=== PATIENT | male | born 1940 | race Caucasian/White ===

== ENCOUNTER 2023-09-15 10:31 | Outpatient (OUT) | payer MEDICARE, SELFPAY ==
--- NOTE | 2023-09-15 | XR_ITS ---
The [address] [address] Patient Name: ANALIA OLIVO MRN: [id number] date: 1940 Sex: M Assigned Patient Location: RAD Current Patient Location: [facility] Accession/Order Number: [id number] Exam Date: 09/15/2023 11:00 Report Date: 09/16/2023 21:37 At the request of: RILEY WILLARD Procedure: XR ankle LT min 3V EXAM: XR ankle LT min 3V HISTORY: The patient is an 83-year-old male with LEFT ANKLE PAIN COMPARISON: None. FINDINGS: The mortise view demonstrates a small ununited ossicle off the lateral process the talus. This is too small to characterize as to age. The lateral view demonstrates a small well-corticated ossicle just posterior to the posterior malleolus. This appears chronic. No other acute or ununited fractures are seen within or around the ankle joint. The ankle mortise is intact and uniform. The syndesmosis is maintained. No soft tissue swelling is seen. XR/XR ankle LT min 3V IMPRESSION: Fracture of the lateral process the talus, age indeterminate. Electronically authenticated by: AUSTYN LEE Date: 09/16/2023 21:37
--- NOTE | 2023-09-15 | XR_ITS ---
The [address] [address] Patient Name: ANALIA OLIVO MRN: [id number] date: 1940 Sex: M Assigned Patient Location: [facility] Current Patient Location: Accession/Order Number: [id number] Exam Date: 09/15/2023 11:00 Report Date: 09/16/2023 21:34 At the request of: RIELY WILLARD Procedure: XR foot LT min 3V EXAM: XR foot LT min 3V HISTORY: The patient is an 83-year-old male with LEFT FOOT PAIN COMPARISON: None. FINDINGS: No fractures or dislocations are seen throughout the left foot. 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 The widths and alignment of the other joints are maintained. There is a chronic pes planus deformity. XR/XR foot LT min 3V IMPRESSION: No radiographic findings of acute trauma of the left foot. Electronically authenticated by: AUSTYN LEE Date: 09/16/2023 21:34
== END 2023-09-15 10:32 | disposition home or self-care (01) ==
PROVIDERS: PCP Family Medicine; Visit Provider Podiatrist Foot & Ankle Surgery
DX: M79.672 Pain in left foot (principal); M25.572 Pain in left ankle and joints of left foot; S92.145A Nondisplaced dome fracture of left talus, initial encounter for closed fracture
CPT/HCPCS: 73610; 73630

== ENCOUNTER 2023-09-21 14:19 | Outpatient (RCR) | payer MEDICARE, SELFPAY | END 2023-10-03 09:00 | disposition home or self-care (01) | LOC: PT 14:19 | PROVIDERS: PCP Family Medicine; Visit Provider Podiatrist Foot & Ankle Surgery | DX: M19.072 Primary osteoarthritis, left ankle and foot (principal); M21.372 Foot drop, left foot | CPT/HCPCS: 97010; 97110; 97140; 97162; G0283 ==

== ENCOUNTER 2023-10-04 09:07 | Outpatient (RCR) | payer MEDICARE, SELFPAY | END 2023-10-15 10:51 | disposition home or self-care (01) | LOC: PT 09:07 | PROVIDERS: PCP Family Medicine; Visit Provider Podiatrist Foot & Ankle Surgery | DX: M19.072 Primary osteoarthritis, left ankle and foot (principal) | CPT/HCPCS: 97010; 97110; 97140; G0283 ==

== ENCOUNTER 2023-10-20 08:10 | Outpatient (OUT) | payer MEDICARE, SELFPAY ==
--- OUTSIDE RECORDS SUMMARY | 2023-10-20 08:32 | XMS_ITS | CCD ---
Author Name Unknown Address [address] [place] [address] Organization [facility] Care Team Providers Care Child Care Sitter Name Role Phone Klarissa Nance Primary Care Provider [phone] Klarissa Nance Primary Care Physician [phone] Klarissa Nance MD Primary Care Provider [phone] ROMY HUGHES Admitting Unavailable ROMY HUGHES Attending Unavailable KLARISSA NNACE Primary Care Unavailable DR KLARISSA NANCE Primary Care Unavailable BRAYAN LUNA Admitting Unavailable BRAYAN LUNA Attending Unavailable RICCARDO, DR LEANNE Buenrostro Consulting Unavailable NINOSKA GONZALES Consulting Unavailable BRAYAN LUNA Consulting Unavailable NAVYA BUSH Admitting Unavailable NAVYA BUSH Attending Unavailable LEE ANN, DR CYR Primary Care Unavailable NAVYA BUSH Consulting Unavailable RILEY WILD Consulting Unavailable David PEPPER Attending Unavailable David PEPPER Attending Unavailable David PEPPER Attending Unavailable David PEPPER Admitting Unavailable Allergies Allergy Classification Reported Allergen(s) Allergy Type Date of Onset Reaction(s) Facility (6 sources) Sulfonamides (Antibiotic); Translations: [sulfa drugs] Drug allergy Unknown (qualifier value) [facility] (1 source) Sulfonamides (Antibiotic) Propensity to adverse reactions to drug 2 [facility] (1 source) Sulfonamides (Antibiotic) Drug allergy (disorder) [facility] Repository Medications Current Medications Medication Drug Class(es) Dates Sig (Normalized) Sig (Original) amiodarone hydrochloride 200 mg oral tablet (6 sources) Antiarrhythmic Start: 03-13-2021 take 1 tablet by mouth once daily amiodarone Tab 200 mg = 1 tab(s), Oral, Daily, # 30 tab(s), Refills(s) 0 Start Date: 03/13/21 Status: Ordered apixaban 2.5 mg oral tablet (6 sources) Factor Xa Inhibitor Start: 01-22-2021 take 2.5 mg by mouth twice daily Eliquis 2.5 mg, Oral, BID, Refills(s) 0 Start Date: 01/22/21 Status: Ordered aspirin 81 mg oral tablet (5 sources) Platelet Aggregation Inhibitor, Nonsteroidal Anti-inflammatory Drug Start: 05-26-2019 take 1 tablet by mouth once daily aspirin 81 mg oral tablet 81 mg = 1 tab(s), Oral, Daily Start Date: 05/26/19 Status: Ordered atorvastatin 40 mg oral tablet (6 sources) HMG-CoA Reductase Inhibitor Start: 03-13-2021 take 1 tablet by mouth once daily atorvastatin 40 mg Tab 40 mg = 1 tab(s), Oral, Daily, # 30 tab(s), Refills(s) 0 Start Date: 03/13/21 Status: Ordered bicalutamide 50 mg oral tablet (7 sources) Androgen Receptor Inhibitor Start: 04-09-2023 take 1 tablet by mouth every twenty-four hours bicalutamide 50 mg Tab 50 mg = 1 tab(s), Oral, q24hr, # 90 tab(s), Refills(s) 3, [facility]: [facility][id number], 169, cm, 07/15/22 7:43:00 EDT, Height/Length Dosing, 70, kg, 07/15/22 7:43:00 EDT, Weight Dosing Start Date: 04/09/23 Status: Ordered Start: 01-28-2022 take 1 tablet by joe th every twenty-four hours bicalutamide 50 mg Tab 50 mg = 1 tab(s), Oral, q24hr, # 90 tab(s), Refills(s) 3, [facility]acy: [facility], 169, cm, 01/21/22 7:46:00 EDT, Height/Length Dosing, 70, kg, 01/21/22 7:46:00 EDT, Weight Dosing Start Date: 01/28/22 Status: Ordered Start: 01-08-2021 take 1 tablet by joe th every twenty-four hours bicalutamide 50 mg Tab 50 mg = 1 tab(s), Oral, q24hr, # 30 tab(s), Refills(s) 0 Start Date: 03/13/21 Status: Ordered take 1 tablet by mouth once rafat y bicalutamide (CASODEX) 50 MG chemo tablet Take 50 mg by mouth daily 0 Active Docusate / sennoside B (1 source) Start: 03-13-2021 docusate-senna 50 mg-8.6 mg oral capsule cap(s), Oral, qPM, Refill(s) 0 Start Date: 03/13/21 Status: Ordered docusate sodium 50 mg / sennosides, fdc 8.6 mg oral capsule (4 sources) Start: 03-13-2021 docusate-senna 50 mg-8.6 mg oral capsule cap(s), Oral, qPM, Refill(s) 0 Start Date: 03/13/21 Status: Ordered FeroSul 325 mg oral tablet (5 sources) Start: 03-13-2021 take 1 tablet by mouth twice daily FeroSul 325 mg oral tablet take 1 tablet by mouth twice a day Start Date: 03/13/21 Status: Ordered furosemide 40 mg oral tablet (5 sources) Loop Diuretic Start: 03-13-2021 take 1 tablet by mouth once daily furosemide 40 mg Tab 40 mg = 1 tab(s), Oral, Daily, # 30 tab(s), Refills(s) 0 Start Date: 03/13/21 Status: Ordered hydroCHLOROthiazide 25 mg oral tablet (5 sources) Thiazide Diuretic Start: 03-13-2021 take 1 tablet by mouth once daily hydrochlorothiazide 25 mg oral tablet 25 mg = 1 tab(s), Oral, Daily, # 30 tab(s), Refills(s) 0 Start Date: 03/13/21 Status: Ordered hydroCHLOROthiazide 25 mg / metoprolol tartrate 50 mg oral tablet (5 sources) Thiazide Diuretic, beta-Adrenerg ic Nazia Start: 03-13-2021 hydrochlorothiazide-met oprolol 25 mg-50 mg oral tablet 1 tab(s), Oral, BID, 60 tab(s), Refill(s) 0 Start Date: 03/13/21 Status: Ordered Lactulose (5 sources) Osmotic Laxative Start: 03-13-2021 Lactulose 20 g Powder = 1 packet(s), Oral, BID, # 20 gram, Refills(s) 0 Start Date: 03/13/21 Status: Ordered Start: 03-13-2021 Lactulose 20 g Powder = 1 packet(s), Oral, BID, # 20 gram, Refills(s) 0 Start Date: 03/13/21 Status: Ordered megestrol acetate 40 mg oral tablet (5 sources) Progestin Start: 03-13-2021 take 1 tablet by mouth once daily megestrol 40 mg Tab TAKE 1 TABLET BY MOUTH ONCE DAILY Start Date: 03/13/21 Status: Ordered mupirocin 0.02 mg/mg topical ointment (5 sources) RNA Synthetase Inhibitor Antibacterial Start: 03-13-2021 mupirocin Top 2% Oint apply to affected area twice a day Start Date: 03/13/21 Status: Ordered Start: 03-13-2021 mupirocin Top 2% Oint apply to affected area twice a day Start Date: 03/13/21 Status: Ordered phenylephrine hydrochloride 25 mg/ml ophthalmic solution (1 source) alpha-1 Adrenergic Agonist Start: 08-10-2022 phenylephrine (MYDFRIN) 2.5 % ophthalmic solution 1 drop Miralax (5 sources) Osmotic Laxative Start: 03-13-2021 take 1 g by mouth once daily MiraLax gm, Oral, Daily, Refill(s) 0 Start Date: 03/13/21 Status: Ordered proparacaine hydrochloride 5 mg/ml ophthalmic solution (1 source) Local Anesthetic Start: 08-10-2022 proparacaine (ALCAINE) 0.5 % ophthalmic solution 1 drop 5 ml sodium chloride 9 mg/ml injection (7 sources) Start: 08-10-2022 take 1 dose intravenously twice daily 5-40 mL, IntraVENous, EVERY 12 HOURS SCHEDULED (2 times per day), First dose on Wed08/10/22 at 2100, Until Discontinued For Line Patency: Peripheral IV = 5 mL; Midline or Central Line = 10 mL/lumen.&nbsp ; If following IV push medication, administer flush at same rate as the IV push. Flush volume is determined by type of infusion therapy being given. For non-viscous solutions use: Peripher al IV = 5 mL Midline or Central Line = 10 mL/lumen &nbs p;For viscous solutions (i.e. blood components, parenteral nutrition, contrast media, or after obtaining blood sample) use: Peripher al IV = 10 mL Midline or Central Line = 20 mL/lumen Post-op Start: 08-10-2022 sodium chlorid e flush 0.9 % injection 5-40 mL Start: 08-10-2022 IntraVENous, a t 5-250 mL/hr, PRN, if patient receiving piggyback infusions and maintenance fluids are not ordered OR KVO fluids to protect IV site / prevent frequent line interruptions/ long duration, Starting on Wed08/10/22 at 1534 For piggyback infusion, administer at same rate as piggyback for a total of 25 mL. Enter 25 mL into dose field and piggyback rate into rate field of order. If piggyback is infusing at a rate less than 100 mL/hr, enter 25 mL into dose field and 100 mL/hr into rate field of order. For KVO fluids, enter rate of 20 mL/hr or less into rate field of order. Post-op Start: 08-10-2022 take 5-40 mL intrave nously once as needed 5-40 mL, IntraVENous, PRN, Starting on Wed08/10/22 at 1534, Until Discontinued, Line Care, After every IV line use For Line Patency: Peripheral IV = 5 mL; Midline or Central Line = 10 mL/lumen. If following IV push medication, administer flush at same rate as the IV push. Flush volume is determined by type of infusion therapy being given. For non-viscous solutions use: Peripheral IV = 5 mL Midline or Central Line = 10 mL/lumen For viscous solutions (i.e. blood components, parenteral nutrition, contrast media, or after obtaining blood sample) use: Peripheral IV = 10 mL Midline or Central Line = 20 mL/lumen Post-op Start: 08-10-2022 0.9 % sodium c hloride infusion Start: 08-10-2022 sodium chlorid e flush 0.9 % injection 5-40 mL tamsulosin hydrochloride 0.4 mg oral capsule (6 sources) alpha-Adrenergic Nazia Start: 12-31-2022 take 1 capsule by mouth once daily Flomax 0.4 mg Cap 0.4 mg = 1 cap(s), Oral, Daily, # 90 cap(s), Refills(s) 3, Pharmacy: [facility] #[id number], 169, cm, 07/15/22 7:43:00 EDT, Height/Length Dosing, 70, kg, 07/15/22 7:43:00 EDT, Weight Dosing Start Date: 12/31/22 Status: Ordered Start: 10-29-2021 take 1 capsule by [facility] once daily Flomax 0.4 mg Cap 0.4 mg = 1 cap(s), Oral, Daily, # 90 cap(s), Refills(s) 3, Pharmacy: [facility]-[address], 169, cm, 10/29/21 7:50:00 EST, Height/Length Dosing, 70, kg, 10/29/21 7:50:00 EST, Weight Dosing Start Date: 10/29/21 Status: Ordered tetracaine hydrochloride 5 mg/ml ophthalmic solution (1 source) Analia Local Anesthetic Start: 08-10-2022 tetraca ine (TETRAVISC) 0.5 % ophthalmic solution 1 drop tropicamide 10 mg/ml ophthalmic solution (1 source) Anticholinergic Start: 08-10-2022 tropicamide (MYDRIACYL) 1 % ophthalmic solution 1 drop Vitamin D (5 sources) Start: 05-26-2019 Vitamin D 1,20 0 International_Unit, Oral Start Date: 05/26/19 Status: Ordered Completed/Discontinued Medications Medication Drug Class(es) Dates Sig (Normalized) Sig (Original) cephalexin 500 mg oral capsule (5 sources) Cephalosporin Antibacterial Start: 07-13-2023 take 1 tablet by mouth once daily Keflex 500 mg Cap 500 mg = 1 cap(s), Oral, Daily, Take 1 tablet the day before the procedure and 1 tablet after the procedure, # 2 cap(s), Refills(s) 0, Pharmacy: [facility] #[id number], 169, cm, 07/15/22 7:43:00 EDT, Height/Length Dosing, 70, kg, 07/15/22 7:43:00 EDT, Weight Dosing Start Date: 07/13/23 Status: Ordered Start: 07-14-2022 take 1 tablet by joe th once daily Keflex 500 mg Cap 500 mg = 1 cap(s), Oral, Daily, Take 1 tablet the day before the procedure and 1 tablet after the procedure, # 2 cap(s), Refills(s) 0, Pharmacy: [facility] #[id number], 169, cm, 01/21/22 7:46:00 EDT, Height/Length Dosing, 70, kg, 01/21/22 7:46:00 EDT, Weight... Start Date: 07/14/22 Status: Ordered Start: 10-29-2021 take 1 tablet by joe th once daily Keflex 500 mg Cap 500 mg = 1 cap(s), Oral, Daily, Take 1 tablet the day before the procedure and 1 tablet after the procedure, # 2 cap(s), Refills(s) 0, Pharmacy: [facility], 169, cm, 10/29/21 7:50:00 EST, Height/Length Dosing, 70, kg, 10/29/21 7:50:00 ES... Start Date: 10/29/21 Status: Ordered 1 ml hydrALAZINE hydrochloride 20 mg/ml injection (1 source) Arteriolar Vasodilator Start: 08-10-2022 End: 08-10-2022 hydrALAZINE (APRESOLINE) injection 5 mg Start: 08-10-2022 End: 08-10-2022 hydrALAZINE (APRESOLINE) inj ection 5 mg Problems Problem Classification Problem Date Documented Date Episodic/Chronic Acute and unspecified renal failure (5 sources) Ojtuh-og-etqavhb renal failure 03-12-2021 Episodic Aortic; peripheral; and visceral artery aneurysms (5 sources) Aortic aneurysm 03-12-2021 Chronic Cancer of bladder (5 sources) Malignant neoplasm of posterior wall of urinary bladder 04-19-2020 Chronic Cancer of bladder (3 sources) History of malignant neoplasm of bladder; Translations: [Personal history of malignant neoplasm of bladder] Onset: 01-21-2022 Episodic Cancer of prostate (5 sources) Malignant tumor of prostate 05-25-2019 Chronic Cancer of prostate (8 sources) Personal history of malignant neoplasm of prostate; Translations: [History of malignant neoplasm of prostate] Onset: 01-21-2022 Episodic Cancer; other and unspecified primary (5 sources) H/O: malignant neoplasm 10-30-2020 Episodic Cancer; other and unspecified primary (5 sources) History of bladder neoplasm 05-26-2019 Episodic Cardiac dysrhythmias (5 sources) Atrial fibrillation 03-12-2021 Chronic Cataract (4 sources) Age-related nuclear cataract of left eye; Translations: [Age-related nuclear cataract, left eye] Onset: 08-09-2022 Resolved: 08-10-2022 Chronic Disorders of lipid metabolism (10 sources) Hyperlipidemia 05-25-2019 Chronic E Codes: Other specified and classifiable (1 source) Caught, crushed, jammed, or pinched between moving objects, initial encounter; Translations: [CAUGHT CRUSH/PINCH BTWN MOV OBJ INT] Onset: 11-16-2022 Episodic Essential hypertension (5 sources) Hypertensive disorder 03-12-2021 Chronic Genitourinary symptoms and ill-defined conditions (10 sources) Increased frequency of urination; Translations: [Microscopic hematuria] 05-25-2019 Episodic Hyperplasia of prostate (9 sources) Benign prostatic hypertrophy with outflow obstruction; Translations: [Benign prostatic hyperplasia with lower urinary tract symptoms] Onset: 01-21-2022 Chronic Joint disorders and dislocations; trauma-related (2 sources) Dislocation of proximal interphalangeal joint of left middle finger, initial encounter; Translations: [DISLOC PROX IP JNT LT MID FNGR INIT] Onset: 11-16-2022 Episodic Neoplasms of unspecified nature or uncertain behavior (5 sources) Neoplasm of uncertain behavior of skin of chest 03-13-2021 Episodic Osteoarthritis (5 sources) Osteoarthritis 03-12-2021 Chronic Other aftercare (1 source) intermediate designer (current) use of aspirin; Translations: [ANTHROPOLOGY DEPARTMENT CHAIR CURRENT USE OF ASPIRIN] Onset: 11-16-2022 Episodic Other aftercare (1 source) Other intermediate designer (current) drug therapy; Translations: [OTH ANTHROPOLOGY DEPARTMENT CHAIR CURRENT DRUG THERAPY] Onset: 11-16-2022 Episodic Other connective tissue disease (3 sources) Pain in left finger(s); Translations: [PAIN IN LEFT FINGERS] Onset: 11-13-2022 Episodic Other connective tissue disease (5 sources) Pain in left hand; Translations: [PAIN IN LEFT HAND] Onset: 11-13-2022 Episodic Other diseases of kidney and ureters (1 source) Urinary tract obstruction; Translations: [Other obstructive and reflux uropathy] Onset: 08-17-2023 Episodic Other screening for suspected conditions (not mental disorders or infectious disease) (5 sources) Raised prostate specific antigen 05-26-2019 Episodic Other skin disorders (5 sources) Actinic keratosis 03-12-2021 Episodic Other skin disorders (5 sources) Mass of skin 03-13-2021 Episodic Other skin disorders (5 sources) Skin tag 03-13-2021 Episodic Screening and history of mental health and substance abuse codes (5 sources) Ex-smoker 05-25-2019 Episodic Unclassified (5 sources) Body mass index 20-24 - normal 03-13-2021 Unclassified (5 sources) Drug therapy finding 03-12-2021 Unclassified (5 sources) Seborrheic keratosis 03-12-2021 Results Test Name Value Interpretation Reference Range Facility [facility] Urine Cyt [facility] ([facility])on 08-25-2023 [facility] & UC Diagnosis Info Invalid Interpretation Code [facility] Comment on above: Result Comment: A:Ur ine,Bladder Wash:Bladder Wash Diagnosis Summary - No evidence of high grade urothelial carcinoma identified. Adequate cellularity for evaluation. Diagnosis Summary - The [facility] FISH study detected normal copy numbers for chromosomes 3, 7, 17, and 9p21. 129 cells were analyzed in this evaluation. No evidence of aneuploidy for chromosomes 3, 7, or 17 or deletion of the 9p21 locus was found in cells present in this specimen. This test does not rule out the possibility of a low grade non-invasive papillary urothelial carcinoma. These findings should be correlated with cytology and cystoscopy results.* CPT 97486, 87600. Microscopic Notes - Microscopic Notes - Abnormal cells 9p21 deletions: Abnormal cells aneploid events: Total cells analyzed: 129 Hematuria: Gross Description Site ID:A color Yellow fixative Alcohol Received 90 mls of clear yellow fluid with the patient's name and, Bladder Wash on the vial. Electronically signed by : on: 08/25/2023 09:03:30 Performed By: #### 1 [id number] #### [facility] [address] [place] [address] Consent for Procedure/Surger yon 08-18-2023 Consent for Procedure/Surgery [id number] TIFF Jensen Garcia [facility] Ambulatory Visit Summaryon 1 10-17-2022 Ambulatory Visit Summary ANALIA OLIVO :1940 Visit Date:08/17/2023 Ambulatory Visit Instructions Your Diagnosis Hx of bladder cancer BPH with urinary obstruction History of prostate cancer Other obstructive and reflux uropathy Your Care Team Attending Physician - SHANTELLE OLGUIN, David Buenrostro Primary Care Physician - Lee Ann OLGUIN, Klarissa This Is Your Medications List bicalutamide (bicalutamide 50 mg Tab) cephalexin (Keflex 500 mg Cap) tamsulosin (Flomax 0.4 mg Cap) Contact prescribing physician if questions or concerns amiodarone (amiodarone Tab) apixaban (Eliquis) aspirin (aspirin 81 mg oral tablet) atorvastatin (atorvastatin 40 mg Tab) docusate-senna (docusate-senna 50 mg-8.6 mg oral capsule) ergocalciferol (Vitamin D) ferrous sulfate (FeroSul 325 mg oral tablet) furosemide (furosemide 40 mg Tab) hydrochlorothiazide (hydrochlorothiazide 25 mg oral tablet) hydrochlorothiazide-met oprolol (hydrochlorothiazide-me toprolol 25 mg-50 mg oral tablet) lactulose (Lactulose 20 g Powder) megestrol (megestrol 40 mg Tab) mupirocin topical (mupirocin Top 2% Oint) polyethylene glycol 3350 (MiraLax) Procedures Performed Cystoscopy (08/17/2023), Cystoscopy (07/15/2022), Cystoscopy (01/21/2022), Cystoscopy (10/29/2021), Cystoscopy (07/30/2021), Cystoscopy (04/30/2021), Cystoscopy (01/22/2021), Cystoscopy (10/30/2020), Cystoscopy (07/30/2020), Aortic aneurysm repair (04/22/2020), Exploration of abdomen (04/22/2020), CT guided biopsy of left rib (04/19/2020), Excision of aortic arch (04/19/2020), TURBT - Transurethral resection of bladder tumor (04/11/2020), Cystoscope (03/19/2020), Cystoscopy (01/17/2019), Cystoscopy (01/04/2018), Cystoscopy and transurethral resection of bladder tumour (08/16/2008), Cystoscopy and transurethral resection of bladder tumour (05/17/2008), Transrectal biopsy of prostate using ultrasound (US) guidance (06/02/2006), Transrectal biopsy of prostate using ultrasound (US) guidance (04/13/2006), Brachytherapy (2005), Hydrocelectomy. Discharge Vitals Blood Pressure 128/84 Weight 63.9 kg Weight 140.58 lb What to do next You Need to Schedule the Following Appointments Follow Up with SHANTELLE OLGUIN, ALF Cardona When: In 1 year Comments: w/cysto/FISH/Cytology, bt ck Where: [facility] [address], [place] [address]- Medications What How Much When Instructions Unchanged bicalutamide (bicalutamide 50 mg Tab) 1 Tablets By Mouth Every 24 hours Unchanged cephalexin (Keflex 500 mg Cap) 1 Capsules By Mouth Every day Take 1 tablet the day before the procedure and 1 tablet after the procedure Unchanged tamsulosin (Flomax 0.4 mg Cap) 1 Capsules By Mouth Every day Unchanged amiodarone (amiodarone Tab) 1 Tablets By Mouth Every day Contact prescribing physician if questions or concerns Unchanged apixaban (Eliquis) 2.5 Milligram By Mouth 2 times a day Contact prescribing physician if questions or concerns Unchanged aspirin (aspirin 81 mg oral tablet) 1 Tablets By Mouth Every day Contact prescribing physician if questions or concerns Unchanged atorvastatin (atorvastatin 40 mg Tab) 1 Tablets By Mouth Every day Contact prescribing physician if questions or concerns Unchanged docusate-senna (docusate-senna 50 mg-8.6 mg oral capsule) By Mouth Once a day (in the evening) Contact prescribing physician if questions or concerns Unchanged ergocalciferol (Vitamin D) 1,200 International unit By Mouth Contact prescribing physician if questions or concerns Unchanged ferrous sulfate (FeroSul 325 mg oral tablet) take 1 tablet by mouth twice a day Contact prescribing physician if questions or concerns Unchanged furosemide (furosemide 40 mg Tab) 1 Tablets By Mouth Every day Contact prescribing physician if questions or concerns Unchanged hydrochlorothiazide (hydrochlorothiazide 25 mg oral tablet) 1 Tablets By Mouth Every day Contact prescribing physician if questions or concerns Unchanged hydrochlorothiazide-met oprolol (hydrochlorothiazide-me toprolol 25 mg-50 mg oral tablet) 1 Tablets By Mouth 2 times a day Contact prescribing physician if questions or concerns Unchanged lactulose (Lactulose 20 g Powder) 1 Packets By Mouth 2 times a day Contact prescribing physician if questions or concerns Unchanged megestrol (megestrol 40 mg Tab) TAKE 1 TABLET BY MOUTH ONCE DAILY Contact prescribing physician if questions or concerns Unchanged mupirocin topical (mupirocin Top 2% Oint) apply to affected area twice a day Contact prescribing physician if questions or concerns Unchanged polyethylene glycol 3350 (MiraLax) By Mouth Every day Contact prescribing physician if questions or concerns Allergies sulfa drugs (Unknown) Problems Ongoing - Any problem that you are currently receiving treatment for. [id number] kidney injury AK (actinic keratosis) Androgen deprivation therapy Aortic aneurysm Atrial fibrillation Bladder cancer BMI 22.0-22.9, adult BPH with urinary obstruc (more content not included)... Normal [facility] ([facility])on 08-17-2023 [facility] Method of Extraction Bladder Wash Normal [facility] Comment on above: Performed By: #### 1 [id number] #### [facility] [address] [place] [address] [facility] Number of Jars 1 Invalid Interpretation Code [facility] Comment on above: Performed By: #### 1 [id number] #### [facility] [address] [id number] [facility] Specimen Bladder Wash Normal [facility] Comment on above: Performed By: #### 1 [id number] #### [facility] [address] [place] [address] [facility] Type of Service Technical Only Normal [facility] Comment on above: Performed By: #### 1 [id number] #### [facility] [address] [id number] Urology Office/Clinic Noteon 08-17-2023 Urology Office/Clinic Note Chief Complaint Cysto HPI Staff Cysto ABX TAKEN, Fish/cytol History of Present Illness Tests reviewed: none. I have reviewed the previous health record information and history for this patient from . I have reviewed and verified the staff HPI to be accurate for this encounter. There have been no associated fever, chills, flank pain, or blood in the urine. Denies any urinary infections since last encounter. Review of Systems PHQ Score Initial Depression Screen Score: 0 SCORE ROS - Provider Constitutional: denies weight loss, denies hot flashes. Eyes: denies eye problems. Gastrointestinal: denies nausea, denies vomiting. Cardiovascular: denies chest pain or angina. Integumentary: no dryness Musculoskeletal: denies musculoskeletal symptoms. ENMT: denies otolaryngeal symptoms. Respiratory: no shortness of breath. Heme/Lymph: denies easy bleeding tendency, denies easy bruising tendency. Psychiatric: no confusion, no anxiety. Genitourinary: See HPI. Physical Exam Vitals & Measurements BP: 128/84 WT: 63.9 kg WT: 140.58 lb General Appearance: alert, no distress, well nourished, well developed male. Procedure Operative Information Anesthesia Type: Local Procedure: Local Cystoscopy Complications: None Surgical risks, benefits, details of the procedure have been explained to the patient. Full informed consent has been obtained. Intraoperative Information Prepped: Patient is brought back to the endoscopy suite. Patient is placed in supine position. Patient prepped in the usual fashion with Betadine solution. 2% Xylocaine Jelly is placed per Urethra. After waiting several minutes, the Cystoscope is introduced. The Urethra is: Normal The Prostatic Urethra is: _bilobar hypertrophy The Bladder: Abnormal, Trabeculated: Severe (3)diverticulla diffusely no tumors, no stones The Ureteral orifices: Show efflux of clear urine Specimens Removed: Bladder wash sent for FISH and Cytology test Removal: Cystoscope is removed. The patient tolerated it well. Postoperative Information Patient is discharged home with antibiotic coverage. Follow up arranged. Assessment/Plan 1. 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 UA sent for FISH/Cytol. Follow up in 1 yr w/cysto/FISH/Cystology. All questions/concerns were discussed. Pt to call the office if he encounters any issues prior. Pt acknowledges understanding. 2. BPH with urinary obstruction (N40.1: Benign prostatic hyperplasia with lower urinary tract symptoms) Continue Flomax 0.4mg qd 3. History of prostate cancer (Z85.46: Personal history of malignant neoplasm of prostate) S/p Brachytherapy 2005 Last PSA drawn in 04/2021 - <0.05. Continue Casodex 50mg Follow-up With When Contact Information SHANTELLE OLGUIN, David Buenrostro, URL In 1 year [facility] [address], [place] [address]- Additional Instructions: w/cysto/FISH/Cytology, bt ck Patient Education I, Tere Servin , personally scribed for Dr. Pepper on 08/17/2023 14:14:11. . Portions of this record may have been created with voice recognition artificial intelligence software, specifically [employer], [employer] and or [employer]. Substitutions may have occurred due to the inherent limitations of voice recognition and artificial intelligence software. Documentation recorded by the scribe, Tere Servin, accurately reflects the services(s) I performed and decisions made by me. 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 Osteoarthritis Prostate cancer Rising PSA following treatment for malignant neoplasm of prostate Seborrheic keratosis Urinary frequency Verrucous skin lesion Historical Hyperlipidemia Procedure/Surgical History Cystoscopy (08/17/2023), Cystoscopy (07/15/2022), Cystoscopy (01/21/2022), Cystoscopy (10/29/2021), Cystoscopy (07/30/2021), Cystoscopy (04/30/2021), Cystoscopy (01/22/2021), Cystoscopy (10/30/2020), Cystoscopy (07/30/2020), Aortic aneurysm repair (04/22/2020), Exploration of abdomen (04/22/2020), CT guided biopsy of left rib (04/19/2020), Excision of aortic arch (04/19/2020), TURBT - Transurethral resecti (more content not included)... [facility] Comment on above: Result Comment: Elec tronically Signed By: David PEPPER MD\.br\Date and Time Signed: 08/17/23 14:15 EST\.br\Electronically Co-Signed By: Tere Servin\.br\Date and Time Co-Signed: 08/17/23 14:14 EST Reminderson 07-13-2023 Reminders - From: Renee Kim To: EU - Recalls Shantelle; Cc: Renee Kim; Sent: 07/13/2023 11:17:32 EDT Show up: 07/04/2024 11:17:00 EDT Subject: cysto/fish/cytol Due Date/Time: 07/24/2024 11:17:00 EDT Reminder/Recall Patient is due in Aug 2024 for 1 year cysto/fish/cytol (bt ck) [facility] Ambulatory Visit Summaryon 0 06-14-2023 Ambulatory Visit Summary ANALIA OLIVO :1940 Visit Date:06/14/2023 Ambulatory Visit Instructions Your Diagnosis BPH with urinary obstruction Tests Performed Urnls Dip Stick Auto w/o Microscopy POC 46275 Your Care Team Attending Physician - David PEPPER MD Primary Care Physician - Klarissa Nance MD This Is Your Medications List amiodarone (amiodarone Tab) apixaban (Eliquis) aspirin (aspirin 81 mg oral tablet) atorvastatin (atorvastatin 40 mg Tab) bicalutamide (bicalutamide 50 mg Tab) cephalexin (Keflex 500 mg Cap) docusate-senna (docusate-senna 50 mg-8.6 mg oral capsule) ergocalciferol (Vitamin D) ferrous sulfate (FeroSul 325 mg oral tablet) furosemide (furosemide 40 mg Tab) hydrochlorothiazide (hydrochlorothiazide 25 mg oral tablet) hydrochlorothiazide-met oprolol (hydrochlorothiazide-me toprolol 25 mg-50 mg oral tablet) lactulose (Lactulose 20 g Powder) megestrol (megestrol 40 mg Tab) mupirocin topical (mupirocin Top 2% Oint) polyethylene glycol 3350 (MiraLax) tamsulosin (Flomax 0.4 mg Cap) Procedures Performed Cystoscopy (07/15/2022), Cystoscopy (01/21/2022), Cystoscopy (10/29/2021), Cystoscopy (07/30/2021), Cystoscopy (04/30/2021), Cystoscopy (01/22/2021), Cystoscopy (10/30/2020), Cystoscopy (07/30/2020), Aortic aneurysm repair (04/22/2020), Exploration of abdomen (04/22/2020), CT guided biopsy of left rib (04/19/2020), Excision of aortic arch (04/19/2020), TURBT - Transurethral resection of bladder tumor (04/11/2020), Cystoscope (03/19/2020), Cystoscopy (01/17/2019), Cystoscopy (01/04/2018), Cystoscopy and transurethral resection of bladder tumour (08/16/2008), Cystoscopy and transurethral resection of bladder tumour (05/17/2008), Transrectal biopsy of prostate using ultrasound (US) guidance (06/02/2006), Transrectal biopsy of prostate using ultrasound (US) guidance (04/13/2006), Brachytherapy (2005), Hydrocelectomy. Medications What How Much When Instructions Unchanged amiodarone (amiodarone Tab) 1 Tablets By Mouth Every day Unchanged apixaban (Eliquis) 2.5 Milligram By Mouth 2 times a day Unchanged aspirin (aspirin 81 mg oral tablet) 1 Tablets By Mouth Every day Unchanged atorvastatin (atorvastatin 40 mg Tab) 1 Tablets By Mouth Every day Unchanged bicalutamide (bicalutamide 50 mg Tab) 1 Tablets By Mouth Every 24 hours Unchanged cephalexin (Keflex 500 mg Cap) 1 Capsules By Mouth Every day Take 1 tablet the day before the procedure and 1 tablet after the procedure Unchanged docusate-senna (docusate-senna 50 mg-8.6 mg oral capsule) By Mouth Once a day (in the evening) Unchanged ergocalciferol (Vitamin D) 1,200 International unit By Mouth Unchanged ferrous sulfate (FeroSul 325 mg oral tablet) take 1 tablet by mouth twice a day Unchanged furosemide (furosemide 40 mg Tab) 1 Tablets By Mouth Every day Unchanged hydrochlorothiazide (hydrochlorothiazide 25 mg oral tablet) 1 Tablets By Mouth Every day Unchanged hydrochlorothiazide-met oprolol (hydrochlorothiazide-me toprolol 25 mg-50 mg oral tablet) 1 Tablets By Mouth 2 times a day Unchanged lactulose (Lactulose 20 g Powder) 1 Packets By Mouth 2 times a day Unchanged megestrol (megestrol 40 mg Tab) TAKE 1 TABLET BY MOUTH ONCE DAILY Unchanged mupirocin topical (mupirocin Top 2% Oint) apply to affected area twice a day Unchanged polyethylene glycol 3350 (MiraLax) By Mouth Every day Unchanged tamsulosin (Flomax 0.4 mg Cap) 1 Capsules By Mouth Every day Test Results Urnls Dip Stick Auto w/o Microscopy POC 83521 (06/14/2023) Bilirubin Urine Dipstick - Negative Blood Urine Dipstick - Negative Glucose Urine Dipstick - Negative Ketones Urine Dipstick - Negative Leukocytes Urine Dipstick - Negative Nitrite Urine Dipstick - Negative Protein Urine Dipstick - Negative Specific Liebenthal Urine Dipstick - 1.015 Urine Appearance Urine Dipstick - Clear Urine Color Urine Dipstick - Yellow Urobilinogen Urine Dipstick - Normal 0.2-1 EU/dl pH Urine Dipstick - 5.5 Allergies sulfa drugs (Unknown) Problems Ongoing - Any problem that you are currently receiving treatment for. 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 Hyperlipidemia Normal [facility] XR HAND LT MIN 3Von 11-13-19 23 XR HAND LT MIN 3V EXAM: XR HAND LT MIN 3V HISTORY: Pain of left hand after falling down last night. COMPARISON: None. TECHNIQUE: 4 views of the left hand were obtained. FINDINGS: There is dislocation at the proximal interphalangeal joint of the third digit. The base of the middle phalanx is displaced dorsally and ulnarly, with overriding of the head of the proximal phalanx approximately 5 mm. No definite fracture fragment is identified. Diffuse soft tissue swelling of the digit is noted. There is no evidence of a fracture and the remainder of the hand. Degenerative changes are seen diffusely throughout the joint spaces of the wrist and hand, with joint space narrowing and osteophytes throughout. Diffuse osteopenia is also noted. There is a small metallic foreign body along the palmar aspect of the hand in the hyperthenar region. IMPRESSION: There is dislocation of the middle phalanx at the proximal interphalangeal joint of the third digit, with dorsal and ulnar displacement of the middle phalanx and overriding of the head of the proximal phalanx. A definite fracture fragment is not identified. Significant degenerative changes are seen diffusely throughout the hand, there is no other evidence of a fracture or dislocation. Diffuse osteopenia is noted. A small metallic foreign bodies present. Direct comparison with a previous study may be helpful in determining the chronicity of these findings per Electronically authenticated by: RILEY WILD Date: 2022-11-13 12:22 Normal [facility] Bladder Cancer [facility] 2021 Specimen Type: Normal [facility] Comment on above: Result Comment: See report. Scanned copy available in EMR. PERFORMED BY: [facility] [address] [place] [address] PATHOLOGIST PILE HEADER AARON HERNÁNDEZ M.D. Performed By: #### F NATE BLADD #### [facility] , [facility] 10-29-2021 L --- Specimen: [id number] Received: 10/30/21 Status: AMBAR Zapien Num: [id number] Spec Type: Cytology Subm Dr: David Pepper MD Tissues: A URINECYTO (URINE) Procedures: Pap Stain, Cyto Prepstain Patient Age/Sex Location Account Attending Physician Analia Olivo 81/M [place] [id number] David Pepper MD SPEC NUM: [id number] RECD: 10/30/21 STATUS: AMBAR RUPALI NUM: [id number] DAYAMI: 10/29/[address] [facility] [address]: David Pepper MD ENTERED: 10/30/[address]: SPEC TYPE: Cytology DEPT: EVAN ENTERED BY: [id number] RECV BY: [id number] ORDERED: Pap Stain, Cyto Prepstain ORDERED: Pap Stain, Cyto Prepstain Pathological Diagnosis Urine, ThinPrep cytology: - No evidence of malignancy identified. - Specimen consists of few benign urothelial cells. Clinical Information History of bladder cancer Gross Description Received is 30ml yellow clear unfixed fluid said to have been obtained as urine. ThinPrep is prepared for microscopic examination.(FABIÁN/elbert) Microscopic Description One Papanicolaou stained ThinPrep slide has been examined. The microscopic findings support the above diagnosis. CPT Codes 90779 Specimen: [id number] Received: 10/30/21 Status: AMBAR Rupali Num: [id number] Spec Type: Cytology Subm Dr: David Pepper MD Tissues: A URINECYTO (URINE) Procedures: Pap Stain, Cyto Prepstain Patient: Analia Olivo [id number] (Continued) Signed (signature on file) Ulysses Sims MD 10/31/21 1127 [facility] Bladder Cancer FISHon 2020 Specimen Type: [facility] Comment on above: Result Comment: See report. Scanned copy available in EMR. PERFORMED BY: [facility] [place] [address] PATHOLOGIST PILE HEADER AARON HERNÁNDEZ M.D. Performed By: #### F NATE BLADD #### [facility] , [place] 07-30-2021 L --- Specimen: [id number] Received: 07/30/21 Status: AMBAR Rupali Num: [id number] Spec Type: Cytology Subm Dr: David Pepper MD Tissues: A URINECYTO (URINE) Procedures: Pap Stain, Cyto Prepstain Patient Age/Sex Location Account Attending Physician Analia Olivo 81/M [place] [id number] David Pepper MD SPEC NUM: [id number] RECD: 07/30/21 STATUS: AMBAR ZAPIEN NUM: [id number] DAYAMI: 07/30/21 DR: David Pepper MD ENTERED: 07/30/[address] [facility] [address]: SPEC TYPE: Cytology DEPT: CNG ENTERED BY: [id number] RECV BY: [id number] ORDERED: Pap Stain, Cyto Prepstain ORDERED: Pap Stain, Cyto Prepstain Pathological Diagnosis Voided urine: - Satisfactory for evaluation - Negative for high-grade urothelial carcinoma - Many individual and small clusters of benign/reactive urothelial cells present Clinical Information History of bladder cancer Gross Description Received is 50ml pale yellow clear watery unfixed fluid said to have been obtained as urine. ThinPrep is prepared for microscopic examination.(AKASH/elbert) Microscopic Description One Papanicolaou stained ThinPrep slide has been examined. The microscopic findings support the above pathologic diagnosis. [id number] Specimen: [id number] Received: 07/30/21 Status: AMBAR Zapien Num: [id number] Spec Type: Cytology Subm Dr: David Pepper MD Tissues: A URINECYTO (URINE) Procedures: Pap Stain, Cyto Prepstain Patient: Analia Olivo [id number] (Continued) Signed (signature on file) Aaron Hernández MD 08/01/21 1733 [facility] Brain Natriuretic Peptideon 05-23-2020 Natriuretic peptide B (Bld) [Mass/Vol] 1483 pg/mL High <300 [facility] [place] Comment on above: Pro-BNP results vanesa ot be compared to BNP results. Natriuretic peptide B (Bld) [Mass/Vol] Pro-BNP Reference Range: [facility] [place] Comment on above: Rule Out: <300 Cadena Zone: Age <50 300-450 Age 50-75 300-900 Age >75 300-1800 Usually represents mild to moderate HF but other cardiopulmonary causes cannot be ruled out. Rule In: Age <50 >450 Age 50-75 >900 Age >75 >1800 CBCon 05-23-2020 Erythrocyte distribution width (RBC) [Ratio] 14.3 % 11.8 - 14.4 % [place] Hematocrit (Bld) [Volume fraction] 33.3 % Low 40.7 - 50.3 % [place] Hemoglobin (Bld) [Mass/Vol] 10.7 g/dL Low 13 - 17 g/dL [place] Interpretation and review of laboratory results Abnormal [place] MCH (RBC) [Entitic mass] 30.7 pg 25.2 - 33.5 pg [place] MCHC (RBC) [Mass/Vol] 32.1 g/dL 28.4 - 34.8 g/dL [place] MCV (RBC) [Entitic vol] 95.4 fL 82.6 - 102.9 fL [place] Platelet mean volume (Bld) [Entitic vol] 10.8 fL 8.1 - 13.5 fL [place] Platelets (Bld) [#/Vol] 196 10*3/uL [place] RBC (Bld) [#/Vol] 3.49 10*6/uL Low 4.21 - 5.7 7 m/uL [place] WBC (Bld) [#/Vol] 0.0 10*3/uL 0.0 per 10 0 WBC [place] WBC (Bld) [#/Vol] 7.3 10*3/uL [place] Comprehensive Metabolic Pane paco 05-23-2020 Albumin [Mass/Vol] 3.6 g/dL 3.5 - 5.2 g/dL [place] Albumin/Globulin [Mass ratio] 1.1 {ratio} [place] ALP [Catalytic activity/Vol] 84 U/L 40 - 129 U/L [place] ALT [Catalytic activity/Vol] 26 U/L 5 - 41 U/L [place] Anion gap [Moles/Vol] 10 mmol/L 9 - 17 mmol/L [place] AST [Catalytic activity/Vol] 21 U/L <40 [place] Bilirubin Ql (U) 0.62 mg/dL 0.3 - 1.2 mg/dL [place] Bun/Cre Ratio 13 [place] Calcium [Mass/Vol] 9.1 mg/dL 8.6 - 10. 4 mg/dL [place] Chloride [Moles/Vol] 100 mmol/L 98 - 107 mmol/L [place] CO2 [Moles/Vol] 27 mmol/L 20 - 31 mmol/L [place] Creatinine [Mass/Vol] 1.85 mg/dL High 0.7 - 1.2 mg/dL [place] GFR 43 mL/min Low >60 [place] GFR Non- 35 mL/min Low >60 [place] Glucose [Mass/Vol] 93 mg/dL 70 - 99 mg/dL [place] Potassium [Moles/Vol] 4.7 mmol/L 3.7 - 5.3 mmol/L [place] Protein [Mass/Vol] 6.8 g/dL 6.4 - 8.3 g/dL [place] Sodium [Moles/Vol] 137 mmol/L 135 - 144 mmol/L [place] Urea nitrogen [Mass/Vol] 24 mg/dL High 8 - 23 mg/dL [place] Metabolic Panelon 05-23-2020 GFR/1.73 sq M predicted among non-blacks MDRD (S/P/Bld) [Vol rate/Area] [place] Comment on above: Average GFR for 70 o r more years old: 75 mL/min/1.73sq m Chronic Kidney Disease: <60 mL/min/1.73sq m Kidney failure: <15 mL/min/1.73sq m eGFR calculated using average adult body mass. Additional eGFR calculator available at: http://www.[employer].VictorOps/multiple_crcl_2012.htm Stage 1: Some kidney damage normal GFR Stage 2: Mild kidney damage GFR 60-89 Stage 3: Moderate kidney damage GFR 30-59 Stage 4: Severe kidney damage GFR 15-29 Stage 5: Severe kidney damage GFR <15 ESRD - chronic treatment by dialysis or transplant Otheron 05-23-2020 Interpretation and review of laboratory results Abnormal [place] Brain Natriuretic Peptideon 05-14-2020 Interpretation and review of laboratory results Abnormal [place] Natriuretic peptide B (Bld) [Mass/Vol] Pro-BNP Reference Range: [place] Comment on above: Rule Out: <300 Cadena Zone: Age <50 300-450 Age 50-75 300-900 Age >75 300-1800 Usually represents mild to moderate HF but other cardiopulmonary causes cannot be ruled out. Rule In: Age <50 >450 Age 50-75 >900 Age >75 >1800 Natriuretic peptide B (Bld) [Mass/Vol] 2157 pg/mL High <300 [place] Comment on above: Pro-BNP results vanesa ot be compared to BNP results. CBC Auto Differentialon 05-04 Basophils (Bld) [#/Vol] 0.09 10*3/uL [place] Basophils/100 WBC (Bld) 1 % 0 - 2 % [place] Differential Type NOT REPORTED [place] Eosinophils (Bld) [#/Vol] 0.52 10*3/uL High [place] Eosinophils/100 WBC (Bld) 6 % High 1 - 4 % [place] Erythrocyte distribution width (RBC) [Ratio] 13.9 % 11.8 - 14.4 % [place] Hematocrit (Bld) [Volume fraction] 33.0 % Low 40.7 - 50.3 % [place] Hemoglobin (Bld) [Mass/Vol] 10.6 g/dL Low 13 - 17 g/dL [place] Immature granulocytes (Bld) [#/Vol] 0 % 0 [place] Immature granulocytes (Bld) [#/Vol] 0.00 10*3/uL [place] Interpretation and review of laboratory results Abnormal [place] Lymphocytes (Bld) [#/Vol] 0.52 10*3/uL Low [place] Lymphocytes/100 WBC (Bld) 6 % Low 24 - 43 % [place] MCH (RBC) [Entitic mass] 30.8 pg 25.2 - 33.5 pg [place] MCHC (RBC) [Mass/Vol] 32.1 g/dL 28.4 - 34.8 g/dL [place] MCV (RBC) [Entitic vol] 95.9 fL 82.6 - 102.9 fL [place] Monocytes (Bld) [#/Vol] 0.17 10*3/uL [place] Monocytes/100 WBC (Bld) 2 % Low 3 - 12 % [place] Morphology Fernando (Bld) [Interp] ANISOCYTOSIS PRESENT [place] Platelet mean volume (Bld) [Entitic vol] 10.9 fL 8.1 - 13.5 fL [place] Platelets (Bld) [#/Vol] NOT REPORTED [place] Platelets (Bld) [#/Vol] 243 10*3/uL [place] RBC (Bld) [#/Vol] 3.44 10*6/uL Low 4.21 - 5.7 7 m/uL [place] RBC morphology finding Nom (Bld) NOT REPORTED [place] Segmented neutrophils/100 WBC (Bld) 85 % High 36 - 65 % [place] Segs Absolute 7.30 [place] WBC (Bld) [#/Vol] 8.6 10*3/uL [place] WBC (Bld) [#/Vol] 0.0 10*3/uL 0.0 per 10 0 WBC [place] WBC Morphology NOT REPORTED [place] Comprehensive Metabolic Pane paco 05-14-2020 Albumin [Mass/Vol] 3.4 g/dL Low 3.5 - 5.2 g/dL [place] Albumin/Globulin [Mass ratio] 1.1 {ratio} [place] ALP [Catalytic activity/Vol] 81 U/L 40 - 129 U/L [place] ALT [Catalytic activity/Vol] 29 U/L 5 - 41 U/L [place] Anion gap [Moles/Vol] 12 mmol/L 9 - 17 mmol/L [place] AST [Catalytic activity/Vol] 33 U/L <40 [place] Bilirubin Ql (U) 0.84 mg/dL 0.3 - 1.2 mg/dL [place] Bun/Cre Ratio 16 [place] Calcium [Mass/Vol] 8.3 mg/dL Low 8.6 - 10. 4 mg/dL [place] Chloride [Moles/Vol] 99 mmol/L 98 - 107 mmol/L [place] CO2 [Moles/Vol] 26 mmol/L 20 - 31 mmol/L [place] Creatinine [Mass/Vol] 2.07 mg/dL High 0.7 - 1.2 mg/dL [place] GFR 37 mL/min Low >60 [place] GFR Non- 31 mL/min Low >60 [place] Glucose [Mass/Vol] 143 mg/dL High 70 - 99 mg/dL [place] Interpretation and review of laboratory results Abnormal [place] Potassium [Moles/Vol] 3.8 mmol/L 3.7 - 5.3 mmol/L [place] Protein [Mass/Vol] 6.4 g/dL 6.4 - 8.3 g/dL [place] Sodium [Moles/Vol] 137 mmol/L 135 - 144 mmol/L [place] Urea nitrogen [Mass/Vol] 33 mg/dL High 8 - 23 mg/dL [place] Metabolic Panelon 05-14-2020 GFR/1.73 sq M predicted among non-blacks MDRD (S/P/Bld) [Vol rate/Area] [place] Comment on above: Stage 1: Some kidney damage normal GFR Stage 2: Mild kidney damage GFR 60-89 Stage 3: Moderate kidney damage GFR 30-59 Stage 4: Severe kidney damage GFR 15-29 Stage 5: Severe kidney damage GFR <15 ESRD - chronic treatment by dialysis or transplant Average GFR for 70 o r more years old: 75 mL/min/1.73sq m Chronic Kidney Disease: <60 mL/min/1.73sq m Kidney failure: <15 mL/min/1.73sq m eGFR calculated using average adult body mass. Additional eGFR calculator available at: http://www.[employer].VictorOps/multiple_crcl_2012.htm Vital Signs Date Time Vital Sign Value Performing Clinician Facility 08-17-2023 13:30-0500 Blood Pressure Location David PEPPER [facility] 08-17-2023 13:30-0500 Diastolic blood pressure 84 mm[Hg] David PEPPER [facility] 08-17-2023 13:30-0500 Systolic blood pressure 128 mm[Hg] David PEPPER [facility] 08-10-2022 16:00-0500 Diastolic blood pressure 50 mm[Hg] Romy Hughes DO [facility] 08-10-2022 16:00-0500 Heart rate 60 /min Romy Hughes DO Work Phone[facility] 08-10-2022 16:00-0500 Respiratory rate 18 /min Romy Hughes DO Work Phone[facility] 08-10-2022 16:00-0500 SaO2% (BldA) [Mass fraction] 97 % Romy Hughes DO Work Phone[facility] 08-10-2022 16:00-0500 Systolic blood pressure 152 mm[Hg] Romy Hughes DO Work Phone[facility] 08-10-2022 15:15-0500 Body temperature 98.01 [degF] Romy Hughes DO Work Phone: [facility] 08-10-2022 14:16-0500 Body height 167.6 cm Romy Hughes DO Work Phone: [facility] 08-10-2022 14:16-0500 Body mass index (BMI) [Ratio] 22.44 kg/m2 Romy Hughes DO Work Phone: [facility] 08-10-2022 14:16-0500 Body weight 63.05 kg Romy Hughes DO Work Phone: [facility] 07-15-2022 07:40-0400 Blood Pressure Location David PEPPER [facility] 07-15-2022 07:40-0400 Diastolic blood pressure 70 mm[Hg] David PEPPER [facility] 07-15-2022 07:40-0400 Heart rate 60 /min David PEPPER [facility] 07-15-2022 07:40-0400 Respiratory rate 16 /min David PEPPER [facility] 07-15-2022 07:40-0400 Systolic blood pressure 130 mm[Hg] David PEPPER [facility] 01-21-2022 07:36-0400 Blood Pressure Location David PEPPER [facility] 01-21-2022 07:36-0400 Diastolic blood pressure 75 mm[Hg] David PEPPER [facility] 01-21-2022 07:36-0400 Heart rate 80 /min David PEPPER [facility] 01-21-2022 07:36-0400 Respiratory rate 16 /min David PEPPER [facility] 01-21-2022 07:36-0400 Systolic blood pressure 130 mm[Hg] David PEPPER [facility] Luis Encounters Encounter Date Encounter Type Care Provider Facility Start: 08-17-2023 End: 08-18-2023 ambulatory David PEPPER Facility:[facility] Start: 08-17-2023 End: 08-18-2023 ambulatory David PEPPER Facility:[facility] Start: 08-17-2023 End: 08-17-2023 Lab Drop off David PEPPER [facility] Start: 08-17-2023 End: 08-17-2023 Patient encounter procedure David PEPPER [facility] Luis Hinge Start: 06-14-2023 End: 06-15-2023 ambulatory David PEPPER Facility:[facility] Start: 06-14-2023 End: 06-14-2023 Patient encounter procedure David PEPPER [facility] [place] Start: 11-13-2022 End: 11-14-2022 ambulatory NAVYAALISA BUSH Facility: Start: 08-10-2022 End: 08-10-2022 [place] [facility] Start: 08-10-2022 End: 08-10-2022 Subsequent hospital visit by physician Romy Hughes DO Work Phone: [facility] Start: 07-15-2022 End: 07-15-2022 Patient encounter procedure David PEPPER [facility] Start: 01-21-2022 End: 01-21-2022 Patient encounter procedure David PEPPER [facility] Start: 05-23-2020 End: 05-23-2020 Subsequent hospital visit by physician Klarissa BERRIOS [facility] Start: 05-14-2020 End: 05-14-2020 Subsequent hospital visit by physician Klarissa BERRIOS Laboratory Procedures Date Procedure Procedure Detail Performing Clinician Start: 08-17-2023 Transurethral cystoscopy David PEPPER Start: 07-15-2022 Cystoscopy David BAPTISTE TERS Start: 01-21-2022 Cystoscopy David BAPTISTE TERS Start: 10-29-2021 Cystoscopy David WA TERS Start: 07-30-2021 Cystoscopy David BAPTISTE TERS Start: 04-30-2021 Cystoscopy David BAPTISTE TERS Start: 01-22-2021 Cystoscopy David BAPTISTE TERS Start: 10-30-2020 Cystoscopy David BAPTISTE TERS Start: 07-30-2020 Cystoscopy David BAPTISTE TERS Start: 05-23-2020 Blood count complete automated Klarissa Nance Work Phone: Start: 05-23-2020 Comprehensive metabo lic panel Klarissa Nance Work Phone: Start: 05-23-2020 Natriuretic peptide Luis Fernando elsy Lopez AM[employer]te[employer]peratriz Work Phone: Start: 05-14-2020 Blood count complete auto&auto difrntl wbc Klarissa Nance Work Phone: Start: 05-14-2020 Comprehensive metabo lic panel Klarissa Nance Work Phone: Start: 05-14-2020 Natriuretic peptide Luis Fernando glas Jessica Nance Work Phone: Start: 04-22-2020 Aortic aneurysm repair David PEPPER Start: 04-22-2020 Exploratory laparotomy David PEPPER Start: 04-19-2020 CT guided biopsy of left rib David PEPPER Start: 04-19-2020 Excision of aortic arch David PEPPER Start: 04-11-2020 Transurethral resect ion of bladder neoplasm David PEPPER Start: 03-19-2020 Cystoscope, device (physical object) David PEPPER Start: 01-17-2019 Cystoscopy David PETERSON Start: 01-04-2018 Cystoscopy David PETERSON Comment on above: 05/14/2008, 8, 11/26/2008, 02/11/2009, 05/19/2010, 04/22/2011, 01/11/2012, 01/10/2013, 01/15/2014, 01/14/2015, 01/07/2016, 01/05/2017, 01/04/2018 Start: 08-16-2008 Cystoscopy and transurethral resection of bladder tumor David PEPPER Start: 05-17-2008 Cystoscopy and transurethral resection of bladder tumor David PEPPER Start: 06-02-2006 Transrectal biopsy o f prostate using ultrasound guidance David PEPPER Start: 04-13-2006 Transrectal biopsy o f prostate using ultrasound guidance David PEPPER Start: 10-04-2005 Intracavitary brachytherapy David PEPPER Hydrocelectomy David CAMPOVERDE S Plan of Treatment Date Care Activity Detail Author Start: 08-10-2022 End: 08-10-2022 Xcapsl ctrc rmvl insj io lens prosth w/o ecp EYE CATARACT EMULSIFICATION IOL IMPLANT Age-related nuclear cataract of both eyes 08/10/2022 2:[address] [facility] Start: 05-04-2022 Influenza vaccination Flu vaccine (# 1) [facility] Start: 01-11-2021 COVID-19 Vaccine (4 - Booster) COVID-19 Vaccine (4 - Booster) [facility] Start: 06-04-2020 Influenza vaccination Flu vaccine (# 1) [place], [place] Start: 1959 DTaP/Tdap/Td vaccine (1 - Tdap) DTaP/Tdap/Td vaccine (1 - Tdap) [facility] Oxygen therapy [Mini mum Data Set] Initiate Oxygen Therapy Protocol Respiratory Care Routine Daily until discontinued starting 08/10/2022 [facility] Work Phone: Comment on above: Daily until disconti nued starting 08/10/2022 Oxygen therapy [Mini mum Data Set] Initiate Oxygen Therapy Protocol Respiratory Care Routine Daily until discontinued starting 08/10/2022 [facility] Work Phone: Comment on above: Daily until disconti nued starting 08/10/2022 Immunizations Immunization Date Immunization Notes Care Provider Fa cili 08-08-2023 influenza virus vaccine, unspecified formulation [facility] 10-23-2022 zoster vaccine recombinant [facility] 07-30-2022 influenza virus vaccine, unspecified formulation [employer] [facility] 07-30-2022 zoster vaccine recombinant [employer] [facility] 10-09-2021 influenza virus vaccine, unspecified formulation [employer] [facility] 07-23-2021 SARS-CoV-2 (COVID-19 ) mRNA BNT-162b2 vax [employer] [facility] 07-22-2021 tetanus toxoid, redu genesis diphtheria toxoid, and acellular pertussis vaccine, adsorbed David [employer] [facility] 11-16-2020 SARS-CoV-2 (COVID-19 ) mRNA BNT-162b2 vax David [employer] [facility] 10-26-2020 SARS-CoV-2 (COVID-19 ) mRNA BNT-162b2 vax David [employer] [facility] 10-15-2020 SARS-CoV-2 (COVID-19 ) mRNA BNT-162b2 vax David [employer] [facility] 10-14-2020 SARS-CoV-2 (COVID-19 ) mRNA BNT-162b2 vax [employer] [facility] 07-18-2020 influenza virus vaccine, unspecified formulation [employer] [facility] 09-18-2019 influenza virus vaccine, unspecified formulation [employer] [facility] 07-17-2019 influenza virus vaccine, unspecified formulation [employer] [facility] 10-14-2018 influenza virus vaccine, unspecified formulation [employer] [facility] 09-24-2017 influenza, unspecifi ed formulation [employer] [facility] 09-24-2017 pneumococcal conjuga te vaccine, 13 valent David PEPPER [facility] Payers Date Payer Category Payer Medicare [id number] 1961 Medicare [id number] 1961 Private Health Insurance CLI [id number] 1940 Unknown [id number] 1940 Unknown [id number] 1940 Unknown [id number] 1938 Unknown [id number] 1938 Unknown [id number] [id number] 1938 Unknown [id number] Social History Date Type Detail Facility [facility] smoked [place], [place] Start: 1940 Sex Assigned At Not on file [place] Start: 04-01-2021 End: 08-17-2023 Tobacco smoking status Ex-smoker (finding) [facility] Tobacco smoking status Never [facility] Sex Assigned At Male [facility] Hinge History of tobacco use [facility]: History of tobacco use Cigarette Smoker B [facility] [employer] Phone: Start: 08-03-2022 Tobacco use and exposure Smokeless tobacco non-user [employer] Phone: Start: 08-10-2022 Alcohol intake Current drinke r of alcohol (finding) [employer] Phone: Start: 08-03-2022 Alcohol Comment [employer] Phone: Start: 07-24-2022 End: 08-03-2022 Exposure to SARS-CoV-2 (event) Not sure [employer] Phone: Medical Equipment Procedure Code Equipment Code Equipment Origin al Text Equipment Identifier Dates Lens Intraocular Bcnvx 23.5+ Diopt 6x12.5 Mm Acryl [employer] - [id number] Start: 08-10-2022 Functional Status Date Assessment Result Facility 08-17-2023 Functional Status N/A [facility] 07-15-2022 Functional Status N/A [facility] Clinical Notes 01-21-2022 to 08-17-2023 Linda Hogue RN - 08/10/2022 4:05 PM Viktor Hogue RN - 08/10/2022 3:30 PM ESTDischarge Instructions Note Date & Type Note Facility 08-17-2023 Evaluation + Plan note Diagnostic Tests PendingUroVysion Fish and Urine Cyto ([facility]) 08/17/23 [facility] 07-13-2023 Hospital Discharge instructions Follow Up Care 07/13/2023 09:25:11 With:SHANTELLE OLGUIN, David Buenrostro, URL Address: [facility] [address], [place] [address]- When:Within 1 Year(s) Comments:w/cysto/FISH/Cytology, bt ck [facility] 11-13-2022 Note PROCEDURE: XR FINGER MIN 2 VIEWS HISTORY: Injury of finger ; post reduction COMPARISON: XR hand left 11/13/2022 FINDINGS: BONES:Normal alignment of the third digit proximal interphalangeal joint. No appreciable fracture fragment or articular surface irregularity. SOFT TISSUES:Soft tissue swelling of third digit. EFFUSION:None visible. OTHER: Negative. IMPRESSION: 1. Successful reduction of the third digit proximal interphalangeal joint of left hand. 2. No appreciable fracture. Electronically authenticated by: LEANNE GU Date: 2022-11-13 14:51 [facility] 08-10-2022 History of Present illness Narrative Discharge Criteria Inpatients must meet Criteria 1 through 7. All other patients are either YES or N/A. If a NO is chosen then Anesthesia or Surgeon must be notified. 1. Minimum 30 minutes after last dose of sedative medication, minimum 120 minutes after last dose of reversal agent. Yes 2. Systolic BP stable within 20 mmHg for 30 minutes & systolic BP between 90 & 180 or within 10 mmHg of baseline. Yes 3. Pulse between 60 and 100 or within 10 bpm of baseline. Yes 4. Spontaneous respiratory rate >/= 10 per minute. Yes 5. SaO2 >/= 95 or >/= baseline. Yes 6. Able to cough and swallow or return to baseline function. Yes 7. Alert and oriented or return to baseline mental status. Yes 8. Demonstrates controlled, coordinated movements, ambulates with steady gait, or return to baseline activity function. Yes 9. Minimal or no pain or nausea, or at a level tolerable and acceptable to patient. Yes 10. Takes and retains oral fluids as allowed. Yes 11. Procedural / perioperative site stable. Minimal or no bleeding. Yes 12. If GI endoscopy procedure, minimal or no abdominal distention or passing flatus. N/A 13. Written discharge instructions and emergency telephone number provided. Yes 14. Accompanied by a responsible adult. Yes Babatunde Guardado CRNA notified of patient's blood pressure. New order received. documented in this encounter [facility] [employer] Phone: 08-10-2022 Hospital Discharge instructions Romy Hughes DO - 08/10/2022 3:17 PM EST SAME DAY SURGERY DISCHARGE INSTRUCTIONS 1. Do not drive or operate hazardous machinery for 24 hours. 2. Do not make important personal or business decisions for 24 hours. 3. Do not drink alcoholic beverages for 24 hours. 4. Do not smoke tobacco products for 24 hours. 5. Limit your activities for 24 hours. Do not engage in heavy work until your surgeon gives you permission. 6. Report the following signs or any questions regarding your physical condition to your surgeon immediately: Excessive swelling of, or around the wound area. Redness. Temperature of 100 degrees (F) or above. Excessive pain. 7. Call your surgeon for any questions regarding your surgery. CATARACT DISCHARGE INSTRUCTIONS Do not remove eye patch/shield today. Protect the operated eye during sleep by covering it with clear plastic shield. Tape the shield securely to the face before retiring . Do this for one week after surgery. Avoid bumping the operated eye during the daytime. Sensitivity to light and watering of the eye is normal during the first month. Wearing of dark glasses will help these symptoms and this is optional. Minor crusting and discharge adherent to the lid margins will persist till the incision heals. Cleanse the lids by application of a warm compress several times a day as needed. Use of either the operated eye or unoperated eye is not harmful. Until the new glasses are prescribed, the operated eye may be out of focus and may not see details clearly. Vision maybe clearer in the operated eye without glasses. You may do everything necessary to care for yourself, including hair care, tooth brushing, dressing, etc. Light work,including stooping over and lifting, is not harmful. Please phone if any problems arise during the healing period. The office number is [phone]. Take surgery bag and all eye drops to Dr. Huhges's office tomorrow at 10:15am. You may resume your normal diet. Start your eye drops tomorrow after your post-op appointment: Ofloxacin/Polytrim one drop to the operated eye 4 times daily Prednisolone one drop to the operated eye 4 times daily documented in this encounter [facility] [employer] Work Phone: 07-15-2022 Evaluation + Plan note Diagnostic Tests PendingUroVysion Fish and Urine Cyto ([facility]) 07/15/22 [facility] Luis 07-15-2022 Hospital Discharge instructions Patient Education 07/15/2022 07:51:28 Cancer Screening for Men Cancer Screening for Men A cancer screening is a test or exam that checks for cancer. Your health care provider will recommend specific cancer screenings based on your age, personal history, and family history of cancer. Work with your health care provider to create a cancer screening schedule that protects your health. Why is cancer screening done? Cancer screening is done to look for cancer in the very early stages, before it spreads and becomes harder to treat and before you would start to notice symptoms. Finding cancer early improves the chances of successful treatment. It may save your life. Who should be screened for cancer? All men should be screened for colorectal cancer and skin cancer. Your health care provider may recommend screenings for other types of cancer if: You had cancer before. You have a family member with cancer. You have abnormal genes that could increase the risk of cancer. You have risk factors for certain cancers, such as smoking. When you should be screened for cancer depends on: Your age. Your medical history and your family's medical history. Certain lifestyle factors, such as smoking. Environmental exposure, such as to asbestos. What are some common cancer screenings? Lung cancer Lung cancer screening is done with a CT scan that looks for abnormal cells in the lungs. Discuss lung cancer screening with your health care provider if you are 55 74 years old and if any of the following apply to you: You currently smoke. You used to smoke heavily. You have a smoking history of 1 pack a day for 30 years or 2 packs a day for 15 years. You have quit smoking within the past 15 years. If you smoke heavily or if you used to smoke, you may need to be screened every year. Prostate cancer Prostate cancer screening is done with blood tests and an exam in which a health care provider uses a gloved finger to check prostate size (digital rectal exam). You may need to be screened for prostate cancer if: You have risk factors of prostate cancer, such as being or having a close family member with prostate cancer. You have inherited gene changes or a genetic condition, including BRCA1 or BRCA2 gene mutations or Linton syndrome. You have symptoms of prostate cancer, such as problems urinating or erectile dysfunction. Prostate cancer screening for men with average risk may start at age 50. Men with risk factors may need to be screened earlier at age 40 45. Once you have been screened for prostate cancer, future screening may be recommended based on the results of your blood tests. Colorectal cancer All adults should have screening for colorectal cancer starting at age 50 and continuing until age 75. Your health care provider may recommend screening at age 45. You will have tests every 1 10 years, depending on your results and the type of screening test. If you have a family history of colon or rectal cancer or other risk factors, you may need to start having screenings earlier. Talk with your health care provider about which screening test is right for you and how often you should be screened. Colorectal cancer screening looks for cancer or for growths called polyps that often form before cancer starts. Tests to look for cancer or polyps include: Colonoscopy or flexible sigmoidoscopy. For these procedures, a flexible tube with a small camera is inserted into the rectum. CT colonography. This test uses X-rays and a contrast dye to check the colon for polyps. If a polyp is found, you may need to have a colonoscopy so the polyp can be located and removed. Tests to look for cancer in the stool (feces) include: Guaiac-based fecal occult blood test (FOBT). This test detects blood in stool. It can be done at home with a kit. Fecal immunochemical test (FIT). This test detects blood in stool. For this test, you will need to collect stool samples at home. Stool DNA test. This test looks for blood in stool and any changes in DNA that can lead to colon cancer. For this test, you will need to collect a stool sample at home and send it to a lab. Skin cancer Skin cancer screening is done by checking the skin for unusual moles or spots and any changes in existing moles. Your health care provider should check your skin for signs of skin cancer at every physical exam. You should check your skin every month and tell your health care provider right away if anything looks unusual. Men with a brttuo-ghip-zxgdpr risk for skin cancer may want to see a skin care therapist (biodiesel engineering manager) for an annual body check. Where to find more information National Cancer [place]: https://www.cancer.gov/about-can cer/screening Centers for Disease Control and Prevention: https://www.cdc.gov/cancer/dcpc/ prevention/screening.htm [place] [employer]: https://www.cancer.org/latest-ne ws/8-lepjhv-lmsfbxatm-tests-for- men.html Contact a health care provider if: You have concerns about any signs or symptoms of cancer, such as: ?Moles that have an unusual shape or color. ?Changes in existing moles. ?A sore on your skin that does not heal. ?Blood in your urine or stool. ?Fatigue that does not go away. ?Frequent pain or cramping in your abdomen. ?Coughing or trouble breathing that does not go away. ?Coughing up blood. ?Losing weight without trying. ?Changes in urination habits. ?Painful urination or ejaculation. Summary Be aware of and watch for signs and symptoms of cancer, especially symptoms of lung cancer, prostate cancer, colorectal cancer, and skin cancer. Early detection of cancer with cancer screening may save your life. Talk with your health care provider about your specific cancer risks. Work together with your health care provider to create a cancer screening plan that is right for you. This information is not intended to replace advice given to you by your health care provider. Make sure you discuss any questions you have with your health care provider. Document Released: 06/17/2017 Document Revised: 06/09/2019 Document Reviewed: 06/17/2017 [employer] Patient Education 2020 [employer]. Follow Up Care 06/25/2022 14:20:11 With:SHANTELLE OLGUIN, David Buenrostro, URL Address: [facility] [address], [place] [address]- When:1 year Comments:Cysto/FISH/Cyto [facility] 01-21-2022 Evaluation + Plan note Diagnostic Tests PendingPSA Total 01/21/22[facility] Fish and Urine Cyto ([facility]) 01/21/22 [facility] 01-21-2022 Hospital Discharge instructions Patient Education 01/21/2022 07:50:57 Prostate Cancer Prostate Cancer The prostate is a walnut-sized gland that is involved in the production of semen. It is located below a man's bladder, in front of the rectum. Prostate cancer is the abnormal growth of cells in the prostate gland. What are the causes? The exact cause of this condition is not known. What increases the risk? This condition is more likely to develop in men who: Are older than age 65. Are -[place]. Are obese. Have a family history of prostate cancer. Have a family history of breast cancer. What are the signs or symptoms? Symptoms of this condition include: A need to urinate often. Weak or interrupted flow of urine. Trouble starting or stopping urination. Inability to urinate. Pain or burning during urination. Painful ejaculation. Blood in urine or semen. Persistent pain or discomfort in the lower back, lower abdomen, hips, or upper thighs. Trouble getting an erection. Trouble emptying the bladder all the way. How is this diagnosed? This condition can be diagnosed with: A digital rectal exam. For this exam, a health care provider inserts a gloved finger into the rectum to feel the prostate gland. A blood test called a prostate-specific antigen (PSA) test. An imaging test called transrectal ultrasonography. A procedure in which a sample of tissue is taken from the prostate and examined under a microscope (prostate biopsy). Once the condition is diagnosed, tests will be done to determine how far the cancer has spread. This is called staging the cancer. Staging may involve imaging tests, such as: A bone scan. A CT scan. A PET scan. An MRI. The stages of prostate cancer are as follows: Stage I. At this stage, the cancer is found in the prostate only. The cancer is not visible on imaging tests and it is usually found by accident, such as during a prostate surgery. Stage II. At this stage, the cancer is more advanced than it is in stage I, but the cancer has not spread outside the prostate. Stage III. At this stage, the cancer has spread beyond the outer layer of the prostate to nearby tissues. The cancer may be found in the seminal vesicles, which are near the bladder and the prostate. Stage IV. At this stage, the cancer has spread other parts of the body, such as the lymph nodes, bones, bladder, rectum, liver, or lungs. How is this treated? Treatment for this condition depends on several factors, including the stage of the cancer, your age, personal preferences, and your overall health. Talk with your health care provider about treatment options that are recommended for you. Common treatments include: Observation for early stage prostate cancer (active surveillance). This involves having exams, blood tests, and in some cases, more biopsies. For some men, this is the only treatment needed. Surgery. Types of surgeries include: ?Open surgery. In this surgery, a larger incision is made to remove the prostate. ?A laparoscopic prostatectomy. This is a surgery to remove the prostate and lymph nodes through several, small incisions. It is often referred to as a minimally invasive surgery. ?A robotic prostatectomy. This is a surgery to remove the prostate and lymph nodes with the help of a robotic arm that is controlled by a computer. ?Orchiectomy. This is a surgery to remove the testicles. ?Cryosurgery. This is a surgery to freeze and destroy cancer cells. Radiation treatment. Types of radiation treatment include: ?External beam radiation. This type aims beams of radiation from outside the body at the prostate to destroy cancerous cells. ?Brachytherapy. This type uses radioactive needles, seeds, wires, or tubes that are implanted into the prostate gland. Like external beam radiation, brachytherapy destroys cancerous cells. An advantage is that this type of radiation limits the damage to surrounding tissue and has fewer side effects. High-intensity, focused ultrasonography. This treatment destroys cancer cells by delivering high-energy ultrasound waves to the cancerous cells. Chemotherapy medicines. This treatment kills cancer cells or stops them from multiplying. Hormone treatment. This treatment involves taking medicines that act on one of the male hormones (testosterone): ?By stopping your body from producing testosterone. ?By blocking testosterone from reaching cancer cells. Follow these instructions at home: Take qypr-mdd-ahwcemm and prescription medicines only as told by your health care provider. Maintain a healthy diet. Get plenty of sleep. Consider joining a support group for men who have prostate cancer. Meeting with a support group may help you learn to cope with the stress of having cancer. Keep all follow-up visits as told by your health care provider. This is important. If you have to go to the hospital, notify your cancer specialist (oncologist). Treatment for prostate cancer may affect sexual function. Continue to have intimate moments with your partner. This may include touching, holding, hugging, and caressing. Contact a health care provider if: You have trouble urinating. You have blood in your urine. You have pain in your hips, back, or chest. Get help right away if: You have weakness or numbness in your legs. You cannot control urination or your bowel movements (incontinence). You have trouble breathing. You have sudden chest pain. You have chills or a fever. Summary The prostate is a walnut-sized gland that is involved in the production of semen. It is located below a man's bladder, in front of the rectum. Prostate cancer is the abnormal growth of cells in the prostate gland. Treatment for this condition depends on several factors, including the stage of the cancer, your age, personal preferences, and your overall health. Talk with your health care provider about treatment options that are recommended for you. Consider joining a support group for men who have prostate cancer. Meeting with a support group may help you learn to cope with the stress of having cancer. This information is not intended to replace advice given to you by your health care provider. Make sure you discuss any questions you have with your health care provider. Document Released: 09/20/2006 Document Revised: 09/02/2018 Document Reviewed: 05/31/2017 [employer] Patient Education 2020 [employer]. 01/21/2022 07:24:07 Cancer Screening for Men Cancer Screening for Men A cancer screening is a test or exam that checks for cancer. Your health care provider will recommend specific cancer screenings based on your age, personal history, and family history of cancer. Work with your health care provider to create a cancer screening schedule that protects your health. Why is cancer screening done? Cancer screening is done to look for cancer in the very early stages, before it spreads and becomes harder to treat and before you would start to notice symptoms. Finding cancer early improves the chances of successful treatment. It may save your life. Who should be screened for cancer? All men should be screened for colorectal cancer and skin cancer. Your health care provider may recommend screenings for other types of cancer if: You had cancer before. You have a family member with cancer. You have abnormal genes that could increase the risk of cancer. You have risk factors for certain cancers, such as smoking. When you should be screened for cancer depends on: Your age. Your medical history and your family's medical history. Certain lifestyle factors, such as smoking. Environmental exposure, such as to asbestos. What are some common cancer screenings? Lung cancer Lung cancer screening is done with a CT scan that looks for abnormal cells in the lungs. Discuss lung cancer screening with your health care provider if you are 55 74 years old and if any of the following apply to you: You currently smoke. You used to smoke heavily. You have a smoking history of 1 pack a day for 30 years or 2 packs a day for 15 years. You have quit smoking within the past 15 years. If you smoke heavily or if you used to smoke, you may need to be screened every year. Prostate cancer Prostate cancer screening is done with blood tests and an exam in which a health care provider uses a gloved finger to check prostate size (digital rectal exam). You may need to be screened for prostate cancer if: You have risk factors of prostate cancer, such as being or having a close family member with prostate cancer. You have inherited gene changes or a genetic condition, including BRCA1 or BRCA2 gene mutations or Linton syndrome. You have symptoms of prostate cancer, such as problems urinating or erectile dysfunction. Prostate cancer screening for men with average risk may start at age 50. Men with risk factors may need to be screened earlier at age 40 45. Once you have been screened for prostate cancer, future screening may be recommended based on the results of your blood tests. Colorectal cancer All adults should have screening for colorectal cancer starting at age 50 and continuing until age 75. Your health care provider may recommend screening at age 45. You will have tests every 1 10 years, depending on your results and the type of screening test. If you have a family history of colon or rectal cancer or other risk factors, you may need to start having screenings earlier. Talk with your health care provider about which screening test is right for you and how often you should be screened. Colorectal cancer screening looks for cancer or for growths called polyps that often form before cancer starts. Tests to look for cancer or polyps include: Colonoscopy or flexible sigmoidoscopy. For these procedures, a flexible tube with a small camera is inserted into the rectum. CT colonography. This test uses X-rays and a contrast dye to check the colon for polyps. If a polyp is found, you may need to have a colonoscopy so the polyp can be located and removed. Tests to look for cancer in the stool (feces) include: Guaiac-based fecal occult blood test (FOBT). This test detects blood in stool. It can be done at home with a kit. Fecal immunochemical test (FIT). This test detects blood in stool. For this test, you will need to collect stool samples at home. Stool DNA test. This test looks for blood in stool and any changes in DNA that can lead to colon cancer. For this test, you will need to collect a stool sample at home and send it to a lab. Skin cancer Skin cancer screening is done by checking the skin for unusual moles or spots and any changes in existing moles. Your health care provider should check your skin for signs of skin cancer at every physical exam. You should check your skin every month and tell your health care provider right away if anything looks unusual. Men with a tldkro-tkfm-rjzdaz risk for skin cancer may want to see a skin care therapist (biodiesel engineering manager) for an annual body check. Where to find more information [employer] [place]: https://www.cancer.gov/about-can cer/screening Centers for Disease Control and Prevention: https://www.cdc.gov/cancer/dcpc/ prevention/screening.htm [place] [employer]: https://www.cancer.org/latest-ne ws/1-hghbrv-lbmagxsez-tests-for- men.html Contact a health care provider if: You have concerns about any signs or symptoms of cancer, such as: ?Moles that have an unusual shape or color. ?Changes in existing moles. ?A sore on your skin that does not heal. ?Blood in your urine or stool. ?Fatigue that does not go away. ?Frequent pain or cramping in your abdomen. ?Coughing or trouble breathing that does not go away. ?Coughing up blood. ?Losing weight without trying. ?Changes in urination habits. ?Painful urination or ejaculation. Summary Be aware of and watch for signs and symptoms of cancer, especially symptoms of lung cancer, prostate cancer, colorectal cancer, and skin cancer. Early detection of cancer with cancer screening may save your life. Talk with your health care provider about your specific cancer risks. Work together with your health care provider to create a cancer screening plan that is right for you. This information is not intended to replace advice given to you by your health care provider. Make sure you discuss any questions you have with your health care provider. Document Released: 06/17/2017 Document Revised: 06/09/2019 Document Reviewed: 06/17/2017 [employer] Patient Education 2020 [employer]. 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 in this encounter [facility] Work Phone: Hospital course Narrative No data available for this section [facility] Hospital Discharge instructions No data available for this section [facility] progress note No data available for this section [facility] Advance Directives No Advanced Directives Records FoundDocuments on File Type Date Recorded Patient Research Electrician Expl anation Advance Directives and Living Will Power of Cutter Apprentice Hand Documents on File Type Date Recorded Patient Research Electrician Expl anation ACP-Advance Directive ACP-Power of Cutter Apprentice Hand Latest Code Status on File Code Status Date Activated Date Inactivated Comments Full Code 08/10/2022 1:45 PM Summary Purpose Family History No Family History Records FoundNo Family History Records FoundNo Family History Records Found No data available for this section No data available for this section No Family History Records Found Additional Source Comments (unrecognized sect ion and content) No Status Records FoundNo Status Records FoundNo Status Records FoundNo Status Records Found INFORMATION SOURCE (unrecogn ized section and content) DATE CREATED AUTHOR 12/22/2021 [facility] DATE CREATED AUTHOR AUTHOR'S ORGANIZ ATION 08/10/2022 [facility] DATE CREATED AUTHOR AUTHOR'S ORGANIZ ATION 11/16/2022 [facility] DATE CREATED AUTHOR AUTHOR'S ORGANIZ ATION 08/27/2023 [facility] Patient Care team informatio n (unrecognized section and content) Child Care Sitter Relationship Specialty Start Date End Date Klarissa Nance MD [address] [place] [address] PCP - General Family Medicine 05/14/20 Reason for Visit (unrecogniz ed section and content) Specialty Diagnoses / Procedures Referred By Anjali reinoso Referred To Contact Diagnoses Age-related nuclear cataract of both eyes AGE-RELATED NUCLEAR CAT 3+NS, 1+CS H25.12 Procedures [place] XCAPSL CTRC RMVL INSJ IO LENS PROSTH W/O ECP EYE CATARACT EMULSIFICATION IOL IMPLANT Romy Hughes, DO [address] [place] [address] [facility] [address] [address] [place] [address] Referral ID Status Reason Start Date Expiration Date Visits Re quested Visits Authorized [id number] 1 1 Scheduled Active and Recently Administ ered Medications (unrecognized section and content) Medication Order 08/08/2022 08/09/2022 08/10/2022 hydrALAZINE (APRESOLINE) injection 5 mg (COMPLETED) 5 mg, IntraVENous, ONCE, 1 dose, On Wed08/10/22 at 1600, Post-op 1536 (Given - Provid er: Linda Hogue RN) lactated ringers infusion IntraVENous, at 100 mL/hr, ONCE, On Wed08/10/22 at 1415, For 1 dose, Pre-op (day of surgery) 1415 (Due) phenylephrine (MYDFRIN) 2.5 % ophthalmic solution 1 drop 1 drop, Left Eye, SEE ADMIN INSTRUCTIONS, Starting on Wed08/10/22 at 1345, Until Discontinued, To operative eye(s) for 3-5 doses every 5 minutes, starting 30 minutes prior to surgery until dilated, RPh - enter number of doses based on parameters defined by the physician in the admin. comments., Pre-op (day of surgery) 1415 (Given - Provid er: Bhavana David RN)1422 (Given - Provider: Bhavana David RN)1431 (Given - Provider: Bhavana David RN) proparacaine (ALCAINE) 0.5 % ophthalmic solution 1 drop 1 drop, Left Eye, SEE ADMIN INSTRUCTIONS, Starting on Wed08/10/22 at 1345, Until Discontinued, Into the operative eye(s) every 5 minutes for PRN doses starting 30 minutes prior to surgery., Pre-op (day of surgery) 1415 (Given - Provid er: Bhavana David RN)1422 (Given - Provider: Bhavana David RN)1431 (Given - Provider: Bhavana David RN) sodium chloride flush 0.9 % injection 5-40 mL 5-40 mL, IntraVENous, EVERY 12 HOURS SCHEDULED (2 times per day), First dose on Wed08/10/22 at 2100, Until Discontinued, For Line Patency: Peripheral IV = 5 mL; Midline or Central Line = 10 mL/lumen. If following IV push medication, administer flush at same rate as the IV push. Flush volume is determined by type of infusion therapy being given. For non-viscous solutions use: Peripheral IV = 5 mL Midline or Central Line = 10 mL/lumen For viscous solutions (i.e. blood components, parenteral nutrition, contrast media, or after obtaining blood sample) use: Peripheral IV = 10 mL Midline or Central Line = 20 mL/lumen, Pre-op (day of surgery) 2100 (Due) sodium chloride flush 0.9 % injection 5-40 mL 5-40 mL, IntraVENous, EVERY 12 HOURS SCHEDULED (2 times per day), First dose on Wed08/10/22 at 2100, Until Discontinued, For Line Patency: Peripheral IV = 5 mL; Midline or Central Line = 10 mL/lumen. If following IV push medication, administer flush at same rate as the IV push. Flush volume is determined by type of infusion therapy being given. For non-viscous solutions use: Peripheral IV = 5 mL Midline or Central Line = 10 mL/lumen For viscous solutions (i.e. blood components, parenteral nutrition, contrast media, or after obtaining blood sample) use: Peripheral IV = 10 mL Midline or Central Line = 20 mL/lumen, Post-op 2100 (Due) tetracaine (TETRAVISC) 0.5 % ophthalmic solution 1 drop 1 drop, Left Eye, SEE ADMIN INSTRUCTIONS, Starting on Wed08/10/22 at 1345, Until Discontinued, Into the operative eye(s) every 5 minutes for PRN doses starting 30 minutes prior to surgery., Pre-op (day of surgery) tropicamide (MYDRIACYL) 1 % ophthalmic solution 1 drop 1 drop, Left Eye, SEE ADMIN INSTRUCTIONS, Starting on Wed08/10/22 at 1345, Until Discontinued, To operative eye(s) for 3-5 doses every 5 minutes, starting 30 minutes prior to surgery until dilated, h - enter number of doses based on parameters defined by the physician in the admin. comments., Pre-op (day of surgery) 1415 (Given - Provid er: Bhavana David RN)1422 (Given - Provider: Bhavana David RN)1431 (Given - Provider: Bhavana David RN) Continuous Medication Order 08/08/2022 08/09/2022 08/10/2022 0.9 % sodium chloride infusion IntraVENous, at 125 mL/hr, CONTINUOUS, Starting on Wed08/10/22 at 1415, Pre-op (day of surgery) 1415 (Due) PRN Medication Order 08/08/2022 08/09/2022 08/10/2022 0.9 % sodium chloride infusion IntraVENous, at 5-250 mL/hr, PRN, if patient receiving piggyback infusions and maintenance fluids are not ordered OR KVO fluids to protect IV site / prevent frequent line interruptions/ long duration, Starting on Wed08/10/22 at 1345, For piggyback infusion, administer at same rate as piggyback for a total of 25 mL. Enter 25 mL into dose field and piggyback rate into rate field of order. If piggyback is infusing at a rate less than 100 mL/hr, enter 25 mL into dose field and 100 mL/hr into rate field of order. For KVO fluids, enter rate of 20 mL/hr or less into rate field of order., Pre-op (day of surgery) 0.9 % sodium chloride infusion IntraVENous, at 5-250 mL/hr, PRN, if patient receiving piggyback infusions and maintenance fluids are not ordered OR KVO fluids to protect IV site / prevent frequent line interruptions/ long duration, Starting on Wed08/10/22 at 1534, For piggyback infusion, administer at same rate as piggyback for a total of 25 mL. Enter 25 mL into dose field and piggyback rate into rate field of order. If piggyback is infusing at a rate less than 100 mL/hr, enter 25 mL into dose field and 100 mL/hr into rate field of order. For KVO fluids, enter rate of 20 mL/hr or less into rate field of order., Post-op balanced salts (BSS) 500 mL, EPINEPHrine (EPINEPHrine HCL) 0.5 mg (CANCELED) PRN, Starting on Wed08/10/22 at 1456, Intra-op 1456 (Given - Provid er: Romy Hughes DO) lidocaine PF 1 % injection (CANCELED) PRN, Starting on Wed08/10/22 at 1457, Until Wed08/10/22 at 1511, Intra-op 1457 (Given - Provid er: Romy Hughes DO) sodium chloride flush 0.9 % injection 5-40 mL 5-40 mL, IntraVENous, PRN, Starting on Wed08/10/22 at 1345, Until Discontinued, Line Care, After every IV line use, For Line Patency: Peripheral IV = 5 mL; Midline or Central Line = 10 mL/lumen. If following IV push medication, administer flush at same rate as the IV push. Flush volume is determined by type of infusion therapy being given. For non-viscous solutions use: Peripheral IV = 5 mL Midline or Central Line = 10 mL/lumen For viscous solutions (i.e. blood components, parenteral nutrition, contrast media, or after obtaining blood sample) use: Peripheral IV = 10 mL Midline or Central Line = 20 mL/lumen, Pre-op (day of surgery) sodium chloride flush 0.9 % injection 5-40 mL 5-40 mL, IntraVENous, PRN, Starting on Wed08/10/22 at 1534, Until Discontinued, Line Care, After every IV line use, For Line Patency: Peripheral IV = 5 mL; Midline or Central Line = 10 mL/lumen. If following IV push medication, administer flush at same rate as the IV push. Flush volume is determined by type of infusion therapy being given. For non-viscous solutions use: Peripheral IV = 5 mL Midline or Central Line = 10 mL/lumen For viscous solutions (i.e. blood components, parenteral nutrition, contrast media, or after obtaining blood sample) use: Peripheral IV = 10 mL Midline or Central Line = 20 mL/lumen, Post-op tetracaine (TETRAVISC) 0.5 % ophthalmic solution (CANCELED) PRN, Starting on Wed08/10/22 at 1457, Until Wed08/10/22 at 1511, Intra-op 1457 (Given - Provid er: Romy Hughes DO) FOR RECORDS PERTAINING TO PATIENTS WHO ARE OR HAVE BEEN ENROLLED IN A CHEMICAL DEPENDENCY/SUBSTANCEABUSE PROGRAM, SOME INFORMATION MAY BE OMITTED. This clinical summary was aggregated from multiple sources. Caution should be exercised in using it in the provision of clinical care. This summary normalizes information from multiple sources, and as a consequence, information in this document may materially change the coding, format and clinical context of patient data. In addition, data may be omitted in some cases. CLINICAL DECISIONS SHOULD BE BASED ON THE PRIMARY CLINICAL RECORDS. [employer] provides no warranty or guarantee of the accuracy or completeness of information in this document.
[2023-10-20 08:52] LABS: Estimated Average Glucose 111 mg/dL; Glycohemoglobin A1C 5.5 % (4.5-6.2)
[2023-10-20 09:12] LABS: Alanine Aminotransferase 24 U/L (16-63); Albumin Level 3.3 g/dL (3.4-5.0); Alkaline Phosphatase 85 U/L (46-116); Anion Gap 13.4; Aspartate Amino Transferase 26 U/L (15-37); BUN Creatinine Ratio 19.3; Basophils Absolute Auto 0.1 10^3/uL (0.0-0.1); Basophils Percent Auto 1.1 % (0.2-2.0); Bilirubin Total 0.6 mg/dL (0.2-1.0); Calcium 8.8 mg/dL (8.5-10.1); Carbon Dioxide 28.5 mmol/L (21.0-32.0); Chloride 104 mmol/L (98-107); Chol HDL Ratio 1.7; Cholesterol 137 mg/dL (<=200); Eosinophils Absolute Auto 0.3 10^3/uL (0.0-0.7); Eosinophils Percent Auto 5.9 % (0.9-7.0); Estimated GFR (African America 46 (>=60); Estimated GFR (Non-African Ame 38 (>=60); Free T3 1.53 pg/mL (2.18-3.98); Globulin 3.4 g/dL; Glucose 109 mg/dL (74-106); HDL Cholesterol 80 mg/dL (40-60); Hematocrit 33.9 % (42.0-54.0); Hemoglobin 11.1 g/dL (14.0-18.0); Immature Granulocytes Abs Auto 0.03 10^3/uL (0.00-0.03); Immature Granulocytes Pct Auto 0.6 % (0.0-0.5); Lymphocytes Absolute Auto 0.8 10^3/uL (1.2-3.8); Mean Corpuscular HGB Conc 32.7 g/dL (29.9-35.2); Mean Corpuscular Hemoglobin 31.7 pg (25.9-34.0); Mean Corpuscular Volume 96.9 fL (80.0-94.0); Mean Platelet Volume 10.1 fL (9.5-13.5); Monocytes Absolute Auto 0.4 10^3/uL (0.3-0.8); Monocytes Percent Auto 7.8 % (1.7-12.0); Neutrophils Absolute Auto 3.6 10^3/uL (1.4-6.5); Neutrophils Percent Auto 68.6 % (43.0-75.0); Platelet Count 216 10^3/uL (150-450); Potassium 3.9 mmol/L (3.5-5.1); Red Cell Distribution Width 12.7 % (11.0-15.0); Sodium 142 mmol/L (136-145); Thyroid Stimulating Hormone 3.434 uIU/mL (0.358-3.740); Total Protein 6.7 g/dL (6.4-8.2); Triglycerides 38 mg/dL (<=150); VLDL CHOLESTEROL 7.6 mg/dL; White Blood Count 5.2 10^3/uL (4.0-11.0)
== END 2023-10-20 08:11 | disposition home or self-care (01) ==
PROVIDERS: PCP Family Medicine; Visit Provider Family Medicine
DX: R41.3 Other amnesia (principal); E78.5 Hyperlipidemia, unspecified; R73.09 Other abnormal glucose; D64.9 Anemia, unspecified; E55.9 Vitamin D deficiency, unspecified
CPT/HCPCS: 36415; 80053; 80061; 82306; 83036; 83540; 84436; 84443; 84481; 85025

== ENCOUNTER 2023-12-01 14:50 | Outpatient (REF) | payer MEDICARE, SELFPAY ==
--- OUTSIDE RECORDS SUMMARY | 2023-12-06 11:16 | XMS_ITS | CCD ---
Author Name Unknown Address [address] [place] [address] Organization [facility] Care Team Providers Care Engineering Systems Analyst Name Role Phone Klarissa Nance Primary Care Provider [phone] Klarissa Nance Primary Care Physician [phone] Klarissa Nance MD Primary Care Provider [phone] ROMY HUGHES Admitting Unavailable ROMY HUGHES Attending Unavailable KLARISSA NANCE Primary Care Unavailable LEE ANN, DR CYR Primary Care Unavailable DIAB, BRAYAN Admitting Unavailable DIAB, BRAYAN Attending Unavailable ZIEBDEMETRICE, DR LEANNE Buenrostro Consulting Unavailable GREARPITA, NINOSKA OSMAN Consulting Unavailable DIAB, BRAYAN Consulting Unavailable NAVYA BUSH Admitting Unavailable RACHELLE, NAVYA Attending Unavailable LEE ANN, DR CYR Primary Care Unavailable NAVYA BUSH Consulting Unavailable RILEY WILD Consulting Unavailable David PEPPER Attending Unavailable PEPPER, David Buenrostro Admitting Unavailable PEPPER, David Buenrostro Attending Unavailable NILL, Boone Buenrostro Attending Unavailable NILL, Boone Buenrostro Attending Unavailable PEPPERDavid Attending Unavailable David Pepper Primary Care Unavailable NillBoone Attending Unavailable Nill, Boone Buenrostro Admitting Unavailable Allergies Allergy Classification Reported Allergen(s) Allergy Type Date of Onset Reaction(s) Facility (7 sources) Sulfonamides (Antibiotic); Translations: [sulfa drugs] Drug allergy Unknown (qualifier value), Anaphylaxis (disorder) [facility] (1 source) Sulfonamides (Antibiotic) Propensity to adverse reactions to drug 2 [facility] (1 source) Sulfonamides (Antibiotic) Drug allergy (disorder) [facility] Repository Medications Current Medications Medication Drug Class(es) Dates Sig (Normalized) Sig (Original) amiodarone hydrochloride 200 mg oral tablet (7 sources) Antiarrhythmic Start: 03-13-2021 take 1 tablet by mouth once daily amiodarone Tab 200 mg = 1 tab(s), Oral, Daily, # 30 tab(s), Refills(s) 0 Start Date: 03/13/21 Status: Ordered apixaban 2.5 mg oral tablet (7 sources) Factor Xa Inhibitor Start: 01-22-2021 take 2.5 mg by mouth twice daily Eliquis 2.5 mg, Oral, BID, Refills(s) 0 Start Date: 01/22/21 Status: Ordered aspirin 81 mg oral tablet (6 sources) Platelet Aggregation Inhibitor, Nonsteroidal Anti-inflammatory Drug Start: 05-26-2019 take 1 tablet by mouth once daily aspirin 81 mg oral tablet 81 mg = 1 tab(s), Oral, Daily Start Date: 05/26/19 Status: Ordered atorvastatin 40 mg oral tablet (7 sources) HMG-CoA Reductase Inhibitor Start: 03-13-2021 take 1 tablet by mouth once daily atorvastatin 40 mg Tab 40 mg = 1 tab(s), Oral, Daily, # 30 tab(s), Refills(s) 0 Start Date: 03/13/21 Status: Ordered bicalutamide 50 mg oral tablet (8 sources) Androgen Receptor Inhibitor Start: 04-09-2023 take 1 tablet by mouth every twenty-four hours bicalutamide 50 mg Tab 50 mg = 1 tab(s), Oral, q24hr, # 90 tab(s), Refills(s) 3, [facility]: [facility][id number], 169, cm, 07/15/22 7:43:00 EDT, Height/Length Dosing, [...] Ordered docusate sodium 50 mg / sennosides, care home 8.6 mg oral capsule (4 sources) Start: [...] Status: Ordered mupirocin 0.02 mg/mg topical ointment (6 sources) RNA Synthetase Inhibitor Antibacterial Start: 03-13-2021 [...] mL tamsulosin hydrochloride 0.4 mg oral capsule (7 sources) alpha-Adrenergic Nazia Start: 12-31-2022 take 1 capsule by mouth once daily Flomax 0.4 mg Cap 0.4 mg = 1 cap(s), Oral, Daily, # 90 cap(s), Refills(s) 3, [facility]acy: [facility] #[id number], 169, cm, 07/15/22 7:43:00 EDT, Height/Length Dosing, 70, kg, 07/15/22 7:43:00 EDT, Weight Dosing Start Date: 12/31/22 Status: Ordered Start: 10-29-2021 take 1 capsule by [facility] once daily Flomax 0.4 mg Cap 0.4 mg = 1 cap(s), Oral, Daily, # 90 cap(s), Refills(s) 3, [facility], 169, cm, 10/29/21 7:50:00 EST, Height/Length Dosing, 70, kg, 10/29/21 7:50:00 EST, Weight Dosing Start Date: 10/29/21 Status: Ordered tetracaine hydrochloride 5 mg/ml ophthalmic solution (1 source) Analia Local Anesthetic Start: 08-10-2022 tetracaine (TETRAVISC) 0.5 % ophthalmic solution 1 drop traMADol hydrochloride 50 mg oral tablet (1 source) Opioid Agonist Start: 11-17-2023 take 1 tablet by mouth four times daily as needed for pain traMADOL 50 mg Tab 50 mg = 1 tab(s), Oral, QID, PRN as needed for pain, Refills(s) 0 Start Date: 11/17/23 Status: Ordered tropicamide 10 mg/ml ophthalmic solution (1 source) Anticholinergic Start: 08-10-2022 tropicamide (MYDRIACYL) 1 % ophthalmic solution 1 drop Vitamin D (5 sources) Start: 05-26-2019 Vitamin D 1,200 [employer] t, Oral Start Date: 05/26/19 Status: Ordered Completed/Discontinued Medications Medication Drug Class(es) Dates Sig (Normalized) Sig (Original) cephalexin 500 mg oral capsule (6 sources) Cephalosporin Antibacterial Start: 07-13-2023 take 1 tablet by mouth once daily Keflex 500 mg Cap 500 mg = 1 cap(s), Oral, Daily, Take 1 tablet the day before the procedure and 1 tablet after the procedure, # 2 cap(s), Refills(s) 0, Pharmacy: [facility] #[id number], 169, cm, 07/15/22 7:43:00 EDT, Height/Length Dosing, 70, kg, 07/15/22 7:43:00 EDT, Weight Dosing Start Date: 07/13/23 Status: Ordered Start: 07-14-2022 take 1 tablet by joe th once daily Keflex 500 mg Cap 500 mg = 1 cap(s), Oral, Daily, Take 1 tablet the day before the procedure and 1 tablet after the procedure, # 2 cap(s), Refills(s) 0, Pharmacy: [facility] #[id number], 169, cm, 01/21/22 7:46:00 EDT, Height/Length Dosing, 70, kg, 01/21/22 7:46:00 EDT, Weight... Start Date: 07/14/22 Status: Ordered Start: 10-29-2021 take 1 tablet by joe once daily Keflex 500 mg Cap 500 mg = 1 cap(s), Oral, Daily, Take 1 tablet the day before the procedure and 1 tablet after the procedure, # 2 cap(s), Refills(s) 0, [facility]acy: [facility], 169, cm, 10/29/21 7:50:00 EST, Height/Length Dosing, 70, kg, 10/29/21 7:50:00 ES... Start Date: 10/29/21 Status: Ordered 1 ml hydrALAZINE hydrochloride 20 mg/ml injection (1 source) Arteriolar Vasodilator Start: 08-10-2022 End: 08-10-2022 hydrALAZINE (APRESOLINE) injection 5 mg Start: 08-10-2022 End: 08-10-2022 hydrALAZINE (APRESOLINE) inj ection 5 mg Problems Problem Classification Problem Date Documented Date Episodic/Chronic Acute and unspecified renal failure (6 sources) Uouwu-vq-apjjlqp renal failure 03-12-2021 Episodic Aortic; peripheral; and visceral artery aneurysms (6 sources) Aortic aneurysm 03-12-2021 Chronic Cancer of bladder (6 sources) Malignant neoplasm of posterior wall of urinary bladder 04-19-2020 Chronic Cancer of bladder (3 sources) History of malignant neoplasm of bladder; Translations: [Personal history of malignant neoplasm of bladder] Onset: 01-21-2022 Episodic Cancer of prostate (6 sources) Malignant tumor of prostate 05-25-2019 Chronic Cancer of prostate (9 sources) Personal history of malignant neoplasm of prostate; Translations: [History of malignant neoplasm of prostate] Onset: 01-21-2022 Episodic Cancer; other and unspecified primary (6 sources) H/O: malignant neoplasm 10-30-2020 Episodic Cancer; other and unspecified primary (6 sources) History of bladder neoplasm 05-26-2019 Episodic Cardiac dysrhythmias (6 sources) Atrial fibrillation 03-12-2021 Chronic Cataract (4 sources) Age-related nuclear cataract of left eye; Translations: [Age-related nuclear cataract, left eye] Onset: 08-09-2022 Resolved: 08-10-2022 Chronic Disorders of lipid metabolism (12 sources) Hyperlipidemia 05-25-2019 Chronic E Codes: Other specified and classifiable (1 source) Caught, crushed, jammed, or pinched between moving objects, initial encounter; Translations: [CAUGHT CRUSH/PINCH BTWN MOV OBJ INT] Onset: 11-16-2022 Episodic Essential hypertension (6 sources) Hypertensive disorder 03-12-2021 Chronic Genitourinary symptoms and ill-defined conditions (12 sources) Increased frequency of urination; Translations: [Microscopic hematuria] 05-25-2019 Episodic Hyperplasia of prostate (10 sources) Benign prostatic hypertrophy with outflow obstruction; Translations: [Benign prostatic hyperplasia with lower urinary tract symptoms] Onset: 01-21-2022 Chronic Joint disorders and dislocations; trauma-related (2 sources) Dislocation of proximal interphalangeal joint of left middle finger, initial encounter; Translations: [DISLOC PROX IP JNT LT MID FNGR INIT] Onset: 11-16-2022 Episodic Neoplasms of unspecified nature or uncertain behavior (8 sources) Neoplasm of uncertain behavior of skin of chest; Translations: [Neoplasm of uncertain behavior of skin] Onset: 12-01-2023 03-13-2021 Episodic Osteoarthritis (6 sources) Osteoarthritis 03-12-2021 Chronic Other aftercare (1 source) 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; Translations: [GROUP HOME CURRENT USE OF ASPIRIN] Onset: 11-16-2022 Episodic Other aftercare (1 source) Other group home (current) drug therapy; Translations: [OTH GROUP HOME CURRENT DRUG THERAPY] Onset: 11-16-2022 Episodic Other [...] conditions (not mental disorders or infectious disease) (6 sources) Raised prostate specific antigen 05-26-2019 Episodic Other skin disorders (6 sources) Actinic keratosis 03-12-2021 Episodic Other skin disorders (6 sources) Mass of skin 03-13-2021 Episodic Other skin disorders (6 sources) Skin tag 03-13-2021 Episodic Screening and history of mental health and substance abuse codes (6 sources) Ex-smoker 05-25-2019 Episodic Thyroid disorders (1 source) Hypothyroidism 11-17-2023 Chronic Unclassified (6 sources) Body mass index 20-24 - normal 03-13-2021 Unclassified (6 sources) Drug therapy finding 03-12-2021 Unclassified (6 sources) Seborrheic keratosis 03-12-2021 Results Test Name Value Interpretation Reference Range Facility Ambulatory Visit Summaryon 0 12-01-2023 Ambulatory Visit Summary ANALIA OLIVO :1940 Visit Date:12/01/2023 Ambulatory Visit Instructions Your Care Team Attending Physician - ESTRELLA OLGUIN, Boone Buenrostro Primary Care Physician - Klarissa Nance MD This Is Your Medications List Contact prescribing physician if questions or concerns amiodarone (amiodarone Tab) apixaban (Eliquis) aspirin (aspirin 81 mg oral tablet) atorvastatin (atorvastatin 40 mg Tab) bicalutamide (bicalutamide 50 mg Tab) cephalexin (Keflex 500 mg Cap) mupirocin topical (mupirocin Top 2% Oint) tamsulosin (Flomax 0.4 mg Cap) tramadol (traMADOL 50 mg Tab) Procedures Performed Cystoscopy (08/17/2023), Cystoscopy (07/15/2022), Cystoscopy [...] using ultrasound (US) guidance (04/13/2006), Brachytherapy (2005), Cataract extraction, Hydrocelectomy. Discharge Vitals Heart Rate (Peripheral) 72 Respiratory Rate 16 Blood Pressure 138/64 Height 170.1 cm Height 67 in Weight 63.0 kg Weight 138.6 lb BMI 21.77 What to do next Scheduled Follow-Up Appointments Wednesday. 2023 3:20 PM EST With: Boone DE LA ROSA MD Where: General Surgery Estrella/Angel Faustevue [facility] 12-01-2023 L Specimen: [id number] Received: 12/02/23 Status: AMBAR Zapien Num: [id number] Spec Type: Surgical Subm Dr: Boone De La Rosa MD FACS Tissues: A Skin-Other than Cyst, tag, debridement or plastic repair (RT NARES) Procedures: HE, Gross/Micro L4 Age/ Patient Sex Location Account Attending Physician Analia Olivo 83/M LABELL [id number] Boone De La Rosa MD FACS SPEC NUM: [id number] RECD: 12/02/23 STATUS: AMBAR ZAPIEN NUM: [id number] DAYAMI: 12/01/[address] [facility] [address]: Boone De La Rosa MD FACS ENTERED: 12/02/[address] [facility] [address]: Donavon Aqu[place] SPEC TYPE: Surgical DEPT: [facility] [place] ORDERED: HE, Gross/Micro L4 ORDERED: HE, Gross/Micro L4 Pathological Diagnosis Skin Lesion, Right nares, Biopsy: Basal Cell Carcinoma. Clinical Information Several year history of enlarging skin lesion, enlarging, nonhealing, not ulcerated, scabbed skin lesion that frequently bleeds. Not sore or tender Gross Description Received in formalin labeled with the patient's name, date of and R nares is a 0.3 x 0.3 cm gamble-franks skin shave. The margin is inked blue and the specimen is submitted intact on edge. Entirely submitted in one cassette labeled A1. CPT Codes 03062 Specimen: [id number] Received: 12/02/23 Status: AMBAR Zapien Num: [id number] Spec Type: Surgical Subm Dr: Boone De La Rosa MD FACS Tissues: A Skin-Other than Cyst, tag, debridement or plastic repair (RT NARES) Procedures: HE, Gross/Micro L4 Patient: Analia Olivo [id number] (Continued) Signed (signature on file) Dinah Ray MD 12/04/23 1213 [facility] Provider Letteron 11-02-2023 Provider Letter (Inserted Image. Sharon ble to display) November 02, 2023 ANALIA OLIVO [address] [place] [id number] : 1940 Dear Mr. Olivo, We have been trying to reach you with no success regarding a referral from Dr Nance. It is important that you return our call upon receiving this letter so that we can set up an appointment for you. Also, at the time of your call, please provide us with your current demographic and insurance information. Thank you for your prompt attention to this matter. Sincerely, [facility] General Surgery [phone] Normal [facility] Physician Referralon 024 Physician Referral [phone] 104 [id number]#[id number] IFF Normal [facility] Physician Referral [id number] [phone] [id number]#[id number] FF Normal [facility] UroVysion Fish and Urine Cyt o ([facility])on 08-25-2023 UVFISH & UC Diagnosis Info Invalid Interpretation Code [facility] Comment on above: Result Comment: A:Ur [...] correlated with cytology and cystoscopy results.* CPT 40198, 27793. Microscopic Notes - Microscopic Notes - Abnormal cells 9p21 deletions: Abnormal cells aneploid events: Total cells analyzed: 129 Hematuria: Gross Description Site ID:A color Yellow fixative Alcohol Received 90 mls of clear yellow fluid with the patient's name and, Bladder Wash on the vial. Electronically signed by : on: 08/25/2023 09:03:30 Performed By: #### 1 [id number] #### [facility] [address] [place] [address] Consent for Procedure/Surger yon 08-18-2023 Consent for Procedure/Surgery [id number] TIFF Normal [facility] Ambulatory Visit Summaryon 10-17-2022 Ambulatory Visit Summary ANALIA OLIVO :1940 Visit Date:08/17/2023 Ambulatory Visit Instructions Your Diagnosis Hx of bladder cancer BPH with urinary obstruction History of prostate cancer Other obstructive and reflux uropathy Your Care Team Attending Physician - SHANTELLE OLGUIN, David Buenrostro Primary Care Physician - Klarissa Nance MD This Is Your Medications List bicalutamide (bicalutamide [...] [facility] [address], [place] [address]- Medications What How Much When Instructions Unchanged [...] that you are currently receiving treatment for. Aiqpr-qm-cztqiqx kidney injury AK (actinic keratosis) Androgen deprivation therapy Aortic aneurysm Atrial fibrillation Bladder cancer BMI 22.0-22.9, adult BPH with urinary obstruc (more content not included)... Normal [facility] UroVysion Fish and Urine Cyt o ([facility])on 08-17-2023 [facility] Method of Extraction Bladder Wash Normal [facility] Comment on above: Performed By: #### 1 [id number] #### [facility] [address] [place] [address] [facility] Number of Jars 1 Invalid Interpretation Code [facility] Comment on above: Performed By: #### 1 [id number] #### [facility] [address] [place] [address] [facility] Specimen Bladder Wash Normal [facility] Comment on above: Performed By: #### 1 [id number] #### [facility] [address] [place] [address] [facility] Type of Service Technical Only Normal [facility] Comment on above: Performed By: #### 1 [id number] #### [facility] [address] [place] [address] Urology Office/Clinic Noteon 08-17-2023 Urology Office/Clinic Note [...] [facility] [address], [place] [address]- Additional Instructions: w/cysto/FISH/Cytology, bt ck Patient Education I, Tere Servin , personally scribed for Dr. Pepper on 08/17/2023 14:14:11. . Portions of this record may have been created with voice recognition artificial intelligence software, specifically [employer], [employer] and or [employer]. Substitutions may have occurred due to the inherent limitations of voice recognition and artificial intelligence software. Documentation recorded by the scribe, Tere Servin, accurately reflects the services(s) I performed and decisions made by me. Problem List/Past Medical History Ongoing Lxlwj-dr-gwiquxi kidney injury [place] (actinic keratosis) Androgen deprivation [...] - Transurethral resecti (more content not included)... Normal [facility] Comment on above: Result Comment: Elec [...] 2024 for 1 year cysto/fish/cytol (bt ck) Normal [facility] Ambulatory Visit Summaryon 0 06-14-2023 Ambulatory Visit Summary ANALIA OLIVO :1940 Visit Date:06/14/2023 Ambulatory Visit Instructions Your Diagnosis BPH with urinary obstruction Tests Performed Urnls Dip Stick Auto w/o Microscopy POC 55763 Your Care Team Attending Physician - SHANTELLE OLGUIN, David Buenrostro Primary Care Physician - Lee Ann OLGUIN, Klarissa This Is Your Medications List amiodarone (amiodarone [...] Urnls Dip Stick Auto w/o Microscopy POC 27167 (06/14/2023) Bilirubin Urine Dipstick - Negative Blood Urine Dipstick - Negative Glucose Urine Dipstick - Negative Ketones Urine Dipstick - Negative Leukocytes Urine Dipstick - Negative Nitrite Urine Dipstick - Negative Protein Urine Dipstick - Negative Specific [place] Urine Dipstick - 1.015 Urine Appearance Urine Dipstick - Clear Urine Color Urine Dipstick - Yellow Urobilinogen Urine Dipstick - Normal 0.2-1 EU/dl pH Urine Dipstick - 5.5 Allergies sulfa drugs (Unknown) Problems Ongoing - Any problem that you are currently receiving treatment for. Tgsxx-ds-lgyalkt kidney injury [place] (actinic keratosis) Androgen deprivation [...] no longer receiving treatment for. Hyperlipidemia Normal [facility] XR HAND LT MIN 3Von 11-13-19 [...] by: RILEY WILD Date: 2022-11-13 12:22 Normal [facility] Brain Natriuretic Peptideon 05-23-2020 Natriuretic peptide B (Bld) [Mass/Vol] 1483 pg/mL High <300 [place], [place] Comment on above: Pro-BNP results vanesa ot be compared to BNP results. Natriuretic peptide B (Bld) [Mass/Vol] Pro-BNP Reference Range: [place], [place] Comment on above: Rule Out: <300 Cadena Zone: Age <50 300-450 Age 50-75 300-900 Age >75 300-1800 Usually represents mild to moderate HF but other cardiopulmonary causes cannot be ruled out. Rule In: Age <50 >450 Age 50-75 >900 Age >75 >1800 CBCon 05-23-2020 Erythrocyte distribution width (RBC) [Ratio] 14.3 % 11.8 - 14.4 % [place] Hematocrit (Bld) [Volume fraction] 33.3 % Low 40.7 - 50.3 % [place] Hemoglobin (Bld) [Mass/Vol] 10.7 g/dL Low 13 - 17 g/dL [place] Interpretation and review of laboratory results Abnormal [place] MCH (RBC) [Entitic mass] 30.7 pg 25.2 - 33.5 pg [place] MCHC (RBC) [Mass/Vol] 32.1 g/dL 28.4 - 34.8 g/dL [place] MCV (RBC) [Entitic vol] 95.4 fL 82.6 - 102.9 fL [place] Platelet mean volume (Bld) [Entitic vol] 10.8 fL 8.1 - 13.5 fL [place] Platelets (Bld) [#/Vol] 196 10*3/uL [place] RBC (Bld) [#/Vol] 3.49 10*6/uL Low 4.21 - 5.7 7 m/uL [place] WBC (Bld) [#/Vol] 0.0 10*3/uL 0.0 per 10 0 WBC [place] WBC (Bld) [#/Vol] 7.3 10*3/uL [place] Comprehensive Metabolic Pane paco 05-23-2020 Albumin [Mass/Vol] 3.6 g/dL 3.5 - 5.2 g/dL [place] Albumin/Globulin [Mass ratio] 1.1 {ratio} [place] ALP [Catalytic activity/Vol] 84 U/L 40 - 129 U/L [place] ALT [Catalytic activity/Vol] 26 U/L 5 - 41 U/L [place] Anion gap [Moles/Vol] 10 mmol/L 9 - 17 mmol/L [place] AST [Catalytic activity/Vol] 21 U/L <40 [place] Bilirubin Ql (U) 0.62 mg/dL 0.3 - 1.2 mg/dL [place] Bun/Cre Ratio 13 [place] Calcium [Mass/Vol] 9.1 mg/dL 8.6 - 10. 4 mg/dL [place] Chloride [Moles/Vol] 100 mmol/L 98 - 107 mmol/L [place] CO2 [Moles/Vol] 27 mmol/L 20 - 31 mmol/L [place] Creatinine [Mass/Vol] 1.85 mg/dL High 0.7 - 1.2 mg/dL [place] GFR 43 mL/min Low >60 [place] GFR Non- 35 mL/min Low >60 [place] Glucose [Mass/Vol] 93 mg/dL 70 - 99 mg/dL [place] Potassium [Moles/Vol] 4.7 mmol/L 3.7 - 5.3 mmol/L [place] Protein [Mass/Vol] 6.8 g/dL 6.4 - 8.3 g/dL [place] Sodium [Moles/Vol] 137 mmol/L 135 - 144 mmol/L [place] Urea nitrogen [Mass/Vol] 24 mg/dL High 8 - 23 mg/dL [place] Metabolic Panelon 05-23-2020 GFR/1.73 sq M predicted among non-blacks MDRD (S/P/Bld) [Vol rate/Area] [place] Comment on above: Average GFR for 70 o r more years old: 75 mL/min/1.73sq m Chronic Kidney Disease: <60 mL/min/1.73sq m Kidney failure: <15 mL/min/1.73sq m eGFR calculated using average adult body mass. Additional eGFR calculator available at: http://www.dotloop/multiple_crcl_2012.htm Stage 1: Some kidney damage normal GFR Stage 2: Mild kidney damage GFR 60-89 Stage 3: Moderate kidney damage GFR 30-59 Stage 4: Severe kidney damage GFR 15-29 Stage 5: Severe kidney damage GFR <15 ESRD - chronic treatment by dialysis or transplant Otheron 05-23-2020 Interpretation and review of laboratory results Abnormal [place] Brain Natriuretic Peptideon 05-14-2020 Interpretation and review of laboratory results Abnormal [place] Natriuretic peptide B (Bld) [Mass/Vol] Pro-BNP Reference Range: [place] Comment on above: Rule Out: <300 Cadena Zone: Age <50 300-450 Age 50-75 300-900 Age >75 300-1800 Usually represents mild to moderate HF but other cardiopulmonary causes cannot be ruled out. Rule In: Age <50 >450 Age 50-75 >900 Age >75 >1800 Natriuretic peptide B (Bld) [Mass/Vol] 2157 pg/mL High <300 [place] Comment on above: Pro-BNP results vanesa ot be compared to BNP results. CBC Auto Differentialon 05-04 Basophils (Bld) [#/Vol] 0.09 10*3/uL [place] Basophils/100 WBC (Bld) 1 % 0 - 2 % [place] Differential Type NOT REPORTED [place] Eosinophils (Bld) [#/Vol] 0.52 10*3/uL High [place] Eosinophils/100 WBC (Bld) 6 % High 1 - 4 % [place] Erythrocyte distribution width (RBC) [Ratio] 13.9 % 11.8 - 14.4 % [place] Hematocrit (Bld) [Volume fraction] 33.0 % Low 40.7 - 50.3 % [place] Hemoglobin (Bld) [Mass/Vol] 10.6 g/dL Low 13 - 17 g/dL [place] Immature granulocytes (Bld) [#/Vol] 0 % 0 [place] Immature granulocytes (Bld) [#/Vol] 0.00 10*3/uL [place] Interpretation and review of laboratory results Abnormal [place] Lymphocytes (Bld) [#/Vol] 0.52 10*3/uL Low [place] Lymphocytes/100 WBC (Bld) 6 % Low 24 - 43 % [place] MCH (RBC) [Entitic mass] 30.8 pg 25.2 - 33.5 pg [place] MCHC (RBC) [Mass/Vol] 32.1 g/dL 28.4 - 34.8 g/dL [place] MCV (RBC) [Entitic vol] 95.9 fL 82.6 - 102.9 fL [place] Monocytes (Bld) [#/Vol] 0.17 10*3/uL [place] Monocytes/100 WBC (Bld) 2 % Low 3 - 12 % [place] Morphology Fernando (Bld) [Interp] ANISOCYTOSIS PRESENT [place] Platelet mean volume (Bld) [Entitic vol] 10.9 fL 8.1 - 13.5 fL [place] Platelets (Bld) [#/Vol] NOT REPORTED [place] Platelets (Bld) [#/Vol] 243 10*3/uL [place] RBC (Bld) [#/Vol] 3.44 10*6/uL Low 4.21 - 5.7 7 m/uL [place] RBC morphology finding Nom (Bld) NOT REPORTED [place] Segmented neutrophils/100 WBC (Bld) 85 % High 36 - 65 % [place] Segs Absolute 7.30 [place] WBC (Bld) [#/Vol] 8.6 10*3/uL [place] WBC (Bld) [#/Vol] 0.0 10*3/uL 0.0 per 10 0 WBC [place] WBC Morphology NOT REPORTED [place], [place] Comprehensive Metabolic Pane paco 05-14-2020 Albumin [Mass/Vol] 3.4 g/dL Low 3.5 - 5.2 g/dL [place] Albumin/Globulin [Mass ratio] 1.1 {ratio} [place] ALP [Catalytic activity/Vol] 81 U/L 40 - 129 U/L [place] ALT [Catalytic activity/Vol] 29 U/L 5 - 41 U/L [place] Anion gap [Moles/Vol] 12 mmol/L 9 - 17 mmol/L [place] AST [Catalytic activity/Vol] 33 U/L <40 [place] Bilirubin Ql (U) 0.84 mg/dL 0.3 - 1.2 mg/dL [place] Bun/Cre Ratio 16 [place], [place] Calcium [Mass/Vol] 8.3 mg/dL Low 8.6 - 10. 4 mg/dL [place] Chloride [Moles/Vol] 99 mmol/L 98 - 107 mmol/L [place] CO2 [Moles/Vol] 26 mmol/L 20 - 31 mmol/L [place] Creatinine [Mass/Vol] 2.07 mg/dL High 0.7 - 1.2 mg/dL [place] GFR 37 mL/min Low >60 [place] GFR Non- 31 mL/min Low >60 [place] Glucose [Mass/Vol] 143 mg/dL High 70 - 99 mg/dL [place], [place] Interpretation and review of laboratory results Abnormal [place] Potassium [Moles/Vol] 3.8 mmol/L 3.7 - 5.3 mmol/L [place] Protein [Mass/Vol] 6.4 g/dL 6.4 - 8.3 g/dL [place] Sodium [Moles/Vol] 137 mmol/L 135 - 144 mmol/L [place] Urea nitrogen [Mass/Vol] 33 mg/dL High 8 - 23 mg/dL [place] Metabolic Panelon 05-14-2020 GFR/1.73 sq M predicted among non-blacks MDRD (S/P/Bld) [Vol rate/Area] [place] Comment on above: Stage 1: Some [...] body mass. Additional eGFR calculator available at: http://www.dotloop/multiple_crcl_2012.htm Vital Signs Date Time Vital Sign Value Performing Clinician Facility 12-01-2023 14:17-0500 Diastolic blood pressure 64 mm[Hg] Boone DE LA ROSA [facility] 12-01-2023 14:17-0500 Heart rate 72 /min Boone DE LA ROSA [facility] 12-01-2023 14:17-0500 Respiratory rate 16 /min Boone DE LA ROSA [facility] 12-01-2023 14:17-0500 Systolic blood pressure 138 mm[Hg] Boone DE LA ROSA [facility] 08-17-2023 13:30-0500 Blood Pressure Location David PEPPER [facility] 08-17-2023 13:30-0500 Diastolic blood pressure 84 mm[Hg] David PEPPER [facility] 08-17-2023 13:30-0500 Systolic blood pressure 128 mm[Hg] David PEPPER [facility] 08-10-2022 16:00-0500 Diastolic blood pressure 50 mm[Hg] Romy Hughes DO [facility] 08-10-2022 16:00-0500 Heart rate 60 /min Romy Hughes DO Work Phone: [facility] 08-10-2022 16:00-0500 Respiratory rate 18 /min Romy Hughes DO Work Phone: [facility] 08-10-2022 16:00-0500 SaO2% (BldA) [Mass fraction] 97 % Romy Hughes DO [facility] 08-10-2022 16:00-0500 Systolic blood pressure 152 mm[Hg] Romy Hughes DO [facility] 08-10-2022 15:15-0500 Body temperature 98.01 [degF] Romy Hughes DO [facility] 08-10-2022 14:16-0500 Body height 167.6 cm Romy Hughes DO Work [facility] 08-10-2022 14:16-0500 Body mass index (BMI) [Ratio] 22.44 kg/m2 Romy Hughes DO Work [facility] 08-10-2022 14:16-0500 Body weight 63.05 kg Romy Hughes DO Work Phone: [facility] 07-15-2022 07:40-0400 Blood Pressure Location David PEPPER [facility] 07-15-2022 07:40-0400 Diastolic blood pressure 70 mm[Hg] David PEPPER [facility] 07-15-2022 07:40-0400 Heart rate 60 /min David PEPPER [facility] 07-15-2022 07:40-0400 Respiratory rate 16 /min David PEPPER [facility] 07-15-2022 07:40-0400 Systolic blood pressure 130 mm[Hg] David PEPPER [facility] 01-21-2022 07:36-0400 Blood Pressure Location David PEPPER [facility] 01-21-2022 07:36-0400 Diastolic blood pressure 75 mm[Hg] David PEPPER [facility] 01-21-2022 07:36-0400 Heart rate 80 /min David PEPPER [facility] 01-21-2022 07:36-0400 Respiratory rate 16 /min David PEPPER [facility] 01-21-2022 07:36-0400 Systolic blood pressure 130 mm[Hg] David PEPPER [facility] Encounters Encounter Date Encounter Type Care Provider Facility Start: 12-08-2023 ambulatory Boone DE LA ROSA Facility : [facility] Start: 12-01-2023 End: 12-02-2023 ambulatory Boone R DONALDL Facility: [facility] Start: 12-01-2023 End: 12-01-2023 Patient encounter procedure Boone R NILL [facility] Start: 08-17-2023 End: 08-18-2023 ambulatory David PEPPER [facility] Start: 08-17-2023 End: 08-18-2023 ambulatory David PEPPER Facility:[facility] Start: 08-17-2023 End: 08-17-2023 Lab Drop off David PEPPER [facility] Start: 08-17-2023 End: 08-17-2023 Patient encounter procedure David PEPPER [facility] Start: 06-14-2023 End: 06-15-2023 ambulatory David PEPPER Facility:[facility] Start: 06-14-2023 End: 06-14-2023 Patient encounter procedure [facility] Start: 11-13-2022 End: 11-14-2022 ambulatory NAVYA BUSH Facility: Start: 08-10-2022 End: 08-10-2022 ambulatory ROMY [facility] Start: 08-10-2022 End: 08-10-2022 Subsequent hospital visit by physician Romy Hughes DO Work Phone: [facility] Start: 07-15-2022 End: 07-15-2022 Patient encounter procedure David PEPPER [facility] Start: 01-21-2022 End: 01-21-2022 Patient encounter procedure David PEPPER [facility] Start: 05-23-2020 End: 05-23-2020 Subsequent hospital visit by physician Klarissa BERRIOS [facility] Start: 05-14-2020 End: 05-14-2020 Subsequent hospital visit by physician Klarissa BERRIOS Laboratory Procedures Date Procedure Procedure Detail Performing Clinician Start: 08-17-2023 Transurethral cystoscopy David PEPPER Start: 07-15-2022 Cystoscopy David WA TERS Start: 01-21-2022 Cystoscopy David WA TERS Start: 10-29-2021 Cystoscopy David WA TERS Start: 07-30-2021 Cystoscopy David WA TERS Start: 04-30-2021 Cystoscopy David WA TERS Start: 01-22-2021 Cystoscopy David WA TERS Start: 10-30-2020 Cystoscopy David WA TERS Start: 07-30-2020 Cystoscopy David WA TERS Start: 05-23-2020 Blood count complete automated Klarissa Nance Work Phone: Start: 05-23-2020 Comprehensive metabo lic panel Klarissa Nance Work Phone: Start: 05-23-2020 Natriuretic peptide Luis Fernando glas [employer] Work Phone: Start: 05-14-2020 Blood count complete auto&auto difrntl wbc Klarissa Nance Work Phone: Start: 05-14-2020 Comprehensive metabo lic panel Klarissa Nance Work Phone: Start: 05-14-2020 Natriuretic peptide Luis Fernando glas [employer] Work Phone: Start: 04-22-2020 Aortic aneurysm repair David PEPPER Start: 04-22-2020 Exploratory laparotomy David PEPPER Start: 04-19-2020 CT guided biopsy of left rib David PEPPER Start: 04-19-2020 Excision of aortic arch David PEPPER Start: 04-11-2020 Transurethral resect ion of bladder neoplasm David PEPPER Start: 03-19-2020 Cystoscope, device (physical object) David PEPPER Start: 01-17-2019 Cystoscopy Dvaid PETERSON Start: 01-04-2018 Cystoscopy David PETERSON Comment [...] PEPPER Start: 10-04-2005 Intracavitary brachytherapy David PEPPER Extraction of cataract Jaziel DE LA ROSA Hydrocelectomy David CAMPOVERDE S Plan of Treatment Date Care Activity Detail Author Start: 08-10-2022 End: 08-10-2022 Xcapsl ctrc rmvl insj io lens prosth w/o ecp EYE CATARACT EMULSIFICATION IOL IMPLANT Age-related nuclear cataract of both eyes 08/10/2022 2:50 PM [facility] Start: 05-04-2022 Influenza vaccination Flu vaccine (# 1) [facility] Start: 01-11-2021 COVID-19 Vaccine (4 - Booster) COVID-19 Vaccine (4 - Booster) [facility] Start: 06-04-2020 Influenza vaccination Flu vaccine (# 1) [place], [place] Start: 1959 DTaP/Tdap/Td vaccine (1 - Tdap) DTaP/Tdap/Td vaccine (1 - Tdap) [facility] Oxygen therapy [Mini mum Data Set] Initiate Oxygen Therapy Protocol Respiratory Care Routine Daily until discontinued starting 08/10/2022 [facility] Work Phone: Comment on above: Daily until disconti nued starting 08/10/2022 Oxygen therapy [Mini mum Data Set] Initiate Oxygen Therapy Protocol Respiratory Care Routine Daily until discontinued starting 08/10/2022 [facility] Work Phone: Comment on above: Daily until disconti nued starting 08/10/2022 Immunizations Immunization Date Immunization Notes Care Provider Yg rae 08-08-2023 influenza virus vaccine, unspecified formulation [employer] [facility] 10-23-2022 zoster vaccine recombinant [employer] [facility] 07-30-2022 influenza virus vaccine, unspecified formulation [employer] [facility] 07-30-2022 zoster vaccine recombinant [employer] [facility] 10-09-2021 influenza virus vaccine, unspecified formulation [employer] [facility] 07-23-2021 SARS-CoV-2 (COVID-19 ) mRNA BNT-162b2 vax [employer] [facility] 07-22-2021 tetanus toxoid, redu genesis diphtheria toxoid, and acellular pertussis vaccine, adsorbed David PEPPER [facility] 11-16-2020 SARS-CoV-2 (COVID-19 ) mRNA BNT-162b2 vax David [employer] [facility] 10-26-2020 SARS-CoV-2 (COVID-19 ) mRNA BNT-162b2 vax David [employer] [facility] 10-15-2020 SARS-CoV-2 (COVID-19 ) mRNA BNT-162b2 vax David [employer] [facility] 10-14-2020 SARS-CoV-2 (COVID-19 ) mRNA BNT-162b2 vax David [employer] [facility] 07-18-2020 influenza virus vaccine, unspecified formulation David [employer] [facility] 09-18-2019 influenza virus vaccine, unspecified formulation David [employer] [facility] 07-17-2019 influenza virus vaccine, unspecified formulation David [employer] [facility] 10-14-2018 influenza virus vaccine, unspecified formulation [employer] [facility] 09-24-2017 influenza, unspecifi ed formulation David PEPPER [facility] 09-24-2017 pneumococcal conjuga te vaccine, 13 valent David PEPPER [facility] Payers Date Payer Category Payer Self-pay 2023 Medicare [id number] 1961 Medicare [id number] 1959 Private Health Insurance CLI [id number] 1938 Unknown [id number] [id number] [id number] 1938 Unknown [id number] 2.16.84 [id number] 1938 Unknown [id number] 2.16.84 [id number] 1938 Unknown [id number] 2.16.8 [id number] 1938 Unknown [id number] 2.16.8 [id number] 1938 Unknown [id number] 2.16.8 [id number] 1938 Unknown [id number] 2.16.8 [id number] 1938 Unknown [id number] 2.16.8 [id number] Unknown [id number] 2.16.8 [id number] Social History Date Type Detail Facility Tobacco smoking stat us NEIS Unknown if ever smoked [facility] [place] Start: 1940 Sex Assigned At Not on file [place], [place] Start: 04-01-2021 End: 12-01-2023 Tobacco smoking status Ex-smoker (finding) [facility] Tobacco smoking status Never [facility] Sex Assigned At Male [facility] History of tobacco use Current smoker [employer] Phone: History of tobacco use Cigarette Smoker B ON [employer] Phone: Start: 08-03-2022 Tobacco use and exposure Smokeless tobacco non-user [employer] Phone: Start: 08-10-2022 Alcohol intake Current drinke r of alcohol (finding) [employer] Phone: Start: 08-03-2022 Alcohol Comment [employer] Phone: Start: 07-24-2022 End: 08-03-2022 Exposure to SARS-CoV-2 (event) Not sure [employer] Phone: Medical Equipment Procedure Code Equipment Code Equipment Origin al Text Equipment Identifier Dates Lens Intraocular Bcnvx 23.5+ Diopt 6x12.5 Mm Acryl [employer] - [id number] Start: 08-10-2022 Functional Status Date Assessment Result Facility 12-01-2023 Functional Status N/A [facility] 08-17-2023 Functional Status N/A [facility] 07-15-2022 Functional Status N/A [facility] Clinical Notes 01-21-2022 to 12-01-2023 Linda Hogue RN - 08/10/2022 4:05 PM Viktor Hogue RN - 08/10/2022 3:30 PM ESTDischarge Instructions Note Date & Type Note Facility 12-01-2023 Note Chief Complaint consultation for nevus HPI Staff 83 year old male presents on consultation from Dr. Nance for nevus. Reports several year history of right nares skin lesion. Reports over the past one year, lesion has increased in size. Area frequently sheds top layer of skin and bleeds. Denies this being sore or tender. Patient on Eliquis for a.fib. History of Present Illness 83 yo male with h/o atrial fibrillation, on Eliquis, htn, hyperlipidemia, hypothyroidism, CKD, prostate and bladder cancers, osteoarthritis, referred for skin lesion; patient poor historian, several year h/o right nasal skin lesion, increasing in size, bleeds at times; no personal h/o skin cancer. Review of Systems PHQ Score Initial Depression Screen Score: 0 SCORE ROS - Provider Constitutional: no fever, no sweats, no weight loss. Eyes: no glasses, no blurred vision, no visual loss. ENMT: no dentures, no hoarseness, no swallowing difficulties, no hearing loss, no ear infection(s), no nose bleeds. Cardiovascular: normal blood pressure, no chest pain, regular heartbeat, no heart murmur. Respiratory: no shortness of breath, no cough, no asthma, no wheezing. Gastrointestinal: no nausea, no vomiting, no diarrhea, no constipation, no blood in stool, no change in bowel habits, no abdominal pain, no hepatitis. Genitourinary: no kidney stones, no urine infection, no dysuria. Musculoskeletal: no pain, no weakness. Skin: yes changing moles, no rash, no skin lumps. Neurologic: no seizures, no epilepsy, no headache. Psychiatric: no emotional or psychiatric problem. Heme/Lymph: no bleeding problems, no anemia, no blood clots, no transfusions. Allergy/Immunologic: no swollen lymph nodes/glands, no IV drug abuse. Other: Additional ROS info: Except as noted in the above Review of Systems and in the History of Present Illness, all other systems have been reviewed and are negative or noncontributory. Physical Exam Vitals & Measurements HR: 72(Peripheral) RR: 16 BP: 138/64 HT: 67 in HT: 170.1 cm WT: 63.0 kg WT: 138.6 lb BMI: 21.77 HEENT: normal conjunctiva, sclera clear, no scleral icterus, EOM intact, PERRLA, oral mucosa moist without lesions. Musculoskeletal: abnormal gait, digits and nails without infection, nodes, cyanosis, clubbing. Skin: no rashes, right nares with 1.5 cm raised, scabbed lesion, no pigmentation no ulcers, no subcutaneous nodules, induration. Psychiatric/Neuro: oriented to time, place, person, judgement normal, affect appropriate for age, insight intact, no focal deficits. Tests: review of old records completed , Discussed surgical options, risks, and possible complications with patient. Assessment/Plan 1. Neoplasm of uncertain behavior of skin of nose (D48.5: Neoplasm of uncertain behavior of skin) incisional biopsy obtained under local anesthesia, tolerated well; closed with 5-0 nylon sutures with good hemostasis; follow up in 1 week for suture removal; if skin cancer, will require referral for possible Mohs surgery verses plastic surgery for possible excision/skin graft. Follow-up No qualifying data available Problem List/Past Medical History Ongoing Jlkdh-df-nrakzft kidney injury AK (actinic keratosis) Androgen deprivation therapy Aortic aneurysm Atrial fibrillation Bladder cancer BMI 21.0-21.9, adult BPH with urinary obstruction Cutaneous skin tags Former smoker History of bladder cancer History of prostate cancer Hx of bladder cancer Hyperlipidemia Hypertension Hypothyroidism Microscopic hematuria Neoplasm of uncertain behavior of skin of chest Neoplasm of uncertain behavior of skin of nose Osteoarthritis Prostate cancer Rising PSA following treatment [...] using ultrasound (US) guidance (04/13/2006), Brachytherapy (2005), Cataract extraction, Hydrocelectomy. Medications amiodarone Tab, 200 mg= 1 tab(s), Oral, Daily aspirin 81 mg oral tablet, 81 mg= 1 tab(s), Oral, Daily atorvastatin 40 mg Tab, 40 mg= 1 tab(s), Oral, Daily bicalutamide 50 mg Tab, 50 mg= 1 tab(s), Oral, q24hr, 3 refills (more content not included)... [facility] Comment on above: Result Comment: Elec tronically Signed By: ESTRELLA OLGUIN, Boone Buenrostro\.br\Date and Time Signed: 12/01/23 15:19 EST 08-17-2023 Evaluation + Plan note Diagnostic Tests PendingUroVysion Fish and Urine Cyto ([facility]) 08/17/23 [facility] 07-13-2023 Hospital Discharge instructions Follow Up Care 07/13/2023 09:25:11 With:SHANTELLE OLGUIN, David Buenrostro, URL Address: [facility] [address], [place] [facility] [place] [address]- When:Within 1 Year(s) Comments:w/cysto/FISH/Cytology, bt ck [facility] 11-13-2022 Note PROCEDURE: XR FINGER MIN 2 [...] authenticated by: LEANNE GU Date: 2022-11-13 14:51 [facility] 08-10-2022 History of Present illness Narrative [...] New order received. documented in this encounter [facility] Work Phone: 08-10-2022 Hospital Discharge instructions Romy Hughes [...] the healing period. The office number is [phone]. Take surgery bag and all eye drops to Dr. Hughes's office tomorrow at 10:15am. You may resume your normal diet. Start your eye drops tomorrow after your post-op appointment: Ofloxacin/Polytrim one drop to the operated eye 4 times daily Prednisolone one drop to the operated eye 4 times daily documented in this encounter [facility] Work Phone: 07-15-2022 Evaluation + Plan note Diagnostic Tests PendingUroVysion Fish and Urine Cyto ([facility]) 07/15/22 [facility] 07-15-2022 Hospital Discharge instructions Patient Education 07/15/2022 [...] if anything looks unusual. Men with a gwjfrv-dyfz-lkqmjr risk for skin cancer may want to see a slunk skin curer (mail handlers supervisor) for an annual body check. Where to find more information National Cancer [place]: https://www.cancer.gov/about-can cer/screening Centers for Disease Control and Prevention: https://www.cdc.gov/cancer/dcpc/ prevention/screening.htm [place] [employer]: https://www.cancer.org/latest-ne ws/4-jziqua-wdohbfjeb-tests-for- men.html Contact a health care provider if: [...] 06/17/2017 Document Revised: 06/09/2019 Document Reviewed: 06/17/2017 [employer] Patient Education 2020 [employer] Follow Up Care 06/25/2022 14:20:11 With:SHANTELLE OLGUIN, David Buenrostro, URL Address: [facility] [address] [place] [address]- When:1 year Comments:Cysto/FISH/Cyto [facility] 01-21-2022 Evaluation + Plan note Diagnostic Tests PendingPSA Total 01/21/22Uro[facility]ion Fish and Urine Cyto ([facility]) 01/21/22 [facility] 01-21-2022 Hospital Discharge instructions Patient Education 01/21/2022 [...] who: Are older than age 65. Are -[place]. Are obese. Have a family history of [...] cells. Follow these instructions at home: Take vzuo-jis-vvfmsyh and prescription medicines only as told by [...] 09/20/2006 Document Revised: 09/02/2018 Document Reviewed: 05/31/2017 [employer] Patient Education 2020 [employer]. 01/21/2022 07:24:07 Cancer Screening for Men Cancer [...] if anything looks unusual. Men with a hwdmfe-upzv-vjitmd risk for skin cancer may want to see a slunk skin curer (mail handlers supervisor) for an annual body check. Where to find more information National Cancer [place]: https://www.cancer.gov/about-can cer/screening Centers for Disease Control and Prevention: https://www.cdc.gov/cancer/dcpc/ prevention/screening.htm [place] [employer]: https://www.cancer.org/latest-ne ws/7-qjkxke-qqesbalps-tests-for- men.html Contact a health care provider if: [...] 06/17/2017 Document Revised: 06/09/2019 Document Reviewed: 06/17/2017 [employer] Patient Education 2020 [employer]. Follow Up Care 10/29/2021 09:32:38 With:SHANTELLE OLGUIN, ALF Cardona Address: [facility] [address], [place] [address]- [phone] When:07/23/2022 [facility] Evaluation + Plan note Future Appointments Appointment Date:12/08/2023 03:20:00 PM Scheduled Provider:Boone DE LA ROSA MD Location:[facility] Appointment Type: Established 15 General Surgery Mobile Evaluation note Diagnosis 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 in this encounter [employer] Work Phone: Hospital course Narrative No data available for this section [facility] Hospital Discharge instructions No data available for this section [facility] progress note No data available for this section [facility] Advance Directives No Advanced Directives Records FoundDocuments on File Type Date Recorded Patient Television Repairer Expl anation Advance Directives and Living Will Power of Cashier Documents on File Type Date Recorded Patient Television Repairer Expl anation ACP-Advance Directive ACP-Power of Cashier Latest Code Status on File Code Status Date Activated Date Inactivated Comments Full Code 08/10/2022 1:45 PM Summary Purpose Family History No Family History Records FoundNo Family History Records Found No data available for this section No data available for this section No data available for this section No Family History Records FoundNo Family History Records Found Additional Source Comments Patient Care team informatio n (unrecognized section and content) Engineering Systems Analyst Relationship Specialty Start Date End Date Klarissa Nance MD [address] [place] [address] PCP - General Family Medicine 05/14/20 Reason for Visit (unrecogniz ed section and content) Specialty Diagnoses / Procedures Referred By Contac t Referred To Contact Diagnoses Age-related nuclear cataract of both eyes AGE-RELATED NUCLEAR CAT 3+NS, 1+CS H25.12 Procedures [place] XCAPSL CTRC RMVL INSJ IO LENS PROSTH W/O ECP EYE CATARACT EMULSIFICATION IOL IMPLANT Romy Hughes Y, DO [address] [place] [address] [facility] [employer] [address] [place] [address] Referral ID Status Reason Start Date Expiration Date Visits Re quested Visits Authorized [id number] 1 1 Scheduled Active and Recently Administ [...] 1415 (Given - Provid er: Bhavana David RN)142 (Given - Provider: Bhavana David RN)1431 (Given - Provider: Bhavana David RN) proparacaine (ALCAINE) 0.5 % ophthalmic solution 1 drop 1 drop, Left Eye, SEE ADMIN INSTRUCTIONS, Starting on Wed08/10/22 at 1345, Until Discontinued, Into the operative eye(s) every 5 minutes for PRN doses starting 30 minutes prior to surgery., Pre-op (day of surgery) 1415 (Given - Provid er: Bhavana David RN)142 (Given - Provider: Bhavana David RN)1431 (Given [...] Intra-op 1456 (Given - Provid er: Romy Hughes, DO) lidocaine PF 1 % injection (CANCELED) PRN, Starting on Wed08/10/22 at 1457, Until Wed08/10/22 at 1511, Intra-op 1457 (Given - Provid er: Romy Hughes, DO) sodium chloride flush 0.9 % injection [...] (Given - Provid er: Romy Hughes DO) (unrecognized sect ion and content) No Status Records FoundNo Status Records FoundNo Status Records FoundNo Status Records Found INFORMATION SOURCE (unrecogn ized section and content) DATE CREATED AUTHOR 08/10/2022 [facility] DATE CREATED AUTHOR AUTHOR'S ORGANIZ ATION 11/16/2022 [facility] DATE CREATED AUTHOR AUTHOR'S ORGANIZ ATION 12/03/2023 [facility] DATE CREATED AUTHOR AUTHOR'S ORGANIZ ATION 12/05/2023 [facility] FOR RECORDS PERTAINING TO PATIENTS WHO ARE [...] BE BASED ON THE PRIMARY CLINICAL RECORDS. [facility] [employer] [facility]. provides no warranty or guarantee of the accuracy or completeness of information in this document.
== END 2023-12-01 14:51 | disposition home or self-care (01) ==
LOC: LAB 14:50
PROVIDERS: PCP Family Medicine; Visit Provider Surgery
DX: D04.39 Carcinoma in situ of skin of other parts of face (principal)
CPT/HCPCS: 88305

== ENCOUNTER 2023-12-02 09:03 | Outpatient (OUT) | payer MEDICARE, SELFPAY ==
[2023-12-02 10:55] LABS: Free T3 1.59 pg/mL (2.18-3.98); Thyroid Stimulating Hormone 1.967 uIU/mL (0.358-3.740)
== END 2023-12-02 09:04 | disposition home or self-care (01) ==
LOC: LAB 09:04
PROVIDERS: PCP Family Medicine; Visit Provider Family Medicine
DX: E03.9 Hypothyroidism, unspecified (principal)
CPT/HCPCS: 36415; 84436; 84443; 84481

== ENCOUNTER 2024-01-16 19:22 | Emergency (ER) | payer MEDICARE, SELFPAY ==
[2024-01-16 19:25] VITALS: BP 178/81; PULSE 68; TEMP 36.6; O2SAT 99
--- OUTSIDE RECORDS SUMMARY | 2024-01-16 19:30 | XMS_ITS | CCD ---
Author Organization [facility] Care Team Providers Care Brush Maker Name Role Phone Klarissa Nance Primary Care Provider [phone] Klarissa Nance Primary Care Physician [phone] Klarissa Nance MD Primary Care Provider [phone] ROMY HUGHES Admitting Unavailable ROMY HUGHES Attending Unavailable KLARISSA NANCE Primary Care Unavailable LEE ANN, DR CYR Primary Care Unavailable DIAB, BRAYAN Admitting Unavailable DIAB, BRAYAN Attending Unavailable ZIMARTHA, DR LEANNE Buenrostro Consulting Unavailable GREARPITA, NINOSKA OSMAN Consulting Unavailable DIAB, BRAYAN Consulting Unavailable RACHELLE, NAVYA Admitting Unavailable RACHELLE, NAVYA Attending Unavailable LEE ANN, DR CYR Primary Care Unavailable RACHELLE, NAVYA Consulting Unavailable NEFCY, RILEY Consulting Unavailable David Pepper Primary Care Unavailable Nill, Boone Buenrostro Attending Unavailable Nill, Boone Buenrostro Admitting Unavailable PEPPER, David Buenrostro Admitting Unavailable PEPPER, David Buenrostro Attending Unavailable NILL, Boone Buenrostro Attending Unavailable NILL, Boone Buenrostro Attending Unavailable PEPPER, David Buenrostro Attending Unavailable PEPPER, David Buenrostro Attending Unavailable Allergies Allergy Classification Reported Allergen(s) Allergy Type Date of Onset Reaction(s) Facility (8 sources) Sulfonamides (Antibiotic); Translations: [sulfa drugs] Drug allergy Unknown (qualifier value), Anaphylaxis (disorder) [facility] [place] (1 source) Sulfonamides (Antibiotic) Propensity to adverse reactions to drug 2 [facility] (1 source) Sulfonamides (Antibiotic) Drug allergy (disorder) [facility] Repository Medications Current Medications Medication Drug Class(es) Dates Sig (Normalized) Sig (Original) amiodarone hydrochloride 200 mg oral tablet (8 sources) Antiarrhythmic Start: 03-13-2021 take 1 tablet by mouth once daily amiodarone Tab 200 mg = 1 tab(s), Oral, Daily, # 30 tab(s), Refills(s) 0 Start Date: 03/13/21 Status: Ordered apixaban 2.5 mg oral tablet (8 sources) Factor Xa Inhibitor Start: 01-22-2021 take 2.5 mg by mouth twice daily Eliquis 2.5 mg, Oral, BID, Refills(s) 0 Start Date: 01/22/21 Status: Ordered aspirin 81 mg oral tablet (7 sources) Platelet Aggregation Inhibitor, Nonsteroidal Anti-inflammatory Drug Start: 05-26-2019 take 1 tablet by mouth once daily aspirin 81 mg oral tablet 81 mg = 1 tab(s), Oral, Daily Start Date: 05/26/19 Status: Ordered atorvastatin 40 mg oral tablet (8 sources) HMG-CoA Reductase Inhibitor Start: 03-13-2021 take 1 tablet by mouth once daily atorvastatin 40 mg Tab 40 mg = 1 tab(s), Oral, Daily, # 30 tab(s), Refills(s) 0 Start Date: 03/13/21 Status: Ordered bicalutamide 50 mg oral tablet (9 sources) Androgen Receptor Inhibitor Start: 04-09-2023 take 1 tablet by mouth every twenty-four hours bicalutamide 50 mg Tab 50 mg = 1 tab(s), Oral, q24hr, # 90 tab(s), Refills(s) 3, [facility]: [facility] #[id number], 169, cm, 07/15/22 7:43:00 EDT, Height/Length Dosing, [...] Ordered docusate sodium 50 mg / sennosides, senior care 8.6 mg oral capsule (4 sources) Start: [...] Status: Ordered mupirocin 0.02 mg/mg topical ointment (7 sources) RNA Synthetase Inhibitor Antibacterial Start: 03-13-2021 [...] mL tamsulosin hydrochloride 0.4 mg oral capsule (8 sources) alpha-Adrenergic Nazia Start: 12-31-2022 take 1 capsule by mouth once daily Flomax 0.4 mg Cap 0.4 mg = 1 cap(s), Oral, Daily, # 90 cap(s), Refills(s) 3, Pharmacy: [facility] #[id number], 169, cm, 07/15/22 7:43:00 EDT, Height/Length Dosing, 70, kg, 07/15/22 7:43:00 EDT, Weight Dosing Start Date: 12/31/22 Status: Ordered Start: 10-29-2021 take 1 capsule by [facility] once daily Flomax 0.4 mg Cap 0.4 mg = 1 cap(s), Oral, Daily, # 90 cap(s), Refills(s) 3, Pharmacy: [facility], 169, cm, 10/29/21 7:50:00 EST, Height/Length Dosing, 70, kg, 10/29/21 7:50:00 EST, Weight Dosing Start Date: 10/29/21 Status: Ordered tetracaine hydrochloride 5 mg/ml ophthalmic solution (1 source) Analia Local Anesthetic Start: 08-10-2022 tetracaine (TETRAVISC) 0.5 % ophthalmic solution 1 drop traMADol hydrochloride 50 mg oral tablet (2 sources) Opioid Agonist Start: 11-17-2023 take 1 tablet [...] Sig (Original) cephalexin 500 mg oral capsule (7 sources) Cephalosporin Antibacterial Start: 07-13-2023 take 1 tablet by mouth once daily Keflex 500 mg Cap 500 mg = 1 cap(s), Oral, Daily, Take 1 tablet the day before the procedure and 1 tablet after the procedure, # 2 cap(s), Refills(s) 0, Pharmacy: [facility] #[id number], 169, cm, 07/15/22 7:43:00 EDT, Height/Length Dosing, 70, kg, 07/15/22 7:43:00 EDT, Weight Dosing Start Date: 07/13/23 Status: Ordered Start: 07-14-2022 take 1 tablet by joe once daily Keflex 500 mg Cap 500 mg = 1 cap(s), Oral, Daily, Take 1 tablet the day before the procedure and 1 tablet after the procedure, # 2 cap(s), Refills(s) 0, Pharmacy: [facility] #[id number], 169, cm, 01/21/22 7:46:00 EDT, Height/Length Dosing, 70, kg, 01/21/22 7:46:00 EDT, Weight... Start Date: 07/14/22 Status: Ordered Start: 10-29-2021 take 1 tablet by joe once daily Keflex 500 mg Cap 500 mg = 1 cap(s), Oral, Daily, Take 1 tablet the day before the procedure and 1 tablet after the procedure, # 2 cap(s), Refills(s) 0, Pharmacy: [id number], 169, cm, 10/29/21 7:50:00 EST, Height/Length Dosing, 70, kg, 10/29/21 7:50:00 ES... Start Date: 10/29/21 Status: Ordered 1 ml hydrALAZINE hydrochloride 20 mg/ml injection (1 source) Arteriolar Vasodilator Start: 08-10-2022 End: 08-10-2022 hydrALAZINE (APRESOLINE) injection 5 mg Start: 08-10-2022 End: 08-10-2022 hydrALAZINE (APRESOLINE) inj ection 5 mg Problems Problem Classification Problem Date Documented Date Episodic/Chronic Acute and unspecified renal failure (7 sources) Jjswj-jm-xacuugn renal failure 03-12-2021 Episodic Aortic; peripheral; and visceral artery aneurysms (7 sources) Aortic aneurysm 03-12-2021 Chronic Cancer of bladder (7 sources) Malignant neoplasm of posterior wall of urinary bladder 04-19-2020 Chronic Cancer of bladder (3 sources) History of malignant neoplasm of bladder; Translations: [Personal history of malignant neoplasm of bladder] Onset: 01-21-2022 Episodic Cancer of prostate (7 sources) Malignant tumor of prostate 05-25-2019 Chronic Cancer of prostate (10 sources) Personal history of malignant neoplasm of prostate; Translations: [History of malignant neoplasm of prostate] Onset: 01-21-2022 Episodic Cancer; other and unspecified primary (7 sources) H/O: malignant neoplasm 10-30-2020 Episodic Cancer; other and unspecified primary (7 sources) History of bladder neoplasm 05-26-2019 Episodic Cardiac dysrhythmias (7 sources) Atrial fibrillation 03-12-2021 Chronic Cataract (4 sources) Age-related nuclear cataract of left eye; Translations: [Age-related nuclear cataract, left eye] Onset: 08-09-2022 Resolved: 08-10-2022 Chronic Disorders of lipid metabolism (14 sources) Hyperlipidemia 05-25-2019 Chronic E Codes: Other specified and classifiable (1 source) Caught, crushed, jammed, or pinched between moving objects, initial encounter; Translations: [CAUGHT CRUSH/PINCH BTWN MOV OBJ INT] Onset: 11-16-2022 Episodic Essential hypertension (7 sources) Hypertensive disorder 03-12-2021 Chronic Genitourinary symptoms and ill-defined conditions (14 sources) Increased frequency of urination; Translations: [Microscopic hematuria] 05-25-2019 Episodic Hyperplasia of prostate (11 sources) Benign prostatic hypertrophy with outflow obstruction; Translations: [Benign prostatic hyperplasia with lower urinary tract symptoms] Onset: 01-21-2022 Chronic Joint disorders and dislocations; trauma-related (2 sources) Dislocation of proximal interphalangeal joint of left middle finger, initial encounter; Translations: [DISLOC PROX IP JNT LT MID FNGR INIT] Onset: 11-16-2022 Episodic Neoplasms of unspecified nature or uncertain behavior (10 sources) Neoplasm of uncertain behavior of skin of chest; Translations: [Neoplasm of uncertain behavior of skin] Onset: 12-01-2023 03-13-2021 Episodic Osteoarthritis (7 sources) Osteoarthritis 03-12-2021 Chronic Other aftercare (1 source) 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; Translations: [RESIDENTIAL CURRENT USE OF ASPIRIN] Onset: 11-16-2022 Episodic Other aftercare (1 source) Other group home (current) drug therapy; Translations: [OTH RESIDENTIAL CURRENT DRUG THERAPY] Onset: 11-16-2022 Episodic Other connective tissue disease (3 sources) Pain in left finger(s); Translations: [PAIN IN LEFT FINGERS] Onset: 11-13-2022 Episodic Other connective tissue disease (5 sources) Pain in left hand; Translations: [PAIN IN LEFT HAND] Onset: 11-13-2022 Episodic Other diseases of kidney and ureters (1 source) Urinary tract obstruction; Translations: [Other obstructive and reflux uropathy] Onset: 08-17-2023 Episodic Other non-epithelial cancer of skin (2 sources) Basal cell carcinoma of nose; Translations: [Basal cell carcinoma of skin of nose] Onset: 12-08-2023 Episodic Other screening for suspected conditions (not mental disorders or infectious disease) (7 sources) Raised prostate specific antigen 05-26-2019 Episodic Other skin disorders (7 sources) Actinic keratosis 03-12-2021 Episodic Other skin disorders (7 sources) Mass of skin 03-13-2021 Episodic Other skin disorders (7 sources) Skin tag 03-13-2021 Episodic Screening and history of mental health and substance abuse codes (7 sources) Ex-smoker 05-25-2019 Episodic Thyroid disorders (2 sources) Hypothyroidism 11-17-2023 Chronic Unclassified (7 sources) Body mass index 20-24 - normal 03-13-2021 Unclassified (7 sources) Drug therapy finding 03-12-2021 Unclassified (7 sources) Seborrheic keratosis 03-12-2021 Results Test Name Value Interpretation Reference Range Facility Physician Referralon 024 Physician Referral [id number] IFF Normal [facility] Consultation Noteon 01-02-20 24 Consultation Note [id number] IFF Normal [facility] Ambulatory Visit Summaryon 0 12-08-2023 Ambulatory Visit Summary ANALIA OLIVO :1940 Visit Date:12/08/2023 Ambulatory Visit Instructions Your Diagnosis Basal cell carcinoma of nostril Your Care Team Attending Physician - Boone DE LA ROSA MD Primary Care Physician - Klarissa Nance [...] (04/13/2006), Brachytherapy (2005), Cataract extraction, Hydrocelectomy. Medications What How Much When Instructions [...] prescribing physician if questions or concerns Unchanged bicalutamide (bicalutamide 50 mg Tab) 1 Tablets By Mouth Every 24 hours Contact prescribing physician if questions or concerns Unchanged cephalexin (Keflex 500 mg Cap) 1 Capsules By Mouth Every day Take 1 tablet the day before the procedure and 1 tablet after the procedure Contact prescribing physician if questions or concerns Unchanged mupirocin topical (mupirocin Top 2% Oint) apply to affected area twice a day Contact prescribing physician if questions or concerns Unchanged tamsulosin (Flomax 0.4 mg Cap) 1 Capsules By Mouth Every day Contact prescribing physician if questions or concerns Unchanged tramadol (traMADOL 50 mg Tab) 1 Tablets By Mouth 4 times a day as needed for as needed for pain Contact prescribing physician if questions or concerns Allergies sulfa drugs (Anaphylaxis) Problems Ongoing - Any problem that you are currently receiving treatment for. Bkrnk-zu-meixdqb kidney injury AK (actinic keratosis) Androgen deprivation therapy Aortic aneurysm Atrial fibrillation Basal cell carcinoma of nostril Bladder cancer BMI 21.0-21.9, adult BPH with [...] are no longer receiving treatment for. Hyperlipidemia Patient Survey You may receive a survey via text or e-mail asking about your office visit. Please share your experience with us by completing your survey. We appreciate your feedback and thank you for choosing us for your care. Normal [facility] General Surgery Office/Clini c Noteon 12-08-2023 General Surgery Office/Clinic Note Chief Complaint follow up incisional biopsy HPI Staff 7 days post in-office incisional biopsy right nasal lesion. Denies discomfort, bleeding or drainage. Sutures intact. History of Present Illness 1 week s/p incisional biopsy enlarging right nasal lesion; no bleeding; pathology consistent with basal cell carcinoma. Review of Systems ROS - Provider Constitutional: no fever, no sweats, no weight loss. Eyes: yes glasses, no blurred vision, no visual loss. [...] and are negative or noncontributory. Physical Exam skin: incision with scab; no bleeding; 3 cm nodular mass right nares with scab. Assessment/Plan 1. 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 Follow-up No qualifying data available Problem List/Past Medical History Ongoing Oozwl-mm-ackigzw kidney injury [place] (actinic keratosis) Androgen deprivation therapy Aortic aneurysm Atrial fibrillation Basal cell carcinoma of nostril Bladder cancer BMI 21.0-21.9, adult BPH with [...] mg= 1 tab(s), Oral, q24hr, 3 refills Eliquis, 2.5 mg, Oral, BID Flomax 0.4 mg Cap, 0.4 mg= 1 cap(s), Oral, Daily, 3 refills Keflex 500 mg Cap, 500 mg= 1 cap(s), Oral, Daily mupirocin Top 2% Oint traMADOL 50 mg Tab, 50 mg= 1 tab(s), Oral, QID, PRN Allergies sulfa drugs (Anaphylaxis) Social History Alcohol - Denies Alcohol Use, 05/25/2019 Past, Beer, 1-2 times per year, Alcohol use interferes with work or home: No. Drinks more than intended: No. Others hurt by drinking: No. Ready to change: No. Household alcohol concerns: No., 03/13/2021 Substance Abuse - Denies Substance Abuse, 05/25/2019 Tobacco Former smoker, quit more than 30 days ago Tobacco Use:. Never Smokeless Tobacco Use:. Cigarettes, 20 per day. 40 year(s). Started age 19.0 Years. Stopped age 60 Years. Ready to change: No. Household tobacco concerns: No., 12/01/2023 Family History Heart disease: Father. Immunizations Vaccine Date Status influenza virus vaccine, inactivated 08/08/2023 Recorded zoster vaccine, inactivated 10/23/2022 Recorded zoster vaccine, inactivated 07/30/2022 Recorded influenza virus vaccine, inactivated 07/30/2022 Recorded influenza virus vaccine, inactivated 10/09/2021 Javier (more content not included)... Normal [facility] Comment on above: Result Comment: Elec tronically Signed By: ESTRELLA OLGUIN, Boone Buenrostro\.br\Date and Time Signed: 12/08/23 15:32 EST Pathology Noteon 12-08-2023 Pathology Note [id number] IFF [facility] Ambulatory Visit Summaryon 0 12-01-2023 Ambulatory Visit Summary PALLAVI ANALIA Vazquez :1940 Visit Date:12/01/2023 Ambulatory Visit Instructions Your Care Team Attending Physician - Boone DE LA ROSA MD Primary Care Physician - Klarissa Nance [...] What to do next Scheduled Follow-Up Appointments Wednesday 3:20 PM EST With: Boone DE LA ROSA MD Where: General Surgery [facility] [place] [facility] Paco 12-01-2023 L Specimen: [id number] Received: 12/02/23 Status: AMBAR Zapien Num: [id number] Spec Type: Surgical Subm Dr: Boone De La Rosa MD FACS Tissues: A Skin-Other than Cyst, tag, debridement or plastic repair (RT NARES) Procedures: HE, Gross/Micro L4 Age/ Patient Sex Location Account Attending Physician Analia Olivo 83/M LABELL [id number] Boone De La Rosa MD FACS SPEC NUM: [id number] RECD: 12/02/23 STATUS: AMBAR ZAPIEN NUM: [id number] DAYAMI: 12/01/[address]: Boone De La Rosa MD FACS ENTERED: 12/02/[address] [facility] [address]: Donavon [place] SPEC TYPE: Surgical DEPT: [...] in one cassette labeled A1. CPT Codes 90209 Specimen: [id number] Received: 12/02/23 Status: AMBAR Zapien Num: [id number] Spec Type: Surgical Subm Dr: Boone De La Rosa MD FACS Tissues: A Skin-Other than Cyst, tag, debridement or plastic repair (RT NARES) Procedures: Darien MACDONALD/Jimenez Wood Patient: Analia Olivo [id number] (Continued) Signed (signature on file) Dinah Ray MD 12/04/23 1213 [facility] Provider Letteron 11-02-2023 Provider Letter (Inserted Image. Sharon ble to display) November 02, 2023 ANALIA OLIVO [address] [address] : 1940 Dear Mr. Olivo, We have [...] your prompt attention to this matter. Sincerely, [facility] General Surgery [phone] Normal [facility] Physician Referralon 024 Physician Referral [id number] IFF Normal [facility] Physician Referral [id number] FF Normal [facility] UroVysion Fish and Urine Cyt o ([facility])on 08-25-2023 UVFISH & UC Diagnosis Info Invalid Interpretation Code [facility] Comment on above: Result Comment: A:Ur ine,Bladder [...] correlated with cytology and cystoscopy results.* CPT 22289, 99135. Microscopic Notes - Microscopic Notes - Abnormal cells 9p21 deletions: Abnormal cells aneploid events: Total cells analyzed: 129 Hematuria: Gross Description Site ID:A color Yellow fixative Alcohol Received 90 mls of clear yellow fluid with the patient's name and, Bladder Wash on the vial. Electronically signed by : on: 08/25/2023 09:03:30 Performed By: #### 1 [id number] ####[facility] [address] [place] [address] Consent for Procedure/Surger yon 08-18-2023 Consent for Procedure/Surgery [id number] TIFF Normal [facility] Ambulatory Visit Summaryon 1 10-17-2022 [...] Following Appointments Follow Up with SHANTELLE OLGUIN, LAF Cardona When: In 1 year Comments: w/cysto/FISH/Cytology, bt ck Where: [facility] [address] , [place] [address]- Medications What How Much When Instructions Unchanged [...] that you are currently receiving treatment for. Ejaff-gt-xsamdmc kidney injury [place] (actinic keratosis) Androgen deprivation therapy Aortic aneurysm Atrial fibrillation Bladder cancer BMI 22.0-22.9, adult BPH with urinary obstruc (more content not included)... Normal [facility] UroVysion Fish and Urine Cyt o ([facility])on 08-17-2023 [facility] Method of Extraction Bladder Wash Normal [facility] Comment on above: Performed By: #### 1 [id number] ####[facility] [id number] [place] [address] [facility] Number of Jars 1 Invalid Interpretation Code [facility] Comment on above: Performed By: #### 1 [id number] ####[facility] [id number] [place] [address] [facility] Specimen Bladder Wash Normal [facility] Comment on above: Performed By: #### 1 [id number] ####[facility] [address] [place] [address] [facility] Type of Service Technical Only Normal [facility] Comment on above: Performed By: #### 1 [id number] ####[facility] [id number] [place] [address] Urology Office/Clinic Noteon 08-17-2023 Urology Office/Clinic Note [...] When Contact Information SHANTELLE OLGUIN, David Buenrostro, ALF In 1 year [facility] [address], [place] [address]- Additional Instructions: w/cysto/FISH/Cytology, bt ck Patient Education I, Tere Servin , personally scribed for Dr. Pepper on 08/17/2023 14:14:11. . Portions of this record may have been created with voice recognition artificial intelligence software, specifically [employer], [employer] and or [employer]. Substitutions may have occurred due to the inherent limitations of voice recognition and artificial intelligence software. Documentation recorded by the scribe, Tere Servin, accurately reflects the services(s) I performed and decisions made by me. Problem List/Past Medical History Ongoing Uzhxo-is-mskrxal kidney injury AK (actinic keratosis) Androgen deprivation [...] - Transurethral resecti (more content not included)... [facility] Comment on above: Result Comment: Elec tronically Signed By: David PEPPER MD R\.br\Date and Time Signed: 08/17/23 14:15 EST\.br\Electronically Co-Signed By: Tere Servin\.br\Date and Time Co-Signed: 08/17/23 14:14 EST Reminderson 07-13-2023 Reminders - From: Renee Kim To: [facility] Dom[facility]uezs Shantelle; Cc: Renee Kim; Sent: 07/13/2023 11:17:32 EDT Show up: 07/04/2024 11:17:00 EDT Subject: cysto/fish/cytol Due Date/Time: 07/24/2024 11:17:00 EDT Reminder/Recall Patient is due in Aug 2024 for 1 year cysto/fish/cytol (bt ck) Normal [facility] Ambulatory Visit Summaryon 0 06-14-2023 Ambulatory Visit Summary ANALIA OLIVO :1940 Visit Date:06/14/2023 Ambulatory Visit Instructions Your Diagnosis BPH with urinary obstruction Tests Performed Urnls Dip Stick Auto w/o Microscopy POC 76810 Your Care Team Attending Physician - David [...] Urnls Dip Stick Auto w/o Microscopy POC 52794 (06/14/2023) Bilirubin Urine Dipstick - Negative Blood Urine Dipstick - Negative Glucose Urine Dipstick - Negative Ketones Urine Dipstick - Negative Leukocytes Urine Dipstick - Negative Nitrite Urine Dipstick - Negative Protein Urine Dipstick - Negative Specific [place] Urine Dipstick - 1.015 Urine Appearance Urine Dipstick - Clear Urine Color Urine Dipstick - Yellow Urobilinogen Urine Dipstick - Normal 0.2-1 EU/dl pH Urine Dipstick - 5.5 Allergies sulfa drugs (Unknown) Problems Ongoing - Any problem that you are currently receiving treatment for. Isxwh-vp-jgwfrtf kidney injury AK (actinic keratosis) Androgen deprivation [...] no longer receiving treatment for. Hyperlipidemia Normal [facility] XR HAND LT MIN 3Von 11-13-19 23 [...] by: RILEY WILD Date: 2022-11-13 12:22 Normal [facility] Brain Natriuretic Peptideon 05-23-2020 Natriuretic peptide B (Bld) [Mass/Vol] 1483 pg/mL High <300 [facility] [place], [place] Comment on above: Pro-BNP results vanesa ot be compared to BNP results. Natriuretic peptide B (Bld) [Mass/Vol] Pro-BNP Reference Range: [place], [place] Comment on above: Rule Out: <300 Cadena Zone: Age <50 300-450 Age 50-75 300-900 Age >75 300-1800 Usually represents mild to moderate HF but other cardiopulmonary causes cannot be ruled out. Rule In: Age <50 >450 Age 50-75 >900 Age >75 >1800 CBCon 05-23-2020 Erythrocyte distribution width (RBC) [Ratio] 14.3 % 11.8 - 14.4 % [place] Hematocrit (Bld) [Volume fraction] 33.3 % Low 40.7 - 50.3 % [place] Hemoglobin (Bld) [Mass/Vol] 10.7 g/dL Low 13 - 17 g/dL [place] Interpretation and review of laboratory results Abnormal [place] MCH (RBC) [Entitic mass] 30.7 pg 25.2 - 33.5 pg [place] MCHC (RBC) [Mass/Vol] 32.1 g/dL 28.4 - 34.8 g/dL [place] MCV (RBC) [Entitic vol] 95.4 fL 82.6 - 102.9 fL [place] Platelet mean volume (Bld) [Entitic vol] 10.8 fL 8.1 - 13.5 fL [place] Platelets (Bld) [#/Vol] 196 10*3/uL [place] RBC (Bld) [#/Vol] 3.49 10*6/uL Low 4.21 - 5.7 7 m/uL [place] WBC (Bld) [#/Vol] 0.0 10*3/uL 0.0 per 10 0 WBC [place] WBC (Bld) [#/Vol] 7.3 10*3/uL [place] Comprehensive Metabolic Pane paco 05-23-2020 Albumin [Mass/Vol] 3.6 g/dL 3.5 - 5.2 g/dL [place] Albumin/Globulin [Mass ratio] 1.1 {ratio} [place] ALP [Catalytic activity/Vol] 84 U/L 40 - 129 U/L [place] ALT [Catalytic activity/Vol] 26 U/L 5 - 41 U/L [place] Anion gap [Moles/Vol] 10 mmol/L 9 - 17 mmol/L [place] AST [Catalytic activity/Vol] 21 U/L <40 [place] Bilirubin Ql (U) 0.62 mg/dL 0.3 - 1.2 mg/dL [place] Bun/Cre Ratio 13 [place], [place] Calcium [Mass/Vol] 9.1 mg/dL 8.6 - 10. 4 mg/dL [place] Chloride [Moles/Vol] 100 mmol/L 98 - 107 mmol/L [place] CO2 [Moles/Vol] 27 mmol/L 20 - 31 mmol/L [place] Creatinine [Mass/Vol] 1.85 mg/dL High 0.7 - 1.2 mg/dL [place] GFR 43 mL/min Low >60 [place] GFR Non- 35 mL/min Low >60 [place] Glucose [Mass/Vol] 93 mg/dL 70 - 99 mg/dL [place] Potassium [Moles/Vol] 4.7 mmol/L 3.7 - 5.3 mmol/L [place] Protein [Mass/Vol] 6.8 g/dL 6.4 - 8.3 g/dL [place] Sodium [Moles/Vol] 137 mmol/L 135 - 144 mmol/L [place] Urea nitrogen [Mass/Vol] 24 mg/dL High 8 - 23 mg/dL [place] Metabolic Panelon 05-23-2020 GFR/1.73 sq M predicted among non-blacks MDRD (S/P/Bld) [Vol rate/Area] [place] Comment on above: Average GFR for 70 o r more years old: 75 mL/min/1.73sq m Chronic Kidney Disease: <60 mL/min/1.73sq m Kidney failure: <15 mL/min/1.73sq m eGFR calculated using average adult body mass. Additional eGFR calculator available at: http://www.WeGame.[employer]ians [employer]/multiple_crcl_2012.htm Stage 1: Some kidney damage normal GFR Stage 2: Mild kidney damage GFR 60-89 Stage 3: Moderate kidney damage GFR 30-59 Stage 4: Severe kidney damage GFR 15-29 Stage 5: Severe kidney damage GFR <15 ESRD - chronic treatment by dialysis or transplant Otheron 05-23-2020 Interpretation and review of laboratory results Abnormal [place] Brain Natriuretic Peptideon 05-14-2020 Interpretation and review of laboratory results Abnormal [place] Natriuretic peptide B (Bld) [Mass/Vol] Pro-BNP Reference Range: [place] Comment on above: Rule Out: <300 Cadena Zone: Age <50 300-450 Age 50-75 300-900 Age >75 300-1800 Usually represents mild to moderate HF but other cardiopulmonary causes cannot be ruled out. Rule In: Age <50 >450 Age 50-75 >900 Age >75 >1800 Natriuretic peptide B (Bld) [Mass/Vol] 2157 pg/mL High <300 [place] Comment on above: Pro-BNP results vanesa ot be compared to BNP results. CBC Auto Differentialon 05-04 Basophils (Bld) [#/Vol] 0.09 10*3/uL [place] Basophils/100 WBC (Bld) 1 % 0 - 2 % [place] Differential Type NOT REPORTED [place] Eosinophils (Bld) [#/Vol] 0.52 10*3/uL High [place] Eosinophils/100 WBC (Bld) 6 % High 1 - 4 % [place] Erythrocyte distribution width (RBC) [Ratio] 13.9 % 11.8 - 14.4 % [place] Hematocrit (Bld) [Volume fraction] 33.0 % Low 40.7 - 50.3 % [place] Hemoglobin (Bld) [Mass/Vol] 10.6 g/dL Low 13 - 17 g/dL [place] Immature granulocytes (Bld) [#/Vol] 0 % 0 [place] Immature granulocytes (Bld) [#/Vol] 0.00 10*3/uL [place] Interpretation and review of laboratory results Abnormal [place] Lymphocytes (Bld) [#/Vol] 0.52 10*3/uL Low [place] Lymphocytes/100 WBC (Bld) 6 % Low 24 - 43 % [place] MCH (RBC) [Entitic mass] 30.8 pg 25.2 - 33.5 pg [place] MCHC (RBC) [Mass/Vol] 32.1 g/dL 28.4 - 34.8 g/dL [place] MCV (RBC) [Entitic vol] 95.9 fL 82.6 - 102.9 fL [place] Monocytes (Bld) [#/Vol] 0.17 10*3/uL [place] Monocytes/100 WBC (Bld) 2 % Low 3 - 12 % [place] Morphology Fernando (Bld) [Interp] ANISOCYTOSIS PRESENT [place] Platelet mean volume (Bld) [Entitic vol] 10.9 fL 8.1 - 13.5 fL [place] Platelets (Bld) [#/Vol] NOT REPORTED [place] Platelets (Bld) [#/Vol] 243 10*3/uL [place] RBC (Bld) [#/Vol] 3.44 10*6/uL Low 4.21 - 5.7 7 m/uL [place] RBC morphology finding Nom (Bld) NOT REPORTED [place] Segmented neutrophils/100 WBC (Bld) 85 % High 36 - 65 % [place] Segs Absolute 7.30 [place] WBC (Bld) [#/Vol] 8.6 10*3/uL [place] WBC (Bld) [#/Vol] 0.0 10*3/uL 0.0 per 10 0 WBC [place] WBC Morphology NOT REPORTED [place] Comprehensive Metabolic Pane paco 05-14-2020 Albumin [Mass/Vol] 3.4 g/dL Low 3.5 - 5.2 g/dL [place] Albumin/Globulin [Mass ratio] 1.1 {ratio} [place] ALP [Catalytic activity/Vol] 81 U/L 40 - 129 U/L [place] ALT [Catalytic activity/Vol] 29 U/L 5 - 41 U/L [place] Anion gap [Moles/Vol] 12 mmol/L 9 - 17 mmol/L [place] AST [Catalytic activity/Vol] 33 U/L <40 [place] Bilirubin Ql (U) 0.84 mg/dL 0.3 - 1.2 mg/dL [place] Bun/Cre Ratio 16 [place] Calcium [Mass/Vol] 8.3 mg/dL Low 8.6 - 10. 4 mg/dL [place] Chloride [Moles/Vol] 99 mmol/L 98 - 107 mmol/L [place] CO2 [Moles/Vol] 26 mmol/L 20 - 31 mmol/L [place] Creatinine [Mass/Vol] 2.07 mg/dL High 0.7 - 1.2 mg/dL [place] GFR 37 mL/min Low >60 [place] GFR Non- 31 mL/min Low >60 [place] Glucose [Mass/Vol] 143 mg/dL High 70 - 99 mg/dL [place] Interpretation and review of laboratory results Abnormal [place] Potassium [Moles/Vol] 3.8 mmol/L 3.7 - 5.3 mmol/L [place] Protein [Mass/Vol] 6.4 g/dL 6.4 - 8.3 g/dL [place] Sodium [Moles/Vol] 137 mmol/L 135 - 144 mmol/L [place] Urea nitrogen [Mass/Vol] 33 mg/dL High 8 - 23 mg/dL [place] Metabolic Panelon 05-14-2020 GFR/1.73 sq M predicted among non-blacks MDRD (S/P/Bld) [Vol rate/Area] [place] Comment on above: Stage 1: Some [...] body mass. Additional eGFR calculator available at: http://www.Shareablee/multiple_crcl_2012.htm Vital Signs Date Time Vital Sign Value Performing Clinician Facility 12-01-2023 14:17-0500 Diastolic blood pressure 64 mm[Hg] Boone DE LA ROSA [facility] 12-01-2023 14:17-0500 Heart rate 72 /min Boone DE LA ROSA [facility] 12-01-2023 14:17-0500 Respiratory rate 16 /min Boone DE LA ROSA [facility] 12-01-2023 14:17-0500 Systolic blood pressure 138 mm[Hg] Boone DE LA ROSA [facility] 08-17-2023 13:30-0500 Blood Pressure Location David PEPPER [facility] 08-17-2023 13:30-0500 Diastolic blood pressure 84 mm[Hg] David PEPPER [facility] 08-17-2023 13:30-0500 Systolic blood pressure 128 mm[Hg] David PEPPER [facility] 08-10-2022 16:00-0500 Diastolic blood pressure 50 mm[Hg] Romy Hughes DO Work Phone: [facility] 08-10-2022 16:00-0500 Heart rate 60 /min Romy Hughes DO Work Phone: [facility] [employer] 08-10-2022 16:00-0500 Respiratory rate 18 /min Romy Giuseppe DO Work Phone: [facility] [employer] 08-10-2022 16:00-0500 SaO2% (BldA) [Mass fraction] 97 % Romy Hughes DO Work Phone: [facility] 08-10-2022 16:00-0500 Systolic blood pressure 152 mm[Hg] Romybigg Hughes DO Work Phone: [facility] 08-10-2022 15:15-0500 Body temperature 98.01 [degF] Romy Hughes DO Work Phone: [facility] 08-10-2022 14:16-0500 Body height 167.6 cm Romybigg Hughes DO Work Phone: [facility] 08-10-2022 14:16-0500 Body mass index (BMI) [Ratio] 22.44 kg/m2 Romy Giuseppe DO Work Phone: [facility] 08-10-2022 14:16-0500 Body weight 63.05 kg Romy Hughes DO Work Phone: [facility] 07-15-2022 07:40-0400 Blood Pressure Location David PEPPER [facility] 07-15-2022 07:40-0400 Diastolic blood pressure 70 mm[Hg] David PEPPER [facility] 07-15-2022 07:40-0400 Heart rate 60 /min David PEPPER [facility] 07-15-2022 07:40-0400 Respiratory rate 16 /min David PEPPER [facility] 07-15-2022 07:40-0400 Systolic blood pressure 130 mm[Hg] Davidbisi PEPPER [facility] [place] 01-21-2022 07:36-0400 Blood Pressure Location David PEPPER [facility] [place] 01-21-2022 07:36-0400 Diastolic blood pressure 75 mm[Hg] Davidbisi PEPPER [facility] [place] 01-21-2022 07:36-0400 Heart rate 80 /min David PEPPER [facility] [place] 01-21-2022 07:36-0400 Respiratory rate 16 /min Davidbisi PEPPER [facility] 01-21-2022 07:36-0400 Systolic blood pressure 130 mm[Hg] David PEPPER [facility] [place] Encounters Encounter Date Encounter Type Care Provider Facility Start: 12-08-2023 End: 12-09-2023 ambulatory Boone DE LA ROSA Facility: [facility] Start: 12-08-2023 End: 12-08-2023 Patient encounter procedure Boone DE LA ROSA General Surgery [facility] [place] Start: 12-01-2023 End: 12-02-2023 ambulatory David Pepper Facility:[facility] Start: 12-01-2023 End: 12-01-2023 Patient encounter procedure Boone R DONALDL General Surgery [facility] [place] Start: 08-17-2023 End: 08-18-2023 ambulatory David PEPPER Facility:[facility] Start: 08-17-2023 End: 08-18-2023 ambulatory Davidbisi PEPPER Facility:[facility] [place] Start: 08-17-2023 End: 08-17-2023 Lab Drop off David PEPPER [facility] Start: 08-17-2023 End: 08-17-2023 Patient encounter procedure David PEPPER [facility] [place] Start: 06-14-2023 End: 06-15-2023 ambulatory Davdibisi PEPPER Facility:[facility] [place] Start: 06-14-2023 End: 06-14-2023 Patient encounter procedure Davidbisi PEPPER [facility] Start: 11-13-2022 End: 11-14-2022 ambulatory NAVYA BUSH Facility:[facility] Start: 08-10-2022 End: 08-10-2022 ambulatory ROM[facility] HUGHES [facility] Start: 08-10-2022 End: 08-10-2022 Subsequent hospital visit by physician Romy Hughes DO Work Phone: [email or web address] [place] Start: 07-15-2022 End: 07-15-2022 Patient encounter procedure David R PEPPER [facility] [place] Start: 01-21-2022 End: 01-21-2022 Patient encounter procedure David PEPPER [facility] Start: 05-23-2020 End: 05-23-2020 Subsequent hospital visit by physician Klarissa BERRIOS [facility] Start: 05-14-2020 End: 05-14-2020 Subsequent hospital visit by [facility] Procedures Date Procedure Procedure Detail Performing Clinician Start: 08-17-2023 Transurethral cystoscopy David PEPPER Start: 07-15-2022 Cystoscopy David BAPTISTE TERS Start: 01-21-2022 Cystoscopy David BAPTISTE TERS Start: 10-29-2021 Cystoscopy David BAPTISTE TERS Start: 07-30-2021 Cystoscopy David BAPTISTE TERS Start: 04-30-2021 Cystoscopy David BAPTISTE TERS Start: 01-22-2021 Cystoscopy David BAPTISTE TERS Start: 10-30-2020 Cystoscopy David BAPTISTE TERS Start: 07-30-2020 Cystoscopy David NARVAEZS Start: 05-23-2020 Blood count complete automated Klarissa Nance Work Phone: Start: 05-23-2020 Comprehensive metabo lic panel Klarissa Nance Work Phone: Start: 05-23-2020 Natriuretic peptide Luis Fernando elsy Lopez [employer] Work Phone: Start: 05-14-2020 Blood count complete auto&auto difrntl wbc Klarissa Nance Work Phone: Start: 05-14-2020 Comprehensive metabo lic panel Klarissa Nance Work Phone: Start: 05-14-2020 Natriuretic peptide Luis Fernando elsy Lopez [employer] Work Phone: Start: 04-22-2020 Aortic aneurysm repair [...] brachytherapy David PEPPER Extraction of cataract Jaziel ben DE LA ROSA Hydrocelectomy David Islas Plan of Treatment Date Care Activity Detail Author Start: 08-10-2022 End: 08-10-2022 Xcapsl ctrc rmvl insj io lens prosth w/o ecp EYE CATARACT EMULSIFICATION IOL IMPLANT Age-related nuclear cataract of both eyes 08/10/2022 2:50 PM [facility] Start: 05-04-2022 Influenza vaccination Flu vaccine (# 1) [facility] Start: 01-11-2021 COVID-19 Vaccine (4 - Booster) COVID-19 Vaccine (4 - Booster) [facility] Start: 06-04-2020 Influenza vaccination Flu vaccine (# 1) [facility] [place] Start: 1959 DTaP/Tdap/Td vaccine (1 - Tdap) DTaP/Tdap/Td vaccine (1 - Tdap) [facility] Oxygen therapy [Mini mum Data Set] Initiate Oxygen Therapy Protocol Respiratory Care Routine Daily until discontinued starting 08/10/2022 [facility] Work Phone: Comment on above: Daily until disconti nued starting 08/10/2022 Oxygen therapy [Mini mum Data Set] Initiate Oxygen Therapy Protocol Respiratory Care Routine Daily until discontinued starting 08/10/2022 [facility] Work Phone: Comment on above: Daily until disconti nued starting 08/10/2022 Immunizations Immunization Date Immunization Notes Care Provider [facility] 08-08-2023 influenza virus vaccine, unspecified formulation [employer] [facility] 10-23-2022 zoster vaccine recombinant [employer] [facility] 07-30-2022 influenza virus vaccine, unspecified formulation [employer] [facility] 07-30-2022 zoster vaccine recombinant [employer] [facility] 10-09-2021 influenza virus vaccine, unspecified formulation [employer] [facility] 07-23-2021 SARS-CoV-2 (COVID-19 ) mRNA BNT-162b2 vax [employer] [facility] 07-22-2021 tetanus toxoid, redu genesis diphtheria toxoid, and acellular pertussis vaccine, adsorbed [employer] [facility] 11-16-2020 SARS-CoV-2 (COVID-19 ) mRNA BNT-162b2 vax [employer] [facility] 10-26-2020 SARS-CoV-2 (COVID-19 ) mRNA BNT-162b2 vax [employer] [facility] 10-15-2020 SARS-CoV-2 (COVID-19 ) mRNA BNT-162b2 vax [employer] [facility] 10-14-2020 SARS-CoV-2 (COVID-19 ) mRNA BNT-162b2 vax [employer] [facility] 07-18-2020 influenza virus vaccine, unspecified formulation [employer] [facility] 09-18-2019 influenza virus vaccine, unspecified formulation [employer] [facility] 07-17-2019 influenza virus vaccine, unspecified formulation [employer] [facility] 10-14-2018 influenza virus vaccine, unspecified formulation [employer] [facility] 09-24-2017 influenza, unspecifi ed formulation [employer] [facility] 09-24-2017 pneumococcal conjuga te vaccine, 13 valent [employer] [facility] Payers Date Payer Category Payer Self-pay 2023 Medicare [id number] 1961 Medicare [id number] 1959 Private Health Insurance CLI [id number] 1940 Unknown [id number] 2.16.8 [id number] 1938 Unknown [id number] 2.16.84 [id number] 1938 Unknown [id number] 2.16.84 [id number] 1938 Unknown [id number] 2.16.8 [id number] 1938 Unknown [id number] 2.16.8 [id number] 1938 Unknown [id number] 2.16.8 [id number] 1938 Unknown [id number] 2.16.8 [id number] 1938 Unknown [id number] 2.16.8 [id number] Unknown [id number] 2.16.8 [id number] Social History Date Type Detail Facility [facility] [place] Start: 1940 Sex Assigned At Not on file [facility] [place] Start: 04-01-2021 End: 12-01-2023 Tobacco smoking status Ex-smoker (finding) [facility] [employer] Tobacco smoking status Never [facility] Sex Assigned At Male [facility] History of tobacco use Current smoker [employer] Phone: History of tobacco use Cigarette Smoker B ON [employer] Phone: Start: 08-03-2022 Tobacco use and exposure Smokeless tobacco non-user [employer] Phone: Start: 08-10-2022 Alcohol intake Current drinke r of alcohol (finding) [employer] Phone: Start: 08-03-2022 Alcohol Comment [facility]ARE [employer] Phone: Start: 07-24-2022 End: 08-03-2022 Exposure to SARS-CoV-2 (event) Not sure [employer] Phone: Medical Equipment Procedure Code Equipment Code Equipment Origin al Text Equipment Identifier Dates Lens Intraocular Bcnvx 23.5+ Diopt 6x12.5 Mm Acryl [employer] - [id number] Start: 08-10-2022 Functional Status Date Assessment Result Facility 12-01-2023 Functional Status N/A [facility] 08-17-2023 Functional Status N/A [facility] 07-15-2022 Functional Status N/A [facility] Clinical Notes 01-21-2022 to 12-01-2023 Linda Hogue [...] data available Problem List/Past Medical History Ongoing Udrvy-ti-ccrthgr kidney injury [place] (actinic keratosis) Androgen deprivation [...] q24hr, 3 refills (more content not included)... [facility] Comment on above: Result Comment: Elec tronically Signed By: ESTRELLA OLGUIN, Boone Ray\Date and Time Signed: 12/01/23 15:19 EST 08-17-2023 Evaluation + Plan note Diagnostic Tests PendingUroVysion Fish and Urine Cyto ([facility]) 08/17/23 [facility] 07-13-2023 Hospital Discharge instructions Follow Up Care 07/13/2023 09:25:11 With:SHANTELLE OLGUIN, David Buenrostro, URL Address: [facility] [address] , [place] [address]- When:Within 1 Year(s) Comments:w/cysto/FISH/Cytology, bt ck [facility] Luis 11-13-2022 Note PROCEDURE: XR FINGER [...] authenticated by: LEANNE GU Date: 2022-11-13 14:51 [facility] 08-10-2022 History of Present illness [...] order received. documented in this encounter [employer] Phone: 08-10-2022 Hospital Discharge instructions Romy Hughes [...] the healing period. The office number is [phone]. Take surgery bag and all eye drops to Dr. Hughes's office tomorrow at 10:15am. You may resume your normal diet. Start your eye drops tomorrow after your post-op appointment: Ofloxacin/Polytrim one drop to the operated eye 4 times daily Prednisolone one drop to the operated eye 4 times daily documented in this encounter [facility] Work Phone: 07-15-2022 Evaluation + Plan note Diagnostic Tests PendingUroVysion Fish and Urine Cyto ([facility]) 07/15/22 [facility] 07-15-2022 Hospital Discharge instructions Patient Education 07/15/2022 [...] if anything looks unusual. Men with a gcxonx-pmrp-uoidnw risk for skin cancer may want to see a equipment mechanic specialist (hamper maker machine) for an annual body check. Where to find more information National Cancer Wendel: https://www.cancer.gov/about-can cer/screening Centers for Disease Control and Prevention: https://www.cdc.gov/cancer/dcpc/ prevention/screening.htm [place] Cancer Society: https://www.cancer.org/latest-ne ws/4-kdnrnz-yukgirpvy-tests-for- men.html Contact a health care provider if: [...] 06/17/2017 Document Revised: 06/09/2019 Document Reviewed: 06/17/2017 [employer] Patient Education 2020 [employer] Follow Up Care 06/25/2022 14:20:11 With:SHANTELLE OLGUIN, David Buenrostro, URL Address: [facility] [address], [place] [address]- When:1 year Comments:Cysto/FISH/Cyto [facility] 01-21-2022 Evaluation + Plan note Diagnostic Tests PendingPSA Total 01/21/22Uro[facility]ysion Fish and Urine Cyto ([facility]) 01/21/22 [facility] 01-21-2022 Hospital Discharge instructions Patient Education 01/21/2022 [...] who: Are older than age 65. Are -Martiniquais. Are obese. Have a family history of [...] cells. Follow these instructions at home: Take uedt-hyi-hkrlcmr and prescription medicines only as told by [...] 09/20/2006 Document Revised: 09/02/2018 Document Reviewed: 05/31/2017 ProviderTrust Patient Education 2020 [employer]. 01/21/2022 07:24:07 Cancer Screening for Men Cancer [...] if anything looks unusual. Men with a yxukqg-bsne-iifkwr risk for skin cancer may want to see a equipment mechanic specialist (hamper maker machine) for an annual body check. Where to find more information National Cancer Wendel: https://www.cancer.gov/about-can cer/screening Centers for Disease Control and Prevention: https://www.cdc.gov/cancer/dcpc/ prevention/screening.htm [place] Cancer Society: https://www.cancer.org/latest-ne ws/9-tzaerg-hwkgfebfm-tests-for- men.html Contact a health care provider if: [...] 06/17/2017 Document Revised: 06/09/2019 Document Reviewed: 06/17/2017 [employer]Trust Patient Education 2020 [employer]. Follow Up Care 10/29/2021 09:32:38 With:SHANTELLE OLGUIN, David Buenrostro, URL Address: [facility] [address], [place] [address]- [phone] When:07/23/2022 [facility] Evaluation + Plan note Future Appointments Appointment Date:12/08/2023 03:20:00 PM Scheduled Provider:Bonoe DE LA ROSA MD Location:[facility] Appointment Type:[facility] 15 General Surgery [place] Evaluation + Plan note General S urgery [place] Evaluation note Diagnosis 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 in this encounter [facility] Work Phone: Hospital course Narrative No data available for this section [facility] Hospital Discharge instructions No data available for this section [facility] progress note No data available for this section [facility] Reason for referral (narrative) Referred by: ESTRELLA OLGUIN, [facility] Surgery [place] Advance Directives No Advanced Directives Records FoundDocuments on File Type Date Recorded 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 Advance Directives and Living Will Power of Dietary Worker Documents on File Type Date Recorded 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 ACP-Advance Directive ACP-Power of Dietary Worker Latest Code Status on File Code Status Date Activated Date Inactivated Comments Full Code 08/10/2022 1:45 PM Summary Purpose Family History No Family History Records FoundNo Family History Records Found No data available for this section No data available for this section No data available for this section No Family History Records Found No data available for this section No Family History Records Found Additional Source Comments Patient Care team informatio n (unrecognized section and content) Brush Maker Relationship Specialty Start Date End Date Klarissa Nance MD [address] [place] [address] PCP - General Family Medicine 05/14/20 Reason for Visit (unrecogniz ed section and content) Specialty Diagnoses / Procedures Referred By Anjali reinoso Referred To Contact Diagnoses Age-related nuclear cataract of both eyes AGE-RELATED NUCLEAR CAT 3+NS, 1+CS H25.12 Procedures [place] XCAPSL CTRC RMVL INSJ IO LENS PROSTH W/O ECP EYE CATARACT EMULSIFICATION IOL IMPLANT Romy Hughes, DO [address] [place] [address] [facility] [address] [place] [address] Referral ID Status Reason Start Date Expiration Date Visits Re quested Visits Authorized [id number] 1 1 Scheduled Active and Recently Administ [...] pital DATE CREATED AUTHOR AUTHOR'S ORGANIZ ATION 12/05/2023 [facility] DATE CREATED AUTHOR AUTHOR'S ORGANIZ ATION 01/03/2024 [facility] FOR RECORDS PERTAINING TO PATIENTS WHO ARE [...] BE BASED ON THE PRIMARY CLINICAL RECORDS. [place] [facility] [employer] [facility]. provides no warranty or guarantee of the accuracy or completeness of information in this document.
--- NOTE | 2024-01-16 19:33 | ED_ITS ---
HPI HPI - Head Injury General Chief complaint: Head Injury Stated complaint: Head Laceration from fall in bathroom Time Seen by Provider: 01/16/24 19:28 Source: patient and family Mode of arrival: Wheelchair History of Present Illness HPI Narrative: This 83-year-old male who is on Eliquis due to a history of atrial fibrillation is brought to emergency department by his family. He fell backwards striking the back of his head. He states he did not lose consciousness. He immediately called his family who brought him to the emergency department. He denies any neck pain. He has no focal weakness numbness or tingling. He has no focal weakness numbness or tingling. He denies any chest pain or shortness of breath. He has an approximately 1 cm laceration to the left posterior occipital aspect of his scalp. He states he was using the bathroom and fell backwards striking the back of his head while tucking in his shirt. MD Complaint: Reports head injury Related Data Home Medications ?Medication ?Instructions ?Recorded ?Confirmed amiodarone 200 mg tablet 200 mg PO Q24H 01/16/24 01/16/24 apixaban 2.5 mg tablet (Eliquis) 2.5 mg PO DAILY 01/16/24 01/16/24 atorvastatin 40 mg tablet 40 mg PO DAILY 01/16/24 01/16/24 bicalutamide 50 mg tablet 50 mg PO DAILY 01/16/24 01/16/24 escitalopram oxalate 20 mg tablet 20 mg PO DAILY 01/16/24 01/16/24 liothyronine 5 mcg tablet 5 mcg PO BID 01/16/24 01/16/24 tamsulosin 0.4 mg capsule 0.4 mg PO DAILY 01/16/24 01/16/24 Allergies Allergy/AdvReac Type Severity Reaction Status Date / Time Sulfa (Sulfonamide Allergy Unknown Verified 01/16/24 19:31 Antibiotics) Opioid HPI Opioid Management Most Recent Pain and Opioid Data: No Data to Display Review of Systems ROS Status of ROS 10 or more systems reviewed and unremark able except as noted in history and below Exam Narrative Exam Narrative: Nurses note and vital signs reviewed and patient is not hypoxic. Blood pressure was noted to be elevated at 178/81 General: The patient appears well and in no apparent distress. Patient is resting comfortably on cart. GCS 15 Skin: Warm, dry, no pallor noted. There is no rash noted. Head: Normocephalic, 1 cm laceration to the left posterior occipital scalp, no step off or active bleeding Eye: Normal conjunctiva, no drainage, EOMI. PERRL Ears, Nose, Mouth, and Throat: oral mucosa is moist. Cardiovascular: Irregular rate and rhythm consistent with atrial fibrillation Respiratory: Patient is in no distress, no accessory muscle use, lungs are clear to auscultation, no wheezing, rales or rhonchi Back: non-tender, no CVA tenderness bilaterally to percussion. GI: Normal bowel sounds, no tenderness to palpation, no masses appreciated. No rebound, guarding, or rigidity noted. Musculoskeletal: The patient has no evidence of calf tenderness, no pitting edema, symmetrical pulses noted bilaterally Neurological: A&O x4, normal speech Psychiatric: Cooperative Constitutional Vital Signs, click to edit/add: Last Vital Signs Temp 98 F 01/16/24 19:25 Pulse 68 01/16/24 19:25 Resp 18 01/16/24 19:25 BP 178/81 H 01/16/24 19:25 Pulse Ox 99 01/16/24 19:25 O2 Del Method Room Air 01/16/24 19:25 Course Vital Signs Vital signs: Vital Signs Temperature 98 F 01/16/24 19:25 Pulse Rate 68 01/16/24 19:25 Respiratory Rate 18 01/16/24 19:25 Blood Pressure 178/81 H 01/16/24 19:25 Pulse Oximetry 99 01/16/24 19:25 Oxygen Delivery Method Room Air 01/16/24 19:25 Temperature 98 F 01/16/24 19:25 Pulse Rate 68 01/16/24 19:25 Respiratory Rate 18 01/16/24 19:25 Blood Pressure 178/81 H 01/16/24 19:25 Pulse Oximetry 99 01/16/24 19:25 Oxygen Delivery Method Room Air 01/16/24 19:25 MDM - Head Injury MDM Narrative Medical decision making narrative: This 83-year-old male who is on Eliquis presents after he fell in his house after getting off of the toilet while trying to tuck in his shirt. He has an approximately 1,5 cm laceration to the left posterior occipital scalp area. He denies any loss of consciousness. He denies any loss of consciousness. His neuro exam is normal. CT scan of the brain is negative for acute findings. CTscan of the cervical spine is negative for acute findings. The laceration area was cleaned and dried and closed with 5 nicola. He tolerated the laceration repair well and instructions were given to the patient and his family who verbalize understanding. Medical Records Medical records narrative: The [address] [address] [address] Scan Report Signed Patient: ANALIA OLIVO MR#: [id number] : 1940 Acct:[id number] Age/Sex: 83 / M ADM Date: 01/16/24 Loc: ER Attending Dr: Ordering Physician: Keyana Tineo Date of Service: 01/16/24 Procedure(s): CT head/brain wo con Accession Number(s): [id number] cc: Nelson Nance M.D.~ The [address] [id number] Patient Name: ANALIA OLIVO MRN: [id number] date: 1940 Sex: M Assigned Patient Location: ED.MAIN Current Patient Location: ER Accession/Order Number: [id number] Exam Date: 01/16/2024 19:56 Report Date: 01/16/2024 20:11 At the request of: KEYANA TINEO Procedure: CT head/brain wo con CT head/brain wo con HISTORY: [facility] COMPARISON: None. TECHNIQUE: Contiguous axial images were obtained from the skull base to the vertex without intravenous contrast. Sagittal and coronal reformatted images are also submitted. One of the following dose optimization techniques was utilized in the performance of this exam: Automated exposure control; adjustment of the mA and/or kV according to the patient's size; or use of an iterative reconstruction technique. Specific details can be referenced in the facility's radiology CT exam operational policy. FINDINGS: Brain volume: Normal. Ventricles: Normal. Acute ischemic changes: None. Hemorrhage: None. Masses/edema: None. Wade-white: Negative. White matter: Normal. Vessels: Negative. Extra-axial: Calcified dura and tentorium4. Calvarium/scalp: Negative. Skull base/visualized face: Negative. Visualized sinuses/orbits: Negative. CT/CT head/brain wo con IMPRESSION: No evidence territorial infarction or intracranial hemorrhage. Electronically authenticated by: PHAM ROBIN Date: 01/16/2024 20:[address] [address] [address] Scan Report Signed Patient: ANALIA OLIVO MR#: [id number] : 1940 Acct:[id number] Age/Sex: 83 / M ADM Date: 01/16/24 Loc: ER Attending Dr: Ordering Physician: Keyana Tineo Date of Service: 01/16/24 Procedure(s): CT cervical spine wo con Accession Number(s): [id number] cc: Nelson Nance M.D.~ The [address] [address] Patient Name: ANALIA OLIVO MRN: [id number] date: 1940 Sex: M Assigned Patient Location: ER Current Patient Location: ER Accession/Order Number: [id number] Exam Date: 01/16/2024 20:01 Report Date: 01/16/2024 21:29 At the request of: KEYANA TINEO Procedure: CT cervical spine wo con CT CERVICAL SPINE WITHOUT CONTRAST HISTORY: fall. [facility]. COMPARISON: None available. TECHNIQUE: Helical CT images were performed of the cervical spine without intravenous contrast. Dose reduction techniques were achieved by using automated exposure control and/or adjustment of mA and/or kV according to patient size and/or use of iterative reconstruction technique. 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 MINERALIZATION: Moderate to severe osteopenia. CRANIOCERVICAL AND ATLANTOAXIAL ARTICULATIONS: Intact with no traumatic subluxation. VERTEBRAL BODIES: Normal in height with no acute compression fracture. DISC SPACES: Severe narrowing at C4-C5, through C6-C7 with osteophytic spurring. ALIGNMENT: Normal. POSTERIOR ELEMENTS: Intact. ODONTOID PROCESS: Intact. VISUALIZED SKULL BASE: Unremarkable. SPINAL CANAL/NEURAL FORAMEN: There are multiple posterior disc osteophyte complexes throughout cervical spine with mild canal stenosis at several levels. There is also moderate to severe multilevel bilateral neural foraminal stenosis due to facet and uncovertebral hypertrophy. UPPER THORAX: Mild biapical pleuroparenchymal scarring. SOFT TISSUES OF THE NECK: Diffuse atherosclerotic carotid artery calcification. CT/CT cervical spine wo con IMPRESSION: 1. No acute fracture or subluxation. 2. Osteopenia and degenerative changes as described above. 3. Atherosclerotic carotid artery calcification. Electronically authenticated by: LEANNE BELL Date: 01/16/2024 21:2 Discharge Plan Discharge Stand Alone Forms: Portal Instructions Chief Complaint: Head Injury Clinical Impression: Fall from standing, Closed head injury, Laceration of occipital scalp Patient Disposition: Home, Self-Care Time of Disposition Decision: 20:24 Condition: Good Prescriptions / Home Meds: No Action Eliquis 2.5 mg tablet 2.5 mg PO DAILY atorvastatin 40 mg tablet 40 mg PO DAILY bicalutamide 50 mg tablet 50 mg PO DAILY amiodarone 200 mg tablet 200 mg PO Q24H liothyronine 5 mcg tablet 5 mcg PO BID tamsulosin 0.4 mg capsule 0.4 mg PO DAILY escitalopram oxalate 20 mg tablet 20 mg PO DAILY Print Language: Polish Instructions: Laceration (ED), Fall Prevention for Older Adults (ED), Head Injury (ED), Staple Care (ED) Additional Instructions: Benton can be removed in 3-5 days Referrals: Nelson Nance MD [Primary Care Provider] - 1 week Discharge Date/Time: 01/16/24 21:02 Procedures ED Procedure Instructions Procedures Procedures: Scalp laceration repair: The scalp wound was covered with LET gel. When blanching was appreciated, the wound was cleaned with NS.5 nicola were placed into the wound edges with good wound edge approximation. Pt tolerated the procedure well. A sterile dry dressing was applied by the nursing staff and wound care instructions were given to the patient and his family.
--- NOTE | 2024-01-16 19:37 | CT_ITS ---
The [address] [address] Patient Name: ANALIA OLIVO MRN: [id number] date: 1940 Sex: M Assigned Patient Location: ER Current Patient Location: ER Accession/Order Number: [id number] Exam Date: 01/16/2024 20:01 Report Date: 01/16/2024 21:29 At the request of: CAITLYN LONDON Procedure: CT cervical spine wo con CT CERVICAL SPINE WITHOUT CONTRAST HISTORY: fall. [facility] COMPARISON: None available. TECHNIQUE: Helical CT images were performed of the cervical spine without intravenous contrast. Dose reduction techniques were achieved by using automated exposure control and/or adjustment of mA and/or kV according to patient size and/or use of iterative reconstruction technique. FINDINGS: SERVICE AIDE RADIOGRAPH: Unremarkable. MINERALIZATION: Moderate to severe osteopenia. CRANIOCERVICAL AND ATLANTOAXIAL ARTICULATIONS: Intact with no traumatic subluxation. VERTEBRAL BODIES: Normal in height with no acute compression fracture. DISC SPACES: Severe narrowing at C4-C5, through C6-C7 with osteophytic spurring. ALIGNMENT: Normal. POSTERIOR ELEMENTS: Intact. ODONTOID PROCESS: Intact. VISUALIZED SKULL BASE: Unremarkable. SPINAL CANAL/NEURAL FORAMEN: There are multiple posterior disc osteophyte complexes throughout cervical spine with mild canal stenosis at several levels. There is also moderate to severe multilevel bilateral neural foraminal stenosis due to facet and uncovertebral hypertrophy. UPPER THORAX: Mild biapical pleuroparenchymal scarring. SOFT TISSUES OF THE NECK: Diffuse atherosclerotic carotid artery calcification. CT/CT cervical spine wo con IMPRESSION: 1. No acute fracture or subluxation. 2. Osteopenia and degenerative changes as described above. 3. Atherosclerotic carotid artery calcification. Electronically authenticated by: LEANNE BELL Date: 01/16/2024 21:29
--- NOTE | 2024-01-16 19:37 | CT_ITS ---
The [address] [address] Patient Name: ANALIA OLIVO MRN: [id number] date: 1940 Sex: M Assigned Patient Location: ED.MAIN Current Patient Location: ER Accession/Order Number: [id number] Exam Date: 01/16/2024 19:56 Report Date: 01/16/2024 20:11 At the request of: CAITLYN MARKER Procedure: CT head/brain wo con CT head/brain wo con HISTORY: [facility] COMPARISON: None. TECHNIQUE: Contiguous axial images were obtained from the skull base to the vertex without intravenous contrast. Sagittal and coronal reformatted images are also submitted. One of the following dose optimization techniques was utilized in the performance of this exam: Automated exposure control; adjustment of the mA and/or kV according to the patient's size; or use of an iterative reconstruction technique. Specific details can be referenced in the facility's radiology CT exam operational policy. FINDINGS: Brain volume: Normal. Ventricles: Normal. Acute ischemic changes: None. Hemorrhage: None. Masses/edema: None. Wade-white: Negative. White matter: Normal. Vessels: Negative. Extra-axial: Calcified dura and tentorium4. Calvarium/scalp: Negative. Skull base/visualized face: Negative. Visualized sinuses/orbits: Negative. CT/CT head/brain wo con IMPRESSION: No evidence territorial infarction or intracranial hemorrhage. Electronically authenticated by: PHAM ROBIN Date: 01/16/2024 20:11
[2024-01-16] MEDS: LIDOCAINE/EPINEPHRINE/TETRACAINE 3 ML GEL.PF.APP TOPICAL (20:11)
== END 2024-01-16 21:02 | disposition home or self-care (01) ==
PROVIDERS: Emergency Provider Emergency Medicine; PCP Family Medicine
DX: S01.01XA Laceration without foreign body of scalp, initial encounter (principal); S09.8XXA Other specified injuries of head, initial encounter; I48.91 Unspecified atrial fibrillation; Z79.01 Long term (current) use of anticoagulants; Z79.890 Hormone replacement therapy; W19.XXXA Unspecified fall, initial encounter
CPT/HCPCS: 12001; 70450; 72125; 99284

== ENCOUNTER 2024-01-20 09:01 | Outpatient (OUT) | payer MEDICARE, SELFPAY ==
[2024-01-20 09:50] LABS: Basophils Percent Auto 0.3 % (0.2-2.0); Eosinophils Percent Auto 0.2 % (0.9-7.0); Hematocrit 31.8 % (42.0-54.0); Hemoglobin 10.5 g/dL (14.0-18.0); Immature Granulocytes Abs Auto 0.03 10^3/uL (0.00-0.03); Immature Granulocytes Pct Auto 0.3 % (0.0-0.5); Lymphocytes Absolute Auto 0.3 10^3/uL (1.2-3.8); Lymphocytes Percent Auto 3.1 % (20.5-60.0); Mean Corpuscular Hemoglobin 31.9 pg (25.9-34.0); Mean Corpuscular Volume 96.7 fL (80.0-94.0); Mean Platelet Volume 10.2 fL (9.5-13.5); Monocytes Absolute Auto 0.5 10^3/uL (0.3-0.8); Monocytes Percent Auto 5.3 % (1.7-12.0); Neutrophils Absolute Auto 7.9 10^3/uL (1.4-6.5); Neutrophils Percent Auto 90.8 % (43.0-75.0); Platelet Count 210 10^3/uL (150-450); Red Blood Count 3.29 10^6/uL (4.70-6.10); Red Cell Distribution Width 12.5 % (11.0-15.0); White Blood Count 8.7 10^3/uL (4.0-11.0)
[2024-01-20 10:01] LABS: Alanine Aminotransferase 162 U/L (16-63); Albumin Globulin Ratio 0.9; Albumin Level 3.1 g/dL (3.4-5.0); Alkaline Phosphatase 225 U/L (46-116); Anion Gap 15.7; Aspartate Amino Transferase 162 U/L (15-37); Bilirubin Total 0.9 mg/dL (0.2-1.0); Calcium 9.2 mg/dL (8.5-10.1); Carbon Dioxide 24.5 mmol/L (21.0-32.0); Chloride 101 mmol/L (98-107); Estimated GFR (African America 47 (>=60); Estimated GFR (Non-African Ame 39 (>=60); Free T3 2.69 pg/mL (2.18-3.98); Globulin 3.6 g/dL; Glucose 112 mg/dL (74-106); Potassium 4.2 mmol/L (3.5-5.1); Sodium 137 mmol/L (136-145); Thyroid Stimulating Hormone 1.328 uIU/mL (0.358-3.740); Total Protein 6.7 g/dL (6.4-8.2)
== END 2024-01-20 09:02 | disposition home or self-care (01) ==
LOC: LAB 09:03
PROVIDERS: PCP Family Medicine; Visit Provider Family Medicine
DX: E03.9 Hypothyroidism, unspecified (principal)
CPT/HCPCS: 36415; 80053; 84436; 84443; 84481; 85025

== ENCOUNTER 2024-02-01 10:13 | Outpatient (OUT) | payer MEDICARE, SELFPAY ==
--- NOTE | 2024-02-01 10:34 | US_ITS ---
The [address] [address] Patient Name: ANALIA OLIVO MRN: [id number] date: 1940 Sex: M Assigned Patient Location: LAB Current Patient Location: LAB Accession/Order Number: [id number] Exam Date: 02/01/2024 10:35 Report Date: 02/01/2024 11:45 At the request of: KLARISSA ENGLE Procedure: US right upper quadrant EXAM: US right upper quadrant HISTORY: elevated liver enzymes R74.8 COMPARISON: None. TECHNIQUE: A scale, color and Doppler FINDINGS: The liver is normal in size, contour and echotexture. Identified in the left hepatic lobe is a 1 cm area of anechoic echogenicity, a simple cyst is favored. Hepatopedal flow in the main portal vein with a velocity of 30 cm/s. The gallbladder is normal in size. The wall measures 2.2 mm, normal. Negative sonographic Salter sign. No cholelithiasis. The common bile duct measures 7.9 mm, normal for age The visualized pancreatic body is normal The right kidney is poorly visualized, small in size measuring 4.7 x 2.9 x 3.2 cm. Thinned, echogenic cortex measuring 5 mm. No solid mass or hydronephrosis in the visualized portions US/US right upper quadrant IMPRESSION: No acute abnormality of the liver Atrophic echogenic right kidney Electronically authenticated by: ANALIA MAYBERRY Date: 02/01/2024 11:45
[2024-02-01 10:51] LABS: Ammonia <10 umol/L (11-32)
[2024-02-01 10:54] LABS: Alanine Aminotransferase 66 U/L (16-63); Albumin Level 3.1 g/dL (3.4-5.0); Alkaline Phosphatase 113 U/L (46-116); Aspartate Amino Transferase 32 U/L (15-37); BUN Creatinine Ratio 19.7; Bilirubin Total 0.6 mg/dL (0.2-1.0); Calcium 8.9 mg/dL (8.5-10.1); Carbon Dioxide 27.5 mmol/L (21.0-32.0); Chloride 104 mmol/L (98-107); Estimated GFR (African America 55 (>=60); Estimated GFR (Non-African Ame 46 (>=60); Globulin 3.1 g/dL; Glucose 101 mg/dL (74-106); Potassium 4.5 mmol/L (3.5-5.1); Sodium 139 mmol/L (136-145); Total Protein 6.2 g/dL (6.4-8.2)
[2024-02-01 11:02] LABS: INR 1.09; Prothrombin Time 11.5 sec (9.0-11.6)
== END 2024-02-01 10:14 | disposition home or self-care (01) ==
LOC: US 10:14 → LAB 10:17
PROVIDERS: PCP Family Medicine; Visit Provider Family Medicine
DX: R74.8 Abnormal levels of other serum enzymes (principal)
CPT/HCPCS: 36415; 76705; 80053; 82140; 85610; 85730

== ENCOUNTER 2025-03-01 09:46 | Outpatient (OUT) | payer MEDICARE, SELFPAY ==
--- OUTSIDE RECORDS SUMMARY | 2025-03-01 09:50 | XMS_ITS | CCD ---
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 Name Role Phone Klarissa Nance Primary Care Provider [phone] Klarissa Nance Primary Care Physician [phone] Klarissa Nance MD Primary Care Provider [phone] ROMY HUGHES Admitting Unavailable ROMY HUGHES Attending Unavailable KLARISSA NANCE Primary Care Unavailable KADIE, DR CYR Primary Care Unavailable DIAB, BRAYAN Admitting Unavailable DIAB, BRAYAN Attending Unavailable ZIEBDEMETRICE, DR LEANNE Buenrostro Consulting Unavailable JANET, NINOSKA OSMAN Consulting Unavailable DIAB, BRAYAN Consulting Unavailable RACHELLE, NAVYA Admitting Unavailable RACHELLE, NAVYA Attending Unavailable KADIE, DR CYR Primary Care Unavailable RACHELLE, NAVYA Consulting Unavailable NEFCY, RILEY Consulting Unavailable Surfield, Johny Admitting Unavailable Surfield, Johny Attending Unavailable David Pepper Primary Care Unavailable Pepper, David Primary Care Unavailable Nill, Boone Buenrostro Admitting Unavailable Nill, Boone Buenrostro Attending Unavailable NILL, Boone Buenrostro Attending Unavailable PEPPER, David Buenrostro Attending Unavailable PEPPER, David Buenrostro Attending Unavailable PEPPER, David R Admitting Unavailable PEPPER, David R Attending Unavailable PEPPER, David R Admitting Unavailable NILL, Boone Buenrostro Attending Unavailable NILL, Boone Buenrostro Attending Unavailable NILL, Boone Buenrostro Attending Unavailable NILL, Boone Buenrostro Admitting Unavailable NILL, Boone Buenrostro Attending Unavailable NILL, Boone Buenrostro Attending Unavailable Klarissa Nance Referring Unavailable NILL, Boone Buenrostro Attending Unavailable Allergies Allergy Classification Reported Allergen(s) Allergy Type Date of Onset Reaction(s) Facility (18 sources) Sulfonamides (Antibiotic); Translations: [sulfa drugs] Drug allergy Unknown (qualifier value), Anaphylaxis (disorder) [facility] (1 source) Sulfonamides (Antibiotic) Propensity to adverse reactions to drug 2 [facility] (1 source) Sulfonamides (Antibiotic) Drug allergy (disorder) [facility] (1 source) Sulfonamides (Antibiotic) Drug allergy (disorder) 4 [facility] Medications Current Medications Medication Drug Class(es) Dates Sig (Normalized) Sig (Original) amiodarone hydrochloride 200 mg oral tablet (16 sources) Antiarrhythmic Start: 03-13-2021 take 1 tablet by mouth once daily amiodarone Tab 200 mg = 1 tab(s), Oral, Daily, # 30 tab(s), Refills(s) 0 Start Date: 03/13/21 Status: Ordered apixaban 2.5 mg oral tablet (16 sources) Factor Xa Inhibitor Start: 01-22-2021 take 2.5 mg by mouth twice daily Eliquis 2.5 mg, Oral, BID, Refills(s) 0 Start Date: 01/22/21 Status: Ordered aspirin 81 mg oral tablet (15 sources) Platelet Aggregation Inhibitor, Nonsteroidal Anti-inflammatory Drug Start: 05-26-2019 take 1 tablet by mouth once daily aspirin 81 mg oral tablet 81 mg = 1 tab(s), Oral, Daily Start Date: 05/26/19 Status: Ordered atorvastatin 40 mg oral tablet (16 sources) HMG-CoA Reductase Inhibitor Start: 03-13-2021 take 1 tablet by mouth once daily atorvastatin 40 mg Tab 40 mg = 1 tab(s), Oral, Daily, # 30 tab(s), Refills(s) 0 Start Date: 03/13/21 Status: Ordered bicalutamide 50 mg oral tablet (17 sources) Androgen Receptor Inhibitor Start: 06-07-2024 take 1 tablet by mouth every twenty-four hours bicalutamide 50 mg Tab 50 mg = 1 tab(s), Oral, q24hr, # 90 tab(s), Refills(s) 3, Pharmacy: [facility] [id number], 170.1, cm, 12/01/23 14:23:00 EST, Height/Length Dosing, 63, kg, 12/01/23 14:23:00 EST, Weight Dosing Start Date: 06/07/24 Status: Ordered Start: 04-09-2023 take 1 tablet by joe th every twenty-four hours bicalutamide 50 mg Tab 50 mg = 1 tab(s), Oral, q24hr, # 90 tab(s), Refills(s) 3, Pharmacy: [facility] #[id number], 169, cm, 07/15/22 7:43:00 EDT, Height/Length Dosing, [...] Ordered docusate sodium 50 mg / sennosides, mcc 8.6 mg oral capsule (4 sources) Start: 03-13-2021 docusate-senna 50 mg-8.6 mg oral capsule cap(s), Oral, qPM, Refill(s) 0 Start Date: 03/13/21 Status: Ordered escitalopram 20 mg oral tablet (8 sources) Serotonin Reuptake Inhibitor Start: 05-22-2024 take 1 tablet by mouth once daily Lexapro 20 mg Tab 20 mg = 1 tab(s), Oral, Daily, Refills(s) 0 Start Date: 05/22/24 Status: Ordered FeroSul 325 mg oral tablet [...] mg oral tablet (5 sources) Thiazide Diuretic, beta-Adrenergi c Nazai Start: 03-13-2021 hydrochlorothiazide-met oprolol 25 mg-50 mg [...] Refills(s) 0 Start Date: 03/13/21 Status: Ordered liothyronine sodium 0.005 mg oral tablet (8 sources) l-Triiodothyronine Start: 05-22-2024 take 2 tablets by mouth once daily Cytomel 5 mcg Tab 10 mcg = 2 tab(s), Oral, Daily, Refills(s) 0 Start Date: 05/22/24 Status: Ordered megestrol acetate 40 mg oral tablet (5 sources) Progestin Start: 03-13-2021 take 1 tablet by mouth once daily megestrol 40 mg Tab TAKE 1 TABLET BY MOUTH ONCE DAILY Start Date: 03/13/21 Status: Ordered mupirocin 0.02 mg/mg topical ointment (15 sources) RNA Synthetase Inhibitor Antibacterial Start: 03-13-2021 [...] mL tamsulosin hydrochloride 0.4 mg oral capsule (16 sources) alpha-Adrenergic Nazia Start: 03-20-2024 take 1 capsule by mouth once daily Flomax 0.4 mg Cap 0.4 mg = 1 cap(s), Oral, Daily, # 90 cap(s), Refills(s) 3, Pharmacy: [facility] [id number], 170.1, cm, 12/01/23 14:23:00 EST, Height/Length Dosing, 63, kg, 12/01/23 14:23:00 EST, Weight Dosing Start Date: 03/20/24 Status: Ordered Start: 12-31-2022 take 1 capsule by [facility] once daily Flomax 0.4 mg Cap 0.4 mg = 1 cap(s), Oral, Daily, # 90 cap(s), Refills(s) 3, Pharmacy: [facility] #[id number], 169, cm, 07/15/22 7:43:00 EDT, Height/Length Dosing, 70, kg, 07/15/22 7:43:00 EDT, Weight Dosing Start Date: 12/31/22 Status: Ordered Start: 10-29-2021 take 1 capsule by [facility] once daily Flomax 0.4 mg Cap 0.4 mg = 1 cap(s), Oral, Daily, # 90 cap(s), Refills(s) 3, Pharmacy: [facility], 169, cm, 10/29/21 7:50:00 EST, Height/Length Dosing, 70, kg, 10/29/21 7:50:00 EST, Weight Dosing Start Date: 10/29/21 Status: Ordered tetracaine hydrochloride 5 mg/ml ophthalmic solution (1 source) Analia Local Anesthetic Start: 08-10-2022 tetracaine (TETRAVISC) 0.5 % ophthalmic solution 1 drop traMADol hydrochloride 50 mg oral tablet (10 sources) Opioid Agonist Start: 11-17-2023 take 1 [...] Sig (Original) cephalexin 500 mg oral capsule (19 sources) Cephalosporin Antibacterial Start: 07-13-2023 take 1 capsule by mouth once daily Keflex 500 mg Cap 500 mg = 1 cap(s), Oral, Daily, Take 1 capsule the day before the procedure and 1 capsule after the procedure, # 2 cap(s), Refills(s) 0, Pharmacy: [facility] [id number], 170, cm, 06/13/24 15:03:00 EDT, Height/Length Dosing, 60.4, kg, 06/13/24 15:03:00 EDT, Weight Dosing Start Date: 08/03/24 Status: Ordered Start: 07-14-2022 take 1 tablet by joe once daily Keflex 500 mg Cap 500 mg = 1 cap(s), Oral, Daily, Take 1 tablet the day before the procedure and 1 tablet after the procedure, # 2 cap(s), Refills(s) 0, Pharmacy: [facility] #[id number], 169, cm, 01/21/22 7:46:00 EDT, Height/Length Dosing, 70, kg, 01/21/22 7:46:00 EDT, Weight... Start Date: 07/14/22 Status: Ordered Start: 10-29-2021 take 1 tablet by [facility] once daily Keflex 500 mg Cap 500 mg = 1 cap(s), Oral, Daily, Take 1 tablet the day before the procedure and 1 tablet after the procedure, # 2 cap(s), Refills(s) 0, Pharmacy: [facility], 169, cm, 10/29/21 7:50:00 EST, Height/Length Dosing, 70, kg, 10/29/21 7:50:00 ES... Start Date: 10/29/21 Status: Ordered 1 ml hydrALAZINE hydrochloride 20 mg/ml injection (1 source) Arteriolar Vasodilator Start: 08-10-2022 End: 08-10-2022 hydrALAZINE (APRESOLINE) injection 5 mg Start: 08-10-2022 End: 08-10-2022 hydrALAZINE (APRESOLINE) inj ection 5 mg Problems Active Problems Problem Classification Problem Date Documented Date Episodic/Chronic Acute and unspecified renal failure (11 sources) [id number]-hb-[id number] renal failure 03-12-2021 Episodic Aortic; peripheral; and visceral artery aneurysms (15 sources) Aortic aneurysm 03-12-2021 Chronic Cancer of bladder (15 sources) Malignant neoplasm of posterior wall of urinary bladder 04-19-2020 Chronic Cancer of bladder (4 sources) History of malignant neoplasm of bladder; Translations: [Personal history of malignant neoplasm of bladder] Onset: 01-21-2022 Episodic Cancer of prostate (15 sources) Malignant tumor of prostate 05-25-2019 Chronic Cancer of prostate (19 sources) Personal history of malignant neoplasm of prostate; Translations: [History of malignant neoplasm of prostate] Onset: 01-21-2022 Episodic Cancer; other and unspecified primary (15 sources) H/O: malignant neoplasm 10-30-2020 Episodic Cancer; other and unspecified primary (7 sources) History of bladder neoplasm 05-26-2019 Episodic Cardiac dysrhythmias (15 sources) Atrial fibrillation 03-12-2021 Chronic Cataract (4 sources) Age-related nuclear cataract of left eye; Translations: [Age-related nuclear cataract, left eye] Onset: 08-09-2022 Resolved: 08-10-2022 Chronic Chronic kidney disease (4 sources) Chronic kidney disease 08-04-2024 Chronic Disorders of lipid metabolism (20 sources) Hyperlipidemia 05-25-2019 Chronic E Codes: Other specified and classifiable (1 source) Caught, crushed, jammed, or pinched between moving objects, initial encounter; Translations: [CAUGHT CRUSH/PINCH BTWN MOV OBJ INT] Onset: 11-16-2022 Episodic Essential hypertension (15 sources) Hypertensive disorder 03-12-2021 Chronic Genitourinary symptoms and ill-defined conditions (20 sources) Increased frequency of urination; Translations: [Microscopic hematuria] 05-25-2019 Episodic Hyperplasia of prostate (20 sources) Benign prostatic hypertrophy with outflow obstruction; Translations: [Benign prostatic hyperplasia with lower urinary tract symptoms] Onset: 01-21-2022 Chronic Joint disorders and dislocations; trauma-related (2 sources) Dislocation of proximal interphalangeal joint of left middle finger, initial encounter; Translations: [DISLOC PROX IP JNT LT MID FNGR INIT] Onset: 11-16-2022 Episodic Neoplasms of unspecified nature or uncertain behavior (20 sources) Neoplasm of uncertain behavior of skin of chest; Translations: [Neoplasm of uncertain behavior of skin] Onset: 12-01-2023 03-13-2021 Episodic Osteoarthritis (15 sources) Osteoarthritis 03-12-2021 Chronic Other aftercare (1 source) superintendent terminal (current) use of aspirin; Translations: [IT SUPPORT SPECIALIST CURRENT USE OF ASPIRIN] Onset: 11-16-2022 Episodic Other aftercare (1 source) Other group home (current) drug therapy; Translations: [OTH IT SUPPORT SPECIALIST CURRENT DRUG THERAPY] Onset: 11-16-2022 Episodic Other aftercare (1 source) Encounter for other plastic and reconstructive surgery following medical procedure or healed injury; Translations: [Encounter for other plastic and reconstructive surgery following medical procedure or healed injury] Onset: 02-03-2024 Episodic Other connective tissue disease (3 sources) Pain in left finger(s); Translations: [PAIN IN LEFT FINGERS] Onset: 11-13-2022 Episodic Other connective tissue disease (5 sources) Pain in left hand; Translations: [PAIN IN LEFT HAND] Onset: 11-13-2022 Episodic Other diseases of kidney and ureters (2 sources) Urinary tract obstruction; Translations: [Other obstructive and reflux uropathy] Onset: 08-17-2023 Episodic Other non-epithelial cancer of skin (16 sources) Basal cell carcinoma of nose; Translations: [Basal cell carcinoma of skin of nose] Onset: 12-08-2023 Episodic Other screening for suspected conditions (not mental disorders or infectious disease) (15 sources) Raised prostate specific antigen 05-26-2019 Episodic Other skin disorders (15 sources) Actinic keratosis 03-12-2021 Episodic Other skin disorders (15 sources) Mass of skin 03-13-2021 Episodic Other skin disorders (15 sources) Skin tag 03-13-2021 Episodic Other skin disorders (10 sources) Inflamed seborrheic keratosis; Translations: [Inflamed seborrheic keratosis] Onset: 06-13-2024 Episodic Screening and history of mental health and substance abuse codes (15 sources) Ex-smoker 05-25-2019 Episodic Thyroid disorders (10 sources) Hypothyroidism 11-17-2023 Chronic Unclassified (15 sources) Drug therapy finding 03-12-2021 Unclassified (15 sources) Seborrheic keratosis 03-12-2021 Past or Other Problems Problem Classification Problem Date Documented Da te Episodic/Chronic Unclassified (15 sources) Body mass index 20-24 - normal 03-13-2021 Results Test Name Value Interpretation Reference Range Facility Provider Letteron 11-01-2024 Provider Letter Provider Letter November 01, 2024 ANALIA OLIVO [address] [address] : 1940 Dear Analia, We have been trying to reach you with no success. It is important that you return our call regarding your recent lab work upon receiving this letter. Also, at the time of your call, please provide us with your current information. Thank you for your prompt attention to this matter. Sincerely, [facility] [address] [address] Normal [facility] UroVys[facility] Fish and Urine Cyt o ([facility])on 11-01-2024 UVFISH & UC Diagnosis Info Invalid Interpretation Code [facility] Comment on above: Result Comment: A:Ur ine,Bladder Wash:Bladder Wash Diagnosis Summary - Clusters and singled atypical urothelial cells with degenerative changes; suspicious for urothelial neoplasm. Clinical correlation and tissue confirmation is recommended as clinically indicated. Diagnosis Summary - The UroVysion FISH study detected a positive profile. [facility]ion FISH evaluates chromosomes 3, 7, 17, and 9p21 for aneuploid and deletion events associated with urothelial cell carcinoma. 149 cells were analyzed in this evaluation. Evidence of aneuploidy in at least 6 cells and evidence in at least 6 cells with deletion of 9p21 were found. These findings should be correlated with cytology and cystoscopy results. * CPT: 00139, 89820. 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 Electronically signed by : on: 11/01/2024 09:18:47 Performed By: #### 1 [id number] #### [facility] [address] [place] [address] PSA Totalon 10-25-2024 Prostate specific Ag [Mass/Vol] 0.1 ng/mL Normal 0.1-3.5 [facility] Comment on above: Result Comment: The concentration of PSA determined by different manufacturers can vary due to differences in assay methods and reagent specificity. Values obtained from different assay methods cannot be used interchangeably. The methodology used for this result was chemiluminescence using [employer] Access Hybritech PSA reagent. Performed By: #### 1 [id number] #### [facility] [address] [place], [place] [address] Reminderson 10-24-2024 Reminders Reminders From: Renee Kim To: EU - Recalls Shantelle; Sent: 10/24/2024 13:51:35 EST Show up: 07/04/2026 13:51:00 EDT Subject: Cysto/FISH/cytol Due Date/Time: 07/29/2026 13:51:00 EDT Reminder/Recall Patient is due in Oct 2026 for 2 year cysto/fish/cytol, bt ck Normal [facility] Fish and Urine Cyt o ([facility])on 10-24-2024 [facility] Method of Extraction Bladder Wash Normal [facility] Comment on above: Performed By: #### 1 [id number] #### [facility] [address] [place] [address] [facility] Number of Jars 1 Invalid Interpretation Code [facility] Comment on above: Performed By: #### 1 [id number] #### [facility] [address] [place], [place] [address] [facility] Specimen Bladder Wash Normal [facility] Comment on above: Performed By: #### 1 [id number] #### [facility] [address] [place] [address] [facility] Type of Service Technical Only Normal [facility] Comment on above: Performed By: #### 1 [id number] #### [facility] [address] [place] [address] Urology Office/Clinic Noteon 10-24-2024 Urology Office/Clinic Note Urology Office/Clinic Note Chief Complaint Cysto HPI Staff Cysto ABX taken, need FISH/Cytol, PSA History of Present Illness Tests reviewed: reviewed UA, and PSA. I have reviewed the previous health record [...] See HPI. Physical Exam Vitals & Measurements HR: 62(Peripheral) RR: 16 BP: 150/90 HT: 63 in HT: 159 cm WT: 63.9 kg WT: 140.875 lb BMI: 25.28 General Appearance: alert, no distress, well nourished, [...] Urethra is: Normal The Prostatic Urethra is: bilobar hypertrophy The Bladder: Abnormal, diverticuli, no tumors, no stones, Trabeculated: Severe (3) The Ureteral orifices: Show efflux of clear urine Specimens Removed: Bladder wash sent for FISH and Cytology test Removal: Cystoscope is removed. The patient tolerated it well. Postoperative Information Patient is discharged home with antibiotic coverage. Follow up arranged. Assessment/Plan 1. 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 UA sent for FISH/Cytol. Follow up in 2 yr w/cysto/FISH/Cystology . All questions/concerns were discussed. Pt to call the office if he encounters any issues prior. Pt acknowledges understanding. 2. BPH with urinary obstruction (N40.1: Benign prostatic hyperplasia with lower urinary tract symptoms) Continue Flomax 0.4mg qd 3. History of prostate cancer (Z85.46: Personal history of malignant neoplasm of prostate) S/p Brachytherapy 2005 Last PSA drawn in 04/2021 - <0.05. Continue Casodex 50mg -PSA will be drawn IO today, will call with results. Follow-up With When Contact Information SHANTELLE OLGUIN, David Buenrostro, URL In 2 years [facility] [address], [place] [address]- Additional Instructions: w/Cysto/FISH/Cytol Patient Education Benign Prostatic Hyperplasia I, Tere Servin , personally scribed for Dr. Pepper on 10/24/2024 13:47:35. . Documentation recorded by the scribe, Tere Servin, accurately reflects the services(s) I performed and decisions made by me. Problem List/Past Medical History Ongoing AK (actinic keratosis) Androgen deprivation therapy Aortic aneurysm Atrial fibrillation Basal cell carcinoma of nostril Basal cell carcinoma of skin of neck Bladder cancer BPH with urinary obstruction Chronic kidney disease Cutaneous skin tags Former smoker History of bladder cancer History of prostate cancer Hyperlipidemia Hypertension Hypothyroidism Inflamed seborrheic keratosis Microscopic hematuria Neoplasm of uncertain behavior of skin of chest Neoplasm of uncertain behavior of skin of nose Osteoarthritis Prostate cancer Rising PSA following treatment for malignant neoplasm of prostate Seborrheic keratosis Urinary frequency Verrucous skin lesion Historical BMI 21.0-21.9, adult Hyperlipidemia Procedure/Surgical History Cystoscopy (10/24/2024), Cystoscopy (08/17/2023), Cystoscopy (07/15/2022), Cystoscopy (01/21/2022), Cystoscopy (10/29/2021), Cystoscopy (07/30/2021), Cystoscopy (04/30/2021), Cystoscopy (01/22/2021), Cystoscopy (10/30/2020), Cystoscopy (07/30/2020), Aortic aneurysm repair (04/22/2020), Exploration of abdomen (04/22/2020), CT guided biopsy of left rib (04/03 (more content not included)... Normal [facility] Comment on above: Result Comment: Elec tronically Signed By: David PEPPER MD\.br\Date and Time Signed: 10/24/24 13:49 EST\.br\Electronically Co-Signed By: Tere Servin\.br\Date and Time Co-Signed: 10/24/24 13:47 EST Reminderson 08-02-2024 Reminders Reminders From: Renee Kim To: EU - Recalls Shantelle; Sent: 08/02/2024 15:03:14 EDT Show up: 08/04/2025 15:03:00 EDT Subject: cysto/fish/cytol Due Date/Time: 08/27/2025 15:03:00 EST Reminder/Recall Patient is due in Oct 2025 for 1 year cysto/fish/cytol, bt ck Normal [facility] Ambulatory Visit Summaryon 1 Ambulatory Visit Summary Ambulatory Visit Summary ANALIA OLIVO :1940 Visit Date:07/11/2024 Ambulatory Visit Instructions Your Diagnosis Basal cell carcinoma of skin of neck Your Care Team Attending Physician - Boone DE LA ROSA MD Primary Care Physician - Klarissa Nance MD This Is Your Medications List Contact prescribing physician if questions or concerns amiodarone (amiodarone Tab) apixaban (Eliquis) aspirin (aspirin 81 mg oral tablet) atorvastatin (atorvastatin 40 mg Tab) bicalutamide (bicalutamide 50 mg Tab) cephalexin (Keflex 500 mg Cap) escitalopram (Lexapro 20 mg Tab) liothyronine (Cytomel 5 mcg Tab) mupirocin topical (mupirocin Top 2% Oint) tamsulosin [...] guidance (04/13/2006), Brachytherapy (2005), Cataract extraction, Hydrocelectomy. What to do next Scheduled Follow-Up Appointments Wednesday 2:00 PM EST With: ESTRELLA OLGUIN, Boone Buenrostro Where: [address], [address], [place] [id number]- Medications What How Much When Instructions Unchanged [...] prescribing physician if questions or concerns Unchanged escitalopram (Lexapro 20 mg Tab) 1 Tablets By Mouth Every day Contact prescribing physician if questions or concerns Unchanged liothyronine (Cytomel 5 mcg Tab) 2 Tablets By Mouth Every day Contact prescribing [...] that you are currently receiving treatment for. Pnerq-qj-dhwofwk kidney injury AK (actinic keratosis) Androgen deprivation therapy Aortic aneurysm Atrial fibrillation Basal cell carcinoma of nostril Basal cell carcinoma of skin of neck Bladder cancer BPH with urinary obstruction Cutaneous skin tags Former smoker History of bladder cancer History of prostate cancer Hyperlipidemia Hypertension Hypothyroidism Inflamed seborrheic keratosis Microscopic hematuria Neoplasm of uncertain behavior of skin of chest Neoplasm of uncertain behavior of skin of nose Osteoarthritis Prostate cancer Rising PSA following treatment for malignant neoplasm of prostate Seborrheic keratosis Urinary frequency Verrucous skin lesion Historical - Any problem that you are no longer receiving treatment for. BMI 21.0-21.9, adult Hyperlipidemia Patient Survey You may receive a survey via text or e-mail asking about your office visit. Please share your experience with us by completing your survey. We appreciate your feedback and thank you for choosing us for your care. Normal [facility] General Surgery Office/Clini c Noteon 07-11-2024 General Surgery Office/Clinic Note General Surgery Office/Clinic Note Chief Complaint follow up in office excisional biopsy HPI Staff 13 day post in-office excisional biopsy posterior neck lesion. Denies discomfort, bleeding or drainage. 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 Review of Systems ROS - Provider Constitutional: [...] dysuria. Musculoskeletal: no pain, no weakness. Skin: no changing moles, no rash, no skin lumps. [...] negative or noncontributory. Physical Exam skin: incision healing well, no erythema or drainage, no ecchymosis. Assessment/Plan 1. Basal cell carcinoma of skin of neck (C44.41: Basal cell carcinoma of skin of scalp and neck) doing well; will monitor for signs of recurrence; f/u in 1 month for recheck. Follow-up No qualifying data available Problem List/Past Medical History Ongoing Hycda-hq-vkgcrhd kidney injury AK (actinic keratosis) Androgen deprivation therapy Aortic aneurysm Atrial fibrillation Basal cell carcinoma of nostril Basal cell carcinoma of skin of neck Bladder cancer BPH with urinary obstruction Cutaneous skin tags Former smoker History of bladder cancer History of prostate cancer Hyperlipidemia Hypertension Hypothyroidism Inflamed seborrheic keratosis Microscopic hematuria Neoplasm of uncertain behavior of skin of chest Neoplasm of uncertain behavior of skin of nose Osteoarthritis Prostate cancer Rising PSA following treatment for malignant neoplasm of prostate Seborrheic keratosis Urinary frequency Verrucous skin lesion Historical BMI 21.0-21.9, adult Hyperlipidemia Procedure/Surgical History Cystoscopy (08/17/2023), Cystoscopy (07/15/2022), [...] mg= 1 tab(s), Oral, q24hr, 3 refills Cytomel 5 mcg Tab, 10 mcg= 2 tab(s), Oral, Daily Eliquis, 2.5 mg, Oral, BID Flomax 0.4 mg Cap, 0.4 mg= 1 cap(s), Oral, Daily, 3 refills Keflex 500 mg Cap, 500 mg= 1 cap(s), Oral, Daily Lexapro 20 mg Tab, 20 mg= 1 tab(s), Oral, Daily mupirocin Top 2% Oint traMADOL [...] to change: No. Household tobacco concerns: No., 06/13/2024 Family History Heart disease: Father. Immunizations Vaccine Date Status influenza virus vaccine, inactivated 08/08/2023 Recorded zoster vaccin (more content not included)... Normal [facility] Comment on above: Result Comment: Elec tronically Signed By: ESTRELLA OLGUIN, Boone Jean.varsha\Date and Time Signed: 07/11/24 14:05 EDT Surgical Pathology Reporton 07-10-2024 Surgical Pathology Report [facility] [address] 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 - PERIPHERAL MARGIN POSITIVE FOR MALIGNANCY. (Electronic Signature) Anna Palma MD PhD 07/10/2024 13:02 Diagnosis Comment This report was communicated to physicians office within 7 days after the procedure. PQRS: [id number] Clinical Information several month h/o nonhealing, scabbed, lesion right posterior neck Pre-Op Diagnosis: nonhealing lesion right neck Procedure: excisional biopsy right posterior neck Post-Op Diagnosis: Inflamed seborrheic keratosis Specimen(s) Received right posterior neck nonhealing lesion Gross Description Received in formalin labeled with patient name, number, and right posterior neck nonhealing lesion is a partial ellipse of gamble skin and soft tissue measuring 1.8 x 0.8 cm and contains approximately 0.1 cm of underlying tissue. Situated on the skin is a gamble raised nodular lesion measuring 0.9 x 0.8 cm and extends to the margin. The surface of the nodule contains a gamble/black scab-like tissue which is easily removed. The skin margins are inked green. The specimen is serially sectioned. Specimen is entirely submitted in one cassette. DC:[facility] Microscopic Description Microscopic examination performed unless gross only specified. Normal [facility] Comment on above: Performed By: #### [id number] #### [facility] [address] [place] [address] Ambulatory Visit Summaryon 0 06-28-2024 Ambulatory Visit Summary Ambulatory Visit Summary ANALIA OLIVO :1940 Visit Date:06/28/2024 Ambulatory Visit Instructions Your Diagnosis Inflamed seborrheic keratosis Your Care Team Attending Physician - ESTRELLA OLGUIN, Boone Buenrostro Primary Care Physician - Klarissa Nance MD This Is Your Medications List Contact prescribing physician if questions or concerns amiodarone (amiodarone Tab) apixaban (Eliquis) aspirin (aspirin 81 mg oral tablet) atorvastatin (atorvastatin 40 mg Tab) bicalutamide (bicalutamide 50 mg Tab) cephalexin (Keflex 500 mg Cap) escitalopram (Lexapro 20 mg Tab) liothyronine (Cytomel 5 mcg Tab) mupirocin topical (mupirocin Top 2% Oint) tamsulosin [...] guidance (04/13/2006), Brachytherapy (2005), Cataract extraction, Hydrocelectomy. What to do next Scheduled Follow-Up Appointments Wednesday 1:40 PM EDT With: ESTRELLA OLGUIN, Boone Buenrostro Where: [address], [address], [place] [address]- Medications What How Much When Instructions Unchanged [...] prescribing physician if questions or concerns Unchanged escitalopram (Lexapro 20 mg Tab) 1 Tablets By Mouth Every day Contact prescribing physician if questions or concerns Unchanged liothyronine (Cytomel 5 mcg Tab) 2 Tablets By Mouth Every day Contact prescribing [...] that you are currently receiving treatment for. Mudnw-ia-hbmbiqb kidney injury [place] (actinic keratosis) Androgen deprivation therapy Aortic aneurysm Atrial fibrillation Basal cell carcinoma of nostril Bladder cancer BPH with urinary obstruction Cutaneous skin tags Former smoker History of bladder cancer History of prostate cancer Hyperlipidemia Hypertension Hypothyroidism Inflamed seborrheic keratosis Microscopic hematuria Neoplasm of uncertain behavior of skin of chest Neoplasm of uncertain behavior of skin of nose Osteoarthritis Prostate cancer Rising PSA following treatment for malignant neoplasm of prostate Seborrheic keratosis Urinary frequency Verrucous skin lesion Historical - Any problem that you are no longer receiving treatment for. BMI 21.0-21.9, adult Hyperlipidemia Patient Survey You may receive a survey via text or e-mail asking about your office visit. Please share your experience with us by completing your survey. We appreciate your feedback and thank you for choosing us for your care. Normal [facility] General Surgery Office/Clini c Noteon 06-28-2024 General Surgery Office/Clinic Note General Surgery Office/Clinic Note Chief Complaint in-office excisional biopsy HPI Staff Presents for in-office excisional biopsy right posterior neck lesion. Patient held Eliquis for 2 days. History of Present Illness patient here for excisional biopsy of nonhealing scabbed lesion right posterior neck; no change since recent evaluation; held Eliquis 2 days prior to procedure. Review of Systems ROS - Provider Constitutional: [...] are negative or noncontributory. Physical Exam skin: 6 mm inflamed seborrheic keratosis with scab Procedure patient brought to the procedure room, placed in supine position, area prepped and draped in sterile fashion; anesthetized with 1 % lidocaine; lesion excised in elliptical fashion down to subcutaneous fat; total length of incision 2 cm; closed with interrupted 4-0 nylon sutures; tolerated well; ebl < 3 ml; sterile dressing applied. Assessment/Plan 1. Inflamed seborrheic keratosis (L82.0: Inflamed seborrheic keratosis) excised under local anesthesia, tolerated well; keep incision clean and dry; Tylenol as needed for pain; follow up in 10-14 days for suture removal, call sooner if problems/questions. Follow-up No qualifying data available Problem List/Past Medical History Ongoing Auaqb-nn-gzzhalh kidney injury AK (actinic keratosis) Androgen deprivation therapy Aortic aneurysm Atrial fibrillation Basal cell carcinoma of nostril Bladder cancer BPH with urinary obstruction Cutaneous skin tags Former smoker History of bladder cancer History of prostate cancer Hyperlipidemia Hypertension Hypothyroidism Inflamed seborrheic keratosis Microscopic hematuria Neoplasm of uncertain behavior of skin of chest Neoplasm of uncertain behavior of skin of nose Osteoarthritis Prostate cancer Rising PSA following treatment for malignant neoplasm of prostate Seborrheic keratosis Urinary frequency Verrucous skin lesion Historical BMI 21.0-21.9, adult Hyperlipidemia Procedure/Surgical History Cystoscopy (08/17/2023), Cystoscopy (07/15/2022), [...] mg= 1 tab(s), Oral, q24hr, 3 refills Cytomel 5 mcg Tab, 10 mcg= 2 tab(s), Oral, Daily Eliquis, 2.5 mg, Oral, BID Flomax 0.4 mg Cap, 0.4 mg= 1 cap(s), Oral, Daily, 3 refills Keflex 500 mg Cap, 500 mg= 1 cap(s), Oral, Daily Lexapro 20 mg Tab, 20 mg= 1 tab(s), Oral, Daily mupirocin Top 2% Oint traMADOL [...] than 30 days ago Tobacco Use:. Never (more content not included)... Normal [facility] Comment on above: Result Comment: Elec tronically Signed By: ESTRELLA OLGUIN, Boone Ray\Date and Time Signed: 06/28/24 14:29 EDT Ambulatory Visit Summaryon 0 06-13-2024 Ambulatory Visit Summary Ambulatory Visit Summary ANALIA OLIVO :1940 Visit Date:06/13/2024 Ambulatory Visit Instructions Your Diagnosis Inflamed seborrheic keratosis Your Care Team Attending Physician - ESTRELLA OLGUIN, Boone Buenrostro Primary Care Physician - Klarissa Nance MD Referring Physician - Klarissa Nance MD This Is Your Medications List Contact prescribing physician if questions or concerns amiodarone (amiodarone Tab) apixaban (Eliquis) aspirin (aspirin 81 mg oral tablet) atorvastatin (atorvastatin 40 mg Tab) bicalutamide (bicalutamide 50 mg Tab) cephalexin (Keflex 500 mg Cap) escitalopram (Lexapro 20 mg Tab) liothyronine (Cytomel 5 mcg Tab) mupirocin topical (mupirocin Top 2% Oint) tamsulosin [...] extraction, Hydrocelectomy. Discharge Vitals Heart Rate (Peripheral) 68 Respiratory Rate 16 Blood Pressure 122/60 Height 170 cm Height 67 in Weight 60.4 kg Weight 132.88 lb BMI 20.9 What to do next Scheduled Follow-Up Appointments Wednesday 3:00 PM EDT With: ESTRELLA OLGUIN, Boone Buenrostro Where: [address], [address], [place] [address]- Medications What How Much When Instructions Unchanged [...] prescribing physician if questions or concerns Unchanged escitalopram (Lexapro 20 mg Tab) 1 Tablets By Mouth Every day Contact prescribing physician if questions or concerns Unchanged liothyronine (Cytomel 5 mcg Tab) 2 Tablets By Mouth Every day Contact prescribing [...] that you are currently receiving treatment for. Mfyrw-pg-zfzlwxb kidney injury AK (actinic keratosis) Androgen deprivation therapy Aortic aneurysm Atrial fibrillation Basal cell carcinoma of nostril Bladder cancer BPH with urinary obstruction Cutaneous skin tags Former smoker History of bladder cancer History of prostate cancer Hyperlipidemia Hypertension Hypothyroidism Inflamed seborrheic keratosis Microscopic hematuria Neoplasm of uncertain behavior of skin of chest Neoplasm of uncertain behavior of skin of nose Osteoarthritis Prostate cancer Rising PSA following treatment for malignant neoplasm of prostate Seborrheic keratosis Urinary frequency Verrucous skin lesion Historical - Any problem that you are no longer receiving treatment for. BMI 21.0-21.9, adult Hyperlipidemia Patient Survey You may receive a survey via text or e-mail asking about your office visit. Please share your experience with us by completing your survey. We appreciate your feedback and thank you for choosing us for your care. Normal [facility] Operative Reporton 4 Operative Report [id number] 0TIFF [facility] Physician Referralon 024 Physician Referral [id number]#1.0 0TIFF [facility] Consultation Noteon 01-02-20 24 Consultation Note [id number]#1.0 0TIFF [facility] Ambulatory Visit Summaryon 0 12-08-2023 Ambulatory Visit Summary ANALIA OLIVO :1940 Visit Date:12/08/2023 Ambulatory Visit Instructions Your Diagnosis Basal cell carcinoma of nostril Your Care Team Attending Physician - ESTRELLA [...] that you are currently receiving treatment for. Wclmf-rn-monmvcl kidney injury AK (actinic keratosis) Androgen deprivation [...] for choosing us for your care. Normal [facility] General Surgery Office/Clini c Noteon [...] data available Problem List/Past Medical History Ongoing Gqvtt-pj-utiplxg kidney injury [place] (actinic keratosis) Androgen deprivation [...] 10/09/2021 Javier (more content not included)... Normal [facility] Comment on above: Result Comment: Elec tronically Signed By: ESTRELLA OLGUIN, Boone Buenrostro\jae\Date and Time Signed: 12/08/23 15:32 EST Pathology Noteon 12-08-2023 Pathology Note [id number]#1.0 0TIFF [facility] Ambulatory Visit Summaryon 0 12-01-2023 Ambulatory Visit Summary ANALIA OLIVO :1940 Visit Date:12/01/2023 Ambulatory Visit Instructions Your Care Team Attending Physician - Boone DE LA ROSA MD Primary Care Physician - Klarissa Nnace MD This Is Your Medications List Contact [...] LA ROSA MD Where: General Surgery Estrella/Angel Styles [facility] 12-01-2023 L Specimen: [id number] Received: 12/02/23 Status: AMBAR Zapien Num: [id number] Spec Type: Surgical Subm Dr: Boone De La Rosa MD FACS Tissues: A Skin-Other than Cyst, tag, debridement or plastic repair (RT NARES) Procedures: HE, Gross/Micro L4 Age/ Patient Sex Location Account Attending Physician DianeAnalia rondon 83/M LABELL [id number] Boone De La Rosa MD FACS SPEC NUM: [id number] RECD: 12/02/23 STATUS: AMBAR ZAPIEN NUM: [id number] DAYAMI: 12/01/[address]: Boone De La Rosa MD FACS ENTERED: 12/02/[address] [facility] [address]: Donavon Aquino SPEC TYPE: Surgical [...] in one cassette labeled A1. CPT Codes 27937 ---- ---- Specimen: [id number] Received: 12/02/23-1242 Status: AMBAR Zapien Num: [id number] Spec Type: Surgical Subm Dr: Boone De La Rosa MD FACS Tissues: A Skin-Other than Cyst, tag, debridement or plastic repair (RT NARES) Procedures: HE, Gross/Micro L4 ---- Patient: Analia Olivo [id number] (Continued) ---- Signed (signature on file) Dinah Ray MD 12/04/23 1213 Normal [facility] XR HAND LT MIN 3Von 11-13-19 23 [...] RILEY WILD Date: 2022-11-13 12:22 Normal [facility] Brain Natriuretic Peptideon 05-23-2020 Natriuretic peptide B (Bld) [Mass/Vol] 1483 pg/mL High <300 [place] Comment on above: Pro-BNP results vanesa ot be compared to BNP results. Natriuretic peptide B (Bld) [Mass/Vol] Pro-BNP Reference Range: [place] Comment on above: Rule Out: <300 Cadena Zone: Age <50 300-450 Age 50-75 300-900 Age >75 300-1800 Usually represents mild to moderate HF but other cardiopulmonary causes cannot be ruled out. Rule In: Age <50 >450 Age 50-75 >900 Age >75 >1800 CBCon 05-23-2020 Erythrocyte distribution width (RBC) [Ratio] 14.3 % 11.8 - 14.4 % [place] Hematocrit (Bld) [Volume fraction] 33.3 % Low 40.7 - 50.3 % [place] Hemoglobin (Bld) [Mass/Vol] 10.7 g/dL Low 13 - 17 g/dL [place] Interpretation and review of laboratory results Abnormal [place] MCH (RBC) [Entitic mass] 30.7 pg 25.2 - 33.5 pg [place] MCHC (RBC) [Mass/Vol] 32.1 g/dL 28.4 - 34.8 g/dL [place] MCV (RBC) [Entitic vol] 95.4 fL 82.6 - 102.9 fL [place] Platelet mean volume (Bld) [Entitic vol] 10.8 fL 8.1 - 13.5 fL [place] Platelets (Bld) [#/Vol] 196 10*3/uL [place] RBC (Bld) [#/Vol] 3.49 10*6/uL Low 4.21 - 5.7 7 m/uL [place] WBC (Bld) [#/Vol] 0.0 10*3/uL 0.0 per 10 0 WBC [place] WBC (Bld) [#/Vol] 7.3 10*3/uL [place] Comprehensive Metabolic Pane paco 05-23-2020 Albumin [Mass/Vol] 3.6 g/dL 3.5 - 5.2 g/dL [place] Albumin/Globulin [Mass ratio] 1.1 {ratio} [place] ALP [Catalytic activity/Vol] 84 U/L 40 - 129 U/L [place] ALT [Catalytic activity/Vol] 26 U/L 5 - 41 U/L [place] Anion gap [Moles/Vol] 10 mmol/L 9 - 17 mmol/L [place] AST [Catalytic activity/Vol] 21 U/L <40 [place] Bilirubin Ql (U) 0.62 mg/dL 0.3 - 1.2 mg/dL [place] Bun/Cre Ratio 13 [place] Calcium [Mass/Vol] 9.1 mg/dL 8.6 - 10. 4 mg/dL [place] Chloride [Moles/Vol] 100 mmol/L 98 - 107 mmol/L [place] CO2 [Moles/Vol] 27 mmol/L 20 - 31 mmol/L [place] Creatinine [Mass/Vol] 1.85 mg/dL High 0.7 - 1.2 mg/dL [place] GFR 43 mL/min Low >60 [place] GFR Non- 35 mL/min Low >60 [place] Glucose [Mass/Vol] 93 mg/dL 70 - 99 mg/dL [place] Potassium [Moles/Vol] 4.7 mmol/L 3.7 - 5.3 mmol/L [place] Protein [Mass/Vol] 6.8 g/dL 6.4 - 8.3 g/dL [place] Sodium [Moles/Vol] 137 mmol/L 135 - 144 mmol/L [place] Urea nitrogen [Mass/Vol] 24 mg/dL High 8 - 23 mg/dL [place] Metabolic Panelon 05-23-2020 GFR/1.73 sq M predicted among non-blacks MDRD (S/P/Bld) [Vol rate/Area] [place] Comment on above: Average GFR for 70 o r more years old: 75 mL/min/1.73sq m Chronic Kidney Disease: <60 mL/min/1.73sq m Kidney failure: <15 mL/min/1.73sq m eGFR calculated using average adult body mass. Additional eGFR calculator available at: http://www.StyleSeek/multiple_crcl_2012.htm Stage 1: Some kidney damage normal GFR Stage 2: Mild kidney damage GFR 60-89 Stage 3: Moderate kidney damage GFR 30-59 Stage 4: Severe kidney damage GFR 15-29 Stage 5: Severe kidney damage GFR <15 ESRD - chronic treatment by dialysis or transplant Otheron 05-23-2020 Interpretation and review of laboratory results Abnormal [place] Brain Natriuretic Peptideon 05-14-2020 Interpretation and review of laboratory results Abnormal [place] Natriuretic peptide B (Bld) [Mass/Vol] Pro-BNP Reference Range: [place] Comment on above: Rule Out: <300 Cadena Zone: Age <50 300-450 Age 50-75 300-900 Age >75 300-1800 Usually represents mild to moderate HF but other cardiopulmonary causes cannot be ruled out. Rule In: Age <50 >450 Age 50-75 >900 Age >75 >1800 Natriuretic peptide B (Bld) [Mass/Vol] 2157 pg/mL High <300 [place] Comment on above: Pro-BNP results vanesa ot be compared to BNP results. CBC Auto Differentialon 05-04 Basophils (Bld) [#/Vol] 0.09 10*3/uL [place] Basophils/100 WBC (Bld) 1 % 0 - 2 % [place] Differential Type NOT REPORTED [place] Eosinophils (Bld) [#/Vol] 0.52 10*3/uL High [place] Eosinophils/100 WBC (Bld) 6 % High 1 - 4 % [place] Erythrocyte distribution width (RBC) [Ratio] 13.9 % 11.8 - 14.4 % [place] Hematocrit (Bld) [Volume fraction] 33.0 % Low 40.7 - 50.3 % [place] Hemoglobin (Bld) [Mass/Vol] 10.6 g/dL Low 13 - 17 g/dL [place] Immature granulocytes (Bld) [#/Vol] 0 % 0 [place] Immature granulocytes (Bld) [#/Vol] 0.00 10*3/uL [place] Interpretation and review of laboratory results Abnormal [place] Lymphocytes (Bld) [#/Vol] 0.52 10*3/uL Low [place] Lymphocytes/100 WBC (Bld) 6 % Low 24 - 43 % [place] MCH (RBC) [Entitic mass] 30.8 pg 25.2 - 33.5 pg [place] MCHC (RBC) [Mass/Vol] 32.1 g/dL 28.4 - 34.8 g/dL [place] MCV (RBC) [Entitic vol] 95.9 fL 82.6 - 102.9 fL [place] Monocytes (Bld) [#/Vol] 0.17 10*3/uL [place] Monocytes/100 WBC (Bld) 2 % Low 3 - 12 % [place] Morphology Fernando (Bld) [Interp] ANISOCYTOSIS PRESENT [place] Platelet mean volume (Bld) [Entitic vol] 10.9 fL 8.1 - 13.5 fL [place] Platelets (Bld) [#/Vol] NOT REPORTED [place] Platelets (Bld) [#/Vol] 243 10*3/uL [place] RBC (Bld) [#/Vol] 3.44 10*6/uL Low 4.21 - 5.7 7 m/uL [place] RBC morphology finding Nom (Bld) NOT REPORTED [place] Segmented neutrophils/100 WBC (Bld) 85 % High 36 - 65 % [place] Segs Absolute 7.30 [place] WBC (Bld) [#/Vol] 8.6 10*3/uL [place] WBC (Bld) [#/Vol] 0.0 10*3/uL 0.0 per 10 0 WBC [place] WBC Morphology NOT REPORTED [place] Comprehensive Metabolic Pane paco 05-14-2020 Albumin [Mass/Vol] 3.4 g/dL Low 3.5 - 5.2 g/dL [place] Albumin/Globulin [Mass ratio] 1.1 {ratio} [place] ALP [Catalytic activity/Vol] 81 U/L 40 - 129 U/L [place] ALT [Catalytic activity/Vol] 29 U/L 5 - 41 U/L [place] Anion gap [Moles/Vol] 12 mmol/L 9 - 17 mmol/L [place] AST [Catalytic activity/Vol] 33 U/L <40 [place] Bilirubin Ql (U) 0.84 mg/dL 0.3 - 1.2 mg/dL [place] Bun/Cre Ratio 16 [place] Calcium [Mass/Vol] 8.3 mg/dL Low 8.6 - 10. 4 mg/dL [place] Chloride [Moles/Vol] 99 mmol/L 98 - 107 mmol/L [place] CO2 [Moles/Vol] 26 mmol/L 20 - 31 mmol/L [place] Creatinine [Mass/Vol] 2.07 mg/dL High 0.7 - 1.2 mg/dL [place] GFR 37 mL/min Low >60 [place] GFR Non- 31 mL/min Low >60 [place] Glucose [Mass/Vol] 143 mg/dL High 70 - 99 mg/dL [place] Interpretation and review of laboratory results Abnormal [place] Potassium [Moles/Vol] 3.8 mmol/L 3.7 - 5.3 mmol/L [place] Protein [Mass/Vol] 6.4 g/dL 6.4 - 8.3 g/dL [place] Sodium [Moles/Vol] 137 mmol/L 135 - 144 mmol/L [place] Urea nitrogen [Mass/Vol] 33 mg/dL High 8 - 23 mg/dL [place] Metabolic Panelon 05-14-2020 GFR/1.73 sq M predicted among non-blacks MDRD (S/P/Bld) [Vol rate/Area] [place] Comment on above: Stage 1: Some [...] body mass. Additional eGFR calculator available at: http://www.Complex Media.Anzu/multiple_crcl_2012.htm Vital Signs Date Time Vital Sign Value Performing Clinician Facility 10-24-2024 12:59-0500 Blood Pressure Location David PEPPER [facility] 10-24-2024 12:59-0500 Diastolic blood pressure 90 mm[Hg] David PEPPER [facility] 10-24-2024 12:59-0500 Heart rate 62 /min David PEPPER [facility] 10-24-2024 12:59-0500 Respiratory rate 16 /min David PEPPER [facility] 10-24-2024 12:59-0500 Systolic blood pressure 150 mm[Hg] David PEPPER [facility] 06-13-2024 14:58-0400 Blood Pressure Location Boone NILL [facility] [place] 06-13-2024 14:58-0400 Diastolic blood pressure 60 mm[Hg] Boone NILL [facility] 06-13-2024 14:58-0400 Heart rate 68 /min Boone NILL [facility] 06-13-2024 14:58-0400 Respiratory rate 16 /min Boone NILL [facility] 06-13-2024 14:58-0400 Systolic blood pressure 122 mm[Hg] Boone NILL [facility] 12-01-2023 14:17-0500 Diastolic blood pressure 64 mm[Hg] Boone NILL [facility] [place] 12-01-2023 14:17-0500 Heart rate 72 /min Boone NILL [facility] [place] 12-01-2023 14:17-0500 Respiratory rate 16 /min Boone NILL [facility] [place] 12-01-2023 14:17-0500 Systolic blood pressure 138 mm[Hg] Boone NILL [facility] [place] 08-17-2023 13:30-0500 Blood Pressure Location David PEPPER [facility] 08-17-2023 13:30-0500 Diastolic blood pressure 84 mm[Hg] David PEPPER [facility] 08-17-2023 13:30-0500 Systolic blood pressure 128 mm[Hg] David PEPPER [facility] 08-10-2022 16:00-0500 Diastolic blood pressure 50 mm[Hg] Romy Hughes DO Work Phone: [facility] 08-10-2022 16:00-0500 Heart rate 60 /min Romy Hughes DO Work Phone: [facility] 08-10-2022 16:00-0500 Respiratory rate 18 /min Romy Hughes DO Work Phone: [facility] 08-10-2022 16:00-0500 SaO2% (BldA) [Mass fraction] 97 % Romy Hughes DO Work Phone: [facility] 08-10-2022 16:00-0500 Systolic blood pressure 152 mm[Hg] Romy Hughes DO Work Phone: [facility] 08-10-2022 15:15-0500 Body temperature 98.01 [degF] Romy Hughes DO Work Phone: [facility] 08-10-2022 14:16-0500 Body height 167.6 cm Romy Hughes DO Work Phone: [facility] 08-10-2022 14:16-0500 Body mass index (BMI) [Ratio] 22.44 kg/m2 Romy Hughes DO Work Phone: [facility] 08-10-2022 14:16-0500 Body weight 63.05 kg Romy Hughes DO Work Phone: [facility] 07-15-2022 07:40-0400 Blood Pressure Location David PEPPER [facility] 07-15-2022 07:40-0400 Diastolic blood pressure 70 mm[Hg] David PEPPER [facility] 07-15-2022 07:40-0400 Heart rate 60 /min David PEPPER [facility] 07-15-2022 07:40-0400 Respiratory rate 16 /min David PEPPER [facility] 07-15-2022 07:40-0400 Systolic blood pressure 130 mm[Hg] David PEPPER [facility] 01-21-2022 07:36-0400 Blood Pressure Location Davidbisi PEPPER [facility] 01-21-2022 07:36-0400 Diastolic blood pressure 75 mm[Hg] David PEPPER [facility] 01-21-2022 07:36-0400 Heart rate 80 /min David PEPPER [facility] 01-21-2022 07:36-0400 Respiratory rate 16 /min David PEPPER [facility] 01-21-2022 07:36-0400 Systolic blood pressure 130 mm[Hg] David PEPPER [facility] Encounters Encounter Date Encounter Type Care Provider Facility Start: 10-24-2024 End: 10-24-2024 ambulatory David PEPPER [facility] Start: 10-24-2024 End: 10-24-2024 Lab Drop off David PEPPRE [facility] Start: 10-24-2024 End: 10-24-2024 ambulatory David PEPPER Facility:[facility] Start: 10-24-2024 End: 10-24-2024 Lab Drop off David PEPPER [facility] Start: 10-24-2024 End: 10-24-2024 ambulatory David PEPPER Facility: [facility] Start: 10-24-2024 End: 10-24-2024 Patient encounter procedure David PEPPER [facility] Start: 08-08-2024 End: 08-08-2024 ambulatory Boone R NILL Facility:[facility] Start: 08-08-2024 End: 08-08-2024 Patient encounter procedure Boone R NILL [facility] [place] Start: 07-11-2024 End: 07-11-2024 ambulatory Boone R NILL Facility:[facility] Start: 07-11-2024 End: 07-11-2024 Patient encounter procedure Boone R NILL [facility] [place] Start: 06-28-2024 End: 06-28-2024 Lab Drop off Boone R NILL [facility] Start: 06-28-2024 End: 06-28-2024 ambulatory Boone R NILL Facility:[facility] Start: 06-28-2024 End: 06-28-2024 Patient encounter procedure Boone R NILL [facility] [place] Start: 06-13-2024 End: 06-13-2024 ambulatory Klarissa Hoy Facility: [place] Start: 06-13-2024 End: 06-13-2024 Patient encounter procedure Boone R NILL [facility] General Surgery [place] Start: 02-03-2024 End: 02-03-2024 ambulatory Johny Rose Facility:[facility] Start: 12-08-2023 End: 12-08-2023 ambulatory Boone R NILL Facility: [place] Start: 12-08-2023 End: 12-08-2023 Patient encounter procedure Boone R NILL General Surgery N[facility] [place] Start: 12-01-2023 End: 12-01-2023 ambulatory David Pepper Facility:[facility] Start: 12-01-2023 End: 12-01-2023 [facility] Start: 12-01-2023 End: 12-01-2023 Patient encounter procedure Boone R NILL General Surgery N[facility] [place] Start: 08-17-2023 End: 08-17-2023 Lab Drop off David PEPPER [facility] Start: 08-17-2023 End: 08-17-2023 Patient encounter procedure David PEPPER [facility] [place] Start: 06-14-2023 End: 06-14-2023 Patient encounter procedure David PEPPER [facility] [place] Start: 11-13-2022 End: 11-14-2022 ambulatory NAVYA BUSH Facility: Start: 08-10-2022 End: 08-10-[address] [facility] Start: 08-10-2022 End: 08-10-2022 Subsequent hospital visit by physician Romy Hughes DO Work Phone: [facility] Start: 07-15-2022 End: 07-15-2022 Patient encounter procedure David PEPPER [facility] [place] Start: 01-21-2022 End: 01-21-2022 Patient encounter procedure David PEPPER [facility] Start: 05-23-2020 End: 05-23-2020 Subsequent hospital visit by physician Klarissa BERRIOS Laboratory Start: 05-14-2020 End: 05-14-2020 Subsequent hospital visit by physician Klarissa BERRIOS Laboratory Procedures Date Procedure Procedure Detail Performing Clinician Start: 10-24-2024 Cystoscopy David BAPTISTE TERS Start: 08-17-2023 Transurethral cystoscopy David PEPPER Start: [...] Start: 05-23-2020 Natriuretic peptide Luis Fernando elsy Nance Work Phone: Start: 05-14-2020 Blood count complete auto&auto difrntl wbc Klarissa Nance Work Phone: Start: 05-14-2020 Comprehensive metabo lic panel Klarissa Nance Work Phone: Start: 05-14-2020 Natriuretic peptide Luis Fernando elsy Nance Work Phone: Start: 04-22-2020 Aortic aneurysm repair Davdi PEPPER Start: 04-22-2020 Exploratory laparotomy David PEPPER [...] biopsy o f prostate using ultrasound guidance Davidbisi PEPPER Start: 04-13-2006 Transrectal biopsy o f prostate using ultrasound guidance Davidbisi PEPPER Start: 10-04-2005 Intracavitary brachytherapy Davidbisi PEPPER Extraction of cataract Jaziel DE LA ROSA Hydrocelectomy David Islas Plan of Treatment Date Care Activity Detail Author Start: 08-10-2022 End: 08-10-2022 Xcapsl ctrc rmvl insj io lens prosth w/o ecp EYE CATARACT EMULSIFICATION IOL IMPLANT Age-related nuclear cataract of both eyes 08/10/2022 2:50 PM [facility] Start: 05-04-2022 Influenza vaccination Flu vaccine (# 1) [facility] Start: 01-11-2021 COVID-19 Vaccine (4 - Booster) COVID-19 Vaccine (4 - Booster) [facility] Start: 06-04-2020 Influenza vaccination Flu vaccine (# 1) [place] Start: 1959 DTaP/Tdap/Td vaccine (1 - Tdap) DTaP/Tdap/Td vaccine (1 - Tdap) [facility] Oxygen therapy [Mini mum Data Set] Initiate Oxygen Therapy Protocol Respiratory Care Routine Daily until discontinued starting 08/10/2022 [facility] Work Phone: Comment on above: Daily until disconti nued starting 08/10/2022 Oxygen therapy [Mini mum Data Set] Initiate Oxygen Therapy Protocol Respiratory Care Routine Daily until discontinued starting 08/10/2022 [facility] Work Phone: Comment on above: Daily until disconti nued starting 08/10/2022 Immunizations Immunization Date Immunization Notes Care Provider Yg rae 08-08-2023 influenza virus vaccine, unspecified formulation David PEPPER [facility] 10-23-2022 zoster vaccine recombinant David PEPPER [facility] 07-30-2022 influenza virus vaccine, unspecified formulation David [employer] [facility] 07-30-2022 zoster vaccine recombinant [email or web address] [facility] 10-09-2021 influenza virus vaccine, unspecified formulation [email or web address] [facility] 07-23-2021 SARS-CoV-2 (COVID-19 ) mRNA BNT-162b2 vax [email or web address] [facility] 07-22-2021 tetanus toxoid, redu genesis diphtheria toxoid, and acellular pertussis vaccine, adsorbed David [employer] [facility] 11-16-2020 SARS-CoV-2 (COVID-19 ) mRNA BNT-162b2 vax [email or web address] [facility] 10-26-2020 SARS-CoV-2 (COVID-19 ) mRNA BNT-162b2 vax [email or web address] [facility] 10-15-2020 SARS-CoV-2 (COVID-19 ) mRNA BNT-162b2 vax [email or web address] [facility] 10-14-2020 SARS-CoV-2 (COVID-19 ) mRNA BNT-162b2 vax [email or web address] [facility] 07-18-2020 influenza virus vaccine, unspecified formulation [email or web address] [facility] 09-18-2019 influenza virus vaccine, unspecified formulation David PEPPER [facility] 07-17-2019 influenza virus vaccine, unspecified formulation David PEPPER [facility] 10-14-2018 influenza virus vaccine, unspecified formulation David PEPPER [facility] 09-24-2017 influenza, unspecifi ed formulation David PEPPER [facility] 09-24-2017 pneumococcal conjuga te vaccine, 13 valent David PEPPER [facility] Payers Date Payer Category Payer Medicare [id number] 2024 Medicare [id number] 2023 Self-pay 2006 Medicare [id number] 1959 Medicare [id number] 1959 Private Health Insurance CLI [id number] 1938 Unknown [id number] 2.16.8 [id number] 1938 Unknown [id number] 2.16.84 [id number] 1938 Unknown [id number] 2.16.84 [id number] 1938 Unknown [id number] 2.16.8 [id number] 1938 Unknown [id number] 2.16.8 [id number] 1938 Unknown [id number] 2.16.8 [id number] 1938 Unknown [id number] 2.16.8 [id number] 1938 Unknown [id number] 2.16.8 40.1.207700.3.579.2.727 1938 Unknown [id number] 2.16.8 [id number] 1938 Unknown [id number] 2.16.8 40.1.944173.3.579.2.72 1938 Unknown [id number] 2.16.8 40.1.802883.3.579.2.727 1938 Unknown [id number] 2.16.8 40.1.893721.3.579.2.72 1938 Unknown [id number] 2.16.8 [id number] Unknown [id number] 2.16.8 [id number] Unknown [id number] 2.16.8 [id number] Social History Date Type Detail [facility] [place] Start: 1940 Sex Assigned At Not on file [place], [place] Start: 04-01-2021 End: 10-24-2024 Tobacco smoking status Ex-smoker (finding) [facility] [employer] Tobacco smoking status Never [facility] [employer] Sex Assigned At Male [facility] [employer] History of tobacco use Current smoker [facility] Work Phone: History of tobacco use Cigarette Smoker B ON [employer] Phone: Start: 08-03-2022 Tobacco use and exposure Smokeless tobacco non-user [employer] Phone: Start: 08-10-2022 Alcohol intake Current drinke r of alcohol (finding) [employer] Phone: Start: 08-03-2022 Alcohol Comment [employer] Phone: Start: 07-24-2022 End: 08-03-2022 Exposure to SARS-CoV-2 (event) Not sure [employer] Phone: Medical Equipment Procedure Code Equipment Code Equipment Origin al Text Equipment Identifier Dates Lens Intraocular Bcnvx 23.5+ Diopt 6x12.5 Mm Acryl [employer] - [id number] Start: 08-10-2022 Functional Status Date Assessment Result Facility 10-24-2024 Functional Status N/A [facility] 06-13-2024 Functional Status N/A [facility] [place] 12-01-2023 Functional Status N/A [facility] 08-17-2023 Functional Status N/A [facility] 07-15-2022 Functional Status N/A [facility] Clinical Notes 01-21-2022 to 10-24-2024 Linda Hogue RN - 08/10/2022 4:05 PM Viktor Hogue RN - 08/10/2022 3:30 PM ESTDischarge Instructions Note Date & Type Note Facility 10-24-2024 Hospital Discharge instructions Patient Education 10/24/2024 13:33:17 Benign Prostatic Hyperplasia Benign Prostatic Hyperplasia Benign prostatic hyperplasia (BPH) is an enlarged prostate gland that is caused by the normal aging process. The prostate may get bigger as a man gets older. The condition is not caused by cancer. The prostate is a walnut-sized gland that is involved in the production of semen. It is located in front of the rectum and below the bladder. The bladder stores urine. The urethra carries stored urine out of the body. An enlarged prostate can press on the urethra. This can make it harder to pass urine. The buildup of urine in the bladder can cause infection. Back pressure and infection may progress to bladder damage and kidney (renal) failure. What are the causes? This condition is part of the normal aging process. However, not all men develop problems from this condition. If the prostate enlarges away from the urethra, urine flow will not be blocked. If it enlarges toward the urethra and compresses it, there will be problems passing urine. What increases the risk? This condition is more likely to develop in men older than 50 years. What are the signs or symptoms? Symptoms of this condition include: Getting up often during the night to urinate. Needing to urinate frequently during the day. Difficulty starting urine flow. Decrease in size and strength of your urine stream. Leaking (dribbling) after urinating. Inability to pass urine. This needs immediate treatment. Inability to completely empty your bladder. Pain when you pass urine. This is more common if there is also an infection. Urinary tract infection (UTI). How is this diagnosed? This condition is diagnosed based on your medical history, a physical exam, and your symptoms. Tests will also be done, such as: A post-void bladder scan. This measures any amount of urine that may remain in your bladder after you finish urinating. A digital rectal exam. In a rectal exam, your health care provider checks your prostate by putting a lubricated, gloved finger into your rectum to feel the back of your prostate gland. This exam detects the size of your gland and any abnormal lumps or growths. An exam of your urine (urinalysis). A prostate specific antigen (PSA) screening. This is a blood test used to screen for prostate cancer. An ultrasound. This test uses sound waves to electronically produce a picture of your prostate gland. Your health care provider may refer you to a specialist in kidney and prostate diseases (urologist). How is this treated? Once symptoms begin, your health care provider will monitor your condition (active surveillance or watchful waiting). Treatment for this condition will depend on the severity of your condition. Treatment may include: Observation and yearly exams. This may be the only treatment needed if your condition and symptoms are mild. Medicines to relieve your symptoms, including: ?Medicines to shrink the prostate. ?Medicines to relax the muscle of the prostate. Surgery in severe cases. Surgery may include: ?Prostatectomy. In this procedure, the prostate tissue is removed completely through an open incision or with a laparoscope or robotics. ?Transurethral resection of the prostate (TURP). In this procedure, a tool is inserted through the opening at the tip of the penis (urethra). It is used to cut away tissue of the inner core of the prostate. The pieces are removed through the same opening of the penis. This removes the blockage. ?Transurethral incision (TUIP). In this procedure, small cuts are made in the prostate. This lessens the prostate's pressure on the urethra. ?Transurethral microwave thermotherapy (TUMT). This procedure uses microwaves to create heat. The heat destroys and removes a small amount of prostate tissue. ?Transurethral needle ablation (TUNA). This procedure uses radio frequencies to destroy and remove a small amount of prostate tissue. ?Interstitial laser coagulation (ILC). This procedure uses a laser to destroy and remove a small amount of prostate tissue. ?Transurethral electrovaporization (TUVP). This procedure uses electrodes to destroy and remove a small amount of prostate tissue. ?Prostatic urethral lift. This procedure inserts an implant to push the lobes of the prostate away from the urethra. Follow these instructions at home: Take opre-cln-cqtwdhh and prescription medicines only as told by your health care provider. Monitor your symptoms for any changes. Contact your health care provider with any changes. Avoid drinking large amounts of liquid before going to bed or out in public. Avoid or reduce how much caffeine or alcohol you drink. Give yourself time when you urinate. Keep all follow-up visits. This is important. Contact a health care provider if: You have unexplained back pain. Your symptoms do not get better with treatment. You develop side effects from the medicine you are taking. Your urine becomes very dark or has a bad smell. Your lower abdomen becomes distended and you have trouble passing urine. Get help right away if: You have a fever or chills. You suddenly cannot urinate. You feel light-headed or very dizzy, or you faint. There are large amounts of blood or clots in your urine. Your urinary problems become hard to manage. You develop moderate to severe low back or flank pain. The flank is the side of your body between the ribs and the hip. These symptoms may be an emergency. Get help right away. Call 911. Do not wait to see if the symptoms will go away. Do not drive yourself to the hospital. Summary Benign prostatic hyperplasia (BPH) is an enlarged prostate that is caused by the normal aging process. It is not caused by cancer. An enlarged prostate can press on the urethra. This can make it hard to pass urine. This condition is more likely to develop in men older than 50 years. Get help right away if you suddenly cannot urinate. This information is not intended to replace advice given to you by your health care provider. Make sure you discuss any questions you have with your health care provider. Document Revised: 04/08/2022 Document Reviewed: 04/08/2022 [employer] Patient Education 2023 [employer]. Follow Up Care 08/03/2024 11:12:17 With:SHANTELLE OLGUIN, David Buenrostro, URL Address: [facility] [address], [place] [id number] When:Within 2 Year(s) Comments:w/Cysto/FISH/Cytol [facility] 10-24-2024 Evaluation + Plan note Diagnostic Tests PendingPSA Total 10/24/24 [facility] 10-24-2024 Evaluation + Plan note Diagnostic Tests PendingUroVysion Fish and Urine Cyto ([facility]) 10/24/24 [facility] 10-24-2024 Note Patient Education Urology Benign Prostatic Hyperplasia Benign prostatic hyperplasia (BPH) is an enlarged prostate gland that is caused by the normal aging process. The prostate may get bigger as a man gets older. The condition is not caused by cancer. The prostate is a walnut-sized gland that is involved in the production of semen. It is located in front of the rectum and below the bladder. The bladder stores urine. The urethra carries stored urine out of the body. An enlarged prostate can press on the urethra. This can make it harder to pass urine. The buildup of urine in the bladder can cause infection. Back pressure and infection may progress to bladder damage and kidney (renal) failure. What are the causes? This condition is part of the normal aging process. However, not all men develop problems from this condition. If the prostate enlarges away from the urethra, urine flow will not be blocked. If it enlarges toward the urethra and compresses it, there will be problems passing urine. What increases the risk? This condition is more likely to develop in men older than 50 years. What are the signs or symptoms? Symptoms of this condition include: ??? Getting up often during the night to urinate. ??? Needing to urinate frequently during the day. ??? Difficulty starting urine flow. ??? Decrease in size and strength of your urine stream. ??? Leaking (dribbling) after urinating. ??? Inability to pass urine. This needs immediate treatment. ??? Inability to completely empty your bladder. ??? Pain when you pass urine. This is more common if there is also an infection. ??? Urinary tract infection (UTI). How is this diagnosed? This condition is diagnosed based on your medical history, a physical exam, and your symptoms. Tests will also be done, such as: ??? A post-void bladder scan. This measures any amount of urine that may remain in your bladder after you finish urinating. ??? A digital rectal exam. In a rectal exam, your health care provider checks your prostate by putting a lubricated, gloved finger into your rectum to feel the back of your prostate gland. This exam detects the size of your gland and any abnormal lumps or growths. ??? An exam of your urine (urinalysis). ??? A prostate specific antigen (PSA) screening. This is a blood test used to screen for prostate cancer. ??? An ultrasound. This test uses sound waves to electronically produce a picture of your prostate gland. Your health care provider may refer you to a specialist in kidney and prostate diseases (urologist). How is this treated? Once symptoms begin, your health care provider will monitor your condition (active surveillance or watchful waiting). Treatment for this condition will depend on the severity of your condition. Treatment may include: ??? Observation and yearly exams. This may be the only treatment needed if your condition and symptoms are mild. ??? Medicines to relieve your symptoms, including: ? Medicines to shrink the prostate. ? Medicines to relax the muscle of the prostate. ??? Surgery in severe cases. Surgery may include: ? Prostatectomy. In this procedure, the prostate tissue is removed completely through an open incision or with a laparoscope or robotics. ? Transurethral resection of the prostate (TURP). In this procedure, a tool is inserted through the opening at the tip of the penis (urethra). It is used to cut away tissue of the inner core of the prostate. The pieces are removed through the same opening of the penis. This removes the blockage. ? Transurethral incision (TUIP). In this procedure, small cuts are made in the prostate. This lessens the prostate's pressure on the urethra. ? Transurethral microwave thermotherapy (TUMT). This procedure uses microwaves to create heat. The heat destroys and removes a small amount of prostate tissue. ? Transurethral needle ablation (TUNA). This procedure uses radio frequencies to destroy and remove a small amount of prostate tissue. ? Interstitial laser coagulation (ILC). This procedure uses a laser to destroy and remove a small amount of prostate tissue. ? Transurethral electrovaporization (TUVP). This procedure uses electrodes to destroy and remove a small amount of prostate tissue. ? Prostatic urethral lift. This procedure inserts an implant to push the lobes of the prostate away from the urethra. Follow these instructions at home: ??? Take rmcf-dpj-wtfewyk and prescription medicines only as told by your health care provider. ??? Monitor your symptoms for any changes. Contact your health care provider with any changes. ??? Avoid drinking large amounts of liquid before going to bed or out in public. ??? Avoid or reduce how much caffeine or alcohol you drink. ??? Give yourself time when you urinate. ??? Keep all follow-up visits. This is important. Contact a health care provider if: ??? You have unexplained back pain. ??? Your symptoms do not get (more content not included)... [facility] 06-13-2024 Note General Surgery Offi ce/Clinic Note Chief Complaint consultation for skin lesions HPI Staff 84 year old male presents on consultation from Dr. Nance to evaluate multiple scattered skin lesions/moles. Reports primary concern for area on posterior neck. States this area has been present for many years. He is unsure if area has changed as he can not visualize area. Reports frequent friction from rubbing of clothing. Verbalized intermittent soreness. On Eliquis for a.fib. History of Present Illness 84 yo male with multiple medical problems; on Eliquis for atrial fibrillation, referred for irritated skin lesion posterior neck; rubs on collar; sore; personal h/o basal cell cancer; extensive sun-damaged skin. Review of Systems PHQ Score Initial Depression [...] dysuria. Musculoskeletal: no pain, no weakness. Skin: no changing moles, no rash, yes skin lumps. Neurologic: no seizures, no epilepsy, [...] noncontributory. Physical Exam Vitals & Measurements HR: 68(Peripheral) RR: 16 BP: 122/60 HT: 67 in HT: 170 cm WT: 60.4 kg WT: 132.88 lb BMI: 20.9 skin: 6 mm raised, scabbed irregular lesion right posterior neck; multiple seborrheic keratoses and actinic/solar keratoses; extensive ecchymosis bilateral upper extremities. Assessment/Plan 1. Inflamed seborrheic keratosis (L82.0: Inflamed seborrheic keratosis) plan excisional biopsy under local anesthesia in the office for definitive diagnosis and treatment, informed consent obtained; hold Eliquis 2 days prior to procedure. Follow-up No qualifying data available Problem List/Past Medical History Ongoing Gxnbj-er-qwbjniu kidney injury [place] (actinic keratosis) Androgen deprivation therapy Aortic aneurysm Atrial fibrillation Basal cell carcinoma of nostril Bladder cancer BPH with urinary obstruction Cutaneous skin tags Former smoker History of bladder cancer History of prostate cancer Hyperlipidemia Hypertension Hypothyroidism Inflamed seborrheic keratosis Microscopic hematuria Neoplasm of uncertain behavior of skin of chest Neoplasm of uncertain behavior of skin of nose Osteoarthritis Prostate cancer Rising PSA following treatment for malignant neoplasm of prostate Seborrheic keratosis Urinary frequency Verrucous skin lesion Historical BMI 21.0-21.9, adult Hyperlipidemia Procedure/Surgical History Cystoscopy (08/17/2023), Cystoscopy (07/15/2022), [...] mg= 1 tab(s), Oral, q24hr, 3 refills Cytomel 5 mcg Tab, 10 mcg= 2 tab(s), Oral, Daily Eliquis, 2.5 mg, Oral, BID Flomax 0.4 mg Cap, 0.4 mg= 1 cap(s), Oral, Daily, 3 refills Keflex 500 mg Cap, 500 mg= 1 cap(s), Oral, Daily Lexapro 20 mg Tab, 20 mg= 1 tab(s), Oral, Daily mupirocin Top 2% Oint traMADOL 50 mg Tab, 50 mg= 1 tab(s), Oral, QID, PRN Allergies sulfa drugs (Anaphylaxis) Social History Alcohol - Denies Alcohol Use, 05/25/2019 Past, Beer, 1-2 times per year, Alcohol use interferes with work o (more content not included)... [facility] Comment on above: Result Comment: Elec tronically Signed By: ESTRELLA OLGUIN, Boone Jean.varsha\Date and Time Signed: 06/13/24 15:21 EDT 12-01-2023 Note Chief Complaint consultation for nevus [...] data available Problem List/Past Medical History Ongoing Ntznh-yv-qzarbem kidney injury [place] (actinic keratosis) Androgen deprivation [...] q24hr, 3 refills (more content not included)... [facility] Comment on above: Result Comment: Elec tronically Signed By: ESTRELLA OLGUIN, Boone Ray\Date and Time Signed: 12/01/23 15:19 EST 08-17-2023 Evaluation + Plan note Diagnostic Tests PendingUroVysion Fish and Urine Cyto ([facility]) 08/17/23 [facility] 07-13-2023 Hospital Discharge instructions Follow Up Care 07/13/2023 09:25:11 With:SHANTELLE OLGUIN, David Buenrostro, URL Address: [facility] [address], [place] [address]- When:Within 1 Year(s) Comments:w/cysto/FISH/Cytology, bt ck [facility] Luis 11-13-2022 Note PROCEDURE: XR FINGER MIN [...] authenticated by: LEANNE GU Date: 2022-11-13 14:51 [facility] 08-10-2022 History of Present illness Narrative [...] New order received. documented in this encounter [facility] [employer] Phone: 08-10-2022 Hospital Discharge instructions Romy Hughes, - 08/10/2022 3:17 PM EST SAME DAY [...] the healing period. The office number is [phone]. Take surgery bag and all eye drops to Dr. Hughes's office tomorrow at 10:15am. You may resume your normal diet. Start your eye drops tomorrow after your post-op appointment: Ofloxacin/Polytrim one drop to the operated eye 4 times daily Prednisolone one drop to the operated eye 4 times daily documented in this encounter [facility] Work Phone: 07-15-2022 Evaluation + Plan note Diagnostic Tests PendingUroVysion Fish and Urine Cyto ([facility]) 07/15/22 [facility] 07-15-2022 Hospital Discharge instructions Patient Education [...] if anything looks unusual. Men with a jfqsya-wvkh-eilqkq risk for skin cancer may want to see a roll skinner (venetian blind washer) for an annual body check. Where to find more information National Cancer [place]: https://www.cancer.gov/about-cance r/screening Centers for Disease Control and Prevention: https://www.cdc.gov/cancer/dcpc/pr evention/screening.htm [place] [employer]: https://www.cancer.org/latest-news /6-nynobk-hwfpcfkfo-zxotc-nnx-umi. html Contact a health care provider if: You [...] 06/17/2017 Document Revised: 06/09/2019 Document Reviewed: 06/17/2017 [employer] Patient Education 2020 [employer]. Follow Up Care 06/25/2022 14:20:11 With:SHANTELLE OLGUIN, David Buenrostro, URL Address: [facility] [address] , [place] [address]- When:1 year Comments:Cysto/FISH/Cyto [facility] [place] 01-21-2022 Evaluation + Plan note Diagnostic Tests PendingPSA Total 01/21/22Uro[facility]ysion Fish and Urine Cyto ([facility]) 01/21/22 [facility] [place] 01-21-2022 Hospital Discharge instructions Patient Education 01/21/2022 [...] who: Are older than age 65. Are -Portuguese. Are obese. Have a family history of [...] cells. Follow these instructions at home: Take mqsb-hsx-raiisom and prescription medicines only as told by [...] 09/20/2006 Document Revised: 09/02/2018 Document Reviewed: 05/31/2017 [employer] Patient Education 2020 [employer]. 01/21/2022 07:24:07 Cancer Screening for Men Cancer [...] if anything looks unusual. Men with a hqwtfr-thgt-zpnwsl risk for skin cancer may want to see a roll skinner (venetian blind washer) for an annual body check. Where to find more information National Cancer [place]: https://www.cancer.gov/about-cance r/screening Centers for Disease Control and Prevention: https://www.cdc.gov/cancer/dcpc/pr evention/screening.htm [place] [employer]: https://www.cancer.org/latest-news /4-nwfrnq-vhybyfyiz-xbkpf-meh-fwd. html Contact a health care provider if: You [...] 06/17/2017 Document Revised: 06/09/2019 Document Reviewed: 06/17/2017 [employer] Patient Education 2020 [employer]. Follow Up Care 10/29/2021 09:32:38 With:SHANTELLE OLGUIN, David Buenrostro, URL Address: [facility] [address], [place] [phone] When:07/23/2022 [facility] Evaluation + Plan note Future Appointments Appointment Date:12/08/2023 03:20:00 PM Scheduled Provider:Boone DE LA ROSA MD Location:[facility] Appointment Type: Established 15 General Surgery [place] Evaluation + Plan note General S urgery [place] Evaluation + Plan note Future Appointments Appointment Date:06/28/2024 03:00:00 PM Scheduled Provider:Boone DE LA ROSA MD Location:[facility] Appointment Type:GS Procedure 30 [facility] Surgery [place] Evaluation + Plan note Future Appointments Appointment Date:07/11/2024 01:40:00 PM Scheduled Provider:Boone DE LA ROSA MD Location:[facility] Appointment Type:GS Established 15 [facility] Surgery [place] Evaluation + Plan note Future Appointments Appointment Date:08/08/2024 02:00:00 PM Scheduled Provider:Boone DE LA ROSA [facility]:GS Established 15 [facility] Surgery [place] Evaluation + Plan note Future Appointments Appointment Date:10/24/2024 01:15:00 PM Scheduled Provider:David PEPPER MD Location:[facility] Appointment Type:URO Procedure 15 min [facility] Evaluation note Diagnosis 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 in this encounter [facility] Work Phone: Hospital course Narrative No data available for this section [facility] Hospital Discharge instructions No data available for this section [facility] progress note No data available for this section [facility] Reason for referral (narrative) Referred by: ESTRELLA OLGUIN, Boone Buenrostro [facility] Advance Directives No Advanced Directives Records FoundDocuments on File Type Date Recorded Patient Federal Aid Coordinator Expl anation Advance Directives and Living Will Power of Vp Site Documents on File Type Date Recorded Patient Federal Aid Coordinator Expl anation ACP-Advance Directive ACP-Power of Vp Site Latest Code Status on File Code Status [...] team informatio n (unrecognized section and content) 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 [address] [place] [address] Referral ID Status Reason Start Date Expiration Date Visits Re quested Visits Authorized [id number] 1 1 Scheduled Active and Recently Administ [...] CREATED AUTHOR AUTHOR'S ORGANIZ ATION 11/16/2022 [facility] DATE CREATED AUTHOR AUTHOR'S ORGANIZ ATION 02/16/2024 [facility] DATE CREATED AUTHOR AUTHOR'S ORGANIZ ATION 08/10/2024 [facility] DATE CREATED AUTHOR AUTHOR'S ORGANIZ ATION 10/31/2024 [facility] DATE CREATED AUTHOR AUTHOR'S ORGANIZ ATION 11/02/2024 [facility] DATE CREATED AUTHOR AUTHOR'S ORGANIZ ATION 11/03/2024 [facility] FOR RECORDS PERTAINING TO PATIENTS WHO ARE [...] BE BASED ON THE PRIMARY CLINICAL RECORDS. [facility]. provides no warranty or guarantee of the accuracy or completeness of information in this document.
== END 2025-03-01 09:47 | disposition home or self-care (01) ==
LOC: US 09:46
PROVIDERS: PCP Family Medicine; Visit Provider Family Medicine
DX: L30.9 Dermatitis, unspecified (principal); R60.0 Localized edema; I48.91 Unspecified atrial fibrillation; R60.9 Edema, unspecified; I10 Essential (primary) hypertension; R73.09 Other abnormal glucose; Z12.5 Encounter for screening for malignant neoplasm of prostate; R06.02 Shortness of breath; I50.30 Unspecified diastolic (congestive) heart failure
CPT/HCPCS: 93970

== ENCOUNTER 2025-03-03 07:51 | Outpatient (OUT) | payer MEDICARE, SELFPAY ==
--- OUTSIDE RECORDS SUMMARY | 2025-02-21 06:30 | XMS_ITS ---
Author Organization [facility] [place] Address [address] [place] [address] Care Team Providers Care Equipment Application Specialist Name Role Phone Cali Nance Primary Care Provider [phone] Allergies Allergen (clinical drug ingredient) Drug/Non Drug Allergy documented on EMR Reaction Allergy Type Onset Date Status Substance with sulfonamide structure and antibacterial mechanism of action (substance) Sulfa Antibiotics anaphylaxis Drug Allergy Active REASON FOR VISIT Swelling in the left leg- ongoing, Pain in left heel- ongoing for a couple of months - worse in thepast few weeks, Went in and repeated BP since was elevated the first time after walking into office Medications Medication SIG (Take, Route, Frequency, Duration) Notes Start Date End Date Status Lexapro 20 MG 1 tablet Orally Once a day for 90 days 10/19/2023 Active Liothyronine Sodium 5 MCG TAKE 2 TABLETS BY MOUTH DAILY ON AN EMPTY STOMACH for 30 days Active Mupirocin 2 % 1 application Senior Planning Manager ally Twice a day for 5 09/08/2023 Active Tamsulosin HCl 0.4 MG take 1 capsule by mouth once daily Oral for 90 Days Active Amiodarone HCl 200 MG 1 tablet Orally On ce a day for 30 days Active Aspirin 81 81 MG 1 tablet Orally Once a day Active Atorvastatin Calcium 40 MG 1 tablet Oral ly Once a day for 90 days Active Bicalutamide 50 MG take 1 tablet by joe th once daily Oral for 90 Days Active Eliquis 2.5 MG 1 tablet Oral Twice a day for 30 days Active Triamcinolone Acetonide 0.1 % 1 application Externally bid for 30 days 02/21/2025 Active predniSONE 20 MG 2 tablets Orally Onc e a day for 5 days 02/21/2025 Active Lisinopril 10 MG 1 tablet Orally Once a day for 30 day(s) 02/21/2025 Active Social History Tobacco Use: Social History Observation Description Date Details (start date - stop date) Former Smoker 10/04/1957 - 10/04/1999 Tobacco Use/Smoking Question Answer Notes Patient is a former smoker When did you start smoking? 10/04/1957 When did you stop smoking? 10/04/1999 How long has it been since you last smoked? > 10 years Problems Problem Type SNOMED Code ICD Code Onset Dates Problem Status W/U Status Risk Notes Problem Atrial fibrillation (14542923) Atrial fibrillation (I48.91) Active confirmed Problem Edema (37532129) Edema (R60.9) Active confirmed Problem Eczema (33191862) Eczema (L30.9) Active confirmed Problem Hypertension (06567742) Hypertension (I10) Active confirmed Vital Signs Blood pressure systolic 164 mm Hg 02/22/20 25 Blood pressure diastolic 88 mm Hg 025 Height 67 in 02/21/2025 Weight 136.2 lbs 02/21/2025 BMI 21.33 kg/m2 02/21/2025 Encounters Encounter Location Date Provider Diagnosis [facility] [address] [place] [address] 02/21/2025 Cali Hoy Atrial fibrillation I48.91 ; Edema R60.9 ; Eczema L30.9 and Hypertension I10 Assessments Encounter Date Diagnosis (ICD Code) Assessment Notes Treatment Notes Treatment Clinical Notes Section Notes 02/21/2025 Atrial fibrillation (ICD-10 - I48.91) 02/21/2025 Edema (ICD-10 - R60.9) 02/21/2025 Eczema (ICD-10 - L30.9) 02/21/2025 Hypertension (ICD-10 - I10) 02/21/2025 Other Continue taking medications as prescribed and monitor BP at home regularly. Plan Of Treatment Medication Medication Name Sig Start Date Stop Date Notes Triamcinolone Acetonide 0.1 % 1 applicat ion Externally bid for 30 days 02/21/2025 predniSONE 20 MG 2 tablets Orally Onc e a day for 5 days 02/21/2025 Lisinopril 10 MG 1 tablet Orally Once a day for 30 day(s) 02/21/2025 Treatment Notes Assessment Notes Other Continue taking medi cations as prescribed and monitor BP at home regularly. Pending Test Test Name Order Date HEMOGLOBIN A1C (GLYCO) 02/21/2025 LIPID PANEL (CHOL/TRIG/HDL/LDL) 02/22/20 25 URIC ACID 02/21/2025 BNP 02/21/2025 VC VENOUS REFLUX MILO LMT 02/21/2025 THYROID PANEL (T4/TSH/FREE T3) 5 PSA, SCREENING 02/21/2025 CMP (COMP MET SPENCER) w/eGFR CKD-EPI 2024 CBC WITH DIFF 02/21/2025 Next Appt Details Provider Name:Cali Nance, 10:00:00 AM, [address] [place], [address], Progress Notes * Artie OLIVODOB: [birth year] (85 yo M)Acc No.[id number]:02/21/2025 Progress Note Patient: Artie OLSON Provider: En Nance ([facility])MD :1940 A ge:85 Y S ex:Male Date:02/21/2025 Address:[address] [place], [place] [id number] Check In:10:08 AM ESTCheck O ut:11:10 AM EST Subjective: * Chief Complaints: * S welling in the left leg- ongoingPain in left heel- ongoing for a couple of months - worse in the past few weeksWent in and repeated BP since was elevated the first time after walking into office * HPI: H ypertension: The patient complains of h igh blood pressure. The symptoms have been present for 1 -2 days. The symptoms are m oderate. Symptomatic treatment has included h ome blood pressure monitoring. Associated symptoms include n one. * ROS: G eneral/Constitutional: Lightheadedness d enies. F atigue or Weakness d enies. C ardiovascular: Chest pain at rest d enies. C hest pain with exertion?denies. I rregular heartbeat d enies. R espiratory: Shortness of breath d enies. S hortness of breath at rest d enies. W heezing d enies. N eurologic: Dizziness d enies. F ainting d enies. H eadache?denies. 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, left ankle and foot Modified On:11/12/2023 Status:confirmed M21.372 Foot drop, left foot Modified On:11/12/2023 Status:confirmed S86.212A Strain of muscle(s) and tendon(s) of anterior muscle group at lower leg level, left leg, initial encounter Modified On:11/12/2023 Status:confirmed R41.3 Memory loss Modified On:10/19/2023 Status:confirmed D22.9 Nevus Modified On:10/19/2023 Status:confirmed E03.9 Hypothyroidism, unsp ecified Modified On:12/07/2023 Status:confirmed C44.91 Basal cell carcinoma of skin, unspecified Modified On:12/07/2023 Status:confirmed S01.01XA Scalp laceration Modified On:01/20/2024 Status:confirmed R74.8 Elevated liver enzym es Modified On:01/27/2024 Status:confirmed I48.91 Atrial fibrillation Modified On:02/21/2025 Status:confirmed R60.9 Edema Modified On:02/21/2025 Status:confirmed L30.9 Eczema Modified On:02/21/2025 Status:confirmed I10 Hypertension Modified On:02/21/2025 Status:confirmed * Medical History: * Surgical History: l eft cararact ladder washing epair of aortic aneusym 05/2020 * Hospitalization/Major Diagno stic Procedure: r uptured aortic aneurysm 05/2020 * Family History: F ather: . M other: . S ister(s): alive. S on(s): alive. D asim(s): alive. 2 son(s) , 1 daughter(s) - healthy. . * Social History: T obacco Use: T obacco Use/Smoking P atient is a f ormer smoker W hen did you start smoking? 0 10/04/1957 W hen did you stop smoking? 0 10/04/1999 H ow long has it been since you last smoked??> 10 years * Medications: T akingAmiodarone HCl 200 MG Tablet 1 tablet Orally Once a day Aspirin 81(Aspirin) 81 MG Tablet Delayed Release 1 tablet Orally Once a day Atorvastatin Calcium 40 MG Tablet 1 tablet Orally Once a day Bicalutamide 50 MG Tablet take 1 tablet by mouth once daily Oral Eliquis(Apixaban) 2.5 MG Tablet 1 tablet Oral Twice a day Lexapro(Escitalopram Oxalate) 20 MG Tablet 1 tablet Orally Once a day Liothyronine Sodium 5 MCG Tablet TAKE 2 TABLETS BY MOUTH DAILY ON AN EMPTY STOMACH Mupirocin 2 % Ointment 1 application Externally Twice a day Tamsulosin HCl 0.4 MG Capsule take 1 capsule by mouth once daily Oral Taking Amiodarone HCl 200 MG Tablet 1 tablet Orally Once a day Taking Aspirin 81(Aspirin) 81 MG Tablet Delayed Release 1 tablet Orally Once a day Taking Atorvastatin Calcium 40 MG Tablet 1 tablet Orally Once a day Taking Bicalutamide 50 MG Tablet take 1 tablet by mouth once daily Oral Taking Eliquis(Apixaban) 2.5 MG Tablet 1 tablet Oral Twice a day Taking Lexapro(Escitalopram Oxalate) 20 MG Tablet 1 tablet Orally Once a day Taking Liothyronine Sodium 5 MCG Tablet TAKE 2 TABLETS BY MOUTH DAILY ON AN EMPTY STOMACH Taking Mupirocin 2 % Ointment 1 application Externally Twice a day Taking Tamsulosin HCl 0.4 MG Capsule take 1 capsule by mouth once daily Oral DiscontinuedtraMADol HCl 50 MG Tablet 1 tablet as needed Orally 4 times a day , Notes to Pharmacist: L03.90Medication List reviewed and reconciled with the patientDiscontinued traMADol HCl 50 MG Tablet 1 tablet as needed Orally 4 times a day , Notes to Pharmacist: L03.90Medication List reviewed and reconciled with the patient * Allergies: S ulfa Antibiotics: anaphylaxis - Allergy - Criticality Highno[Allergies Verified] Objective: * Vitals: W t:136.2lbs, Ht: 67 in, BP: 202/98 mm Hg,164/88mm Hg, BMI:21.33Index, Ht-cm: 170.18 cm, Wt-k.78 kg. * Examination: G eneral Examination: GENERAL APPEARANCE: in no acute distress, well developed, well nourished. LUNGS: clear to auscultation bilaterally. CARDIO: S 1, S2 normal, no murmurs, rubs, gallops. EXTREMITIES: L eft leg with 2+ edema. NEUROLOGIC: a lert, oriented to time, place, & person.? Assessment: * Assessment: 1. A trial fibrillation - I48.91 (Primary) 2 . E clint - R60.9 ?3. E czema - L30.9 4 . H ypertension - I10 Plan: * Treatment: 2. E clint L AB: HEMOGLOBIN A1C (GLYCO) L AB: LIPID PANEL (CHOL/TRIG/HDL/LDL) L AB: URIC ACID L AB: BNP L AB: THYROID PANEL (T4/TSH/FREE T3) L AB: PSA, SCREENING L AB: CMP (COMP MET SPENCER) w/eGFR CKD-EPI L AB: CBC WITH DIFF 3. E czema Start Triamcinolone Acetonide Cream, 0.1 %, 1 application, Externally, bid, 30 days, 60 Gram, Refills 11; S tart predniSONE Tablet, 20 MG, 2 tablets, Orally, Once a day, 5 days, 10 Tablet. ? L AB: HEMOGLOBIN A1C (GLYCO) L AB: LIPID PANEL (CHOL/TRIG/HDL/LDL) L AB: URIC ACID L AB: BNP L AB: THYROID PANEL (T4/TSH/FREE T3) L AB: PSA, SCREENING L AB: CMP (COMP MET SPENCER) w/eGFR CKD-EPI L AB: CBC WITH DIFF I maging: VC VENOUS REFLUX MILO LMT 4. H ypertension Start Lisinopril Tablet, 10 MG, 1 tablet, Orally, Once a day, 30 day(s), 30. L AB: HEMOGLOBIN A1C (GLYCO) L AB: LIPID PANEL (CHOL/TRIG/HDL/LDL) L AB: URIC ACID L AB: BNP L AB: THYROID PANEL (T4/TSH/FREE T3) L AB: PSA, SCREENING L AB: CMP (COMP MET SPENCER) w/eGFR CKD-EPI L AB: CBC WITH DIFF 5. O thers Notes:Continue taking medications as prescribed and monitor BP at home regularly. * Procedure Codes: * * Sign off status: Completed Visit Status: C HK (Check Out) true * Provider: En Nance ([facility])MD Date: 0 02/21/2025 Generated for Pedroi ng/Fanbag/eTransmitting on: 0 03/03/2025 07:54 AM EDT History and Physical Notes * HPI (History of Present Illness) Category Sub-Category Detail Notes Category Not es Hypertension The patient complains of high blood press ure The symptoms have been present for 1-2 d ays The symptoms are moderate Symptomatic treatment has included home blood pressure monitoring Associated symptoms include none Examination Category Sub-Category Detail Notes Category Not es General Examination GENERAL APPEARANCE: in no ac [place] distress, well developed, well nourished CARDIO: S1, S2 normal, no mu rmurs, rubs, gallops LUNGS: clear to auscultatio n bilaterally NEUROLOGIC: alert, oriented to t klever, place, & person EXTREMITIES: Left leg with 2+ ruth ma
--- OUTSIDE RECORDS SUMMARY | 2025-03-01 06:41 | XMS_ITS ---
Author Organization [facility] in [place] Address [address] [place] [address] Care Team Providers Care Surgical Assistant Certified Name Role Phone Cali Nance Primary Care Provider REASON FOR VISIT BP Check vm not set up Encounters Encounter Location Date Provider Diagnosis [facility] [address] [place] [address] 03/01/2025 Cali Lee Ann Plan Of Treatment Next Appt Details Provider Name:Cali Nance, 10:00:00 AM, [address] [place], [address], Progress Notes * Artie OLIVODOB: (85 yo M)Acc No.[id number]:03/01/2025 UNLOCKED PROGRESS NOTE Patient: Ely Artie MEYER :1940 A ge:85 Y S ex:Male Address:[address], [place], [address] * * Date:
--- OUTSIDE RECORDS SUMMARY | 2025-03-01 06:45 | XMS_ITS ---
Author Organization [facility] in [place] Address [address] [place] [address] Care Team Providers Care Online Content Developer Name Role Phone Cali Nance Primary Care Provider REASON FOR VISIT BP CHECK- following up from last appointment Vital Signs Blood pressure systolic 150 mm Hg 03/01/20 25 Blood pressure diastolic 64 mm Hg 025 Height 67 in 03/01/2025 Encounters Encounter Location Date Provider Diagnosis [facility] [address] [place] [phone] 03/01/2025 Cali Nance Hypertension I10 Assessments Encounter Date Diagnosis (ICD Code) Assessment Notes Treatment Notes Treatment Clinical Notes Section Notes 03/01/2025 Hypertension (ICD-10 - I10) Plan Of Treatment Next Appt Details Provider Name:Cali Nance, 10:00:00 AM, [address] [place], [address], Progress Notes * Artie OLIVODOB: (85 yo M)Acc No.[id number]:03/01/2025 UNLOCKED PROGRESS NOTE BP Check Patient: Artie OLSON Provider: En Nance ([facility])MD :1940 A ge:85 Y S ex:Male Date:03/01/2025 Address:[address], [facility] Check In:10:36 AM ESTCheck O ut:10:41 AM EST Subjective: * Chief Complaints: * 1 . BP CHECK- following up from last appointment. * Medical History: Objective: * Vitals: H t: 67 in, BP:150/64mm Hg, Ht-cm: 170.18 cm. Assessment: * Assessment: 1. H ypertension - I10 (Primary) Plan: * Treatment: * * Electronic signature of Cali Nance MD, [id number] on 03/03/2025 at 07:54 AM EDT Sign off status: Pending Visit Status: C HK (Check Out) * Provider: En Nance ([facility])MD Date: 0 03/01/2025 Generated for Priti atkins/Katelyn/Blackitting on: 0 03/03/2025 07:54 AM EDT
--- OUTSIDE RECORDS SUMMARY | 2025-03-03 07:54 | XMS_ITS | Encounter Summary ---
Author Organization [facility] Address [address] [place] [address] Care Team Providers Care Pc Maintenance Technician Name Role Phone Nelson Nance MD Primary Care Provider [phone] Source Comments In the event this information is protected by the Federal Confidentiality of Alcohol and Drug AbusePatient Records regulations: The Federal rules restrict any use of the information to criminally investigate or prosecute any alcohol or drug abuse patient.[facility] Encounter Details Date Type Department Care Team (Late st Contact Info) Description 04/22/2020 Surgical Case [id number] [phone] Ari Estrada MD [address] [place] [address] Social History Tobacco Use Types Packs/Day Years Used Date Smoking Tobacco: Former Alcohol Use Standard Drinks/Week Comments Not Currently 0 (1 standard drink = 0.6 oz pur e alcohol) Overall Financial Resource Strain (CARDIA) Answe r Date Recorded How hard is it for you to pa y for the very basics like food, housing, medical care, and heating? Not hard at all 04/22/2020 Hunger Vital Sign Answer Date Recorded Within the past 12 months, y ou worried that your food would run out before you got the money to buy more. Never true 04/22/20 20 Within the past 12 months, t he food you bought just didn't last and you didn't have money to get more. Never true 04/22/2020 PRAPARE - Transportation Answer Date Re corded In the past 12 months, has l ack of transportation kept you from medical appointments or from getting medications? No 04/04 In the past 12 months, has l ack of transportation kept you from meetings, work, or from getting things needed for daily living? No 04/22/2020 Sex and Gender Information Value Date Recorded Sex Assigned at Not on file Legal Sex Male 10:24 AM EDT Gender Identity Not on file Sexual Orientation Not on file COVID-19 Exposure Response Date Recorded In the last month, have you been in contact with someone who was confirmed or suspected to have Coronavirus / COVID-19? No / Unsure 04/19/2020 11:46 PM EDT documented as of this encounter Plan of Treatment Not on file documented as of this encounter Visit Diagnoses Not on filedocumented in this encounter Care Teams Pc Maintenance Technician Relationship Specialty Start Date End Date Nelson Nance MD PCP - General Family Medicine 04/19/20 documented as of this encounter
--- OUTSIDE RECORDS SUMMARY | 2025-03-03 07:54 | XMS_ITS | CCD ---
Author Organization [facility] Care Team Providers Care Shift Coordinator Name Role Phone Klarissa Nance Primary Care Provider [phone] Klarissa Nance Primary Care Physician [phone] Klarissa Nance MD Primary Care Provider [phone] ROMY HUGHES Admitting Unavailable ROMY HUGHES [...] (qualifier value), Anaphylaxis (disorder) [facility] (1 source) Sulfonamides (Antibiotic) Propensity to adverse reactions to drug 2 [facility] (1 source) Sulfonamides (Antibiotic) Drug allergy (disorder) [facility] (1 source) Sulfonamides (Antibiotic) Drug allergy (disorder) 4 [facility] Medications Current Medications Medication Drug [...] q24hr, # 90 tab(s), Refills(s) 3, Pharmacy: [facility] [id number], 170.1, cm, 12/01/23 14:23:00 EST, Height/Length Dosing, 63, kg, 12/01/23 14:23:00 EST, Weight Dosing Start Date: 06/07/24 Status: Ordered Start: 04-09-2023 take 1 tablet by joe th every twenty-four hours bicalutamide 50 mg Tab 50 mg = 1 tab(s), Oral, q24hr, # 90 tab(s), Refills(s) 3, Pharmacy: [id number], 169, cm, 07/15/22 7:43:00 EDT, Height/Length Dosing, [...] Ordered docusate sodium 50 mg / sennosides, shelter 8.6 mg oral capsule (4 sources) Start: [...] tablet (5 sources) Thiazide Diuretic, beta-Adrenergi c Nazia Start: 03-13-2021 hydrochlorothiazide-met oprolol 25 mg-50 [...] Daily, # 90 cap(s), Refills(s) 3, Pharmacy: [facility] [id number], 170.1, cm, 12/01/23 14:23:00 EST, Height/Length Dosing, 63, kg, 12/01/23 14:23:00 EST, Weight Dosing Start Date: 03/20/24 Status: Ordered Start: 12-31-2022 take 1 capsule by [facility] once daily Flomax 0.4 mg Cap 0.4 mg = 1 cap(s), Oral, Daily, # 90 cap(s), Refills(s) 3, Pharmacy: [facility] #[id number], 169, cm, 07/15/22 7:43:00 EDT, Height/Length Dosing, 70, kg, 07/15/22 7:43:00 EDT, Weight Dosing Start Date: 12/31/22 Status: Ordered Start: 10-29-2021 take 1 capsule by [facility] once daily Flomax 0.4 mg Cap 0.4 mg = 1 cap(s), Oral, Daily, # 90 cap(s), Refills(s) 3, Pharmacy: [facility], 169, cm, 10/29/21 7:50:00 [...] procedure, # 2 cap(s), Refills(s) 0, Pharmacy: [facility] [id number], 170, cm, 06/13/24 15:03:00 EDT, Height/Length Dosing, 60.4, kg, 06/13/24 15:03:00 EDT, Weight Dosing Start Date: 08/03/24 Status: Ordered Start: 07-14-2022 take 1 tablet by joe once daily Keflex 500 mg Cap 500 mg = 1 cap(s), Oral, Daily, Take 1 tablet the day before the procedure and 1 tablet after the procedure, # 2 cap(s), Refills(s) 0, Pharmacy: [facility] #[id number], 169, cm, 01/21/22 7:46:00 EDT, Height/Length Dosing, 70, kg, 01/21/22 7:46:00 EDT, Weight... Start Date: 07/14/22 Status: Ordered Start: 10-29-2021 take 1 tablet by [facility] once daily Keflex 500 mg Cap 500 mg = 1 cap(s), Oral, Daily, Take 1 tablet the day before the procedure and 1 tablet after the procedure, # 2 cap(s), Refills(s) 0, Pharmacy: [facility], 169, cm, 10/29/21 7:50:00 EST, Height/Length [...] Acute and unspecified renal failure (11 sources) Bxrza-xi-wuikugm renal failure 03-12-2021 Episodic Aortic; peripheral; and [...] Osteoarthritis 03-12-2021 Chronic Other aftercare (1 source) rn long term care (current) use of aspirin; Translations: [COMEDIAN CURRENT USE OF ASPIRIN] Onset: 11-16-2022 Episodic Other aftercare (1 source) Other [facility] (current) drug therapy; Translations: [OTH COMEDIAN CURRENT DRUG THERAPY] Onset: 11-16-2022 Episodic Other [...] Letter November 01, 2024 ANALIA OLIVO [address] [address] : 1940 Dear Analia, We have been trying to reach you with no success. It is important that you return our call regarding your recent lab work upon receiving this letter. Also, at the time of your call, please provide us with your current information. Thank you for your prompt attention to this matter. Sincerely, [facility] [address] [place] [address] Normal [facility] UroVysion Fish and Urine Cyt o ([facility])on 11-01-2024 UVFISH & UC Diagnosis Info Invalid Interpretation Code [facility] Comment on above: Result Comment: A:Ur [...] with cytology and cystoscopy results. * CPT: 31361, 31105. 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 Electronically signed by : on: 11/01/2024 09:18:47 Performed By: #### 1 [id number] #### [facility] [address] [place] [address] PSA Totalon 10-25-2024 Prostate specific Ag [Mass/Vol] 0.1 ng/mL Normal 0.1-3.5 [facility] Comment on above: Result Comment: The concentration of PSA determined by different manufacturers can vary due to differences in assay methods and reagent specificity. Values obtained from different assay methods cannot be used interchangeably. The methodology used for this result was chemiluminescence using [employer] Access Hybritech PSA reagent. Performed By: #### 1 [id number] #### [facility] [address] [place], [place] [id number] Reminderson 10-24-2024 Reminders Reminders From: Renee Kim To: EU - Recalls Shantelle; Sent: 10/24/2024 13:51:35 EST Show up: 07/04/2026 13:51:00 EDT Subject: Cysto/FISH/cytol Due Date/Time: 07/29/2026 13:51:00 EDT Reminder/Recall Patient is due in Oct 2026 for 2 year cysto/fish/cytol, bt ck Normal [facility] UroVysion Fish and Urine Cyt o ([facility])on 10-24-2024 UVUC Method of Extraction Bladder Wash Normal [facility] Comment on above: Performed By: #### 1 [id number] #### [facility] [address] [place] [address] [facility] Number of Jars 1 Invalid Interpretation Code [facility] Comment on above: Performed By: #### 1 [id number] #### [facility] [address] [place], [place] [id number] [facility] Specimen Bladder Wash Normal [facility] Comment on above: Performed By: #### 1 [id number] #### [facility] [address] [place] [address] [facility] Type of Service Technical Only Normal [facility] Comment on above: Performed By: #### 1 [id number] #### [facility] [address] [place] [address] Urology Office/Clinic Noteon 10-24-2024 Urology Office/Clinic Note [...] [facility] [address], [place] [address]- Additional Instructions: w/Cysto/FISH/Cytol Patient Education Benign Prostatic [...] rib (04/03 (more content not included)... Normal [facility] Comment on above: Result Comment: Elec [...] for 1 year cysto/fish/cytol, bt ck Normal [facility] Ambulatory Visit Summaryon 1 Ambulatory Visit Summary [...] EST With: ESTRELLA OLGUIN, Boone Buenrostro Where: [address], [address], [place] [id number]- Medications What How Much When Instructions Unchanged [...] that you are currently receiving treatment for. Zhvoc-as-vkjkxid kidney injury [place] (actinic keratosis) Androgen deprivation [...] for choosing us for your care. Normal [facility] General Surgery Office/Clini c Noteon 07-11-2024 General [...] data available Problem List/Past Medical History Ongoing Oxsck-fa-ogmixac kidney injury [place] (actinic keratosis) Androgen deprivation [...] zoster vaccin (more content not included)... Normal [facility] Comment on above: Result Comment: Elec tronically Signed By: ESTRELLA OLGUIN, Boone Jean.varsha\Date and Time Signed: 07/11/24 14:05 EDT Surgical Pathology Reporton 07-10-2024 Surgical Pathology Report [facility] [address] [facility] [place] [address]- Surgical Pathology Report Collected Date/Time: 06/28/2024 14:51 [...] Specimen is entirely submitted in one cassette. DC:[facility] Microscopic Description Microscopic examination performed unless gross only specified. Normal [facility] Comment on above: Performed By: #### 4 [id number] #### [facility] [address] [place] [address] Ambulatory Visit Summaryon 0 06-28-2024 Ambulatory Visit [...] EDT With: ESTRELLA OLGUIN, Boone Buenrostro Where: [address], [address], [place] [address]- Medications What How Much When Instructions Unchanged [...] that you are currently receiving treatment for. Rzoxn-qe-totpide kidney injury AK (actinic keratosis) Androgen deprivation [...] choosing us for your care. Normal [facility] General Surgery Office/Clini c Noteon 06-28-2024 [...] data available Problem List/Past Medical History Ongoing Xerbx-tz-vdntrpg kidney injury [place] (actinic keratosis) Androgen deprivation [...] Use:. Never (more content not included)... Normal [facility] Comment on above: Result Comment: Elec [...] Appointments Wednesday 3:00 PM EDT With: ESTRELLA OGLUIN, Boone Buenrostro Where: [address], [address], [place] [address]- Medications What How Much When Instructions Unchanged [...] that you are currently receiving treatment for. Wjmwc-fv-udcoccc kidney injury AK (actinic keratosis) Androgen deprivation [...] for choosing us for your care. Normal [facility] Operative Reporton 4 Operative Report [id number]#1.0 0TIFF [facility] Physician Referralon 024 Physician Referral [id number]#1.0 0TIFF [facility] Consultation Noteon 01-02-20 24 Consultation Note [id number]#1.0 0TIFF [facility] Ambulatory Visit Summaryon 0 12-08-2023 Ambulatory Visit [...] that you are currently receiving treatment for. Lzotk-gw-efdkbmo kidney injury AK (actinic keratosis) Androgen deprivation [...] choosing us for your care. Normal [facility] General Surgery Office/Clini c Noteon 12-08-2023 [...] data available Problem List/Past Medical History Ongoing Rewlp-ol-hshapbz kidney injury [place] (actinic keratosis) Androgen deprivation [...] 10/09/2021 Javier (more content not included)... Normal [facility] Comment on above: Result Comment: Elec tronically Signed By: ESTRELLA OLGUIN, Boone Buenrostro\jae\Date and Time Signed: 12/08/23 15:32 EST Pathology Noteon 12-08-2023 Pathology Note [id number]#1.0 0TIFF [facility] Ambulatory Visit Summaryon 0 12-01-2023 Ambulatory Visit [...] ROSA MD Where: General Surgery Estrella/Angel Styles [facility] Paco 12-01-2023 L Specimen: [id number] Received: 12/02/23 Status: AMBAR Zapien Num: [id number] Spec Type: Surgical Subm Dr: Boone De La Rosa MD FACS Tissues: A Skin-Other than Cyst, tag, debridement or plastic repair (RT NARES) Procedures: HE, Gross/Micro L4 Age/ Patient Sex Location Account Attending Physician DianeAnalia rondon 83/M LABELL [id number] Boone De La Rosa MD FACS SPEC NUM: [id number] RECD: 12/02/23 STATUS: AMBAR ZAPIEN NUM: [id number] DAYAMI: 12/01/[address]: Boone De La Rosa MD FACS ENTERED: 12/02/[address] [facility] [address]: Donavon Aquino SPEC TYPE: Surgical DEPT: [...] in one cassette labeled A1. CPT Codes 15592 ---- ---- Specimen: [id number] Received: 12/02/23-1242 Status: AMBAR Zapien Num: [id number] Spec Type: Surgical Subm Dr: Boone De La Rosa MD FACS Tissues: A Skin-Other than Cyst, tag, debridement or plastic repair (RT NARES) Procedures: HE, Gross/Micro L4 ---- Patient: Analia Olivo [id number] (Continued) ---- Signed (signature on file) Dinah Ray MD 12/04/23 1213 Normal [facility] XR HAND LT MIN 3Von [...] RILEY WILD Date: 2022-11-13 12:22 Normal [facility] Brain Natriuretic Peptideon 05-23-2020 Natriuretic peptide B (Bld) [Mass/Vol] 1483 pg/mL High <300 [place] Comment on above: Pro-BNP results vanesa ot be compared to BNP results. Natriuretic peptide B (Bld) [Mass/Vol] Pro-BNP Reference Range: [place], [place] Comment on above: Rule Out: <300 Cadena Zone: Age <50 300-450 Age 50-75 300-900 Age >75 300-1800 Usually represents mild to moderate HF but other cardiopulmonary causes cannot be ruled out. Rule In: Age <50 >450 Age 50-75 >900 Age >75 >1800 CBCon 05-23-2020 Erythrocyte distribution width (RBC) [Ratio] 14.3 % 11.8 - 14.4 % [place] Hematocrit (Bld) [Volume fraction] 33.3 % Low 40.7 - 50.3 % [place] Hemoglobin (Bld) [Mass/Vol] 10.7 g/dL Low 13 - 17 g/dL [place] Interpretation and review of laboratory results Abnormal [place] MCH (RBC) [Entitic mass] 30.7 pg 25.2 - 33.5 pg [place] MCHC (RBC) [Mass/Vol] 32.1 g/dL 28.4 - 34.8 g/dL [place] MCV (RBC) [Entitic vol] 95.4 fL 82.6 - 102.9 fL [place] Platelet mean volume (Bld) [Entitic vol] 10.8 fL 8.1 - 13.5 fL [place] Platelets (Bld) [#/Vol] 196 10*3/uL [place] RBC (Bld) [#/Vol] 3.49 10*6/uL Low 4.21 - 5.7 7 m/uL [place] WBC (Bld) [#/Vol] 0.0 10*3/uL 0.0 per 10 0 WBC [place] WBC (Bld) [#/Vol] 7.3 10*3/uL [place] Comprehensive Metabolic Pane paco 05-23-2020 Albumin [Mass/Vol] 3.6 g/dL 3.5 - 5.2 g/dL [place] Albumin/Globulin [Mass ratio] 1.1 {ratio} [place] ALP [Catalytic activity/Vol] 84 U/L 40 - 129 U/L [place] ALT [Catalytic activity/Vol] 26 U/L 5 - 41 U/L [place] Anion gap [Moles/Vol] 10 mmol/L 9 - 17 mmol/L [place] AST [Catalytic activity/Vol] 21 U/L <40 [place] Bilirubin Ql (U) 0.62 mg/dL 0.3 - 1.2 mg/dL [place] Bun/Cre Ratio 13 [place] Calcium [Mass/Vol] 9.1 mg/dL 8.6 - 10. 4 mg/dL [place] Chloride [Moles/Vol] 100 mmol/L 98 - 107 mmol/L [place] CO2 [Moles/Vol] 27 mmol/L 20 - 31 mmol/L [place] Creatinine [Mass/Vol] 1.85 mg/dL High 0.7 - 1.2 mg/dL [place] GFR 43 mL/min Low >60 [place] GFR Non- 35 mL/min Low >60 [place] Glucose [Mass/Vol] 93 mg/dL 70 - 99 mg/dL [place] Potassium [Moles/Vol] 4.7 mmol/L 3.7 - 5.3 mmol/L [place] Protein [Mass/Vol] 6.8 g/dL 6.4 - 8.3 g/dL [place] Sodium [Moles/Vol] 137 mmol/L 135 - 144 mmol/L [place] Urea nitrogen [Mass/Vol] 24 mg/dL High 8 - 23 mg/dL [place] Metabolic Panelon 05-23-2020 GFR/1.73 sq M predicted among non-blacks MDRD (S/P/Bld) [Vol rate/Area] [place] Comment on above: Average GFR for 70 o r more years old: 75 mL/min/1.73sq m Chronic Kidney Disease: <60 mL/min/1.73sq m Kidney failure: <15 mL/min/1.73sq m eGFR calculated using average adult body mass. Additional eGFR calculator available at: http://www.[employer]/multiple_crcl_2012.htm Stage 1: Some kidney damage normal GFR Stage 2: Mild kidney damage GFR 60-89 Stage 3: Moderate kidney damage GFR 30-59 Stage 4: Severe kidney damage GFR 15-29 Stage 5: Severe kidney damage GFR <15 ESRD - chronic treatment by dialysis or transplant Otheron 05-23-2020 Interpretation and review of laboratory results Abnormal [place] Brain Natriuretic Peptideon 05-14-2020 Interpretation and review of laboratory results Abnormal [place] Natriuretic peptide B (Bld) [Mass/Vol] Pro-BNP Reference Range: [place] Comment on above: Rule Out: <300 Cadena Zone: Age <50 300-450 Age 50-75 300-900 Age >75 300-1800 Usually represents mild to moderate HF but other cardiopulmonary causes cannot be ruled out. Rule In: Age <50 >450 Age 50-75 >900 Age >75 >1800 Natriuretic peptide B (Bld) [Mass/Vol] 2157 pg/mL High <300 [place] Comment on above: Pro-BNP results vanesa ot be compared to BNP results. CBC Auto Differentialon 05-04 Basophils (Bld) [#/Vol] 0.09 10*3/uL [place] Basophils/100 WBC (Bld) 1 % 0 - 2 % [place] Differential Type NOT REPORTED [place] Eosinophils (Bld) [#/Vol] 0.52 10*3/uL High [place] Eosinophils/100 WBC (Bld) 6 % High 1 - 4 % [place] Erythrocyte distribution width (RBC) [Ratio] 13.9 % 11.8 - 14.4 % [place] Hematocrit (Bld) [Volume fraction] 33.0 % Low 40.7 - 50.3 % [place] Hemoglobin (Bld) [Mass/Vol] 10.6 g/dL Low 13 - 17 g/dL [place] Immature granulocytes (Bld) [#/Vol] 0 % 0 [place] Immature granulocytes (Bld) [#/Vol] 0.00 10*3/uL [place] Interpretation and review of laboratory results Abnormal [place] Lymphocytes (Bld) [#/Vol] 0.52 10*3/uL Low [place] Lymphocytes/100 WBC (Bld) 6 % Low 24 - 43 % [place] MCH (RBC) [Entitic mass] 30.8 pg 25.2 - 33.5 pg [place] MCHC (RBC) [Mass/Vol] 32.1 g/dL 28.4 - 34.8 g/dL [place] MCV (RBC) [Entitic vol] 95.9 fL 82.6 - 102.9 fL [place] Monocytes (Bld) [#/Vol] 0.17 10*3/uL [place] Monocytes/100 WBC (Bld) 2 % Low 3 - 12 % [place] Morphology Fernando (Bld) [Interp] ANISOCYTOSIS PRESENT [place] Platelet mean volume (Bld) [Entitic vol] 10.9 fL 8.1 - 13.5 fL [place] Platelets (Bld) [#/Vol] NOT REPORTED [place] Platelets (Bld) [#/Vol] 243 10*3/uL [place] RBC (Bld) [#/Vol] 3.44 10*6/uL Low 4.21 - 5.7 7 m/uL [place] RBC morphology finding Nom (Bld) NOT REPORTED [place] Segmented neutrophils/100 WBC (Bld) 85 % High 36 - 65 % [place] Segs Absolute 7.30 [place] WBC (Bld) [#/Vol] 8.6 10*3/uL [place] WBC (Bld) [#/Vol] 0.0 10*3/uL 0.0 per 10 0 WBC [place] WBC Morphology NOT REPORTED [place] Comprehensive Metabolic Pane paco 05-14-2020 Albumin [Mass/Vol] 3.4 g/dL Low 3.5 - 5.2 g/dL [place] Albumin/Globulin [Mass ratio] 1.1 {ratio} [place] ALP [Catalytic activity/Vol] 81 U/L 40 - 129 U/L [place] ALT [Catalytic activity/Vol] 29 U/L 5 - 41 U/L [place] Anion gap [Moles/Vol] 12 mmol/L 9 - 17 mmol/L [place] AST [Catalytic activity/Vol] 33 U/L <40 [place] Bilirubin Ql (U) 0.84 mg/dL 0.3 - 1.2 mg/dL [place] Bun/Cre Ratio 16 [place] Calcium [Mass/Vol] 8.3 mg/dL Low 8.6 - 10. 4 mg/dL [place] Chloride [Moles/Vol] 99 mmol/L 98 - 107 mmol/L [place] CO2 [Moles/Vol] 26 mmol/L 20 - 31 mmol/L [place] Creatinine [Mass/Vol] 2.07 mg/dL High 0.7 - 1.2 mg/dL [place] GFR 37 mL/min Low >60 [place] GFR Non- 31 mL/min Low >60 [place] Glucose [Mass/Vol] 143 mg/dL High 70 - 99 mg/dL [place] Interpretation and review of laboratory results Abnormal [place] Potassium [Moles/Vol] 3.8 mmol/L 3.7 - 5.3 mmol/L [place] Protein [Mass/Vol] 6.4 g/dL 6.4 - 8.3 g/dL [place] Sodium [Moles/Vol] 137 mmol/L 135 - 144 mmol/L [place] Urea nitrogen [Mass/Vol] 33 mg/dL High 8 - 23 mg/dL [place] Metabolic Panelon 05-14-2020 GFR/1.73 sq M predicted among non-blacks MDRD (S/P/Bld) [Vol rate/Area] [place] Comment on above: Stage 1: Some [...] body mass. Additional eGFR calculator available at: http://www.[employer].AGRIMAPS/multiple_crcl_2012.htm Vital Signs Date Time Vital Sign Value Performing Clinician Facility 10-24-2024 12:59-0500 Blood Pressure Location David PEPPER [facility] 10-24-2024 12:59-0500 Diastolic blood pressure 90 mm[Hg] David PEPPER [facility] 10-24-2024 12:59-0500 Heart rate 62 /min David PEPPER [facility] 10-24-2024 12:59-0500 Respiratory rate 16 /min David PEPPER [facility] 10-24-2024 12:59-0500 Systolic blood pressure 150 mm[Hg] David PEPPER [facility] 06-13-2024 14:58-0400 Blood Pressure Location Boone NILL [facility] [place] 06-13-2024 14:58-0400 Diastolic blood pressure 60 mm[Hg] Boone NILL [facility] 06-13-2024 14:58-0400 Heart rate 68 /min Boone NILL [facility] 06-13-2024 14:58-0400 Respiratory rate 16 /min Boone NILL [facility] 06-13-2024 14:58-0400 Systolic blood pressure 122 mm[Hg] Boone NILL [facility] 12-01-2023 14:17-0500 Diastolic blood pressure 64 mm[Hg] Boone NILL [facility] [place] 12-01-2023 14:17-0500 Heart rate 72 /min Boone NILL [facility] [place] 12-01-2023 14:17-0500 Respiratory rate 16 /min Boone NILL [facility] [place] 12-01-2023 14:17-0500 Systolic blood pressure 138 mm[Hg] Boone NILL [facility] [place] 08-17-2023 13:30-0500 Blood Pressure Location David PEPPER [facility] 08-17-2023 13:30-0500 Diastolic blood pressure 84 mm[Hg] David PEPPER [facility] 08-17-2023 13:30-0500 Systolic blood pressure 128 mm[Hg] David PEPPER [facility] 08-10-2022 16:00-0500 Diastolic blood pressure 50 mm[Hg] Romy Hughes DO Work Phone: [facility] 08-10-2022 16:00-0500 Heart rate 60 /min Romy Hughes DO Work Phone: [facility] 08-10-2022 16:00-0500 Respiratory rate 18 /min Romy Hughes DO Work Phone: [facility] 08-10-2022 16:00-0500 SaO2% (BldA) [Mass fraction] 97 % Romy Hughes DO Work Phone: [facility] 08-10-2022 16:00-0500 Systolic blood pressure 152 mm[Hg] Romy Hughes DO Work Phone: [facility] 08-10-2022 15:15-0500 Body temperature 98.01 [degF] Romy Hughes DO Work Phone: [facility] 08-10-2022 14:16-0500 Body height 167.6 cm Romy Hughes DO Work Phone: [facility] 08-10-2022 14:16-0500 Body mass index (BMI) [Ratio] 22.44 kg/m2 Romy Hughes DO Work Phone: [facility] 08-10-2022 14:16-0500 Body weight 63.05 kg Romy Hughes DO Work Phone: [facility] 07-15-2022 07:40-0400 Blood Pressure Location David PEPPER [facility] 07-15-2022 07:40-0400 Diastolic blood pressure 70 mm[Hg] David PEPPER [facility] 07-15-2022 07:40-0400 Heart rate 60 /min David PEPPER [facility] 07-15-2022 07:40-0400 Respiratory rate 16 /min David PEPPER [facility] 07-15-2022 07:40-0400 Systolic blood pressure 130 mm[Hg] David PEPPER [facility] 01-21-2022 07:36-0400 Blood Pressure Location Davidbisi PEPPER [facility] 01-21-2022 07:36-0400 Diastolic blood pressure 75 mm[Hg] David PEPPER [facility] 01-21-2022 07:36-0400 Heart rate 80 /min David PEPPER [facility] 01-21-2022 07:36-0400 Respiratory rate 16 /min David PEPPER [facility] 01-21-2022 07:36-0400 Systolic blood pressure 130 mm[Hg] David PEPPER [facility] Encounters Encounter Date Encounter Type Care Provider Facility Start: 10-24-2024 End: 10-24-2024 ambulatory David PEPPER Facility:[facility] Start: 10-24-2024 End: 10-24-2024 Lab Drop off David PEPPER [facility] Start: 10-24-2024 End: 10-24-2024 ambulatory David PEPPER Facility:[facility] Start: 10-24-2024 End: 10-24-2024 Lab Drop off David PEPPER [facility] Start: 10-24-2024 End: 10-24-2024 ambulatory David PEPPER Facility: [place] Start: 10-24-2024 End: 10-24-2024 Patient encounter procedure David PEPPER [facility] Start: 08-08-2024 End: 08-08-2024 ambulatory Boone R NILL Facility:[facility] Start: 08-08-2024 End: 08-08-2024 Patient encounter procedure Boone R NILL [facility] [place] Start: 07-11-2024 End: 07-11-2024 ambulatory Boone R NILL Facility:[facility] Start: 07-11-2024 End: 07-11-2024 Patient encounter procedure Boone R NILL [facility] [place] Start: 06-28-2024 End: 06-28-2024 Lab Drop off Boone R NILL [facility] Start: 06-28-2024 End: 06-28-2024 ambulatory Boone R NILL Facility:[facility] Start: 06-28-2024 End: 06-28-2024 Patient encounter procedure Boone R NILL [facility] [place] Start: 06-13-2024 End: 06-13-2024 ambulatory Klarissa Hoy Facility: [place] Start: 06-13-2024 End: 06-13-2024 Patient encounter procedure Boone R NILL [facility] [place] Start: 02-03-2024 End: 02-03-2024 ambulatory Johny Rose Facility:[facility] Start: 12-08-2023 End: 12-08-2023 ambulatory Boone R NILL Facility: [place] Start: 12-08-2023 End: 12-08-2023 Patient encounter procedure Boone R NILL General Surgery [facility] [place] Start: 12-01-2023 End: 12-01-2023 ambulatory David Pepper Facility:[facility] Start: 12-01-2023 End: 12-01-2023 [facility] Start: 12-01-2023 End: 12-01-2023 Patient encounter procedure Boone R NILL General Surgery [facility] [place] Start: 08-17-2023 End: 08-17-2023 Lab Drop off David PEPPER [facility] Start: 08-17-2023 End: 08-17-2023 Patient encounter procedure David PEPPER [facility] Start: 06-14-2023 End: 06-14-2023 Patient encounter procedure David PEPPER [facility] [place] Start: 11-13-2022 End: 11-14-2022 ambulatory NAVYA BUSH Facility: Start: 08-10-2022 End: 08-10-2022 ambulatory [facility] Start: 08-10-2022 End: 08-10-2022 Subsequent hospital visit by physician oRmy Hughes DO Work Phone: [facility] Start: 07-15-2022 End: 07-15-2022 Patient encounter procedure David PEPPER [facility] Start: 01-21-2022 End: 01-21-2022 Patient encounter procedure David PEPPER [facility] [place] Start: 05-23-2020 End: 05-23-2020 Subsequent [...] cataract of both eyes 08/10/2022 2[facility] Start: 05-04-2022 Influenza vaccination Flu vaccine (# 1) [facility] Start: 01-11-2021 COVID-19 Vaccine (4 - Booster) COVID-19 Vaccine (4 - Booster) [facility] Start: 06-04-2020 Influenza vaccination Flu vaccine (# 1) [place], [place] Start: 1959 DTaP/Tdap/Td vaccine (1 - Tdap) DTaP/Tdap/Td vaccine (1 - Tdap) [facility] Oxygen therapy [Mini mum Data Set] Initiate Oxygen Therapy Protocol Respiratory Care Routine Daily until discontinued starting 08/10/2022 [facility] Work Phone: Comment on above: Daily until disconti nued starting 08/10/2022 Oxygen therapy [Mini mum Data Set] Initiate Oxygen Therapy Protocol Respiratory Care Routine Daily until discontinued starting 08/10/2022 [facility] Work Phone: Comment on above: Daily until disconti nued starting 08/10/2022 Immunizations Immunization Date Immunization Notes Care Provider Yg rae 08-08-2023 influenza virus vaccine, unspecified formulation David PEPPER [facility] 10-23-2022 zoster vaccine recombinant David PEPPER [facility] 07-30-2022 influenza virus vaccine, unspecified formulation David Incentive [facility] 07-30-2022 zoster vaccine recombinant [employer] [facility] 10-09-2021 influenza virus vaccine, unspecified formulation [employer] 07-23-2021 SARS-CoV-2 (COVID-19 ) mRNA BNT-162b2 vax [employer] 07-22-2021 tetanus toxoid, redu genesis diphtheria toxoid, and acellular pertussis vaccine, adsorbed David Incentive [facility] 11-16-2020 SARS-CoV-2 (COVID-19 ) mRNA BNT-162b2 vax [employer] 10-26-2020 SARS-CoV-2 (COVID-19 ) mRNA BNT-162b2 vax [employer] [facility] 10-15-2020 SARS-CoV-2 (COVID-19 ) mRNA BNT-162b2 vax [employer] [facility] 10-14-2020 SARS-CoV-2 (COVID-19 ) mRNA BNT-162b2 vax [employer] 07-18-2020 influenza virus vaccine, unspecified formulation [employer] 09-18-2019 influenza virus vaccine, unspecified formulation David PEPPER [facility] 07-17-2019 influenza virus vaccine, unspecified formulation David PEPPER [facility] 10-14-2018 influenza virus vaccine, unspecified formulation David PEPPER [facility] 09-24-2017 influenza, unspecifi ed formulation David PEPPER [facility] 09-24-2017 pneumococcal conjuga te vaccine, 13 valent David PEPPER [facility] Payers Date Payer Category Payer Medicare [id number] 2024 Medicare [id number] 2023 Self-pay 2006 Medicare [id number] 1959 Medicare [id number] 1959 Private Health Insurance CLI [id number] 1938 Unknown [id number] 2.16.8 [id number] 1938 Unknown [id number] 2.16.84 [id number] 1938 Unknown [id number] 2.16.84 0.1.940569.3.579.2.593 1938 Unknown [id number] 2.16.8 40.1.938348.3.579.2.727 1938 Unknown [id number] 2.16.8 40.1.864005.3.579.2.727 1938 Unknown [id number] 2.16.8 40.1.343435.3.579.2.727 1938 Unknown [id number] 2.16.8 40.1.382378.3.579.2.727 1938 Unknown [id number] 2.16.8 40.1.997601.3.579.2.727 1938 Unknown [id number] 2.16.8 40.1.778474.3.579.2.727 1938 Unknown [id number] 2.16.8 40.1.526731.3.579.2.72 1938 Unknown [id number] 2.16.8 40.1.392528.3.579.2.727 1938 Unknown [id number] 2.16.8 40.1.803370.3.579.2.72 1938 Unknown [id number] 2.16.8 40.1.856540.3.579.2.727 Unknown [id number] 2.16.8 40.1.475734.3.579.2.531 Unknown [id number] 2.16.8 [id number] Social History Date Type Detail [facility] [place], [place] Start: 1940 Sex Assigned At Not on file M [place], [place] Start: 04-01-2021 End: 10-24-2024 Tobacco smoking status Ex-smoker (finding) [facility] [employer] Tobacco smoking status Never [facility] [employer] Sex Assigned At Male [facility] [employer] History of tobacco use Current smoker [facility] [employer] Work Phone: History of tobacco use Cigarette Smoker [facility] Phone: Start: 08-03-2022 Tobacco use and exposure Smokeless tobacco non-user [employer] Phone: Start: 08-10-2022 Alcohol intake Current drinke r of alcohol (finding) [employer] Phone: Start: 08-03-2022 Alcohol Comment [facility] [employer] Phone: Start: 07-24-2022 End: 08-03-2022 Exposure to SARS-CoV-2 (event) Not sure [employer] Phone: Medical Equipment Procedure Code Equipment Code Equipment Origin al Text Equipment Identifier Dates Lens Intraocular Bcnvx 23.5+ Diopt 6x12.5 Mm Acryl [employer] - [id number] Start: 08-10-2022 Functional Status Date Assessment Result Facility 10-24-2024 Functional Status N/A [facility] 06-13-2024 Functional Status N/A [facility] [place] 12-01-2023 Functional Status N/A [facility] 08-17-2023 Functional Status N/A [facility] [...] urethra. Follow these instructions at home: Take tfbg-lzf-dmpenou and prescription medicines only as told by [...] provider. Document Revised: 04/08/2022 Document Reviewed: 04/08/2022 [employer] Patient Education 2023 Amind. Follow Up Care 08/03/2024 11:12:17 With:SHANTELLE OLGUIN, David Buenrostro, URL Address: [facility] [address], [place] [address]- When:Within 2 Year(s) Comments:w/Cysto/FISH/Cytol [facility] 10-24-2024 Evaluation + Plan note Diagnostic Tests PendingPSA Total 10/24/24 [facility] 10-24-2024 Evaluation + Plan note Diagnostic Tests PendingUroVysion Fish and Urine Cyto ([facility]) 10/24/24 [facility] 10-24-2024 Note Patient Education Urology Benign Prostatic [...] Follow these instructions at home: ??? Take wkom-xnh-bkqnocl and prescription medicines only as told by [...] do not get (more content not included)... [facility] 06-13-2024 Note General Surgery Offi ce/Clinic Note [...] data available Problem List/Past Medical History Ongoing Qnfks-xw-nwfzqhb kidney injury [place] (actinic keratosis) Androgen deprivation [...] with work o (more content not included)... [facility] Comment on above: Result Comment: Elec [...] data available Problem List/Past Medical History Ongoing Ejjkj-pk-dbgdupc kidney injury [place] (actinic keratosis) Androgen deprivation [...] q24hr, 3 refills (more content not included)... [facility] Comment on above: Result Comment: Elec tronically Signed By: ESTRELLA OLGUIN, Boone Ray\Date and Time Signed: 12/01/23 15:19 EST 08-17-2023 Evaluation + Plan note Diagnostic Tests PendingUroVysion Fish and Urine Cyto ([facility]) 08/17/23 [facility] 07-13-2023 Hospital Discharge instructions Follow Up Care 07/13/2023 09:25:11 With:SHANTELLE OLGUIN, David Buenrostro, URL Address: [facility] [address], [place] [address]- When:Within 1 Year(s) Comments:w/cysto/FISH/Cytology, bt ck [facility] [place] 11-13-2022 Note PROCEDURE: XR FINGER [...] by: LEANNE GU Date: 2022-11-13 14:51 [facility] 08-10-2022 History of Present illness Narrative [...] order received. documented in this encounter [facility] Phone: 08-10-2022 Hospital Discharge instructions Romy Hughes, [...] the healing period. The office number is [phone]. Take surgery bag and all eye drops to Dr. Hughes's office tomorrow at 10:15am. You may resume your normal diet. Start your eye drops tomorrow after your post-op appointment: Ofloxacin/Polytrim one drop to the operated eye 4 times daily Prednisolone one drop to the operated eye 4 times daily documented in this encounter [facility] [employer] Work Phone: 07-15-2022 Evaluation + Plan note Diagnostic Tests PendingUroVysion Fish and Urine Cyto ([facility]) 07/15/22 [facility] 07-15-2022 Hospital Discharge instructions Patient Education [...] if anything looks unusual. Men with a drpgzm-rufy-oolbzr risk for skin cancer may want to see a clinical lab specialist (sewer bricklayer) for an annual body check. Where to find more information National Cancer [place]: https://www.cancer.gov/about-cance r/screening Centers for Disease Control and Prevention: https://www.cdc.gov/cancer/dcpc/pr evention/screening.htm [place] Cancer Society: https://www.cancer.org/latest-news /7-zpxuek-xqamfmjgc-couvt-jgg-cxs. html Contact a health care provider if: [...] 06/17/2017 Document Revised: 06/09/2019 Document Reviewed: 06/17/2017 WeShow Patient Education 2020 Amind. Follow Up Care 06/25/2022 14:20:11 With:SHANTELLE OLGUIN, David Buenrostro, URL Address: [facility] [address] [place] [address]- When:1 year Comments:Cysto/FISH/Cyto [facility] 01-21-2022 Evaluation + Plan note Diagnostic Tests PendingPSA Total 01/21/22[facility] Fish and Urine Cyto ([facility]) 01/21/22 [facility] 01-21-2022 Hospital Discharge instructions Patient Education 01/21/2022 [...] who: Are older than age 65. Are -Mal[place]ian. Are obese. Have a family history of [...] cells. Follow these instructions at home: Take hqzq-vnp-npdcniz and prescription medicines only as told by [...] 09/20/2006 Document Revised: 09/02/2018 Document Reviewed: 05/31/2017 WeShow Patient Education 2020 Amind. 01/21/2022 07:24:07 Cancer Screening for Men Cancer [...] if anything looks unusual. Men with a bflwhp-well-yhcnad risk for skin cancer may want to see a clinical lab specialist (sewer bricklayer) for an annual body check. Where to find more information National Cancer [place]: https://www.cancer.gov/about-cance r/screening Centers for Disease Control and Prevention: https://www.cdc.gov/cancer/dcpc/pr evention/screening.htm [place] [employer]: https://www.cancer.org/latest-news /4-aoewgr-skflcvdsc-rvayo-dtw-bqe. html Contact a health care provider if: [...] 06/17/2017 Document Revised: 06/09/2019 Document Reviewed: 06/17/2017 WeShow Patient Education 2020 Amind. Follow Up Care 10/29/2021 09:32:38 With:SHANTELLE OLGUIN, David Buenrostro, URL Address: [facility] [address], [place] [address] [phone] When:07/23/2022 [facility] Evaluation + Plan note Future Appointments Appointment Date:12/08/2023 03:20:00 PM Scheduled Provider:Boone DE LA ROSA MD Location:[facility] Appointment Type: Established 15 General Surgery [place] Evaluation + Plan note General S urgery [place] Evaluation + Plan note Future Appointments Appointment Date:06/28/2024 03:00:00 PM Scheduled Provider:Boone DE LA ROSA MD Location:[facility] Appointment Type:GS Procedure 30 [facility] [place] Evaluation + Plan note Future Appointments Appointment Date:07/11/2024 01:40:00 PM Scheduled Provider:Boone DE LA ROSA MD Location:[facility] Appointment Type:GS Established 15 [facility] [place] Evaluation + Plan note Future Appointments Appointment Date:08/08/2024 02:00:00 PM Scheduled Provider:Boone DE LA [facility]A [facility] Type:GS Established 15 [facility] [place] Evaluation + Plan note Future Appointments Appointment Date:10/24/2024 01:15:00 PM Scheduled Provider:David PEPPER MD Location:[facility] Appointment Type:URO Procedure 15 min [facility] Evaluation note Diagnosis 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 in this encounter [facility] Work Phone: Hospital course Narrative No data available for this section [facility] Hospital Discharge instructions No data available for this section [facility] progress note No data available for this section [facility] Reason for referral (narrative) Referred by: ESTRELLA OLGUIN, Boone Buenrostro [facility] Advance Directives No Advanced Directives Records FoundDocuments on File Type Date Recorded Patient Second Baller Expl anation Advance Directives and Living Will Power of Power Cleaner Operator Documents on File Type Date Recorded Patient Second Baller Expl anation ACP-Advance Directive ACP-Power of Power Cleaner Operator Latest Code Status on File Code Status [...] team informatio n (unrecognized section and content) Shift Coordinator Relationship Specialty Start Date End Date Klarissa Nance MD [address] [place] [address] PCP - General Family Medicine 05/14/20 Reason for Visit (unrecogniz ed section and content) Specialty Diagnoses / Procedures Referred By Anjali reinoso Referred To Contact Diagnoses Age-related nuclear cataract of both eyes AGE-RELATED NUCLEAR CAT 3+NS, 1+CS H25.12 Procedures VA XCAPSL CTRC RMVL INSJ IO LENS PROSTH W/O ECP EYE CATARACT EMULSIFICATION IOL IMPLANT Giuseppe Romybigg Quintanilla DO [address] [place] [address] [facility] [address] [place] [address] Referral ID Status Reason Start Date Expiration Date Visits Re quested Visits Authorized [id number] 1 1 Scheduled Active and Recently Administ [...] CREATED AUTHOR AUTHOR'S ORGANIZ ATION 02/16/2024 [facility] DATE CREATED AUTHOR AUTHOR'S ORGANIZ ATION 08/10/2024 [facility] DATE CREATED AUTHOR AUTHOR'S ORGANIZ ATION 10/31/2024 [facility] DATE CREATED AUTHOR AUTHOR'S ORGANIZ ATION 11/02/2024 [facility] DATE CREATED AUTHOR AUTHOR'S ORGANIZ ATION 11/03/2024 [facility] FOR RECORDS PERTAINING [...] BE BASED ON THE PRIMARY CLINICAL RECORDS. [facility]. provides no warranty or guarantee of the accuracy or completeness of information in this document.
--- OUTSIDE RECORDS SUMMARY | 2025-03-03 07:54 | XMS_ITS | Clinical Summary ---
Author Organization [facility] Address [address] [place] [address] Care Team Providers Care Assembler Plastic Boat Name Role Phone Nelson Nance MD Primary Care Provider +- Allergies Active Allergy Reactions Criticality Noted Date Comments Sulfa Antibiotics 08/03/2022 Medications apixaban (ELIQUIS) 2.5 MG TABS tablet Take 2.5 mg by mouth Active tamsulosin (FLOMAX) 0.4 MG capsule Take 0.4 mg by mouth daily Active amiodarone (CORDARONE) 200 MG tablet Take 200 mg by mouth daily Active bicalutamide (CASODEX) 50 MG chemo tablet Take 50 mg by mouth daily Active atorvastatin (LIPITOR) 40 MG tablet Take 40 mg by mouth daily Active Active Problems No known active problems Resolved Problems Problem Noted Date Diagnosed Date Resolved Date Age-related nuclear cataract of left eye 08/09/2022 08/10/2022 Social History Tobacco Use Types Packs/Day Years Used Date Smoking Tobacco: Former Cigarettes Smokeless Tobacco: Never Tobacco Cessation:Counseling Given: Not Answered Alcohol Use Standard Drinks/Week Comments Yes 0 (1 standard drink = 0.6 oz pur e alcohol) RARE Sex and Gender Information Value Date Recorded Sex Assigned at Not on file Legal Sex Male 10:38 AM EDT Gender Identity Not on file Sexual Orientation Not on file Last Filed Vital Signs Vital Sign Reading Time Taken Comments Blood Pressure 152/50 08/10/2022 4:00 PM EST Pulse 60 08/10/2022 4:00 PM EST Temperature 36.7 C (98 F) 08/10/2022 3:15 PM EST Respiratory Rate 18 08/10/2022 4:00 PM EST Oxygen Saturation 97% 08/10/2022 4:00 PM EST Inhaled Oxygen Concentration - - Weight 63 kg (139 lb) 08/10/2022 2:16 PM EST Height 167.6 cm (5' 6 ) 08/10/2022 2:16 PM EST Body Mass Index 22.44 08/10/2022 2:16 PM EST Plan of Treatment Health Maintenance Due Date Last Done Comments DTaP/Tdap/Td vaccine (1 - Tdap) 1959 Respiratory Syncytial Virus (RSV) or age 60 yrs+ (1 - 1-dose 75+ series) 2013 COVID-19 Vaccine ( season) 2024 11/16/2020, 10/15/2020, 10/14/2020 Flu vaccine (Season Ended) 05/04/202507/18, 09/18/2019 Polio vaccine Aged Out No longer elig ible based on patient's age to complete this topic Medical Devices Implanted Type Area Tube Sizer Operator Device Identifier Shelf Expiration Date Model / Serial / Lot Lens Intraocular Bcnvx 23.5+ Diopt 6x12.5 Mm Acryl [employer]ista - [id number] Implanted:Qty: 1 on 08/10/2022 by Dc Chin DO at [facility] 08/03/2024 [id number] / [id number] / Insurance MEDICARE Member Subscriber Plan / Payer (Ef fective 2003-Present) Name:Artie Contreras Relation to Subscriber:Self Name:Artie Contreras Payer ID:Not on file Group ID:Not on file Type:Not on file Address: [address] Advance Directives * Full Code (Latest Code Status on File) Date Activated Date Inactivated Comments 08/10/2022 1:45 PM 08/10/2022 6:26 PM Care Teams Assembler Plastic Boat Relationship Specialty Start Date End Date Nelson Nance MD [address] [place] [address] PCP - General Family Medicine 05/14/20
--- OUTSIDE RECORDS SUMMARY | 2025-03-03 07:54 | XMS_ITS | Patient Health Record ---
Author Organization [facility] in [place] Address [address] [place] [address] Care Team Providers Care Marking Clerk Name Role Phone Lee Ann Cali Primary Care Provider [phone] Allergies Allergen (clinical drug ingredient) Drug/Non Drug Allergy documented on EMR Reaction Allergy Type Onset Date Status Substance with sulfonamide structure and antibacterial mechanism of action (substance) Sulfa Antibiotics anaphylaxis Drug Allergy Active Reason For Referral Diagnosis 1 Seborrheic keratosis (L82.1) Referral Organization [facility] Medicine Referring Provider First Name Cali Referring Provider Last Name Lee Ann Referring Provider Speciality Family Med dillon Referred Provider Boone De La Rosa Referred Provider Specialty General Surg dwaine Referral Priority Routine Medications Medication SIG (Take, Route, Frequency, Duration) Notes Start Date End Date Status Amiodarone HCl 200 MG 1 tablet Orally On ce a day for 30 days Active Aspirin 81 81 MG 1 tablet Orally Once a day Active Atorvastatin Calcium 40 MG 1 tablet Oral ly Once a day for 90 days Active Bicalutamide 50 MG take 1 tablet by joe once daily Oral for 90 Days Active Eliquis 2.5 MG 1 tablet Oral Twice a day for 30 days Active Lexapro 20 MG 1 tablet Orally Once a day for 90 days 10/19/2023 Active Triamcinolone Acetonide 0.1 % 1 application Externally bid for 30 days 02/21/2025 Active predniSONE 20 MG 2 tablets Orally Onc e a day for 5 days 02/21/2025 Active Lisinopril 10 MG 1 tablet Orally Once a day for 30 day(s) 02/21/2025 Active Liothyronine Sodium 5 MCG TAKE 2 TABLETS BY MOUTH DAILY ON AN EMPTY STOMACH for 30 days Active Mupirocin 2 % 1 application Powdered Metal Supervisor ally Twice a day for 5 09/08/2023 Active Tamsulosin HCl 0.4 MG take 1 capsule by mouth once daily Oral for 90 Days Active Social History Tobacco Use: Social History Observation Description Date Details (start date - stop date) Former Smoker 10/04/1957 - 10/04/1999 Tobacco Use/Smoking Question Answer Notes Patient is a former smoker When did you start smoking? 10/04/1957 When did you stop smoking? 10/04/1999 How long has it been since you last smoked? > 10 years Alcohol Screen (Audit-C) Question Answer Notes Did you have a drink containing alcohol in the p ast year? No Points 0 Interpretation Negative Problems Problem Type SNOMED Code ICD Code Onset Dates Problem Status W/U Status Risk Notes Problem 25333701 Hypothyroidism, unspecified (E03.9) Active confirmed Problem 384540584 Basal cell carcinoma of skin, unspecified (C44.91) Active confirmed Problem 5356261076399980 Primary osteoarthritis, left ankle and foot (M19.072) Active confirmed Problem 683618365412703 Valgus deformity, not elsewhere classified, left ankle (M21.072) Active confirmed Problem 3461588 Foot drop, left foot (M21.372) Active confirmed Problem 5219937418096509 Posterior tibial tendinitis, left leg (M76.822) Active confirmed Problem 941532257 Strain of muscle(s) and tendon(s) of anterior muscle group at lower leg level, left leg, initial encounter (S86.212A) Active confirmed Problem Hypertension (56085775) Hypertension (I10) Active confirmed Problem Edema (12757669) Edema (R60.9) Active confirmed Problem Eczema (32523324) Eczema (L30.9) Active confirm ed Problem Elevated liver enzymes level (112342719) Elevated liver enzymes (R74.8) Active confirmed Problem Atrial fibrillation (53370884) Atrial fibrillation (I48.91) Active confirmed Problem Cellulitis (146994195) Cellulitis (L03.90) Active confirmed Problem Memory loss (22472404) Memory loss (R41.3) Active confirmed Problem Scalp laceration (590366706) Scalp laceration (S01.01XA) Active confirmed Problem Nevus (8904810175) Nevus (D22.9) Active confirm ed Vital Signs Blood pressure diastolic 64 mm Hg 03/01/2025 Height 67 in 03/01/2025 Blood pressure systolic 150 mm Hg 03/01/2025 Weight 136.2 lbs 02/21/2025 BMI 21.33 kg/m2 02/21/2025 Encounters Encounter Location Date Provider Diagnosis [facility] [address] [place] [address] 07/12/[address] [facility] [address] [place] [facility] [place] [address] 11/03/2024 Cali Nance [facility] [address] [place] [facility] [place] [address] 11/06/2024 Cali emperatriz [facility] [address] [place] [address] 11/29/2024 Cali Robbyemperatriz Memory loss R41.3 [facility] [address] [place] [address] 12/25/2024 Cali Nance [facility] [address] [place] [address] 03/01/2025 Cali Nance [facility] [address] [place] [address] 03/01/2025 Cali Robbyemperatriz Hypertension I10 [address] [place] [address] 05/18/2024 Cali Nance Seborrheic keratosis L82.[address] [address] 02/21/2025 Cali Hoy Atrial fibrillation I48.91 ; Edema R60.9 ; Eczema L30.9 and Hypertension I10 Assessments Encounter Date Diagnosis (ICD Code) Assessment Notes Treatment Notes Treatment Clinical Notes Section Notes 05/18/2024 Seborrheic keratosis (ICD-10 - L82.1) 02/21/2025 Atrial fibrillation (ICD-10 - I48.91) 02/21/2025 Edema (ICD-10 - R60.9) 03/01/2025 Hypertension (ICD-10 - I10) 11/29/2024 Memory loss (ICD-10 - R41.3) 02/21/2025 Eczema (ICD-10 - L30.9) 02/21/2025 Hypertension (ICD-10 - I10) 02/21/2025 Other Continue taking medications as prescribed and monitor BP at home regularly. Plan Of Treatment Pending Test Test Name Order Date CMP (COMPLETE METABOLIC PANEL) 4 HEMOGLOBIN A1C (GLYCO) 02/21/2025 HEMOGLOBIN A1C (GLYCO) 10/19/2023 IRON, TOTAL 10/19/2023 LIPID PANEL (CHOL/TRIG/HDL/LDL) 10/19/19 24 LIPID PANEL (CHOL/TRIG/HDL/LDL) 02/22/20 25 CBC WITH DIFF 10/19/2023 URIC ACID 02/21/2025 VITAMIN D, 25 LEVEL (TOTAL) 10/19/2023 BNP 02/21/2025 PROTIME 01/27/2024 US ABD 01/27/2024 VC VENOUS REFLUX MILO LMT 02/21/2025 THYROID PANEL (T4/TSH/FREE T3) 4 THYROID PANEL (T4/TSH/FREE T3) 4 THYROID PANEL (T4/TSH/FREE T3) 5 THYROID PANEL (T4/TSH/FREE T3) 4 THYROID PANEL (T4/TSH/FREE T3) 4 PSA, SCREENING 02/21/2025 CMP (COMP MET SPENCER) w/eGFR CKD-EPI 2024 CBC WITH DIFF 02/21/2025 Next Appt Details Provider Name:Cali Nance, 10:00:00 AM, [address] [place], [address], Insurance Providers Payer Name Payer Address Payer Phone Subscriber Number Group Number Insured Name Patient Relationship to Insured Coverage Start Date Coverage End Date [place] [address] [place] [address] [id number] Artie Contreras Self - patient is the insured 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
--- OUTSIDE RECORDS SUMMARY | 2025-03-03 07:54 | XMS_ITS | Encounter Summary ---
Author Organization [facility] Address [address] [place] [address] Care Team Providers Care Steamtable Attendant Railroad Name Role Phone Nelson Nance MD Primary Care Provider [phone] Source Comments In the event this information is protected by the Federal Confidentiality of Alcohol and Drug AbusePatient Records regulations: The Federal rules restrict any use of the information to criminally investigate or prosecute any alcohol or drug abuse patient.[facility] Encounter Details Date Type Department Care Team (Late st Contact Info) Description 04/20/2020 Surgical Case [id number] [address] [phone] Ari Estrada MD [address] [place] [address] Social History Tobacco Use Types Packs/Day Years [...] on filedocumented in this encounter Care Teams Steamtable Attendant Railroad Relationship Specialty Start Date End Date Nelson Nance MD PCP - General Family Medicine 04/19/20 documented as of this encounter
[2025-03-03 08:23] LABS: Basophils Percent Auto 0.4 % (0.2-2.0); Eosinophils Absolute Auto 0.4 10^3/uL (0.0-0.7); Eosinophils Percent Auto 5.5 % (0.9-7.0); Hematocrit 34.1 % (42.0-54.0); Hemoglobin 11.4 g/dL (14.0-18.0); Immature Granulocytes Abs Auto 0.11 10^3/uL (0.00-0.03); Immature Granulocytes Pct Auto 1.6 % (0.0-0.5); Lymphocytes Absolute Auto 0.8 10^3/uL (1.2-3.8); Lymphocytes Percent Auto 11.7 % (20.5-60.0); Mean Corpuscular HGB Conc 33.4 g/dL (29.9-35.2); Mean Corpuscular Hemoglobin 32.3 pg (25.9-34.0); Mean Corpuscular Volume 96.6 fL (80.0-94.0); Monocytes Absolute Auto 0.5 10^3/uL (0.3-0.8); Monocytes Percent Auto 7.1 % (1.7-12.0); Neutrophils Absolute Auto 5.1 10^3/uL (1.4-6.5); Neutrophils Percent Auto 73.7 % (43.0-75.0); Platelet Count 183 10^3/uL (150-450); Red Blood Count 3.53 10^6/uL (4.70-6.10); Red Cell Distribution Width 13.6 % (11.0-15.0); White Blood Count 6.9 10^3/uL (4.0-11.0)
[2025-03-03 08:46] LABS: Estimated Average Glucose 123 mg/dL; Glycohemoglobin A1C 5.9 % (4.5-6.2)
[2025-03-03 08:57] LABS: Alanine Aminotransferase 28 U/L (16-63); Albumin Globulin Ratio 1.1; Albumin Level 3.3 g/dL (3.4-5.0); Alkaline Phosphatase 69 U/L (46-116); Anion Gap 13.8; Aspartate Amino Transferase 24 U/L (15-37); BUN Creatinine Ratio 25.5; Bilirubin Total 0.5 mg/dL (0.2-1.0); Calcium 8.4 mg/dL (8.5-10.1); Carbon Dioxide 29.3 mmol/L (21.0-32.0); Chloride 105 mmol/L (98-107); Chol HDL Ratio 1.7; Cholesterol 141 mg/dL (<=200); Estimated GFR (African America 52 (>=60 mL/min/1.73m^2); Estimated GFR (Non-African Ame 43 (>=60 mL/min/1.73m^2); Free T3 2.75 pg/mL (2.18-3.98); Glucose 94 mg/dL (74-106); HDL Cholesterol 83 mg/dL (40-60); Potassium 4.1 mmol/L (3.5-5.1); Sodium 144 mmol/L (136-145); Total Protein 6.3 g/dL (6.4-8.2); Triglycerides 31 mg/dL (<=150); Uric Acid 4.9 mg/dL (3.5-7.2); VLDL CHOLESTEROL 6.2 mg/dL
[2025-03-03 09:05] LABS: Prostate Specific Antigen Scrn <0.13 ng/mL (<=4.00)
== END 2025-03-03 07:52 | disposition home or self-care (01) ==
LOC: LAB 07:52
PROVIDERS: PCP Family Medicine; Visit Provider Family Medicine
DX: R60.9 Edema, unspecified (principal); I48.91 Unspecified atrial fibrillation; L30.0 Nummular dermatitis; R73.09 Other abnormal glucose; Z12.5 Encounter for screening for malignant neoplasm of prostate; R06.02 Shortness of breath; I50.30 Unspecified diastolic (congestive) heart failure; I11.0 Hypertensive heart disease with heart failure
CPT/HCPCS: 36415; 80053; 80061; 83036; 83880; 84436; 84443; 84481; 84550; 85025; G0103

== ENCOUNTER 2025-07-17 12:01 | Outpatient (OUT) | payer MEDICARE, SELFPAY ==
--- OUTSIDE RECORDS SUMMARY | 2025-07-17 12:04 | XMS_ITS | Encounter Summary ---
Author Organization [facility] Address [address] [place] [address] Care Team Providers Care Brine Tank Tender Name Role Phone Nelson Nance MD Primary Care Provider [phone] Source Comments In the event this information is protected by the Federal Confidentiality of Alcohol and Drug AbusePatient Records regulations: The Federal rules restrict any use of the information to criminally investigate or prosecute any alcohol or drug abuse patient.[facility] Encounter Details Date Type Department Care Team (Late st Contact Info) Description 04/20/2020 Surgical Case [id number] [address] [phone] Ari Estrada MD [address] [place] [address] Social History Tobacco Use Types Packs/Day Years [...] on filedocumented in this encounter Care Teams Brine Tank Tender Relationship Specialty Start Date End Date Nelson Nance MD PCP - General Family Medicine 04/19/20 documented as of this encounter
--- OUTSIDE RECORDS SUMMARY | 2025-07-17 12:04 | XMS_ITS | Patient Health Record ---
Author Organization [facility] in [place] [employer] Address [address] [place] [address] Care Team Providers Care Inclusion Special Educator Name Role Phone Cali Nance Primary Care Provider Allergies Allergen (clinical drug ingredient) Drug/Non Drug Allergy documented on EMR Reaction Allergy Type Onset Date Status Substance with sulfonamide structure and antibacterial mechanism of action (substance) Sulfa Antibiotics anaphylaxis Drug Allergy Active Results Component Value Reference Range Notes URIC ACID SERUM Reviewed date:03/04/2025 04:14:13 PM Interpretation: Performing Lab: Notes/Report: [facility] , Uric Acid 4.9 3.5-7.2 mg/dL Performing Lab: see note ML - [facility] LB TSH Reviewed date:03/04/2025 04:14:13 PM Interpretation: Performing Lab: Notes/Report: [facility] , Thyroid Stimulating Hormone 1.790 0.358-3.740 u IU/mL Performing Lab: see note ML - [facility] LB T4 Reviewed date:03/04/2025 04:14:13 PM Interpretation: Performing Lab: Notes/Report: [facility] , T4 Thyroxine 8.00 4.50-12.10 ug/dL Performing Lab: see note ML - [facility] LB PROF 14(COMP METB) Reviewed date:03/04/2025 04:14:13 PM Interpretation: Performing Lab: Notes/Report: [facility] , Sodium 144 136-145 mmol/L Potassium 4.1 3.5-5.1 mmol/L Chloride 105 98-107 mmol/L Carbon Dioxide 29.3 21.0-32.0 mmol/L Anion Gap 13.8 Glucose 94 74-106 mg/dL Blood Urea Nitrogen 39.0 7.0-18.0 mg/dL Creatinine 1.53 0.70-1.30 mg/dL Estimated GFR ( Nhi 52 >=60 mL/min/1.73m 2 Estimated GFR (Non- Heike 43 >=60 mL/min/1.73m 2 BUN Creatinine Ratio 25.5 Calcium 8.4 8.5-10.1 mg/dL Bilirubin Total 0.5 0.2-1.0 mg/dL Aspartate Amino Transferase 24 15-37 U/L Alanine Aminotransferase 28 16-63 U/L Alkaline Phosphatase 69 46-116 U/L Total Protein 6.3 6.4-8.2 g/dL Albumin Level 3.3 3.4-5.0 g/dL Globulin 3.0 Albumin Globulin Ratio 1.1 Performing Lab: see note ML - [facility] LIPID PROFILE Reviewed date:03/04/2025 04:14:13 PM Interpretation: Performing Lab: Notes/Report: [facility] , Triglycerides 31 <=150 mg/dL Cholesterol 141 <=200 mg/dL HDL Cholesterol 83 40-60 mg/dL > or =60 mg/dl - LOW CARDIOVASCULAR RISK <40 mg/dl - HIGH CARDIOVASCULAR RISK LDL Cholesterol Calculated 52.0 <100 mg/dl OPTIMAL 100-129 mg/dl NEAR OR ABOVE OPTIMAL 130-159 mg/dl BORDERLINE HIGH 160-189 mg/dl HIGH >190 mg/dl VERY HIGH VLDL CHOLESTEROL 6.2 Chol HDL Ratio 1.7 3.3 - 4.4 LOW RISK 4.4 - 7.1 AVERAGE RISK 7.1 - 11.0 MODERATE RISK >11.0 HIGH RISK Performing Lab: see note ML - [facility] GLYCOHEMOGLOBIN A1C Reviewed date:03/04/2025 04:14:13 PM Interpretation: Performing Lab: Notes/Report: [facility] , Glycohemoglobin A1C 5.9 4.5-6.2 % ADA RECOMMENDED LIMIT 4.0 - 6.0 ADA THERAPEUTIC TARGET < 7.0 ACTION SUGGESTED > 7.0 Estimated Average Glucose 123 Performing Lab: see note ML - [facility] FREE T3 Reviewed date:03/04/2025 04:14:13 PM Interpretation: Performing Lab: Notes/Report: [facility] , Free T3 2.75 2.18-3.98 pg/mL Performing Lab: see note ML - [facility] LB CBC AUTO DIFF Reviewed date:03/04/2025 04:14:13 PM Interpretation: Performing Lab: Notes/Report: [facility] , White Blood Count 6.9 4.0-11.0 10 3/uL Red Blood Count 3.53 4.70-6.10 10 6/uL Hemoglobin 11.4 14.0-18.0 g/dL Hematocrit 34.1 42.0-54.0 % Mean Corpuscular Volume 96.6 80.0-94.0 fL Mean Corpuscular Hemoglobin 32.3 25.9-34.0 pg Mean Corpuscular HGB Conc 33.4 29.9-35.2 g/dL Red Cell Distribution Width 13.6 11.0-15.0 % Platelet Count 183 150-450 10 3/uL Mean Platelet Volume 10.0 9.5-13.5 fL Neutrophils Percent Auto 73.7 43.0-75.0 % Lymphocytes Percent Auto 11.7 20.5-60.0 % Monocytes Percent Auto 7.1 1.7-12.0 % Eosinophils Percent Auto 5.5 0.9-7.0 % Basophils Percent Auto 0.4 0.2-2.0 % Immature Granulocytes Pct Auto 1.6 0.0-0.5 % Neutrophils Absolute Auto 5.1 1.4-6.5 10 3/uL Lymphocytes Absolute Auto 0.8 1.2-3.8 10 3/uL Monocytes Absolute Auto 0.5 0.3-0.8 10 3/uL Eosinophils Absolute Auto 0.4 0.0-0.7 10 3/uL Basophils Absolute Auto 0.0 0.0-0.1 10 3/uL Immature Granulocytes Abs Auto 0.11 0.00-0.03 10 3/uL Performing Lab: see note ML - [facility] LB BNP Reviewed date:03/04/2025 04:14:13 PM Interpretation: Performing Lab: Notes/Report: [facility] , NT Pro B Type Natriuretic Pept 749.0 <=1800.0 pg/mL Performing Lab: see note ML - [facility] LB PSA SCREENING Reviewed date:03/04/2025 04:14:13 PM Interpretation: Performing Lab: Notes/Report: [facility] , Prostate Specific Antigen Scrn <0.13 <=4.00 ng/mL Performing Lab: see note ML - [facility] LB Reason For Referral Diagnosis 1 Venous reflux (I87.2 ) Referral Organization [facility] Medicine Referring Provider First Name Cali Referring Provider Last Name Lee Ann Referring Provider Speciality Family [facility] dillon Referred Provider Juan Daniel Mckeon Referred Provider Specialty Vascular Uri paula Referral Priority Routine Medications Medication SIG (Take, Route, Frequency, Duration) Notes Start Date End Date Status Tamsulosin HCl 0.4 MG take 1 capsule by mouth once daily Oral; Duration: 90 Days Active Triamcinolone Acetonide 0.1 % 1 application Externally bid; Duration: 30 days 02/21/2025 Active Lisinopril 10 MG TAKE 1 TABLET BY TAMIKA TH DAILY; Duration: 30 Active Memantine HCl ER 28 MG 1 capsule Orally Once a day; Duration: 30 days 03/26/2025 Active Lexapro 20 MG 1 tablet Orally Once a day; Duration: 90 days 10/19/2023 Active Liothyronine Sodium 5 MCG TAKE 2 TABLETS BY MOUTH DAILY ON AN EMPTY STOMACH; Duration: 30 days Active Eliquis 2.5 MG 1 tablet Oral Twice a day; Duration: 30 days Active Atorvastatin Calcium 40 MG 1 tablet Oral ly Once a day; Duration: 90 days Active predniSONE 20 MG 2 tablets Orally Onc e a day; Duration: 5 days 07/17/2025 Active Bicalutamide 50 MG take 1 tablet by tamika th once daily Oral; Duration: 90 Days Active Amiodarone HCl 200 MG 1 tablet Orally On ce a day; Duration: 30 days Active Aspirin 81 81 MG 1 tablet Orally Once a day Active Social History Tobacco Use: Social History [...] ast year? No Points 0 Interpretation Negative AUDIT-C (Standard) Question Answer Notes Did you have a drink containing alcohol in the p ast year? No Points 0 Interpretation Negative Problems Problem Type SNOMED Code ICD Code Onset Dates Problem Status W/U Status Risk Notes Problem Hypothyroidism (07407782) Hypothyroidism, unspecified (E03.9) Active confirmed Problem Basal cell carcinoma of skin (751048991) Basal cell carcinoma of skin, unspecified (C44.91) Active confirmed Problem Localized, primary osteoarthritis of the ankle and/or foot (301192408) Primary osteoarthritis, left ankle and foot (M19.072) Active confirmed Problem Valgus deformity (078044682) Valgus deformity, not elsewhere classified, left ankle (M21.072) Active confirmed Problem Left foot drop (955124877080069) Foot drop, left foot (M21.372) Active confirmed Problem Tibialis tendinitis (85269777) Posterior tibial tendinitis, left leg (M76.822) Active confirmed Problem Strain of muscle(s) and tendon(s) of anterior muscle group at lower leg level, left leg, initial encounter (S86.212A) Active confirmed Problem Hypertension (40337439) Hypertension (I10) Active confirmed Problem Edema (66350523) Edema (R60.9) Active confirmed Problem Eczema (77409261) Eczema (L30.9) Active confirm ed Problem Elevated liver enzymes level (062789052) Elevated liver enzymes (R74.8) Active confirmed Problem Atrial fibrillation (59959500) Atrial fibrillation (I48.91) Active confirmed Problem Cellulitis (090185063) Cellulitis (L03.90) Active confirmed Problem Memory loss (27096100) Memory loss (R41.3) Active confirmed Problem Scalp laceration (778706988) Scalp laceration (S01.01XA) Active confirmed Problem Shoulder joint pain (091381980) Shoulder pain, left (M25.512) Active confirmed Problem Nevus (4865109744) Nevus (D22.9) Active confirm ed Problem Peripheral venous insufficiency (37622039) Venous reflux (I87.2) Active confirmed Vital Signs Blood pressure diastolic 52 mm Hg 07/17/2025 Height 67 in 07/17/2025 Blood pressure systolic 122 mm Hg 07/17/2025 Weight 128.0 lbs 07/17/2025 BMI 20.05 kg/m2 07/17/2025 Encounters Encounter Location Date Provider Diagnosis [facility] ([place], [place]) [address] [place] [address] 03/01/2025 Cali H[address] Hypert[address] I10 [facility] ([place], [place] [address] [place] [facility] [place] [address] 02/21/2025 Cali Hoy Atrial fibrillation I48.91 ; Edema R60.9 ; Eczema L30.[address] [facility] ([place] [place] [address] [place] [facility] [place] [address] 07/17/2025 Cali Hoy Shoulder pain, left M25.512 [facility] ([place], [place] [address] [place] [facility] [place] [address] 06/25/2025 Cali Hoy Memory loss R41.3 ; Hypothyroidism, unspecified E03.9 ; Atrial fibrillation I48.91 and Hypertension I10 [facility] [address] [place] [facility] [place] [address] 05/08/[address] [facility] ([place], [place] [address] [place] [facility] [place] [address] 03/01/[address] [facility] ([place] [place] [address] [place] [facility] [place] [address] 03/04/[address] [facility] ([place], [place] [address] [place] [facility] [place] [address] 03/04/2025 Cali Hoy Venous reflux I87.2 [facility] ([place], [place] [address] [place] [facility] [place] [address] 03/26/[address] [facility] ([place] [place] [address] [place] [place] [address] 04/09/[address] [facility] ([place], [place] [address] [place] [facility] [place] [address] 04/20/2025 Cali Bustamantey [facility] [address] [place] [facility] [place] [address] 11/03/2024 Cali [facility] [address] [place] [facility] [place] [address] 11/06/[address] [facility] ([place], [place] [address] [place] [facility] [place] [address] 11/29/2024 Cali Hoy Memory loss R41.3 [facility] ([place], [place] [address] [place] [address] 12/25/2024 Cali Nance Assessments Encounter Date Diagnosis (ICD Code) Assessment Notes Treatment Notes Treatment Clinical Notes Section Notes 06/25/2025 Memory loss (ICD-10 - R41.3) 03/01/2025 Hypertension (ICD-10 - I10) 07/17/2025 Shoulder pain, left (ICD-10 - M25.512) 11/29/2024 Memory loss (ICD-10 - R41.3) 03/04/2025 Venous reflux (ICD-10 - I87.2) 02/21/2025 Edema (ICD-10 - R60.9) 02/21/2025 Atrial fibrillation (ICD-10 - I48.91) 06/25/2025 Hypothyroidism, unspecified (ICD-10 - E03.9) 02/21/2025 Eczema (ICD-10 - L30.9) 06/25/2025 Atrial fibrillation (ICD-10 - I48.91) 02/21/2025 Hypertension (ICD-10 - I10) 06/25/2025 Hypertension (ICD-10 - I10) 02/21/2025 Other Continue taking medications as prescribed and monitor BP at home regularly. Plan Of Treatment Pending Test Test Name Order Date CMP (COMPLETE METABOLIC PANEL) 4 HEMOGLOBIN A1C (GLYCO) 02/21/2025 HEMOGLOBIN A1C (GLYCO) 10/19/2023 IRON, TOTAL 10/19/2023 LIPID PANEL (CHOL/TRIG/HDL/LDL) 10/19/19 24 LIPID PANEL (CHOL/TRIG/HDL/LDL) 02/22/20 CBC WITH DIFF 10/19/2023 URIC ACID 02/21/2025 VITAMIN D, 25 LEVEL (TOTAL) 10/19/2023 BNP 02/21/2025 PROTIME 01/27/2024 US ABD 01/27/2024 VC VENOUS REFLUX MILO LMT 02/21/2025 XR SHOULDER LT 2V or > 07/17/2025 THYROID PANEL (T4/TSH/FREE T3) THYROID PANEL (T4/TSH/FREE T3) THYROID PANEL (T4/TSH/FREE T3) 04/18/202 4 THYROID PANEL (T4/TSH/FREE T3) 4 THYROID PANEL (T4/TSH/FREE T3) 5 PSA, SCREENING 02/21/2025 CMP (COMP MET SPENCER) w/eGFR CKD-EPI 2024 CBC WITH DIFF 02/21/2025 Next Appt Details Provider Name:Cali Nance, 10:00:00 AM, [address] [place], [address], Insurance Providers Payer Name Payer Address Payer Phone Subscriber Number Group Number Insured Name Patient Relationship to Insured Coverage Start Date Coverage End Date [place] [address] [place] [address] [id number] Artie Contreras Self - patient is the insured [facility] [address] [place], [place] [id number] Artie Contreras Self - patient is the [...]
--- OUTSIDE RECORDS SUMMARY | 2025-07-17 12:04 | XMS_ITS | Patient Health Record ---
Author Organization [facility] Address [address] [address], [facility] [place] [address] Care Team Providers Care Gauge And Weigh Machine Adjuster Name Role Phone Nelson Nance M.D. Primary Care Provider Unavaila Yariel Rogel Unavailable [phone] Allergies No Known Allergies Reason For Referral No Information Medications Medication SIG (Take, Route, Frequency, Duration) Notes Start Date End Date Status Lisinopril 10 MG Tablet Oral; Duration: 30 Days Active Memantine HCl ER 28 MG Capsule Extended Release 24 Hour Oral; Duration: 30 Days Acti ve Amiodarone HCl 200 MG Tablet Oral; Duration: 30 Days Acti ve Liothyronine Sodium 5 MCG Tablet Oral; Duration: 30 Days Acti ve Bicalutamide 50 MG Tablet Oral; Duration: 90 Days Active Atorvastatin Calcium 40 MG Tablet Oral; Duration: 90 Days Acti ve Tamsulosin HCl 0.4 MG Capsule Oral; Duration: 90 Days Acti ve Eliquis 2.5 MG Tablet Oral; Duration: 30 Days Active Social History Section Notes: Patient is a former smoker. Social alcohol use. 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 No recent acute worsening reported. Falls have occurred, increasing risk for injury. Physical therapy previously attended at [facility]. - Referral to prosthetics/orth otics for custom brace evaluation. AFO ordered - Referral to physical therapy for fall risk and weakness. 05/18/2025 Foot drop, left (ICD-10 - M21.372) 05/18/2025 Venous insufficiency (ICD-10 - I87.2) Chronic swelling in feet and ankles complicates brace fitting. Swelling returns quickly after removing compression stockings. Compression stockings are uncomfortable, especially in hot weather, leading to inconsistent use. - Discussion of compression stocking options and limitations. 05/18/2025 Onychomycosis (ICD-10 - B35.1) Patient was seen and evaluated. Patient education was provided and all questions answered to satisfaction. Patient meets class findings with absent pedal pulses. Toenails 1-10 were sharply debrided without incident and to patient satisfaction. I discussed use of topical antifungals and their efficacy as well as recommended Diaz's Vapor Rub to soften the hard brittle toenails. I discussed and did not recommend use of PO antifungal due to possible hepatotoxicity. Patient will f/u in 3 months for routine nailcare. No new x-rays are required. 05/18/2025 PAD (peripheral artery disease) (ICD-10 - I73.9) Plan Of Treatment No Information Insurance Providers Payer Name Payer Address Payer Phone Subscriber Number Group Number Insured Name Patient Relationship to Insured Coverage Start Date Coverage End Date CITIZ[place] [employer] [address] [place] [address] [id number] Artie Contreras Self - patient is the insured Medical (General) History Medical History History ICD Code Prostate Cancer CAD PAD High Blood Pressure High Cholesterol Thyroid Issues Surgical History Surgery Date(Month/Year) Abdominal Aortic Aneurysm
--- OUTSIDE RECORDS SUMMARY | 2025-07-17 12:04 | XMS_ITS | Clinical Summary ---
Author Organization [facility] Address [address] [place] [id number] Care Team Providers Care Director Insurance Name Role Phone Nelson Nance MD Primary Care Provider [phone] Allergies Active Allergy Reactions Criticality Noted Date Comments Sulfa (Sulfonamide Antibiotics) Unknown 04/03 Medications bicalutamide (CASODEX) 50 mg tablet Take 50 mg by mouth once daily. 0 Active ferrous sulfate 325 mg (65 mg iron) tablet Take 1 tablet by mouth twice daily. 0 Active tamsulosin ER (FLOMAX) 0.4 mg Take 0.4 mg by mouth once daily. 0 Active atorvastatin (LIPITOR) 40 mg tablet Take 40 mg by mouth daily at bedtime. 0 Active acetaminophen (TYLENOL) 325 mg tablet Take 2 tablets by mouth every 4 hours as needed. 0 Active aspirin 81 mg chewable tablet Take 1 tablet by mouth once daily. 0 Active senna-docusate (SENNA-S) 8.6-50 mg per tablet Take 1 tablet by mouth twice daily. 14 tablet 0 Active Additional Information Patient not taking.Reason: Discontinued by Another Health Care Provider, Reported on 05/15/2020 metoprolol tartrate, short acting, (LOPRESSOR) 25 mg tablet Take 1 tablet by mouth twice daily. 60 tablet 1 0 Active Additional Information Patient not taking.Reason: Discontinued by Another Health Care Provider, Reported on 05/15/2020 amiodarone (PACERONE) 200 mg tablet Take 2 tablets three times daily till 05/06/2020, then take 1 tablet daily starting on 05/07/2020 60 tablet 0 Active Additional Information Patient taking differently: 200 mg DAILY, (No instructions reported), Reason: Dosage Adjustment, Reported on 06/12/2020 hydroCHLOROthia zide (HYDRODIURIL, ESIDRIX) 25 mg tablet Take 25 mg by mouth as needed. For swelling or weight gain greater than 3# Active LACTULOSE ORAL Take by mouth four times daily as needed. 15-30 ml as needed for constipation Active polyethylene glycol 3350 (MIRALAX) 17 gram packet Take 17 g by mouth twice daily. Active megestrol (MEGACE) 40 mg tablet Take 40 mg by mouth once daily. Active cholecalciferol (VITAMIN D) 1,000 unit tab tablet Take 1,000 Units by mouth once daily. Active apixaban (ELIQUIS) 2.5 mg tab tab(s) Take by mouth twice daily. Active Active Problems Patient Care Coordination No te Formatting of this note migh t be different from the original. Indication for Surgery: Ruptured AAA Preop LVEF: Normal RVF: Normal Postop LVEF: Normal RVF: Normal Important/Relevant PMH/PSH: HTN, HLD, Prostate CA, Bladder CA, CAD, Iron deficiency anemia Preoperative Hospital Course: 80 yo male presented to OSH ED on 04/19/2020 for evaluation of acute, diffuse sharp abdominal pain. CT revealed a 9cm ruptured AAA. He was transferred to [facility] for emergent vascular surgery unavailable at the referring hospital. Chronological List of Surgeries and Major Events (Diagnosis): (Surgeries in bold characters) 04/20/2020: Open AAA (Renal/Visceral Ischemic Time: 29 minutes)- OPEN ABDOMEN 23L EBL intraop received 18 PRBC, 14 FFP, 2PLT 04/22/2020: L RP exploration, washout, and closure. Plan: f/u with PCP in 1-2weeks for BP check and f/u with Cardiology give new onset Afib PO amio eliquis 2.5BId in 2 weeks Discharge Disposition: PT recommending home PT possible /Wednesday discharge Follow Up Care: [address] Estrada Problem Noted Date Diagnosed Date New onset a-fib 05/01/2020 Overview (05/01/2020): No history of afib CMET activated for Afib with RVR, received IV amiodarone bolus, transitioned to oral amiodarone 2nd episode of afib- metoprolol IV given, back in NSR Plan: Continue metoprolol 25 mg TID, PO amiodarone taper, ? need for anticoagulation Moderate protein-calorie malnutrition 04/26/2020 Overview (05/01/2020): Prealbumin 12 Nutrition following Regular diet with ensure Acute kidney injury superimposed on chronic kidn ey disease 04/24/2020 Overview (04/29/2020): History: Ruptured AAA Assessment: Worsening renal function since his initial event, SrCr down- trending, UOP appropriate Plan: Conservative measures at this time, trend SrCr and UOP CRISSY (acute kidney injury) 04/22/2020 Overview (05/01/2020): History: Postoperative Assessment: SrCr down-trending, awaiting this morning labs Plan: Trend SrCr and UOP. Renally dose medications. Avoid nephrotoxic agents and hypotension. No need for dialysis at this time. AAA (abdominal aortic aneurysm, ruptured) 2019 Overview (05/01/2020): History: Presented to OSH with 1 day of abdominal pain. CT showing 9cm ruptured AAA Assessment: 04/20/2020: Open AAA (Renal/Visceral Ischemic Time: 29 minutes)- OPEN ABDOMEN 23L EBL intraop received 18 PRBC, 14 FFP, 2PLT 04/22/2020-04/23: L RP exploration, washout, and closure. Tolerating diet, on RA Plan: Continue to mobilize HLD (hyperlipidemia) 04/19/2020 Overview (05/01/2020): Continue home dose of Lipitor 40mg Prostate cancer 04/19/2020 Bladder cancer 04/19/2020 Resolved Problems Problem Noted Date Diagnosed Date Resolved Date Delirious 04/24/2020 04/30/2020 Overview (04/26/2020): History: Evening of 04/23 pt became disoriented and agitated Assessment: Suspect ICU delirium, given 25mg Seroquel given overnight. Drowsy this AM Plan: Continue Seroquel HS, decrease dose to 12.5mg QHS. Continue sitter at bedside Delirium 04/24/2020 04/30/2020 Overview (04/29/2020): -delirium precations -Seroquel before bed Postprocedural hypotension 04/20/2020 0 04/24/2020 Overview (04/23/2020): History: Postoperative. Assessment: Requiring vasopressors for hemodynamic support. Plan: Titrate norepinephrine infusion to maintain MAP goal 60-80. Pt is hypervolemic but no RV failure Coffee ground emesis 04/20/2020 020 Overview (04/29/2020): History: Preoperative emesis with pooling in mouth on intubation. NGT output initially noted to be light brown color. Bronch (04/22) with mild to moderate R sided inflammation and secretions. Assessment: NGT output noted to be greenish-brown. Plan: PPI therapy. Completed 5 days of empiric Zosyn. No respirtory difficulty at this time. No further evidence of bleeding. NG tube to be removed. Hypovolemia 04/20/2020 04/23/2020 Overview (04/22/2020): History: Postoperative fluid shifts. Assessment: CVP 8-12 on arrival to ICU. Plan: Continue maintenance fluids at 75 mL/hr along with PRN volume resuscitation as clinically indicated. Coagulation defect 04/20/2020 0 Overview (04/25/2020): History: Postoperative Assessment/Plan: Goal of H/H 10/30, INR < 1.5, Plt > 100, Fib > 150. No current coagulopathy. Hypothermia 04/20/2020 04/21/2020 Overview (04/20/2020): History: Postoperative Assessment: Temp 33 degree on arrival to ICU Plan: Lidocaine gtt for arrhythmia prevention until 35 degrees celsius On mechanically assisted ventilation 04/20/2020 04/23/2020 Overview (04/22/2020): History: Intubated for procedure Assessment: Grade 1 Airway. Plan: Wean to extubate. Acute postoperative pain 04/20/2020 Overview (04/26/2020): History: Postoperative Assessment: No complaint of pain at this time Plan: Continue to monitor Stress hyperglycemia 04/20/2020 020 Overview (04/25/2020): History: No history of DM, A1C (05/04/2019) 5.5 Assessment: Perioperative insulin resistance and exacerbation of hyperglycemia. BS stable. Plan: Postop insulin protocol, not currently requiring insulin. 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 Palpable PT bilaterally Plan: ASA Immunizations Immunization Administration Dates Next Due influenza (ccIIV4) vaccine, age 6+ mo, quadrivalent, PF (FLUCELVAX) 09/18/2019 Family History Medical History Relation Comments Heart disease Father Aneurysm No Family History Relation Status Comments Father Social History Tobacco Use Types Packs/Day Years Used Date Smoking Tobacco: Former Smokeless Tobacco: Never Comments:He smoked for 43 ye ars Alcohol Use Standard Drinks/Week Comments Not Currently [...] things needed for daily living? No 04/22/2020 Area Deprivation Index Answer Date Javier rded National Score (1-100), lower number is lower ri sk Not on file 09/10/2020 State Score (1-10), lower number is lower risk N ot on file 09/10/2020 Data from: https://www.neighborhoodatlas.medicine.[facility].edu/. 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 on file Not on file Not on file Last Filed Vital Signs Vital Sign Reading Time Taken Comments Blood Pressure 186/82 06/26/2021 11:27 AM EDT Pulse 59 06/26/2021 11:27 AM EDT Temperature 36.4 C (97.5 F) 05/15/2020 1:34 PM EDT Respiratory Rate 18 05/02/2020 9:45 AM EDT Oxygen Saturation 99% 05/02/2020 9:45 AM EDT Inhaled Oxygen Concentration - - Weight 61.2 kg (135 lb) 06/12/2020 2:05 PM EDT Height 167.6 cm (5' 6 ) 06/12/2020 2:05 PM EDT Body Mass Index 21.79 06/12/2020 2:05 PM EDT Plan of Treatment Health Maintenance Due Date Last Done Comments Anxiety Screening 02/03/1958 Depression Screening 02/03/1958 DTaP,Tdap,Td Vaccine (1 - Tdap) 1957 Shingrix Vaccine (1 of 2) 02/03/1988 RSV Vaccine (1 - 1-dose 75+ series) 2013 Pneumococcal Vaccine: 50+ (2 of 2 - PCV20 or PCV21) 09/24/2018 09/24/2017 Diabetes Screening 06/12/2023 06/12/2020, 0 05/23/2020, 05/15/2020, Additional history exists Advance Directive Discussion 10/04/2024 Covid-19 Vaccine (5 - 2024-2 6 season) 2025 11/16/2020, 10/26/2020, 10/15/2020, Additional history exists Influenza Vaccine (#1) 2025 , 09/18/2019, 07/17/2019, Additional history exists Medical Devices Implanted Type Area Chronic Disease Epidemiologist Device Identifier Shelf Expiration Date Model / Serial / Lot Graft Gelsoft Plus Vascutek 18/9mm 2 Branch Gelatin 45cm Vascular Main Leg - [id number] Implanted:04/19/20 20 at [facility] (Quantity not on file) Graft N/A: Artery - Aorta TERUMO 12/01/2021 [id number] / [id number] / [id number] [place] Thk1.65mm Ptfe 4x.5in Cardiovascular Sterile - [id number] Implanted:Qty: 1 on 04/19/2020 at [facility] Implant N/A: Artery - Aorta [employer] 12/01/2024 [id number] / / [id number] Procedures Procedure Name Priority Date/Time Associated Diagnosis Comments BASIC METABOLIC PANEL Routine 06/12/2020 9:23 AM EDT Hypokalemia from Last 3 Months or Most Recently Relevant to Health Maintenance Results * (ABNORMAL) BASIC METABOLIC PNL (06/12/2020 9:23 AM EDT) [facility] Glucose 95 74 - 99 mg/dL 06/12/2020 2:14 PM EDT [facility] Comment: The [place] Diabetes Association (ADA) provides guidance for cutoff values for fasting glucose and random glucose. The ADA defines fasting as no caloric intake for at least 8 hours. Fasting plasma glucose results between 100 to 125 mg/dL indicate increased risk for diabetes (prediabetes). Fasting plasma glucose results greater than or equal to 126 mg/dL meet the criteria for diagnosis of diabetes. In the absence of unequivocal hyperglycemia, results should be confirmed by repeat testing. In a patient with classic symptoms of hyperglycemia or hyperglycemic crisis, random plasma glucose results greater than or equal to 200 mg/dL meet the criteria for diagnosis of diabetes. Reference: Standards of Medical Care in Diabetes 2016, [employer] Diabetes Association. Diabetes Care. 2016.39(Suppl 1). BUN 31(H) 9 - 24 mg/dL 06/12/2020 2:14 PM EDT [facility] Creatinine 1.62(H) 0.73 - 1.22 mg/dL 06/12/2020 2:14 PM EDT [facility] Sodium 138 136 - 144 mmol/L 06/12/2020 2:14 PM EDT [facility] Potassium 4.6 3.7 - 5.1 mmol/L 06/12/2020 2:14 PM EDT [facility] Chloride 104 97 - 105 mmol/L 06/12/2020 2:14 PM EDT [facility] CO2 24 22 - 30 mmol/L 06/12/2020 2:14 PM EDT [facility] Anion Gap 10 9 - 18 mmol/L 06/12/2020 2:14 PM EDT [facility] Calcium 9.1 8.5 - 10.2 mg/dL 06/12/2020 2:14 PM EDT [facility] eGFR- 50 06/12/2020 2:14 PM T [facility] eGFR-All Other Races 41 . 06/12/2020 2:14 PM T [facility] Comment: eGFR (Estimated GFR) Units of measure: mL/min/1.73 meters squared eGFR is derived from the reexpressed MDRD Study equation using the following parameters: serum creatinine, age, gender and race. The creatinine assay has been calibrated to be traceable to IDMS. An eGFR <60 mL/min/1.73m2 for >3 months is consistent with chronic kidney disease. Refer to KDOQI guidelines for clinical interpretation. In patients with unstable renal function, e.g. those with acute kidney injury, the eGFR may not accurately reflect actual GFR. Blood specimen (specimen) BLOOD SPECIMEN / Unknown 06/12/2020 9:23 AM EDT 06/12/2020 9:25 AM EDT us Ari Estrada MD LABORATORY Final Resu lt [facility] [address] [place] [address] [facility] [address] [place] [address] from Last 3 Months or Most Recently Relevant to Health Maintenance [place] [address] [place] [address] Care Teams Director Insurance Relationship Specialty Start Date End Date Nelson Nance MD PCP - General Family Medicine 04/19/20
--- OUTSIDE RECORDS SUMMARY | 2025-07-17 12:05 | XMS_ITS | CCD ---
Author Organization [facility] Care Team Providers Care Marketing Producer Name Role Phone Klarissa Nance Primary Care Provider [phone] Klarissa Nance Primary Care Physician Klarissa Nance MD Primary Care Provider [phone] ROMY HUGHES Admitting Unavailable ROMY HUGHES Attending Unavailable KLARISSA NANCE Primary Care Unavailable LEE ANN, DR CYR Primary Care Unavailable DIAB, BRAYAN Admitting Unavailable DIAB, BRAYAN Attending Unavailable RICCARDO, DR LEANNE Buenrostro Consulting Unavailable NINOSKA GONZALES Consulting Unavailable DIAB, BRAYAN Consulting Unavailable NAVYA BUSH Admitting Unavailable NAVYA BUSH Attending Unavailable LEE ANN, DR CYR Primary Care Unavailable NAVYA BUSH Consulting Unavailable RILEY WILD Consulting Unavailable JORDAN, Boone Buenrostro Attending Unavailable SHANTELLE, David Buenrostro Attending Unavailable PEPPER, David Buenrostro Attending Unavailable SHANTELLE, David Buenrostro Admitting Unavailable SHANTELLE, David Buenrostro Attending Unavailable SHANTELLE, David Buenrostro Admitting Unavailable Klarissa Nance MD Primary Care Provider [phone] Juan Daniel Mckeon MD Attending Provider Duc MARINELLI-CMarium Attending Provider Marium Xavier Attending Unavailable Marium Xavier Admitting Unavailable Klarissa Nance Primary Care Unavailable Juan Daniel Mckeon MD Attending Provider [phone] Boone ORTEGA Attending Unavailable NILLBoone Admitting Unavailable NILL, Boone Buenrostro Attending Unavailable NILL, Boone Buenrostro Attending Unavailable PEPPER, David Buenrostro Attending Unavailable PEPPER, David Buenrostro Attending Unavailable PEPPERDavid Admitting Unavailable Allergies Allergy Classification Reported Allergen(s) Allergy Type Date of Onset Reaction(s) Facility (20 sources) Sulfonamides (Antibiotic); Translations: [sulfa drugs] Drug allergy Unknown (qualifier value), Anaphylaxis (disorder) [facility] [place] (1 source) Sulfonamides (Antibiotic) Propensity to adverse reactions to drug 2 [facility] (1 source) Sulfonamides (Antibiotic) Drug allergy (disorder) [facility] Repository (1 source) Sulfonamides (Antibiotic) Drug allergy (disorder) [address] [place] [address] Repository Medications Current Medications Medication Drug Class(es) Dates Sig (Normalized) Sig (Original) amiodarone hydrochloride 200 mg oral tablet (20 sources) Antiarrhythmic Start: 03-13-2021 take 1 tablet by mouth once daily amiodarone Tab 200 mg = 1 tab(s), Oral, Daily, # 30 tab(s), Refills(s) 0 Start Date: 03/13/21 Status: Ordered Quantity: 30.0 Unit: tab(s) Repeat number: 1 apixaban 2.5 mg oral tablet (20 sources) Factor Xa Inhibitor Start: 02-03-2024 take 1 tablet by mouth once daily Apixaban (Eliquis) 2.5 mg tablet Active 2.5 MG PO Daily February 03, 2024 12:00am Complies with drug therapy Start: 01-22-2021 take 2.5 mg by mouth twice daily Eliquis 2.5 mg, Oral, BID, Refills(s) 0 Start Date: 01/22/21 Status: Ordered Repeat number: 1 aspirin 81 mg oral tablet (16 sources) Platelet Aggregation Inhibitor, Nonsteroidal Anti-inflammatory Drug Start: 05-26-2019 take 1 tablet by mouth once daily aspirin 81 mg oral tablet 81 mg = 1 tab(s), Oral, Daily Start Date: 05/26/19 Status: Ordered Repeat number: 1 atorvastatin 40 mg oral tablet (20 sources) HMG-CoA Reductase Inhibitor Start: 03-13-2021 take 1 tablet by mouth once daily atorvastatin 40 mg Tab 40 mg = 1 tab(s), Oral, Daily, # 30 tab(s), Refills(s) 0 Start Date: 03/13/21 Status: Ordered Quantity: 30.0 Unit: tab(s) Repeat number: 1 bicalutamide 50 mg oral tablet (20 sources) Androgen Receptor Inhibitor Start: 06-07-2024 take 1 tablet by mouth every twenty-four hours bicalutamide 50 mg Tab 50 mg = 1 tab(s), Oral, q24hr, # 90 tab(s), Refills(s) 3, Pharmacy: [facility] [id number], 170.1, cm, 12/01/23 14:23:00 EST, Height/Length Dosing, 63, kg, 12/01/23 14:23:00 EST, Weight Dosing Start Date: 06/07/24 Status: Ordered Quantity: 90.0 Unit: tab(s) Repeat number: 4 Start: 02-03-2024 take 1 tablet by joe th once daily Bicalutamide 50 mg tablet Active 50 MG PO Daily February 03, 2024 12:00am Complies with drug therapy Start: 04-09-2023 take 1 tablet by joe th every twenty-four hours bicalutamide 50 mg Tab 50 mg = 1 tab(s), Oral, q24hr, # 90 tab(s), Refills(s) 3, [facility]: [id number], 169, cm, 07/15/22 7:43:00 EDT, Height/Length Dosing, [...] 03/13/21 Status: Ordered take 1 tablet by [facility] once daily bicalutamide (CASODEX) 50 MG chemo tablet Take 50 mg by mouth daily 0 Active Docusate / sennoside B (1 source) Start: 03-13-2021 docusate-senna 50 mg-8.6 mg oral capsule cap(s), Oral, qPM, Refill(s) 0 Start Date: 03/13/21 Status: Ordered docusate sodium 50 mg / sennosides, half-way 8.6 mg oral capsule (4 sources) Start: 03-13-2021 docusate-senna 50 mg-8.6 mg oral capsule cap(s), Oral, qPM, Refill(s) 0 Start Date: 03/13/21 Status: Ordered escitalopram 20 mg oral tablet (17 sources) Serotonin Reuptake Inhibitor Start: 05-22-2024 Escitalopram Oxalate 20 mg tablet Active MG PO April 23, 2025 12:00am Complies with drug therapy Start: 02-03-2024 End: 04-23-2025 take 2 tablets by mouth once daily Escitalopram Oxalate 10 mg tablet Discontinued 20 MG PO Daily February 03, 2024 12:00am April 23, 2025 2:04pm FeroSul 325 mg oral tablet (5 sources) [...] Ordered liothyronine sodium 0.005 mg oral tablet (13 sources) l-Triiodothyronine Start: 05-22-2024 take 2 tablets by mouth once daily Cytomel 5 mcg Tab 10 mcg = 2 tab(s), Oral, Daily, Refills(s) 0 Start Date: 05/22/24 Status: Ordered Repeat number: 1 Start: 02-03-2024 take 1 tablet by [facility] once daily Liothyronine 5 mcg tablet Active 5 MCG PO Daily February 03, 2024 12:00am Complies with drug therapy lisinopril 10 mg oral tablet (4 sources) Angiotensin Converting Enzyme Inhibitor Start: 04-23-2025 Lisinopril 10 mg tablet Active MG PO April 23, 2025 12:00am Complies with drug therapy megestrol acetate 40 mg oral tablet (5 sources) Progestin Start: 03-13-2021 take 1 tablet by mouth once daily megestrol 40 mg Tab TAKE 1 TABLET BY MOUTH ONCE DAILY Start Date: 03/13/21 Status: Ordered 24 hr memantine hydrochloride 7 mg extended release oral capsule (4 sources) M-fivzpi-R-aspartate Receptor Antagonist Start: 04-23-2025 take 1 mg by mouth every twenty-four hours Memantine 7 mg capsule,sprinkle ,ER 24hr Active MG PO April 23, 2025 12:00am Complies with drug therapy mupirocin 0.02 mg/mg topical ointment (16 sources) RNA Synthetase Inhibitor Antibacterial Start: 03-13-2021 mupirocin Top 2% Oint apply to affected area twice a day Start Date: 03/13/21 Status: Ordered Repeat number: 1 Start: 03-13-2021 mupirocin Top 2% Oint apply [...] mL tamsulosin hydrochloride 0.4 mg oral capsule (20 sources) alpha-Adrenergic Nazia Start: 06-15-2025 take 1 capsule by mouth once daily Flomax 0.4 mg Cap 0.4 mg = 1 cap(s), Oral, Daily, # 90 cap(s), Refills(s) 3, Pharmacy: [facility] [id number], 159, cm, 10/24/24 13:22:00 EST, Height/Length Dosing, 63.9, kg, 10/24/24 13:22:00 EST, Weight Dosing Start Date: 06/15/25 Status: Ordered Quantity: 90.0 Unit: cap(s) Repeat number: 4 Start: 02-03-2024 [facility] 1 [facility] Tamsulosin 0.4 mg capsule Active 0.4 MG PO Daily February 03, 2024 12:00am Complies with drug therapy Start: 12-31-2022 take 1 capsule by [facility] once daily Flomax 0.4 mg Cap 0.4 mg = 1 cap(s), Oral, Daily, # 90 cap(s), Refills(s) 3, [facility]: [id number], 169, cm, 07/15/22 7:43:00 EDT, Height/Length Dosing, 70, kg, 07/15/22 7:43:00 EDT, Weight Dosing Start Date: 12/31/22 Status: Ordered Start: 10-29-2021 take 1 capsule by [facility] once daily Flomax 0.4 mg Cap 0.4 mg = 1 cap(s), Oral, Daily, # 90 cap(s), Refills(s) 3, [facility]acy: [facility], 169, cm, 10/29/21 7:50:00 EST, Height/Length Dosing, 70, kg, 10/29/21 7:50:00 EST, Weight Dosing Start Date: 10/29/21 Status: Ordered tetracaine hydrochloride 5 mg/ml ophthalmic solution (1 source) Analia Local Anesthetic Start: 08-10-2022 tetracaine (TETRAVISC) 0.5 % ophthalmic solution 1 drop traMADol hydrochloride 50 mg oral tablet (11 sources) Opioid Agonist Start: 11-17-2023 take 1 tablet by mouth four times daily as needed for pain traMADOL 50 mg Tab 50 mg = 1 tab(s), Oral, QID, PRN as needed for pain, Refills(s) 0 Start Date: 11/17/23 Status: Ordered Repeat number: 1 tropicamide 10 mg/ml ophthalmic solution (1 source) Anticholinergic Start: 08-10-2022 tropicamide (MYDRIACYL) 1 % ophthalmic solution 1 drop Vitamin D (5 sources) Start: 05-26-2019 Vitamin D 1,200 [employer] t, Oral Start Date: 05/26/19 Status: Ordered Completed/Discontinued Medications Medication Drug Class(es) Dates Sig (Normalized) Sig (Original) cephalexin 500 mg oral capsule (20 sources) Cephalosporin Antibacterial Start: 07-13-2023 take 1 capsule by mouth once daily Keflex 500 mg Cap 500 mg = 1 cap(s), Oral, Daily, Take 1 capsule the day before the procedure and 1 capsule after the procedure, # 2 cap(s), Refills(s) 0, Pharmacy: [facility] [id number], 170, cm, 06/13/24 15:03:00 EDT, Height/Length Dosing, 60.4, kg, 06/13/24 15:03:00 EDT, Weight Dosing Start Date: 08/03/24 Status: Ordered Quantity: 2.0 Unit: cap(s) Repeat number: 1 Start: 07-14-2022 take 1 tablet by joe once daily Keflex 500 mg Cap 500 mg = 1 cap(s), Oral, Daily, Take 1 tablet the day before the procedure and 1 tablet after the procedure, # 2 cap(s), Refills(s) 0, Pharmacy: [facility] #[id number], 169, cm, 01/21/22 7:46:00 EDT, Height/Length Dosing, 70, kg, 01/21/22 7:46:00 EDT, Weight... 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 Cancer of bladder (5 sources) History of malignant neoplasm of bladder; Translations: [Personal history of malignant neoplasm of bladder] Onset: 01-21-2022 Episodic Cancer of prostate (16 sources) Malignant tumor of prostate 05-25-2019 Chronic Cancer of prostate (20 sources) Personal history of malignant neoplasm of prostate; Translations: [History of malignant neoplasm of prostate] Onset: 01-21-2022 Episodic Cancer; other and unspecified primary (16 sources) H/O: malignant neoplasm 10-30-2020 Episodic Cancer; other and unspecified primary (7 sources) History of bladder neoplasm 05-26-2019 Episodic Cardiac dysrhythmias (16 sources) Atrial fibrillation 03-12-2021 Chronic Cataract (4 sources) Age-related nuclear cataract of left eye; Translations: [Age-related nuclear cataract, left eye] Onset: 08-09-2022 Resolved: 08-10-2022 Chronic Chronic kidney disease (5 sources) Chronic kidney disease 08-04-2024 Chronic Disorders of lipid metabolism (20 sources) Hyperlipidemia 05-25-2019 Chronic E Codes: Other specified and classifiable (1 source) Caught, crushed, jammed, or pinched between moving objects, initial encounter; Translations: [CAUGHT CRUSH/PINCH BTWN MOV OBJ INT] Onset: 11-16-2022 Episodic Essential hypertension (16 sources) Hypertensive disorder 03-12-2021 Chronic Genitourinary symptoms [...] of skin] Onset: 12-01-2023 03-13-2021 Episodic Osteoarthritis (16 sources) Osteoarthritis 03-12-2021 Chronic Other aftercare (1 source) terminal carman (current) use of aspirin; Translations: [RESIDENTIAL CURRENT USE OF ASPIRIN] Onset: 11-16-2022 Episodic Other aftercare (1 source) Other terminal operator (current) drug therapy; Translations: [OTH DIRECT CARE SUPERVISOR CURRENT DRUG THERAPY] Onset: 11-16-2022 Episodic Other connective tissue disease (3 sources) Pain in left finger(s); Translations: [PAIN IN LEFT FINGERS] Onset: 11-13-2022 Episodic Other connective tissue disease (5 sources) Pain in left hand; Translations: [PAIN IN LEFT HAND] Onset: 11-13-2022 Episodic Other connective tissue disease (1 source) Other specified soft tissue disorders; Translations: [Other specified soft tissue disorders] Onset: 05-03-2025 Episodic Other diseases of kidney and ureters (2 sources) Urinary tract obstruction; Translations: [Other obstructive and reflux uropathy] Onset: 08-17-2023 Episodic Other non-epithelial cancer of skin (18 sources) Basal cell carcinoma of nose; Translations: [Basal cell carcinoma of skin of nose] Onset: 12-08-2023 Episodic Other screening for suspected conditions (not mental disorders or infectious disease) (16 sources) Raised prostate specific antigen 05-26-2019 Episodic Other skin disorders (16 sources) Actinic keratosis 03-12-2021 Episodic Other skin disorders (16 sources) Mass of skin 03-13-2021 Episodic Other skin disorders (16 sources) Skin tag 03-13-2021 Episodic Other skin disorders (11 sources) Inflamed seborrheic keratosis; Translations: [Inflamed seborrheic keratosis] Onset: 06-13-2024 Episodic Other skin disorders (4 sources) Plantar callosity; Translations: [Corns and callosities] 04-23-2025 Episodic Residual codes; unclassified (4 sources) Bilateral lower limb edema; Translations: [Localized edema] 04-23-2025 Episodic Screening and history of mental health and substance abuse codes (16 sources) Ex-smoker 05-25-2019 Episodic Thyroid disorders (11 sources) Hypothyroidism 11-17-2023 Chronic Unclassified (16 sources) Drug therapy finding 03-12-2021 Unclassified (16 sources) Seborrheic keratosis 03-12-2021 Varicose veins of lower extremity (4 sources) Varicose veins of lower extremity; Translations: [Varicose veins of bilateral lower extremities with other complications] 04-23-2025 Episodic Past or Other Problems Problem Classification Problem Date Documented Da te Episodic/Chronic Unclassified (16 sources) Body mass index 20-24 - normal 03-13-2021 Results Test Name Value Interpretation Reference Range Facility Urine Cytology ([facility])on 07-02-2025 Urine Cytology Diagnosis Info Invalid Interpretation Code [facility] Comment on above: Result Comment: A:Ur ine,Urine:Voided Interpretation - Occasional atypical urothelial cells with degenerative changes. CPT 81653 MicroScopic Description - Adequacy - Gross Description Site ID:A color Yellow fixative Alcohol Specimen designated Urine received in alcohol preservative and labeled with the patient???s name, consists of 60ml clear yellow fluid. Electronically signed by : on: 07/02/2025 09:24:57 Performed By: #### 1 [id number] #### [facility] [address] [place] [address] Urine Cytology ([facility])on 06-25-2025 UC Method of Extraction Voided Normal [facility] Comment on above: Performed By: #### 1 [id number] #### [facility] [address] [place] [address] UC Number of Jars 1 Invalid Interpretation Code [facility] Comment on above: Performed By: #### 1 [id number] #### [facility] [address] [place] [address] UC Specimen Urine Normal [facility] Comment on above: Performed By: #### 1 [id number] #### [facility] [address] [place] [address] UC Type of Service Technical Only Normal [facility] Comment on above: Performed By: #### 1 [id number] #### [facility] [address] [place] [address] US venous duplex LE BIon US venous duplex LE BI [facility] [place] [address] Ultrasound Report Signed Patient: Analia Olivo MR#: [id number] : 1940 Acct:[id number] Age/Sex: 85 / M ADM Date: 05/03/25 Loc: Room: Type: [facility] Attending Dr: Marium Xavier SOLAR INSTALLATION TECHNICIAN-C Ordering Provider: Marium Xavier APRN Date of Service: 05/03/25 US/US venous duplex LE BI: M79.89 - Other specified soft tissue disorders Copies to: Marium Xavier APRN Bilateral lower extremity full functional venous duplex examination Indication for study: Swollen legs PROCEDURE: Color-flow duplex scanning is used to interrogate the venous anatomy of both lower extremities. There is no evidence for deep vein thrombosis in either leg. Bilaterally the common femoral vein, femoral vein, and popliteal veins show good compressibility, color-flow, and augmentation. There is no significant reflux in the deep or superficial venous system in either lower extremity. Mild unsustained reflux was noted in the right popliteal vein. The right greater saphenous vein is normal in size. An anterior saphenous branch is noted which is also normal in size. Small varicosities are seen throughout the limb. No significant cinder pit worker incompetence is noted. There appears to be prior thrombophlebitis involving the right lesser saphenous vein. Left greater saphenous vein is normal in size throughout its course. No significant cinder pit worker incompetence is noted. Once again there is potentially prior thrombophlebitis of the lesser saphenous vein US/US venous duplex LE BI IMPRESSION: No evidence for deep vein thrombosis in either lower extremity. No significant venous valvular incompetence is noted. There may have been prior thrombophlebitis of both short saphenous veins. Impression dictated by: Juan Daniel Mckeon M.D. 05/04/2025 1:29 PM Dictation Location: [facility] Tech: Yaneli Strickland Transcribed By: J[place] 05/04/25 1329 Dictated By: Juan Daniel Mckeon MD 05/04/25 1326 Signed By: 05/04/25 1329 Normal [facility] Provider Letteron 11-01-2024 Provider Letter Provider Letter November 01, 2024 ANALIA OLIVO [address] [place] [id number] : 1940 Dear Analia, We have been trying to reach you with no success. It is important that you return our call regarding your recent lab work upon receiving this letter. Also, at the time of your call, please provide us with your current information. Thank you for your prompt attention to this matter. Sincerely, [facility] [address] [place] [address] Normal [facility] UroVysion Fish and Urine Cyt o ([facility])on 11-01-2024 UVFISH & UC Diagnosis Info Invalid Interpretation Code [facility] Comment on above: Result Comment: A:Ur [...] with cytology and cystoscopy results. * CPT: 77743, 33657. 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 Electronically signed by : on: 11/01/2024 09:18:47 Performed By: #### 1 [id number] #### [facility] [address] [place] [address] PSA Totalon 10-25-2024 Prostate specific Ag [Mass/Vol] 0.1 ng/mL Normal 0.1-3.5 [facility] Comment on above: Result Comment: The concentration of PSA determined by different manufacturers can vary due to differences in assay methods and reagent specificity. Values obtained from different assay methods cannot be used interchangeably. The methodology used for this result was chemiluminescence using [employer] Sn[employer] Hybritech PSA reagent. Performed By: #### 1 [id number] #### [facility] [address] [place] [address] Reminderson 10-24-2024 Reminders Reminders From: Renee Kim To: [facility] - Mario Pepper; Sent: 10/24/2024 13:51:35 EST Show up: 07/04/2026 13:51:00 EDT Subject: Cysto/FISH/cytol Due Date/Time: 07/29/2026 13:51:00 EDT Reminder/Recall Patient is due in Oct 2026 for 2 year cysto/fish/cytol, bt ck Normal [facility] UroVysion Fish and Urine Cyt o ( Labs)on 10-24-2024 [facility] Method of Extraction Bladder Wash Normal [facility] Comment on above: Performed By: #### 1 [id number] #### [facility] [address] [place] [address] [facility] Number of Jars 1 Invalid Interpretation Code [facility] Comment on above: Performed By: #### 1 [id number] #### [facility] [address] [place] [address] [facility] Specimen Bladder Wash Normal [facility] Comment on above: Performed By: #### 1 [id number] #### [facility] [address] [place] [address] [facility] Type of Service Technical Only Normal [facility] Comment on above: Performed By: #### 1 [id number] #### [facility] [address] [place] [address] Urology Office/Clinic Noteon 10-24-2024 Urology Office/Clinic Note [...] When Contact Information SHANTELLE OLGUIN, David Buenrostro, SANDORL In 2 years [facility] [address], [place] [address]- Additional Instructions: w/Cysto/FISH/Cytol Patient Education Benign Prostatic [...] rib (04/03 (more content not included)... Normal [facility] Comment on above: Result Comment: Elec tronically Signed By: David PEPPER MD\.br\Date and Time Signed: 10/24/24 13:49 EST\.br\Electronically Co-Signed By: Tere Servin\.br\Date and Time Co-Signed: 10/24/24 13:47 EST Reminderson 08-02-2024 Reminders Reminders From: Renee Kim To: [facility] - Dominguezs Shantelle; Sent: 08/02/2024 15:03:14 EDT Show up: 08/04/2025 15:03:00 EDT Subject: cysto/fish/cytol Due Date/Time: 08/27/2025 15:03:00 EST Reminder/Recall Patient is due in Oct 2025 for 1 year cysto/fish/cytol, bt ck Normal [facility] Ambulatory Visit Summaryon 1 Ambulatory Visit Summary Ambulatory Visit Summary ANALIA OLIVO :1940 Visit Date:07/11/2024 Ambulatory Visit Instructions Your Diagnosis Basal cell carcinoma of skin of neck Your Care Team Attending Physician - JORDAN OLGUIN, Boone Buenrostro Primary Care Physician - [...] Follow-Up Appointments Wednesday 2:00 PM EST With: JORDAN OLGUIN, Boone Buenrostro Where: [facility] [address], [address], [place] [id number]- Medications What How Much When Instructions Unchanged [...] that you are currently receiving treatment for. Ljdds-vq-aucvjdi kidney injury AK (actinic keratosis) Androgen deprivation [...] for choosing us for your care. Normal [facility] General Surgery Office/Clini c Noteon 07-11-2024 [...] data available Problem List/Past Medical History Ongoing Wemgx-ow-hsuwsdj kidney injury [place] (actinic keratosis) Androgen deprivation [...] zoster vaccin (more content not included)... Normal [facility] Comment on above: Result Comment: Elec tronically Signed By: JORDAN OLGUIN, Boone Jean.avrsha\Date and Time Signed: 07/11/24 14:05 EDT Surgical Pathology Reporton 07-10-2024 Surgical Pathology Report [facility] [address] [place] [address]- Surgical Pathology Report Collected Date/Time: 06/28/2024 14:51 EDT Pathologist: Louie OLGUIN PhD, Anna Ospina Received Date/Time: 06/29/2024 16:57 EDT JORDAN OLGUIN, Boone ORTEGA MD, Boone Veliz Surgical Pathology Report - [...] Specimen is entirely submitted in one cassette. [facility] Microscopic Description Microscopic examination performed unless gross only specified. Normal [facility] Comment on above: Performed By: #### 4 [id number] #### [facility] [address] [place] [address] Ambulatory Visit Summaryon 0 06-28-2024 Ambulatory Visit Summary Ambulatory Visit Summary ANALIA OLIVO :1940 Visit Date:06/28/2024 Ambulatory Visit Instructions Your Diagnosis Inflamed seborrheic keratosis Your Care Team Attending Physician - JORDAN OLGUIN, Boone [facility] Physician - Lee Ann OLGUIN, Klarissa This Is Your Medications List Contact prescribing [...] Follow-Up Appointments Wednesday 1:40 PM EDT With: JORDAN OGLUIN, Boone [facility] Where: [address], [address], [place] [address]- Medications What How Much When Instructions Unchanged [...] that you are currently receiving treatment for. Caech-ry-nxzrosm kidney injury [place] (actinic keratosis) Androgen deprivation [...] choosing us for your care. Normal Garcia [facility] General Surgery Office/Clini c Noteon [...] data available Problem List/Past Medical History Ongoing Lleli-pb-hirzbel kidney injury [place] (actinic keratosis) Androgen deprivation [...] Use:. Never (more content not included)... Normal [facility] Comment on above: Result Comment: Elec tronically Signed By: JORDAN OLGUIN, Boone Ray\Date and Time Signed: 06/28/24 14:29 EDT XR HAND LT MIN 3Von 11-13-19 23 [...] by: RILEY WILD Date: 2022-11-13 12:22 Normal [facility] Brain Natriuretic Peptideon 05-23-2020 Natriuretic peptide B (Bld) [Mass/Vol] 1483 pg/mL High <300 [place] Comment on above: Pro-BNP results vanesa ot be compared to BNP results. Natriuretic peptide B (Bld) [Mass/Vol] Pro-BNP Reference Range: [place] Comment on above: Rule Out: <300 Cadena Zone: Age <50 300-450 Age 50-75 300-900 Age >75 300-1800 Usually represents mild to moderate HF but other cardiopulmonary causes cannot be ruled out. Rule In: Age <50 >450 Age 50-75 >900 Age >75 >1800 CBCon 05-23-2020 Erythrocyte distribution width (RBC) [Ratio] 14.3 % 11.8 - 14.4 % [place] Hematocrit (Bld) [Volume fraction] 33.3 % Low 40.7 - 50.3 % [place] Hemoglobin (Bld) [Mass/Vol] 10.7 g/dL Low 13 - 17 g/dL [place] Interpretation and review of laboratory results Abnormal [place] MCH (RBC) [Entitic mass] 30.7 pg 25.2 - 33.5 pg [place] MCHC (RBC) [Mass/Vol] 32.1 g/dL 28.4 - 34.8 g/dL [place] MCV (RBC) [Entitic vol] 95.4 fL 82.6 - 102.9 fL [place] Platelet mean volume (Bld) [Entitic vol] 10.8 fL 8.1 - 13.5 fL [place] Platelets (Bld) [#/Vol] 196 10*3/uL [place] RBC (Bld) [#/Vol] 3.49 10*6/uL Low 4.21 - 5.7 7 m/uL [place] WBC (Bld) [#/Vol] 0.0 10*3/uL 0.0 per 10 0 WBC [place] WBC (Bld) [#/Vol] 7.3 10*3/uL [place] Comprehensive Metabolic Pane makayla 05-23-2020 Albumin [Mass/Vol] 3.6 g/dL 3.5 - 5.2 g/dL [place] Albumin/Globulin [Mass ratio] 1.1 {ratio} [place] ALP [Catalytic activity/Vol] 84 U/L 40 - 129 U/L [place] ALT [Catalytic activity/Vol] 26 U/L 5 - 41 U/L [place] Anion gap [Moles/Vol] 10 mmol/L 9 - 17 mmol/L [place] AST [Catalytic activity/Vol] 21 U/L <40 [place] Bilirubin Ql (U) 0.62 mg/dL 0.3 - 1.2 mg/dL [place] Bun/Cre Ratio 13 [place] Calcium [Mass/Vol] 9.1 mg/dL 8.6 - 10. 4 mg/dL [place] Chloride [Moles/Vol] 100 mmol/L 98 - 107 mmol/L [place] CO2 [Moles/Vol] 27 mmol/L 20 - 31 mmol/L [place] Creatinine [Mass/Vol] 1.85 mg/dL High 0.7 - 1.2 mg/dL [place] GFR 43 mL/min Low >60 [place] GFR Non- 35 mL/min Low >60 [place] Glucose [Mass/Vol] 93 mg/dL 70 - 99 mg/dL [place] Potassium [Moles/Vol] 4.7 mmol/L 3.7 - 5.3 mmol/L [place] Protein [Mass/Vol] 6.8 g/dL 6.4 - 8.3 g/dL [place] Sodium [Moles/Vol] 137 mmol/L 135 - 144 mmol/L [place] Urea nitrogen [Mass/Vol] 24 mg/dL High 8 - 23 mg/dL [place] Metabolic Panelon 05-23-2020 GFR/1.73 sq M predicted among non-blacks MDRD (S/P/Bld) [Vol rate/Area] [place] Comment on above: Average GFR for 70 o r more years old: 75 mL/min/1.73sq m Chronic Kidney Disease: <60 mL/min/1.73sq m Kidney failure: <15 mL/min/1.73sq m eGFR calculated using average adult body mass. Additional eGFR calculator available at: http://www.[employer]/multiple_crcl_2012.htm Stage 1: Some kidney damage normal GFR Stage 2: Mild kidney damage GFR 60-89 Stage 3: Moderate kidney damage GFR 30-59 Stage 4: Severe kidney damage GFR 15-29 Stage 5: Severe kidney damage GFR <15 ESRD - chronic treatment by dialysis or transplant Otheron 05-23-2020 Interpretation and review of laboratory results Abnormal [place] Brain Natriuretic Peptideon 05-14-2020 Interpretation and review of laboratory results Abnormal [place] Natriuretic peptide B (Bld) [Mass/Vol] Pro-BNP Reference Range: [place] Comment on above: Rule Out: <300 Cadena Zone: Age <50 300-450 Age 50-75 300-900 Age >75 300-1800 Usually represents mild to moderate HF but other cardiopulmonary causes cannot be ruled out. Rule In: Age <50 >450 Age 50-75 >900 Age >75 >1800 Natriuretic peptide B (Bld) [Mass/Vol] 2157 pg/mL High <300 [place] Comment on above: Pro-BNP results vanesa ot be compared to BNP results. CBC Auto Differentialon 05-04 Basophils (Bld) [#/Vol] 0.09 10*3/uL [place] Basophils/100 WBC (Bld) 1 % 0 - 2 % [place] Differential Type NOT REPORTED [place] Eosinophils (Bld) [#/Vol] 0.52 10*3/uL [place] Eosinophils/100 WBC (Bld) 6 % High 1 - 4 % [place] Erythrocyte distribution width (RBC) [Ratio] 13.9 % 11.8 - 14.4 % [place] Hematocrit (Bld) [Volume fraction] 33.0 % Low 40.7 - 50.3 % [place] Hemoglobin (Bld) [Mass/Vol] 10.6 g/dL Low 13 - 17 g/dL [place] Immature granulocytes (Bld) [#/Vol] 0 % 0 [place] Immature granulocytes (Bld) [#/Vol] 0.00 10*3/uL [place] Interpretation and review of laboratory results Abnormal [place] Lymphocytes (Bld) [#/Vol] 0.52 10*3/uL Low [place] Lymphocytes/100 WBC (Bld) 6 % Low 24 - 43 % [place] MCH (RBC) [Entitic mass] 30.8 pg 25.2 - 33.5 pg [place] MCHC (RBC) [Mass/Vol] 32.1 g/dL 28.4 - 34.8 g/dL [place] MCV (RBC) [Entitic vol] 95.9 fL 82.6 - 102.9 fL [place] Monocytes (Bld) [#/Vol] 0.17 10*3/uL [place] Monocytes/100 WBC (Bld) 2 % Low 3 - 12 % [place] Morphology Fernando (Bld) [Interp] ANISOCYTOSIS PRESENT [place] Platelet mean volume (Bld) [Entitic vol] 10.9 fL 8.1 - 13.5 fL [place] Platelets (Bld) [#/Vol] NOT REPORTED [place] Platelets (Bld) [#/Vol] 243 10*3/uL [place] RBC (Bld) [#/Vol] 3.44 10*6/uL Low 4.21 - 5.7 7 m/uL [place] RBC morphology finding Nom (Bld) NOT REPORTED [place] Segmented neutrophils/100 WBC (Bld) 85 % High 36 - 65 % [place] Segs Absolute 7.30 [place] WBC (Bld) [#/Vol] 8.6 10*3/uL [place] WBC (Bld) [#/Vol] 0.0 10*3/uL 0.0 per 10 0 WBC [place] WBC Morphology NOT REPORTED [place] Comprehensive Metabolic Pane makayla 05-14-2020 Albumin [Mass/Vol] 3.4 g/dL Low 3.5 - 5.2 g/dL [place] Albumin/Globulin [Mass ratio] 1.1 {ratio} [place] ALP [Catalytic activity/Vol] 81 U/L 40 - 129 U/L [place] ALT [Catalytic activity/Vol] 29 U/L 5 - 41 U/L [place] Anion gap [Moles/Vol] 12 mmol/L 9 - 17 mmol/L [place] AST [Catalytic activity/Vol] 33 U/L <40 [place] Bilirubin Ql (U) 0.84 mg/dL 0.3 - 1.2 mg/dL [place] Bun/Cre Ratio 16 [place] Calcium [Mass/Vol] 8.3 mg/dL Low 8.6 - 10. 4 mg/dL [place] Chloride [Moles/Vol] 99 mmol/L 98 - 107 mmol/L [place] CO2 [Moles/Vol] 26 mmol/L 20 - 31 mmol/L [place] Creatinine [Mass/Vol] 2.07 mg/dL High 0.7 - 1.2 mg/dL [place] GFR 37 mL/min Low >60 [place] GFR Non- 31 mL/min Low >60 [place] Glucose [Mass/Vol] 143 mg/dL High 70 - 99 mg/dL [place] Interpretation and review of laboratory results Abnormal [place] Potassium [Moles/Vol] 3.8 mmol/L 3.7 - 5.3 mmol/L [place] Protein [Mass/Vol] 6.4 g/dL 6.4 - 8.3 g/dL [place] Sodium [Moles/Vol] 137 mmol/L 135 - 144 mmol/L [place] Urea nitrogen [Mass/Vol] 33 mg/dL High 8 - 23 mg/dL [place] Metabolic Panelon 05-14-2020 GFR/1.73 sq M predicted among non-blacks MDRD (S/P/Bld) [Vol rate/Area] [place] Comment on above: Stage 1: Some [...] body mass. Additional eGFR calculator available at: http://www.[employer]ike/multiple_crcl_2012.htm Vital Signs Date Time Vital Sign Value Performing Clinician Facility 05-21-2025 14:14-0400 Body temperature 97.3 [degF] Klarissa Nance MD Work Phone: [facility] 05-21-2025 14:14-0400 Diastolic blood pressure 60 mm[Hg] Klarissa Nance MD Work Phone: [facility] 05-21-2025 14:14-0400 Heart rate 66 /min Klarissa Nance MD Work Phone: [facility] 05-21-2025 14:14-0400 SaO2% (BldA) [Mass fraction] 97 % Klarissa Nance MD Work Phone: [facility] 05-21-2025 14:14-0400 Systolic blood pressure 130 mm[Hg] Klarissa Nance MD Work Phone: [facility] 10-24-2024 12:59-0500 Blood Pressure Location Davidbisi PEPPER [facility] 10-24-2024 12:59-0500 Diastolic blood pressure 90 mm[Hg] David PEPPER [facility] 10-24-2024 12:59-0500 Heart rate 62 /min David PEPPER [facility] 10-24-2024 12:59-0500 Respiratory rate 16 /min David PEPPER [facility] 10-24-2024 12:59-0500 Systolic blood pressure 150 mm[Hg] David PEPPER [facility] 06-13-2024 14:58-0400 Blood Pressure Location Boone ORTEGA [facility] 06-13-2024 14:58-0400 Diastolic blood pressure 60 mm[Hg] Boone ORTEGA [facility] 06-13-2024 14:58-0400 Heart rate 68 /min Boone ORTEGA [facility] 06-13-2024 14:58-0400 Respiratory rate 16 /min Boone NILL [facility] 06-13-2024 14:58-0400 Systolic blood pressure 122 mm[Hg] Boone NILL [facility] 12-01-2023 14:17-0500 Diastolic blood pressure 64 mm[Hg] Boone NILL [facility] 12-01-2023 14:17-0500 Heart rate 72 /min Boone NILL [facility] 12-01-2023 14:17-0500 Respiratory rate 16 /min Boone NILL [facility] [place] 12-01-2023 14:17-0500 Systolic blood pressure 138 mm[Hg] Boone NILL [facility] [place] 08-17-2023 13:30-0500 Blood Pressure Location Davidbisi PEPPER [facility] 08-17-2023 13:30-0500 Diastolic blood pressure 84 mm[Hg] David PEPPER [facility] 08-17-2023 13:30-0500 Systolic blood pressure 128 mm[Hg] David PEPPER [facility] 08-10-2022 16:00-0500 Diastolic blood pressure 50 mm[Hg] Romy Hughes DO Work Phone: [facility] 08-10-2022 16:00-0500 Heart rate 60 /min Romy Giuseppe DO Work Phone: [facility] 08-10-2022 16:00-0500 Respiratory rate 18 /min Romy Hughes DO Work Phone: [facility] 08-10-2022 16:00-0500 SaO2% (BldA) [Mass fraction] 97 % [facility] 08-10-2022 16:00-0500 Systolic blood pressure 152 mm[Hg] Romy Hughes DO Work Phone: [facility] 08-10-2022 15:15-0500 Body temperature 98.01 [degF] Romy Hughes DO Work Phone: [facility] 08-10-2022 14:16-0500 Body height 167.6 cm Romy Hughes DO Work Phone: [facility] 08-10-2022 14:16-0500 Body mass index (BMI) [Ratio] 22.44 kg/m2 Romy Hughes DO [facility] 08-10-2022 14:16-0500 Body weight 63.05 kg Romy Hughes DO Work Phone: [facility] 07-15-2022 07:40-0400 Blood Pressure Location David PEPPER [facility] 07-15-2022 07:40-0400 Diastolic blood pressure 70 mm[Hg] Davidbisi PEPPER [facility] 07-15-2022 07:40-0400 Heart rate 60 /min David PEPPER [facility] 07-15-2022 07:40-0400 Respiratory rate 16 /min Davidbisi PEPPER [facility] 07-15-2022 07:40-0400 Systolic blood pressure 130 mm[Hg] David PEPPER [facility] 01-21-2022 07:36-0400 Blood Pressure Location [facility] 01-21-2022 07:36-0400 Diastolic blood pressure 75 mm[Hg] David PEPPER [facility] Luis 01-21-2022 07:36-0400 Heart rate 80 /min David PEPPER [facility] Luis 01-21-2022 07:36-0400 Respiratory rate 16 /min David PEPPER [facility] Luis 01-21-2022 07:36-0400 Systolic blood pressure 130 mm[Hg] David PEPPER [facility] Luis Encounters Encounter Date Encounter Type Care Provider Facility Start: 06-25-2025 End: 06-25-2025 ambulatory David PEPPER Facility:[facility] Start: 06-25-2025 End: 06-25-2025 Patient encounter procedure David PEPPER [facility] Start: 05-21-2025 End: 05-21-2025 ambulatory Klarissa Nance MD Work Phone: [facility] Work Phone: Start: 05-21-2025 End: 05-21-2025 Patient encounter procedure Juan Daniel Mckeon MD -[facility] [place] Work Phone: Start: 05-03-2025 End: 05-03-2025 Patient encounter procedure Marium Xavier [employer] [facility] Work Phone: Start: 05-03-2025 End: 05-03-2025 ambulatory Klarissa Nance MD Work Phone: [facility] Work Phone: Start: 04-23-2025 End: 04-23-2025 ambulatory Klarissa Nance MD Work Phone: [facility] Work Phone: Start: 04-23-2025 End: 04-23-2025 Patient encounter procedure Juan Daniel Mckeon MD -[facility] [place] Work Phone: Start: 10-24-2024 End: 10-24-2024 ambulatory David Chitra PEPPER Facility:[facility] Start: 10-24-2024 End: 10-24-2024 Lab Drop off David PEPPER [facility] Start: 10-24-2024 End: 10-24-2024 ambulatory David Chitra PEPPER Facility:[facility] Start: 10-24-2024 End: 10-24-2024 Lab Drop off David R PEPPER [facility] Start: 10-24-2024 End: 10-24-2024 ambulatory David R PEPPER Facility:[facility] Start: 10-24-2024 End: 10-24-2024 Patient encounter procedure Davidbisi PEPPER [facility] Start: 08-08-2024 End: 08-08-2024 ambulatory Boone R NILL Facility:[facility] Start: 08-08-2024 End: 08-08-2024 Patient encounter procedure Boone R NILL [facility] Start: 07-11-2024 End: 07-11-2024 ambulatory Boone R NILL Facility:[facility] Start: 07-11-2024 End: 07-11-2024 [facility] Start: 06-28-2024 End: 06-28-2024 Lab Drop off Boone R NILL [facility] Start: 06-28-2024 End: 06-28-2024 ambulatory Boone R NILL Facility:[facility] Start: 06-28-2024 End: 06-28-2024 Patient encounter procedure Boone R NILL [facility] Start: 06-13-2024 End: 06-13-2024 Patient encounter procedure Boone R NILL [facility] Start: 12-08-2023 End: 12-08-2023 Patient encounter procedure Boone R NILL [facility] [place] Start: 12-01-2023 End: 12-01-2023 Patient encounter procedure Boone R NILL [facility] [place] Start: 08-17-2023 End: 08-17-2023 Lab Drop off David PEPPER [facility] Start: 08-17-2023 End: 08-17-2023 Patient encounter procedure David PEPPER [facility] Start: 06-14-2023 End: 06-14-2023 Patient encounter procedure David PEPPER [facility] [place] Start: 11-13-2022 End: 11-14-2022 ambulatory NAVYA BUSH Facility:[facility] Start: 08-10-2022 End: 08-10-2022 ambulatory ROMY HUGHES [facility] Start: 08-10-2022 End: 08-10-2022 Subsequent hospital visit by physician Romy Hughes DO Work Phone: [facility] Start: 07-15-2022 End: 07-15-2022 Patient encounter procedure David PEPPER [facility] Luis Start: 01-21-2022 End: 01-21-2022 Patient encounter procedure David Chtira PEPPER [facility] Start: 05-23-2020 End: 05-23-2020 Subsequent hospital visit by physician Klarissa Nance [facility] Start: 05-14-2020 End: 05-14-2020 [facility] Procedures Date Procedure Procedure Detail Performing Clinician Start: 05-03-2025 Duplex scan of lower limb veins Klarissa Nance MD Work Phone: Start: 10-24-2024 Cystoscopy David NARVAEZS Start: 08-17-2023 Transurethral cystoscopy David PEPPER Start: 07-15-2022 Cystoscopy David BAPTISTE TERS Start: 01-21-2022 Cystoscopy David BAPTISTE TERS Start: 10-29-2021 Cystoscopy David BAPTISTE TERS Start: 07-30-2021 Cystoscopy David BAPTISTE TERS Start: 04-30-2021 Cystoscopy David BAPTISTE TERS Start: 01-22-2021 Cystoscopy David BAPTISTE TERS Start: 10-30-2020 Cystoscopy David WA TERS Start: 07-30-2020 Cystoscopy David PETERSON Start: 05-23-2020 Blood count complete automated Klarissa [...] o f prostate using ultrasound guidance David EPPPER Start: 04-13-2006 Transrectal biopsy o f prostate using ultrasound guidance David PEPPER Start: 10-04-2005 Intracavitary brachytherapy David PEPPER Extraction of cataract Jaziel ORTEGA Hydrocelectomy David Islas Plan of Treatment Date Care Activity Detail Author Start: 05-03-2025 Duplex scan of lower limb veins US venous duplex LE BI [facility] Start: 05-03-2025 US Lower extremity v ein - bilateral [facility] Start: 08-10-2022 End: 08-10-2022 Xcapsl ctrc rmvl insj io lens prosth w/o ecp EYE CATARACT EMULSIFICATION IOL IMPLANT Age-related nuclear cataract of both eyes 08/10/2022 2:50 PM [facility] Start: 05-04-2022 Influenza vaccination Flu vaccine (# 1) [facility] Start: 01-11-2021 COVID-19 Vaccine (4 - Booster) COVID-19 Vaccine (4 - Booster) [facility] Start: 06-04-2020 Influenza vaccination Flu vaccine (# 1) [place] Start: 1959 DTaP/Tdap/Td vaccine (1 - Tdap) DTaP/Tdap/Td vaccine (1 - Tdap) [facility] Oxygen therapy [Mini mum Data Set] Initiate Oxygen Therapy Protocol Respiratory Care Routine Daily until discontinued starting 08/10/2022 [facility] Work Phone: Comment on above: Daily until disconti nued starting 08/10/2022 Oxygen therapy [Mini mum Data Set] Initiate Oxygen Therapy Protocol Respiratory Care Routine Daily until discontinued starting 08/10/2022 [facility] Work Phone: Comment on above: Daily until disconti nued starting 08/10/2022 Immunizations Immunization Date Immunization Notes Care Provider Yg rae 08-08-2023 influenza virus vaccine, unspecified formulation David [employer]nsic [facility] 10-23-2022 zoster vaccine recombinant David [employer]nsic [facility] 07-30-2022 influenza virus vaccine, unspecified formulation David PEPPER [facility] 07-30-2022 zoster vaccine recombinant David [employer] [facility] 10-09-2021 influenza virus vaccine, unspecified formulation David [employer]nsic [facility] 07-23-2021 SARS-CoV-2 (COVID-19 ) mRNA BNT-162b2 vax [employer]vis[employer] [facility] 07-22-2021 tetanus toxoid, redu genesis diphtheria toxoid, and acellular pertussis vaccine, adsorbed David Corensic [facility] 11-16-2020 SARS-CoV-2 (COVID-19 ) mRNA BNT-162b2 vax David [employer]nsic [facility] 10-26-2020 SARS-CoV-2 (COVID-19 ) mRNA BNT-162b2 vax [employer] 10-15-2020 SARS-CoV-2 (COVID-19 ) mRNA BNT-162b2 vax David [employer]nsic [facility] 10-14-2020 SARS-CoV-2 (COVID-19 ) mRNA BNT-162b2 vax David [employer]nsic [facility] 07-18-2020 influenza virus vaccine, unspecified formulation [employer] 09-18-2019 influenza virus vaccine, unspecified formulation [employer] 07-17-2019 influenza virus vaccine, unspecified formulation [employer] 10-14-2018 influenza virus vaccine, unspecified formulation [employer] 09-24-2017 influenza, unspecifi ed formulation [employer]vis[employer] [facility] 09-24-2017 pneumococcal conjuga te vaccine, 13 valent David [employer]nsic [facility] Payers Date Payer Category Payer Self-pay 2024 Medicare [id number] 2024 Private Health Insurance [id number] [id number] 2024 Medicare [id number] 2006 Medicare [id number] 1959 Medicare [id number] 1959 Private Health Insurance CLI [id number] 1938 Unknown [id number] 1938 Unknown [id number] 1938 Unknown [id number] 1938 Unknown [id number] 1938 Unknown [id number] 1938 Unknown [id number] 1938 Unknown [id number] 1938 Unknown [id number] 1938 Unknown [id number] 1938 Unknown [id number] 1938 Unknown [id number] 1938 Unknown [id number] Medicare Medicare [id number] Medicare Medicare Outpatient [id number] [id number] Unknown [id number] Social History Date Type Detail Facility Tobacco smoking stat [facility] Unknown if ever smoked [place] Start: 1940 Sex Assigned At Not on file M [facility] [place] Start: 04-01-2021 End: 10-24-2024 Tobacco smoking status Ex-smoker (finding) [facility] Tobacco smoking status Never [facility] Sex Assigned At Male [facility] History of tobacco use Current smoker [employer] Phone: History of tobacco use Cigarette Smoker B ON [employer] Phone: Start: 08-03-2022 Tobacco use and exposure Smoke less tobacco non-user [employer] Phone: Start: 08-10-2022 Alcohol intake Current drinke r of alcohol (finding) [employer] Phone: Start: 08-03-2022 Alcohol Comment [employer] Phone: Start: 07-24-2022 End: 08-03-2022 Exposure to SARS-CoV-2 (event) Not sure [employer] Phone: Start: 04-15-2019 Sex Male (finding) [facility] Start: 1940 Sex Assigned At Male F [facility] Sexual Orientation [facility] Medical Equipment Procedure Code Equipment Code Equipment Origin al Text Equipment Identifier Dates Lens Intraocular Bcnvx 23.5+ Diopt 6x12.5 Mm Acryl [employer] - [id number] Start: 08-10-2022 Functional Status Date Assessment Result Facility 10-24-2024 Functional Status N/A [facility] 06-13-2024 Functional Status N/A [facility] [place] 12-01-2023 Functional Status N/A [facility]obar [facility] 08-17-2023 Functional Status N/A [facility] 07-15-2022 Functional Status N/A [facility] Clinical Notes 01-21-2022 to 04-23-2025 Note Date & Type Note Facility 04-23-2025 Evaluation note Diagnosis Onset Date Resolution Bilateral lower extremity edema acute April 23, 2025 1:57pm Plantar callus acute April 23, 2025 1:57pm Symptomatic varicose veins of both lower extremities acute April 23, 2025 1:57pm [facility] Work Phone: 1(691) 662-965301-21-2025 Hospital Discharge instructions Patient Education 10/24/2024 13:33:17 Benign Prostatic Hyperplasia Benign Prostatic Hyperplasia Benign prostatic hyperplasia (BPH) is an enlarged prostate gland that is caused by the normal agingprocess. The prostate may get bigger as a man gets older. The condition is not caused by cancer. The prostate is a walnut-sized gland that is involved in the production of semen. It is located in front of the rectum and below the bladder. The bladder stores urine. The urethra carries stored urine ou t of the body. An enlarged prostate can press on the urethra. This can make it harder to pass urine. The buildup of urine in the bladder can cause infection. Back pressure and infection may progress to bladder damage and kidney (renal) failure. What are the causes? This condition is part of the normal aging process. However, not all men develop problems from thiscondition. If the prostate enlarges away from the [...] urethra. Follow these instructions at home: Take edls-qla-ekoukkq and prescription medicines only as told by [...] provider. Document Revised: 04/08/2022 Document Reviewed: 04/08/2022 [employer] Patient Education 2023 [employer]. Follow Up Care 08/03/2024 11:12:17 With:SHANTELLE OLGUIN, David Buenrostro, URL Address: [facility] [address] , [place] [address]- When:Within 2 Year(s) Comments:w/Cysto/FISH/Cytol [facility] 01-21-2025 Evaluation + Plan note Diagnostic Tests Pending * PSA Total 10/24/24 [facility] 01-21-2025 Evaluation + Plan note Diagnostic Tests Pending * UroVysion Fish and Urine Cyto ([facility]) 10/24/24 [facility] 01-21-2025 NotePatient Education Urology Benign Prostatic Hyperplasia Benign prostatic hyperplasia (BPH) is an enlarged prostate gland that is caused by the normal agingprocess. The prostate may get bigger as a man gets older. The condition is not caused by cancer. The prostate is a walnut-sized gland that is involved in the production of semen. It is located in front of the rectum and below the bladder. The bladder stores urine. The urethra carries stored urine ou t of the body. An enlarged prostate can press on the urethra. This can make it harder to pass urine. The buildup of urine in the bladder can cause infection. Back pressure and infection may progress to bladder damage and kidney (renal) failure. What are the causes? This condition is part of the normal aging process. However, not all men develop problems from thiscondition. If the prostate enlarges away from the [...] this procedure, a tool is inserted through theopening at the tip of the penis (urethra). [...] procedure uses radio frequencies to destroy and removea small amount of prostate tissue. ? Interstitial laser coagulation (ILC). This procedure uses a laser to destroy and remove a small amount of prostate tissue. ? Transurethral electrovaporization (TUVP). This procedure uses electrodes to destroy and remove a small amount of prostate tissue. ? Prostatic urethral lift. This procedure inserts an implant to push the lobes of the prostate awayfrom the urethra. Follow these instructions at home: ??? Take ijcp-fic-qhntgqh and prescription medicines only as told by [...] symptoms do not get (more content not included)...[facility]11-14-2023 Evaluation + Plan note Diagnostic Tests Pending * UroVysion Fish and Urine Cyto ([facility]) 08/17/23 [facility]10-10-2023 Hospital Discharge instructions Follow Up Care 07/13/2023 09:25:11 With:SHANTELLE OLGUIN, David Buenrostro, URL Address: [facility] [address] , [place] [address]- When:Within 1 Year(s) Comments:w/cysto/FISH/Cytology, bt ck [facility] 02-10-2023 NotePROCEDURE: XR FINGER MIN 2 VIEWS HISTORY: Injury [...] Electronically authenticated by: LEANNE GU Date: 2022-11-13 14:51[facility] [id number] History of Present illness Narrative* Linda Hogue RN - 08/10/2022 4:05 PM EST Discharge Criteria Inpatients must meet Criteria 1 [...] 14. Accompanied by a responsible adult. Yes * Linda Hogue RN - 08/10/2022 3:30 PM EST Babatunde Guardado CRNA notified of patient's blood pressure. New order received. [facility] [employer] Work Phone: 1(427) 975-639511-07-2022 Hospital Discharge instructions* Discharge Instructions* Romy Hughes DO - 08/10/2022 3:17 PM [...] the healing period. The office number is [phone]. Take surgery bag and all eye drops to Dr. Hughes's office tomorrow at 10:15am. You may resume your normal diet. Start your eye drops tomorrow after your post-op appointment: Ofloxacin/Polytrim one drop to the operated eye 4 times daily Prednisolone one drop to the operated eye 4 times daily [facility] Work Phone: [phone]) 490-426510-12-2022 Evaluation + Plan note Diagnostic Tests Pending * UroVysion Fish and Urine Cyto ([facility]) 07/15/22 [facility] 10-12-2022 Hospital Discharge instructions Patient Education 07/15/2022 07:51:28 [...] very early stages, before it spreads and becomesharder to treat and before you would start [...] exam in which a health care provider usesa gloved finger to check prostate size (digital [...] a flexible tube with a small camera isinserted into the rectum. CT colonography. This test uses X-rays and a contrast dye to check the colon for polyps. If a polypis found, you may need to have a [...] if anything looks unusual. Men with a geykai-fwph-omdhta risk for skin cancer may want to see a tool specialist (computer video game designer) for an annual body check. Where to find more information National Cancer [place]: https://www.cancer.gov/about-cancer/screening Centers for Disease Control and Prevention: https://www.cdc.gov/cancer/dcpc/prevention/screening.htm [place] [employer]: https://www.cancer.org/latest-news/1-hxhmgh-yuvuejcng-flqgb-qsu-hbj.html Contact a health care provider if: You [...] 06/17/2017 Document Revised: 06/09/2019 Document Reviewed: 06/17/2017 [employer] Patient Education 2020 [employer] Follow Up Care 06/25/2022 14:20:11 With:SHANTELLE OLGUIN, David Buenrostro, URL Address: [facility] [address] , [place] [address]- When:1 year Comments:Cysto/FISH/Cyto [facility] 04-20-2022 Evaluation + Plan note Diagnostic Tests Pending * PSA Total 01/21/22 * UroVysion Fish and Urine Cyto ([facility]) 01/21/22 [facility] 04-20-2022 Hospital Discharge instructions Patient Education 01/21/2022 07:50:57 [...] who: Are older than age 65. Are -[place]. Are obese. Have a family history of [...] prostate and lymph nodes with the help ofa robotic arm that is controlled by a [...] cells. Follow these instructions at home: Take yvpw-kfk-zradhbi and prescription medicines only as told by your health care provider. Maintain a healthy diet. Get plenty of sleep. Consider joining a support group for men who have prostate cancer. Meeting with a support group mayhelp you learn to cope with the stress [...] prostate cancer. Meeting with a support group mayhelp you learn to cope with the stress of having cancer. This information is not intended to replace advice given to you by your health care provider. Make sure you discuss any questions you have with your health care provider. Document Released: 09/20/2006 Document Revised: 09/02/2018 Document Reviewed: 05/31/2017 [employer] Patient Education 2020 [employer]. 01/21/2022 07:24:07 Cancer Screening for Men Cancer [...] very early stages, before it spreads and becomesharder to treat and before you would start [...] exam in which a health care provider usesa gloved finger to check prostate size (digital [...] a flexible tube with a small camera isinserted into the rectum. CT colonography. This test uses X-rays and a contrast dye to check the colon for polyps. If a polypis found, you may need to have a [...] if anything looks unusual. Men with a qmmkfs-cudl-gshcci risk for skin cancer may want to see a tool specialist (computer video game designer) for an annual body check. Where to find more information National Cancer [place]: https://www.cancer.gov/about-cancer/screening Centers for Disease Control and Prevention: https://www.cdc.gov/cancer/dcpc/prevention/screening.htm [place] [employer]: https://www.cancer.org/latest-news/0-kkdego-clnsyhelr-nrpua-nnk-fbw.html Contact a health care provider if: You [...] 06/17/2017 Document Revised: 06/09/2019 Document Reviewed: 06/17/2017 [employer] Patient Education 2020 [employer] Follow Up Care 10/29/2021 09:32:38 With:SHANTELLE OLGUIN, David Buenrostro, URL Address: [facility] [address] , [place] [address]- [phone] When:07/23/2022 [facility] [place] Evaluation + Plan note Future Appointments Appointment Date:12/08/2023 03:20:00 PM Scheduled Provider:Boone ORTEGA MD Location:[facility] Appointment Type:GS Established 15 General Surgery [place] Evaluation + Plan noteGeneral Surgery [place] Evaluation + Plan note Future Appointments Appointment Date:06/28/2024 03:00:00 PM Scheduled Provider:Boone ORTEGA MD Location:[facility] Appointment Type:GS Procedure 30 [facility] Surgery [place] Evaluation + Plan note Future Appointments Appointment Date:07/11/2024 01:40:00 PM Scheduled Provider:Boone ORTEGA MD Location:[facility] Appointment Type: Established 15 [facility] Surgery [place] Evaluation + Plan note Future Appointments Appointment Date:08/08/2024 02:00:00 PM Scheduled Provider:Boone ORTEGA MD Location:[facility] Appointment Type: Established 15 [facility] Surgery [place] Evaluation + Plan note Future Appointments Appointment Date:10/24/2024 01:15:00 PM Scheduled Provider:David PEPPER MD Location:[facility] Appointment Type:URO Procedure 15 min [facility] [place] evaluation note* Diagnosis 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 in this encounter [facility] Work Phone: evaluation noteNo assessment information available [facility] Work Phone: Hospital course Narrative No data available for this section [facility] Discharge instructions No data available for this section [facility] No data available for this section [facility] Reason for referral (narrative) Referred by: JORDAN OLGUIN, Boone Buenrostro [facility] Surgery [place] Reason for referral (narrative)No reason for referral [facility] Work Phone: Advance Directives No Advanced Directives Records FoundDocuments on File Type Date Recorded 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 Advance Directives and Living Will Power of Coat Joiner Lockstitch Documents on File Type Date Recorded 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 ACP-Advance Directive ACP-Power of Coat Joiner Lockstitch Latest Code Status on File Code Status Date Activated Date Inactivated Comments Full Code 08/10/2022 1:45 PM Advance Directive Response Recorded Date/ Time Advance Directives No August 07, 2021 6:07pm Summary Purpose Family History No Family History Records Found Relationship Condition Age at Onset Recorded Date/T klever Not Specified No pertinent family history Unknown Chief Complaint and Reason for Visit Chief Complaint Admit Date ref by Klarissa Nance for venous insufficie ncy April 23, 2025 1:57pm Chief Complaint Admit Date ref by Klarissa Nance for venous insufficie ncy April 23, 2025 1:57pm M79.89 May 03, 2025 12:5 1pm Reason for Visit Admit Date Bilateral lower extremity edema April 1:57pm Plantar callus April 23, 2025 1:57 pm Symptomatic varicose veins of both lower extremities April 23, 2025 1:57pm Chief Complaint Admit Date ref by Klarissa Nance for venous insufficie ncy April 23, 2025 1:57pm M79.89 May 03, 2025 12:5 1pm F/U after US May 21, 2025 2: 02pm Additional Source Comments Patient Care team informatio n (unrecognized section and content) Marketing Producer Relationship Specialty Start Date End Date Klarissa Nance MD [facility] [place] [address] PCP - General Family Medicine 05/14/20 Team Status: Active Member Role Status Dates Klarissa Nance MD Primary Care Provider Active Team Status: Inactive Member Role Status Dates Klarissa Nance MD Primary Care Provider Active Start: April 23, 2025 End: April 23, 2025 Juan Daniel Mckeon MD Attending Provider Active S tart: April 23, 2025 End: April 23, 2025 Team Status: Inactive Member Role Status Dates Klarissa Nance MD Primary Care Provider Active Start: April 23, 2025 End: April 23, 2025 LUIGI William Attending Provider Active Start: April 23, 2025 End: April 23, 2025 Team Status: Inactive Member Role Status Dates Klarissa Nance MD Primary Care Provider Active Start: May 03, 2025 End: May 03, 2025 LUIGI William Attending Provider Active Start: May 03, 2025 End: May 03, 2025 Team Status: Inactive Member Role Status Dates Klarissa Nance MD Primary Care Provider Active Start: May 21, 2025 End: May 21, 2025 Juan Daniel Mckeon MD Attending Provider Active S tart: May 21, 2025 End: May 21, 2025 Reason for Visit (unrecogniz ed section and content) Specialty Diagnoses / Procedures Referred By Anjali t Referred To Contact Diagnoses Age-related nuclear cataract of both eyes AGE-RELATED NUCLEAR CAT 3+NS, 1+CS H25.12 Procedures ID XCAPSL CTRC RMVL INSJ IO LENS PROSTH W/O ECP EYE CATARACT EMULSIFICATION IOL IMPLANT Romy Hughes, DO [address] [place] [address] [facility] [address] [place] [address] Referral ID Status Reason Start Date Expiration Date Visits Re quested Visits Authorized [id number] 1 1 Scheduled Active and Recently Administ [...] prior to surgery., Pre-op (day of surgery) 141 (Given - Provid er: Bhavana David RN)142 [...] 1457 (Given - Provid er: Romy Hughes, ) sodium chloride flush 0.9 % injection 5-40 [...] content) DATE CREATED AUTHOR 08/10/2022 Sanam Prasad [facility] DATE CREATED AUTHOR AUTHOR'S ORGANIZ ATION 11/16/2022 [facility] DATE CREATED AUTHOR AUTHOR'S ORGANIZ ATION 08/10/2024 [facility] DATE CREATED AUTHOR AUTHOR'S ORGANIZ ATION 10/31/2024 [facility] DATE CREATED AUTHOR AUTHOR'S ORGANIZ ATION 11/02/2024 [facility] DATE CREATED AUTHOR AUTHOR'S ORGANIZ ATION 05/05/2025 [facility] DATE CREATED AUTHOR AUTHOR'S ORGANIZ ATION 06/26/2025 [facility] DATE CREATED AUTHOR AUTHOR'S ORGANIZ ATION 06/27/2025 [facility] DATE CREATED AUTHOR AUTHOR'S ORGANIZ ATION 07/08/2025 [facility] Goals (unrecognized section and content) Goals may be documented in a n alternate section FOR RECORDS PERTAINING TO PATIENTS WHO ARE [...] BE BASED ON THE PRIMARY CLINICAL RECORDS. [employer] [facility]. provides no warranty or guarantee of the accuracy or completeness of information in this document.
--- NOTE | 2025-07-17 12:22 | XR_ITS ---
The [address] [address] Patient Name: ANALIA OLIVO MRN: [id number] date: 1940 Sex: M Assigned Patient Location: [facility] Current Patient Location: [facility] Accession/Order Number: [id number] Exam Date: 07/17/2025 12:13 Report Date: 07/17/2025 18:02 At the request of: KLARISSA ENGLE MD Procedure: XR shoulder LT min 2V XR shoulder LT min 2V 07/17/2025 12:23 PM SIGNS AND SYMPTOMS: ^left shoulder pain PROTOCOL: 3 views of the left shoulder COMPARISON: None FINDINGS: Atherosclerotic changes are noted in the thoracic aorta. Mild hypertrophic changes are noted in the acromioclavicular joint. There is mild narrowing of the glenohumeral joint. Subcortical sclerosis is noted in the greater tuberosity of the humeral head suspicious for underlying rotator cuff pathology. There is no fracture or dislocation. The visualized left hemithorax is grossly intact. Calcified plaque is noted in the carotid bifurcations. XR/XR shoulder LT min 2V IMPRESSION: No fracture or dislocation. Degenerative changes are noted in the left shoulder with findings suspicious for underlying rotator cuff pathology as above. Impression dictated by: Jeremiah Rodriguez M.D. 07/17/2025 6:02 PM Dictation Location: [place] [address] Electronically authenticated by: [id number] Y Date: 07/17/2025 18:02
== END 2025-07-17 12:02 | disposition home or self-care (01) ==
LOC: RAD 12:02
PROVIDERS: PCP Family Medicine; Visit Provider Family Medicine
DX: M25.512 Pain in left shoulder (principal); M19.012 Primary osteoarthritis, left shoulder
CPT/HCPCS: 73030